=== PATIENT | female | born 1960 | race Caucasian/White ===

== ENCOUNTER 2017-06-15 12:13 | Emergency (ER) | payer MEDICAID ==
[~2017-06-15] VITALS: Ht 152.4 cm; Wt 93.0 kg
[~2017-06-15 12:13] MED LIST: ACET650S PO; ACID1TAB5 PO; ADVAIR; ALBU2.5V4 NEB; ALPR0.25 PO; ALPR0.5T PO; ALPR0.5T7 PO; ALPR1TAB7 PO; AZIT500T PO; BENZ100C18 PO; BUDE0.5A2 IH; BUDE10.2 INH; BUDE6HFA INH; CEFE1VIA10 IV; CEFU500T5 PO; CETI10TA17 PO; CLOT10TR PO; CYCL10TA9 PO; DNPZ10T PO; DXCC100C PO; ENXP40I.4 SC; FAMO20TA5; FISH OIL PO; FLUT16SP22 NS; FRSM40T PO; FURO20TA4 PO; FURO40TA4 PO; GFN600TCR PO; GUAI5LIQ PO; HYDR-3816 PO; HYDR118S10 PO; IBUP-1773 PO; IPRA0.2S18 IH; K-ROCEP1PB IV; LEVA1.256 IH; LEVO750T39 PO; LORA10TA7 PO; LRT10T PO; METH125V2 IJ; METO-272 PO; MNTL10T PO; MONT10TA24 PO; MTP50T PO; Metoprolol Succinate PO; PNT40TEC PO; PRD10T PO; PRD20T PO; PRED10TA PO; Prednisone PO; ROFL500T PO; RT-ALBUINH IH; RT-ALBUINH INH; SERT50TA PO; SERT50TA9 PO; SODI88SP5 NS; TIOT18CA IH; TIOT18CA2 INH
[2017-06-15] MEDS ORDERED: morphine INJ 10 MG/ML 1ML (SYR OR VIAL) IM STA (15:14)
--- NOTE | 2017-06-15 15:20 | ED Lower Extremity ---
General Chief Complaint: Lower Extremity Stated Complaint: LEFT KNEE PAIN Nursing Triage Note: pt c/o left knee pain starting yesterday. no known injury. Nursing Sepsis Screen: No Definite Risk Source: patient Exam Limitations: no limitations History of Present Illness Time seen by provider: 15:05 Initial Comments 56-year-old female patient presents to the emergency department complains of left knee pain beginning yesterday. Initially denied injury to nursing staff. Patient now states she fell 2-3 days ago onto the left knee. Denies hitting her head or loss of consciousness. Onset: yesterday Pain/Injury Location: left knee Method of Injury: fell Modifying Factors: Improves With Immobilization, Worse With Movement Allergies and Home Medications Allergies Coded Allergies: naproxen (Verified Allergy, Unknown, 01/22/16) levofloxacin (Unverified Adverse Reaction, Unknown, 06/15/17) MUSCLE PAIN Home Medications Albuterol Sulfate 18 Gm Hfa.aer.ad, 2 PUFF INH Q4H PRN for SHORTNESS OF BREATH, (Reported) Albuterol Sulfate 2.5 Mg/3 Ml Vial.neb, 2.5 MG NEB Q6H PRN for SHORTNESS OF BREATH, (Reported) Alprazolam 0.5 Mg Tablet, 0.5 MG PO BID PRN for ANXIETY, #30 Prescribed by: CHRISTOPHE BROWER on 01/26/16 1034 Budesonide/Formoterol Fumarate 10.2 Gm Hfa.aer.ad, 2 PUFF INH BID, (Reported) Cetirizine HCl 10 Mg Tablet, 10 MG PO HS, (Reported) Famotidine 20 Mg Tablet, #60 (Reported) Fluticasone Propionate 16 Gm [place].susp, 2 SPRAYS NS HS, (Reported) Furosemide 40 Mg Tablet, 40 MG PO DAILY, (Reported) Hydrocodone/Acetaminophen 1 Each Tablet, 0.5-1 TAB PO Q6H PRN for PAIN, #30 Prescribed by: CHRISTOPHE BROWER on 01/26/16 1034 Metoprolol Succinate 50 Mg Tab.er.24h, 50 MG PO DAILY, (Reported) Montelukast Sodium 10 Mg Tablet, 10 MG PO DAILY, (Reported) Oxycodone HCl/Acetaminophen 1 Each Tablet, 1 EACH PO Q6H PRN for pain, #10 Ref 0 Prescribed by: RAHEEM MALONE on 06/15/17 1555 Prednisone 10 Mg Tab, 10 MG PO DAILY for 12 Days 60mg daily-2 days 50mg daily-2 d 40mg daily-2 d 30mg daily-2 d 20mg daily-2 d 10mg daily-2 d then stop Prescribed by: CHRISTOPHE BROWER on 01/26/16 1034 Sertraline HCl 50 Mg Tablet, 50 MG PO DAILY, (Reported) Tiotropium [place] 1 Inh Aerp, 1 INH INH DAILY, (Reported) Constitutional: no symptoms reported Respiratory: no symptoms reported Cardiovascular: no symptoms reported Musculoskeletal: see HPI, joint pain, No joint swelling Skin: No change in color Psychiatric/Neurological: Denies Headache, Denies Numbness, Denies Paresthesia , Denies Tingling, Denies Weakness All Other Systems Reviewed Negative Unless Noted: Yes (Negative excepted noted.) Past Yyuupey-Igefkz-Seiddb Hx Patient Social History Alcohol Use: Denies Use Recreational Drug Use: No Smoking Status: Former Smoker Recent Foreign Travel: No Contact w/Someone Who Travel: No Recent Infectious Disease Expo: No Recent Hopitalizations: No Immunizations Up To Date Tetanus Booster (TDap): More than 5yrs PED Vaccines UTD: No Date of Pneumonia Vaccine: Sep 14, 2014 Date of Influenza Vaccine: Sep 14, 2014 Seasonal Allergies Seasonal Allergies: No Surgeries HX Surgeries: Yes Surgeries: Gallbladder, Hysterectomy, Tubal Ligation Respiratory Hx Respiratory Disorders: Yes Respiratory Disorders: Pneumonia, Chronic Bronchitis, COPD, Emphysema Cardiovascular Hx Cardiac Disorders: Yes Cardiac Disorders: High Cholesterol, Hypertension Neurological Hx Neurological Disorders: No Reproductive System Hx Reproductive Disorders: No Sexually Transmitted Disease: No HIV/AIDS: No 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 Genitourinary Hx Genitourinary Disorders: Yes Genitourinary Disorders: Neurogenic Bladder Gastrointestinal Hx Gastrointestinal Disorders: Yes Gastrointestinal Disorders: Chronic Constipation Musculoskeletal Hx Musculoskeletal Disorders: Yes Musculoskeletal Disorders: Degenerate Disk Disease, Arthritis, Chronic Back Pain, Spasms Endocrine Hx Endocrine Disorders: Yes (last labs done shown border line diabetes patient states ) HEENT HX ENT Disorders: Yes (wears reading glasses states old age) Loss of Vision: Denies Hearing Impairment: Denies Cancer Hx Cancer: No Psychosocial Hx Psychiatric Problems: Yes (mood swings on zoloft) Behavioral Health Disorders: Anxiety Integumentary HX Skin/Integumentary Disorder: No Blood Transfusions Hx Blood Disorders: No Reviewed Nursing Assessment Reviewed/Agree w Nursing PMH: Yes Family Medical History Significant Family History: No Pertinent Family Hx Family Medial History: Cancer Cancer of colon Chest pain Congestive heart failure Family history: Alzheimer's disease Family history: Arthritis Family history: Asthma Family history: Breast disease Family history: Cardiovascular disease Family history: Diabetes mellitus Family history: Hypertension Family history: Osteoporosis Family history: Thyroid disorder Headache Heart disease History of - respiratory disease Kidney disease Myocardial infarction Stroke Visual impairment No Family History of: Abdominal aortic aneurysm [place]'s disease Alcoholism Aphasia Cataract Congenital heart disease Cystic fibrosis Dementia Dysphagia Family history: Allergy Family history: Coronary thrombosis Family history: Gastrointestinal disease Family history: Glaucoma Hearing loss Hereditary disease History of - anemia History of - disorder History of drug abuse Human immunodeficiency virus (HIV) seropositivity Hypercholesterolemia Infertile Malignant neoplasm of lung Parkinson's disease Prostate cancer Psychotic disorder Seizure disorder Tuberculosis Physical Exam Vital Signs Vital Sign - Last 12Hours 06/15/17 12:54 Temp 97.0 Pulse 101 Resp 20 B/P (MAP) 129/82 Pulse Ox 99 O2 Delivery Nasal Cannula O2 Flow Rate 3.00 Capillary Refill : Less Than 3 Seconds General Appearance: WD/WN, no apparent distress Cardiovascular: normal peripheral pulses, regular rate, rhythm, no edema, no murmur Respiratory: lungs clear, normal breath sounds, no respiratory distress Gastrointestinal: non tender, soft Hips: right hip non-tender, bilateral hip normal inspection, bilateral hip normal range of motion, bilateral hip no evidence of injury, left hip bone tenderness, left hip soft tissue tenderness Legs: bilateral leg non-tender, bilateral leg normal inspection, bilateral leg normal range of motion, bilateral leg no evidence of injury Knees: right knee non-tender, bilateral knee normal inspection, right knee normal range of motion, bilateral knee no evidence of injury, left knee bone tenderness, left knee pain, left knee soft tissue tenderness, left knee other ( decreased ROM from 0-90 degrees flexion.) Ankles: bilateral ankle non-tender, bilateral ankle normal inspection, bilateral ankle normal range of motion, bilateral ankle no evidence of injury Feet: bilateral foot non-tender, bilateral foot normal inspection, bilateral foot normal range of motion, bilateral foot no evidence of injury Neurologic/Tendon: normal sensation, normal motor functions, normal tendon functions, responds to pain, no evidence tendon injury Neurologic/Psychiatric: no motor/sensory deficits, alert, normal mood/affect, oriented x 3 Skin: normal color, warm/dry, No ecchymosis (no evidence of trauma) Progress/Results/Core Measures Results/Orders My Orders Orders - RAHEEM MALONE Knee, Left, 3 Views (06/15/17 15:04) Hip, Left, 2 Views (06/15/17 15:14) Morphine Injection (Morphine Injection (06/15/17 15:14) Vital Signs/I&O Vital Sign - Last 12Hours 06/15/17 06/15/17 12:54 16:10 Temp 97.0 98.7 Pulse 101 89 Resp 20 24 B/P (MAP) 129/82 Pulse Ox 99 98 O2 Delivery Nasal Cannula Room Air O2 Flow Rate 3.00 Blood Pressure Mean: 98 Diagnostic Imaging Diagonstic Imaging: Xray Plain Films/CT/US/NM/MRI: knee Comments FINDINGS: There is no left knee joint effusion. There is moderate to severe patellofemoral compartment joint space loss. There is chondrocalcinosis. There is moderate narrowing of the medial compartment of the left knee. There is no prominent osteophyte formation. There is no identified acute fracture. IMPRESSION: 1. Moderate to severe patellofemoral and moderate medial compartment arthritis. 2. No knee joint effusion. 3. Chondrocalcinosis which has multiple associations including calcium pyrophosphate dihydrate deposition disease. Dictated by: Dictated on workstation # [id number] Reviewed: Reviewed by Me (radiology report reviewed by me) Diagonstic Imaging: Xray Plain Films/CT/US/NM/MRI: hip Comments FINDINGS: No fracture, dislocation or other acute abnormalities. IMPRESSION: Negative left hip. Dictated by: Dictated on workstation # [id number] Reviewed: Reviewed by Me (radiology report reviewed by me) Departure Communication Progress Notes Diagnostic findings discussed with the patient. Plan for discharge to home. Impression Impression: Primary Impression: Left knee pain Qualified Codes: M25.562 - Pain in left knee Additional Impression: Osteoarthritis of left knee Qualified Codes: M17.12 - Unilateral primary osteoarthritis, left knee Disposition: 01 HOME, SELF-CARE Condition: Improved Departure-Patient Inst. Decision time for Depature: 15:52 Referrals: ANGELITA GARCIA MD (PCP) Primary Care Physician Patient Instructions: Osteoarthritis (DC) Add. Discharge Instructions: All discharge instructions reviewed with patient and/or family. Voiced understanding. Continue usual home medications. Elevate the left knee on pillows. Ice pack for 20 minute intervals as needed for pain. Activity as tolerated. Follow-up with Dr. Garcia as an outpatient for recheck. Return to the emergency department for worsened symptoms or any other concerns. Scripts Oxycodone HCl/Acetaminophen (Oxycodone-Acetaminophen 5-325) 1 Each Tablet 1 EACH PO Q6H Y for pain, #10 TAB 0 Refills Prov: RAHEEM MALONE 06/15/17 RAHEEM MALONE Jun 15, 2017 15:20
--- NOTE | 2017-06-15 15:34 | Diagnostic Imaging Report ---
EXAMINATION: Left knee, 3 views. COMPARISON: None. INDICATION: 56-year-old female, left knee pain. FINDINGS: There is no left knee joint effusion. There is moderate to severe patellofemoral compartment joint space loss. There is chondrocalcinosis. There is moderate narrowing of the medial compartment of the left knee. There is no prominent osteophyte formation. There is no identified acute fracture. IMPRESSION: 1. Moderate to severe patellofemoral and moderate medial compartment arthritis. 2. No knee joint effusion. 3. Chondrocalcinosis which has multiple associations including calcium pyrophosphate dihydrate deposition disease. Dictated by: Dictated on workstation # [id number]
--- NOTE | 2017-06-15 15:35 | Diagnostic Imaging Report ---
INDICATION: Left hip pain. EXAMINATION: Two views of the left hip were obtained. FINDINGS: No fracture, dislocation or other acute abnormalities. IMPRESSION: Negative left hip. Dictated by: Dictated on workstation # [id number]
[2017-06-15] MEDS ORDERED: OXYC-471 PO (15:55)
[2017-06-15 16:10] VITALS: BP 100/66
== END 2017-06-15 16:10 | disposition home or self-care (01) ==
LOC: EDUNIT# 12:13 → ER 12:15
DX: M17.12 Unilateral primary osteoarthritis, left knee (principal); M47.9 Spondylosis, unspecified; F41.9 Anxiety disorder, unspecified; K59.09 Other constipation; E78.00 Pure hypercholesterolemia, unspecified; I10 Essential (primary) hypertension; J43.9 Emphysema, unspecified; Z90.710 Acquired absence of both cervix and uterus; Z98.51 Tubal ligation status; Z87.891 Personal history of nicotine dependence
CPT/HCPCS: 73502; 73562; 96372; 99284

== ENCOUNTER 2017-08-07 11:05 | Inpatient (IN) | payer MEDICAID ==
[~2017-08-07] VITALS: Ht 152.4 cm; Wt 95.3 kg
[2017-08-07] VITALS (10 sets, daily range): BP systolic 107–130; BP diastolic 71–89
[~2017-08-07 11:05] MED LIST changes: -FAMO20TA5; +FAMO20TA5 PO; +OXYC-471 PO
[2017-08-07] MEDS ORDERED: RT-ALBUTEROL/IPRATROPIUM 3 ML (DUONEB) VIAL ONE (11:07)
[2017-08-07] MEDS ORDERED: RT-ALBUTEROL SULF 2.5 MG/3 ML PRE-MIX VIAL ONE ×2 (11:17)
--- NOTE | 2017-08-07 11:19 | ED Respiratory ---
General Chief Complaint: Respiratory Problems Stated Complaint: SOA Source: patient Exam Limitations: no limitations History of Present Illness Time seen by provider: 11:16 Initial Comments The patient is a 57-year-old white female who presents to the emergency room with complaints of shortness of breath. She reports this has been increasing over the past 2-3 days. She has not taken one but believes she may have a fever. She describes increase in sputum with yellow-green production. She is chronically on home oxygen. She also has albuterol which she uses at home. She stopped smoking about 2 years ago. She had an 06-50-hhca-year smoking history at that time. There is no previous history of heart disease. She is hypertensive. Timing/Duration: week, getting worse Prior Episodes/Possible Cause: occasional episodes Modifying Factors: Improves With Albuterol Inhaler, Improves With Albuterol Nebulizer, Improves With Oxygen Associated Symptoms: cough, shortness of breath, wheezing Allergies and Home Medications Allergies Coded Allergies: naproxen (Verified Allergy, Unknown, 01/22/16) levofloxacin (Unverified Adverse Reaction, Unknown, 06/15/17) MUSCLE PAIN Home Medications Albuterol Sulfate 18 Gm Hfa.aer.ad, 2 PUFF INH Q4H PRN for SHORTNESS OF BREATH, (Reported) Albuterol Sulfate 2.5 Mg/3 Ml Vial.neb, 2.5 MG NEB Q6H PRN for SHORTNESS OF BREATH, (Reported) Alprazolam 0.5 Mg Tablet, 0.5 MG PO BID PRN for ANXIETY, #30 Prescribed by: CHRISTOPHE BROWER on 01/26/16 1034 Budesonide/Formoterol Fumarate 10.2 Gm Hfa.aer.ad, 2 PUFF INH BID, (Reported) Cetirizine HCl 10 Mg Tablet, 10 MG PO HS, (Reported) Famotidine 20 Mg Tablet, #60 (Reported) Fluticasone Propionate 16 Gm [place].susp, 2 SPRAYS NS HS, (Reported) Furosemide 40 Mg Tablet, 40 MG PO DAILY, (Reported) Hydrocodone/Acetaminophen 1 Each Tablet, 0.5-1 TAB PO Q6H PRN for PAIN, #30 Prescribed by: CHRISTOPHE BROWER on 01/26/16 1034 Metoprolol Succinate 50 Mg Tab.er.24h, 50 MG PO DAILY, (Reported) Montelukast Sodium 10 Mg Tablet, 10 MG PO DAILY, (Reported) Oxycodone HCl/Acetaminophen 1 Each Tablet, 1 EACH PO Q6H PRN for pain, #10 Ref 0 Prescribed by: RAHEEM MALONE on 06/15/17 1555 Prednisone 10 Mg Tab, 10 MG PO DAILY for 12 Days 60mg daily-2 days 50mg daily-2 d 40mg daily-2 d 30mg daily-2 d 20mg daily-2 d 10mg daily-2 d then stop Prescribed by: CHRISTOPHE BROWER on 01/26/16 1034 Sertraline HCl 50 Mg Tablet, 50 MG PO DAILY, (Reported) Tiotropium [place] 1 Inh Aerp, 1 INH INH DAILY, (Reported) Constitutional: see HPI EENTM: no symptoms reported Respiratory: see HPI Cardiovascular: no symptoms reported Gastrointestinal: no symptoms reported Genitourinary: no symptoms reported Musculoskeletal: no symptoms reported Skin: no symptoms reported Psychiatric/Neurological: No Symptoms Reported Past Xqzcnis-Dfixbe-Dvmcwm Hx Patient Social History Former Smoker, Quit: Nov 24, 2012 Recent Foreign Travel: No Contact w/Someone Who Travel: No Recent Hopitalizations: No Immunizations Up To Date Tetanus Booster (TDap): More than 5yrs PED Vaccines UTD: No Date of Pneumonia Vaccine: Sep 14, 2014 Date of Influenza Vaccine: Sep 14, 2014 Seasonal Allergies Seasonal Allergies: No Surgeries History of Surgeries: Yes Surgeries: Gallbladder, Hysterectomy, Tubal Ligation Respiratory History of Respiratory Disorde: Yes Respiratory Disorders: Pneumonia, Chronic Bronchitis, COPD, Emphysema Currently Using CPAP: No Currently Using BIPAP: No Cardiovascular History of Cardiac Disorders: Yes Cardiac Disorders: High Cholesterol, Hypertension Neurological History of Neurological Disord: No Reproductive System Hx Reproductive Disorders: No Sexually Transmitted Disease: No HIV/AIDS: No 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 Genitourinary Genitourinary Disorders: Neurogenic Bladder Gastrointestinal History of Gastrointestinal Di: Yes Gastrointestinal Disorders: Chronic Constipation Musculoskeletal History of Musculoskeletal Dis: Yes Musculoskeletal Disorders: Degenerate Disk Disease, Arthritis, Chronic Back Pain, Spasms Endocrine History of Endocrine Disorders: Yes (last labs done shown border line diabetes patient states ) HEENT Loss of Vision: Denies Hearing Impairment: Denies Cancer History of Cancer: No Psychosocial History of Psychiatric Problem: Yes (mood swings on zoloft) Behavioral Health Disorders: Anxiety Integumentary History of Skin or Integumenta: No Blood Transfusions History of Blood Disorders: No Family Medical History Significant Family History: No Pertinent Family Hx Family Medial History: Cancer Cancer of colon Chest pain Congestive heart failure Family history: Alzheimer's disease Family history: Arthritis Family history: Asthma Family history: Breast disease Family history: Cardiovascular disease Family history: Diabetes mellitus Family history: Hypertension Family history: Osteoporosis Family history: Thyroid disorder Headache Heart disease History of - respiratory disease Kidney disease Myocardial infarction Stroke Visual impairment No Family History of: Abdominal aortic aneurysm Brown's disease Alcoholism Aphasia Cataract Congenital heart disease Cystic fibrosis Dementia Dysphagia Family history: Allergy Family history: Coronary thrombosis Family history: Gastrointestinal disease Family history: Glaucoma Hearing loss Hereditary disease History of - anemia History of - disorder History of drug abuse Human immunodeficiency virus (HIV) seropositivity Hypercholesterolemia Infertile Malignant neoplasm of lung Parkinson's disease Prostate cancer Psychotic disorder Seizure disorder Tuberculosis Physical Exam Vital Signs Vital Sign - Last 12Hours 08/07/17 08/07/17 11:05 11:17 Temp 97.5 Pulse 120 Resp 24 B/P (MAP) 112/79 Pulse Ox 98 O2 Delivery Nasal Cannula O2 Flow Rate 5.00 Capillary Refill : General Appearance: moderate distress Eyes: Bilateral Eye Normal Inspection HEENT: normal ENT inspection Neck: non-tender Respiratory: respiratory distress, decreased breath sounds Cardiovascular: normal peripheral pulses, regular rate, rhythm, no edema, no gallop, no JVD, no murmur Gastrointestinal: normal bowel sounds, non tender, soft, no organomegaly, no pulsatile mass Extremities: normal range of motion 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, no motor/sensory deficits, alert, normal mood/affect, oriented x 3 Skin: normal color, warm/dry, cyanosis, cool, diaphoresis, damp Lymphatic: no adenopathy Progress/Results/Core Measures Results/Orders Lab Results Laboratory Tests Test 08/07/17 11:25 08/07/17 12:25 Range/Units White Blood Count 11.9 H 4.3-11.0 10^3/uL Red Blood Count 3.57 L 4.35-5.85 10^6/uL Hemoglobin 11.1 L 11.5-16.0 G/DL Hematocrit 36 35-52 % Mean Corpuscular Volume 102 H 80-99 FL Mean Corpuscular Hemoglobin 31 25-34 PG Mean Corpuscular Hemoglobin Concent 31 L 32-36 G/DL Red Cell Distribution Width 13.3 10.0-14.5 % Platelet Count 307 130-400 10^3/uL Mean Platelet Volume 10.4 7.4-10.4 FL Neutrophils (%) (Auto) 82 H 42-75 % Lymphocytes (%) (Auto) 13 12-44 % Monocytes (%) (Auto) 4 0-12 % Eosinophils (%) (Auto) 1 0-10 % Basophils (%) (Auto) 0 0-10 % Neutrophils # (Auto) 9.8 H 1.8-7.8 X 10^3 Lymphocytes # (Auto) 1.5 1.0-4.0 X 10^3 Monocytes # (Auto) 0.5 0.0-1.0 X 10^3 Eosinophils # (Auto) 0.1 0.0-0.3 10^3/uL Basophils # (Auto) 0.0 0.0-0.1 10^3/uL Sodium Level 140 135-145 MMOL/L Potassium Level 3.6 3.6-5.0 MMOL/L Chloride Level 92 L 98-107 MMOL/L Carbon Dioxide Level 38 H 21-32 MMOL/L Anion Gap 10 5-14 MMOL/L Blood Urea Nitrogen 9 7-18 MG/DL Creatinine 0.97 0.60-1.30 MG/DL Estimat Glomerular Filtration Rate 59 BUN/Creatinine Ratio 9 Glucose Level 128 H 70-105 MG/DL Calcium Level 9.4 8.5-10.1 MG/DL Total Bilirubin 0.5 0.1-1.0 MG/DL Aspartate Amino Transf (AST/SGOT) 18 5-34 U/L Alanine Aminotransferase (ALT/SGPT) 20 0-55 U/L Alkaline Phosphatase 125 40-136 U/L Troponin I < 0.30 <0.30 NG/ML Total Protein 7.5 6.4-8.2 GM/DL Albumin 4.1 3.2-4.5 GM/DL My Orders Orders - ESPERANZA DE ASNTIAGO MD Albuterol/Ipra Inhalation Soln (Duoneb I (08/07/17 11:07) Cbc With Automated Diff (08/07/17 11:19) Comprehensive Metabolic Panel (08/07/17 11:19) Troponin I (08/07/17 11:19) Ua Culture If Indicated (08/07/17 11:19) Chest 1 View, Ap/Pa Only (08/07/17 11:19) Albuterol/Ipra Inhalation Soln (Duoneb I (08/07/17 11:30) Ekg Tracing (08/07/17 11:19) Svn Sm Volume Nebulizer Rt-Rfs (08/07/17 11:19) Albuterol Pre-Mix Nebs (Rt) (Proventil P (08/07/17 11:17) Albuterol Pre-Mix Nebs (Rt) (Proventil P (08/07/17 11:17) Medications Given in ED Current Medications Medications Dose Ordered Sig/Sharmin Route Start Time Stop Time Status Last Admin Dose Admin Albuterol Sulfate 2.5 mg STK-MED ONCE .ROUTE 08/07/17 11:17 08/07/17 11:24 DC 08/07/17 11:25 12.5 MG Albuterol/ Ipratropium 3 ml STK-MED ONCE .ROUTE 08/07/17 11:07 08/07/17 11:14 DC 08/07/17 11:17 3 ML Vital Signs/I&O Vital Sign - Last 12Hours 08/07/17 08/07/17 11:05 11:17 Temp 97.5 Pulse 120 Resp 24 B/P (MAP) 112/79 Pulse Ox 98 97 O2 Delivery Nasal Cannula Nasal Cannula O2 Flow Rate 5.00 Departure Communication (Admissions) Progress Notes [address] Brower [facility] today. The patient will be admitted for more intensive treatment. Impression Impression: Primary Impression: COPD and exacerbation Disposition: ADMITTED INPATIENT Condition: Stable/Unchanged Admissions Decision to Admit Reason: Admit from ER (General) Decision to Admit/Date: Aug 07, 2017 Time/Decision to Admit Time: 13:12 Transfer Time Spoke to Accepting Phy: 12:40 Departure-Patient Inst. Referrals: ANGELITA AVILEZ MD (PCP/Family) Primary Care Physician ESPERANZA DE SANTIAGO MD Aug 07, 2017 11:19
[2017-08-07] MEDS ORDERED: RT-ALBUTEROL/IPRATROPIUM 3 ML (DUONEB) VIAL INH ONE (11:30)
[2017-08-07 11:39] LABS: BASOPHILS % (AUTO) 0 % (0-10); EOSINOPHILS # (AUTO) 0.1 10^3/uL (0.0-0.3); EOSINOPHILS % (AUTO) 1 % (0-10); LYMPHOCYTES # (AUTO) 1.5 X 10^3 (1.0-4.0); LYMPHOCYTES % (AUTO) 13 % (12-44); MEAN CORPUSCULAR HEMOGLOBIN 31 PG (25-34); MEAN CORPUSCULAR HGB CONC 31 G/DL (32-36); MEAN CORPUSCULAR VOLUME 102 FL (80-99); MEAN PLATELET VOLUME 10.4 FL (7.4-10.4); MONOCYTES # (AUTO) 0.5 X 10^3 (0.0-1.0); MONOCYTES % (AUTO) 4 % (0-12); NEUTROPHILS # (AUTO) 9.8 X 10^3 (1.8-7.8); NEUTROPHILS % (AUTO) 82 % (42-75); PLATELET COUNT 307 10^3/uL (130-400); RED BLOOD COUNT 3.57 10^6/uL (4.35-5.85); RED CELL DISTRIBUTION WIDTH 13.3 % (10.0-14.5); WHITE BLOOD COUNT 11.9 10^3/uL (4.3-11.0)
--- NOTE | 2017-08-07 11:59 | Diagnostic Imaging Report ---
EXAM: Portable upright radiograph of the chest. INDICATION: Shortness of breath. FINDINGS: The lungs are clear of focal infiltrates. Slightly prominent interstitial markings are similar to 01/23/2016. The heart size is at the upper limits of normal. No effusion or pneumothorax. The mediastinum and matthew appear unremarkable. IMPRESSION: No acute process. Dictated by: Dictated on workstation # [id number]
[2017-08-07 12:49] LABS: ALANINE AMINOTRANSFERASE 20 U/L (0-55); ALBUMIN 4.1 GM/DL (3.2-4.5); ANION GAP 10 MMOL/L (5-14); ASPARTATE AMINO TRANSFERASE 18 U/L (5-34); BILIRUBIN,TOTAL 0.5 MG/DL (0.1-1.0); BLOOD UREA NITROGEN 9 MG/DL (7-18); BUN/CREATININE RATIO 9; CALCIUM 9.4 MG/DL (8.5-10.1); CARBON DIOXIDE 38 MMOL/L (21-32); CHLORIDE 92 MMOL/L (98-107); CREATININE SERUM 0.97 MG/DL (0.60-1.30); GFR ESTIMATED 59; GLUCOSE 128 MG/DL (70-105); POTASSIUM 3.6 MMOL/L (3.6-5.0); SODIUM 140 MMOL/L (135-145); TOTAL PROTEIN 7.5 GM/DL (6.4-8.2)
[2017-08-07 12:55] LABS: TROPONIN I < 0.30 NG/ML (<0.30)
[2017-08-07] MEDS ORDERED: methylPREDNISolone 125 MG (Solu-MEDROL) VIAL IVP ONE (13:30)
[2017-08-07] MEDS ORDERED: CATHETER FLUSH 10 ML SYR IV PRN (14:30)
[2017-08-07] MEDS ORDERED: CYCL10TA9 PO (15:09)
[2017-08-07] MEDS ORDERED: HYDR-3816 PO (15:09)
[2017-08-07] MEDS ORDERED: ALPR0.5T7 PO (15:09)
[2017-08-07] MEDS ORDERED: CYAN10006 PO (15:15)
[2017-08-07] MEDS ORDERED: RT-ALBUTEROL HFA (VENTOLIN) PER PUFF IH PRN (17:15)
[2017-08-07] MEDS ORDERED: RT-ALBUTEROL SULF 2.5 MG/3 ML PRE-MIX VIAL IH PRN (17:15)
[2017-08-07] MEDS ORDERED: RT-ALBUTEROL/IPRATROPIUM 3 ML (DUONEB) VIAL INH SCH (18:00)
[2017-08-07] MEDS ORDERED: FUROSEMIDE 40 MG/4 ML INJ (LASIX) ONE ×2 (18:33→23:49)
[2017-08-07] MEDS: cefTRIAXone 2 GM/NS 50 ML IVPB IV SCH ×2 (18:45)
[2017-08-07] MEDS: methylPREDNISolone 125 MG (Solu-MEDROL) VIAL IV SCH ×2 (18:45→23:58)
[2017-08-07] MEDS: RT-ALBUTEROL/IPRATROPIUM 3 ML (DUONEB) VIAL IH SCH ×2 (19:43→22:51)
[2017-08-07] MEDS: MONTELUKAST 10 MG (SINGULAIR) TAB PO SCH (20:25)
[2017-08-07] MEDS: FAMOTIDINE 20 MG (PEPCID) TABLET PO SCH (20:25)
[2017-08-07] MEDS: ALPRAZolam 0.5 MG (XANAX) TAB PO SCH (20:26)
[2017-08-07] MEDS: SERTRALINE 50 MG (ZOLOFT) TABLET PO SCH (20:26)
[2017-08-07] MEDS: HYDROcodone/APAP 7.5 MG/325 MG (LORTAB, LORCET PLUS) TABLET PO PRN (20:26)
[2017-08-07] MEDS ORDERED: inSUlin (REGULAR) HUMAN 1 UNIT/0.01 ML (CHARGE PER UNIT) SC SCH (21:00)
[2017-08-07] MEDS ORDERED: RT-SYMBICORT 160/4.5 MCG INHALER PER PUFF IH SCH (21:00)
[2017-08-07 21:35] LABS: BILIRUBIN,URINE NEGATIVE (NEGATIVE); KETONES,URINE NEGATIVE (NEGATIVE); LEUKOCYTE ESTERASE ,URINE NEGATIVE (NEGATIVE); NITRITE,URINE NEGATIVE (NEGATIVE); PH,URINE 7 (5-9); PROTEIN,URINE NEGATIVE (NEGATIVE); UROBILINOGEN,URINE NORMAL (NORMAL)
[2017-08-07 21:56] LABS: SQUAMOUS EPITHELIAL CELL,UR RARE /HPF; WBC,URINE RARE /HPF
[2017-08-07] MEDS: RT-ADVAIR HFA 115/21 MCG PER PUFF IH SCH (22:51)
[2017-08-07] MEDS: CATHETER FLUSH 10 ML SYR IV SCH (23:04)
[2017-08-07] MEDS: guaiFENesin/DM (ROBITUSSIN DM) 10 ML UDC PO PRN (23:58)
[2017-08-08] VITALS (24 sets, daily range): BP systolic 92–144; BP diastolic 54–88
[2017-08-08] MEDS: inSUlin ASPART (NovoLOG) 1 UNIT/0.01 ML (CHARGE PER UNIT) SC SCH ×6 (00:09→22:05)
[2017-08-08] MEDS ORDERED: FUROSEMIDE 40 MG/4 ML INJ (LASIX) IV ONE (00:45)
[2017-08-08] MEDS: RT-ALBUTEROL/IPRATROPIUM 3 ML (DUONEB) VIAL IH SCH ×6 (01:44→22:25)
[2017-08-08 04:06] LABS: BASOPHILS % (AUTO) 0 % (0-10); EOSINOPHILS % (AUTO) 0 % (0-10); LYMPHOCYTES # (AUTO) 0.8 X 10^3 (1.0-4.0); LYMPHOCYTES % (AUTO) 9 % (12-44); MEAN CORPUSCULAR HEMOGLOBIN 31 PG (25-34); MEAN CORPUSCULAR HGB CONC 31 G/DL (32-36); MEAN CORPUSCULAR VOLUME 101 FL (80-99); MONOCYTES # (AUTO) 0.1 X 10^3 (0.0-1.0); MONOCYTES % (AUTO) 1 % (0-12); NEUTROPHILS # (AUTO) 7.6 X 10^3 (1.8-7.8); NEUTROPHILS % (AUTO) 90 % (42-75); PLATELET COUNT 303 10^3/uL (130-400); RED BLOOD COUNT 3.48 10^6/uL (4.35-5.85); RED CELL DISTRIBUTION WIDTH 13.1 % (10.0-14.5); WHITE BLOOD COUNT 8.5 10^3/uL (4.3-11.0)
[2017-08-08 04:23] LABS: CALCIUM 9.2 MG/DL (8.5-10.1); CREATININE SERUM 1.11 MG/DL (0.60-1.30); PHOSPHORUS 2.6 MG/DL (2.3-4.7); POTASSIUM 3.1 MMOL/L (3.6-5.0)
[2017-08-08] MEDS: MAGNESIUM 1 GM/100 ML IVPB 100 ML IV SCH (04:28)
[2017-08-08] MEDS ORDERED: KCL 20 MEQ TAB (K-DUR) PO ONE ×2 (04:30→07:30)
[2017-08-08] MEDS: KCL 20 MEQ TAB (K-DUR) PO SCH (04:31)
[2017-08-08] MEDS: POTASSIUM CL 10MEQ/50ML IVPB 50 ML IV SCH (04:31)
[2017-08-08] MEDS: HYDROcodone/APAP 7.5 MG/325 MG (LORTAB, LORCET PLUS) TABLET PO PRN ×3 (04:41→22:05)
[2017-08-08] MEDS: guaiFENesin/DM (ROBITUSSIN DM) 10 ML UDC PO PRN ×4 (04:41→22:06)
[2017-08-08 04:52] LABS: LYMPHOCYTES % (MANUAL) 11 %; NEUTROPHILS % (MANUAL) 84 %
[2017-08-08] MEDS: RT-ADVAIR HFA 115/21 MCG PER PUFF IH SCH ×2 (06:20→20:04)
[2017-08-08] MEDS: CATHETER FLUSH 10 ML SYR IV SCH ×3 (06:41→22:07)
[2017-08-08] MEDS: methylPREDNISolone 125 MG (Solu-MEDROL) VIAL IV SCH ×3 (06:41→18:08)
--- NOTE | 2017-08-08 07:35 | Diagnostic Imaging Report ---
Portable upright radiograph of the chest. INDICATION: Shortness of breath. COMPARISON: 08/07/17. FINDINGS: The lungs demonstrate no focal consolidation. The heart size is normal. No effusion or pneumothorax. The mediastinum and matthew appear unremarkable. IMPRESSION: Unremarkable exam. Dictated by: Dictated on workstation # [id number]
--- NOTE | 2017-08-08 07:36 | Diagnostic Imaging Report ---
Portable upright radiograph of the chest. INDICATION: Dyspnea. COPD. COMPARISON: 08/07/17. FINDINGS: The lungs are clear. The heart size is at the upper limits of normal. No effusion or pneumothorax. The mediastinum and matthew appear unremarkable. IMPRESSION: Unremarkable exam. Dictated by: Dictated on workstation # [id number]
[2017-08-08] MEDS ORDERED: NON-FORMULARY MEDICATION 1 EA EA (Cyanocobalamin (Vitamin B-12) (Vitamin B-12) 1,000 MCG) PO SCH (09:00)
[2017-08-08] MEDS ORDERED: NON-FORMULARY MEDICATION 1 EA EA (Cetirizine HCl 10 MG) PO SCH (09:00)
--- NOTE | 2017-08-08 09:14 | Pulmonary Consultation ---
History of Present Illness History of Present Illness Date of Consultation 08/08/17 09:06 Time Seen by Provider: 09:06 Date of Admission History of Present Illness 57yo with hx of severe COPD oxygen dependent presented secondary to worsening SOB. Productive cough with yellow - green sputum. Her SOB has improved with lasix and oxygen high flow. She quit smoking 2 yrs ago. She also has had wheezing. I am consulted for ICU management. Allergies and Home Medications Allergies Coded Allergies: naproxen (Verified Allergy, Unknown, 01/22/16) levofloxacin (Unverified Adverse Reaction, Unknown, 06/15/17) MUSCLE PAIN Home Medications Albuterol Sulfate 18 Gm Hfa.aer.ad, 2 PUFF INH Q4H PRN for SHORTNESS OF BREATH, (Reported) Albuterol Sulfate 2.5 Mg/3 Ml Vial.neb, 2.5 MG NEB Q4H PRN for SHORTNESS OF BREATH, (Reported) LAST FILLED 11-07-16 Alprazolam 0.5 Mg Tablet, 0.5 MG PO BID, (Reported) Budesonide/Formoterol Fumarate 10.2 Gm Hfa.aer.ad, 2 PUFF INH BID, (Reported) LAST FILLED 05-11-17 BUT GETS SAMPLES Cetirizine HCl 10 Mg Tablet, 10 MG PO DAILY, (Reported) Cyanocobalamin (Vitamin B-12) 1,000 Mcg Tablet, 1,000 MCG PO DAILY, (Reported) Cyclobenzaprine HCl 10 Mg Tablet, 10 MG PO TID PRN for MUSCLE SPASMS, (Reported) Famotidine 20 Mg Tablet, 20 MG PO BID, (Reported) Furosemide 40 Mg Tablet, 40 MG PO DAILY, (Reported) Hydrocodone/Acetaminophen 1 Each Tablet, 1 TAB PO TID PRN for PAIN-MODERATE, ( Reported) Metoprolol Succinate 50 Mg Tab.er.24h, 50 MG PO DAILY, (Reported) Montelukast Sodium 10 Mg Tablet, 10 MG PO HS, (Reported) Sertraline HCl 50 Mg Tablet, 50 MG PO HS, (Reported) Past Nyrqcvv-Nccoij-Vswcfv Hx Patient Social History Alcohol Use: Denies Use Recreational Drug Use: No Former Smoker, Quit: Nov 24, 2012 Recent Foreign Travel: No Contact w/Someone Who Travel: No Recent Infectious Disease Expo: No Recent Hopitalizations: No Immunizations Up To Date Tetanus Booster (TDap): More than 5yrs PED Vaccines UTD: No Date of Pneumonia Vaccine: Sep 14, 2014 Date of Influenza Vaccine: Sep 14, 2014 Seasonal Allergies Seasonal Allergies: No Surgeries History of Surgeries: Yes Surgeries: Gallbladder, Hysterectomy, Tubal Ligation Respiratory History of Respiratory Disorde: Yes Respiratory Disorders: Pneumonia, Chronic Bronchitis, COPD, Emphysema Currently Using CPAP: No Currently Using BIPAP: No Cardiovascular History of Cardiac Disorders: Yes Cardiac Disorders: High Cholesterol, Hypertension Neurological History of Neurological Disord: No Reproductive System Hx Reproductive Disorders: No Sexually Transmitted Disease: No HIV/AIDS: No 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 Genitourinary History of Genitourinary Disor: No Genitourinary Disorders: Neurogenic Bladder Gastrointestinal History of Gastrointestinal Di: Yes Gastrointestinal Disorders: Chronic Constipation Musculoskeletal History of Musculoskeletal Dis: Yes Musculoskeletal Disorders: Degenerate Disk Disease, Arthritis, Chronic Back Pain, Spasms Endocrine History of Endocrine Disorders: Yes (last labs done shown border line diabetes patient states ) HEENT History of HEENT Disorders: No Loss of Vision: Denies Hearing Impairment: Denies Cancer History of Cancer: No Psychosocial History of Psychiatric Problem: Yes (mood swings on zoloft) Behavioral Health Disorders: Anxiety Integumentary History of Skin or Integumenta: No Blood Transfusions History of Blood Disorders: No Adverse Reaction to a Blood Tr: No Family Medical History Significant Family History: No Pertinent Family Hx Family Medial History: Cancer Cancer of colon Chest pain Congestive heart failure Family history: Alzheimer's disease Family history: Arthritis Family history: Asthma Family history: Breast disease Family history: Cardiovascular disease Family history: Diabetes mellitus Family history: Hypertension Family history: Osteoporosis Family history: Thyroid disorder Headache Heart disease History of - respiratory disease Kidney disease Myocardial infarction Stroke Visual impairment No Family History of: Abdominal aortic aneurysm Cross's disease Alcoholism Aphasia Cataract Congenital heart disease Cystic fibrosis Dementia Dysphagia Family history: Allergy Family history: Coronary thrombosis Family history: Gastrointestinal disease Family history: Glaucoma Hearing loss Hereditary disease History of - anemia History of - disorder History of drug abuse Human immunodeficiency virus (HIV) seropositivity Hypercholesterolemia Infertile Malignant neoplasm of lung Parkinson's disease Prostate cancer Psychotic disorder Seizure disorder Tuberculosis Review of Systems Time Seen by Provider: 09:35 Constitutional: Sweats, Weakness, Malaise, No: Fever, Chills, Other Eyes: No: Pain, Vision change, Conjunctivae inflammation, Eyelid inflammation, Other, Redness ENT: No: Ear pain, Ear discharge, Nose pain, Nose discharge, Nose congestion, Mouth pain, Mouth swelling, Throat pain, Throat swelling, Other Respiratory: Shortness of breath, SOB with excertion, Wheezing, Sputum, No: Hemoptysis Cardiovascular: Paroxysmal Noc. Dyspnea, Edema, No: Chest Pain, Palpitations, Orthopnea, Lt Headedness, Other Gastrointestinal: No: Nausea, Vomiting, Abdominal Pain, Diarrhea, Constipation , Melena, Hematochezia, Other Neurological: Weakness, Incoordination, Confusion Exam Exam Vital Signs Date Time Temp Pulse Resp B/P (MAP) Pulse Ox O2 Delivery O2 Flow Rate FiO2 08/08/17 06:27 94 Vapotherm 22.00 40 08/08/17 06:21 92 Vapotherm 22.00 45 08/08/17 06:00 96 18 117/69 91 Vapotherm 45.00 22.00 08/08/17 05:00 96 26 108/79 95 Vapotherm 45.00 22.00 08/08/17 04:00 96.6 08/08/17 04:00 93 15 121/72 94 Vapotherm 45.00 22.00 08/08/17 04:00 Vapotherm 22.00 60 08/08/17 03:00 105 23 111/65 98 Vapotherm 45.00 22.00 08/08/17 02:00 110 20 121/72 96 Vapotherm 45.00 22.00 08/08/17 01:50 115 19 97 Vapotherm 45.00 22.00 08/08/17 01:44 96 Vapotherm 22.00 50 08/08/17 01:30 105 22 95 Vapotherm 50.00 22.00 08/08/17 01:00 106 20 121/79 99 Vapotherm 60.00 22.00 08/08/17 01:00 106 08/08/17 00:06 96.9 Vapotherm 60.00 22.00 08/08/17 00:00 93 Vapotherm 22.00 60 08/08/17 00:00 Vapotherm 22.00 60 08/08/17 00:00 121 30 129/70 92 Vapotherm 60.00 22.00 08/07/17 23:00 112 22 117/85 96 Vapotherm 60.00 22.00 08/07/17 22:55 96 Vapotherm 22.00 60 08/07/17 22:51 96 Vapotherm 22.00 60 08/07/17 22:00 112 19 115/81 93 Vapotherm 60.00 22.00 08/07/17 21:00 115 20 130/89 92 Vapotherm 60.00 22.00 08/07/17 21:00 94 Vapotherm 22.00 60 08/07/17 20:53 93 Vapotherm 22.00 60 08/07/17 20:52 Vapotherm 60.00 22.00 08/07/17 20:00 Nasal Cannula 5.00 08/07/17 20:00 126 21 127/87 89 Nasal Cannula 5.00 08/07/17 19:45 97.5 109 22 112/71 93 Nasal Cannula 5.00 08/07/17 19:43 90 Nasal Cannula 5.00 08/07/17 19:00 109 14 112/71 91 Nasal Cannula 5.00 08/07/17 19:00 109 08/07/17 18:00 124 20 107/71 94 Nasal Cannula 5.00 08/07/17 17:00 106 21 119/81 94 Nasal Cannula 5.00 08/07/17 16:00 98.3 108 22 117/84 92 Nasal Cannula 5.00 08/07/17 16:00 Nasal Cannula 5.00 08/07/17 14:56 92 Nasal Cannula 5.00 08/07/17 14:44 109 92 08/07/17 14:24 91 Nasal Cannula 5.00 08/07/17 14:00 99.6 108 26 128/87 90 Nasal Cannula 5.00 08/07/17 13:55 90 26 93 High Flow N/C 4.00 08/07/17 11:17 97 Nasal Cannula 5.00 08/07/17 11:05 97.5 120 24 112/79 98 Nasal Cannula General Appearance: Anxious, Moderate Distress Respiratory: Accessory Muscle Use, Decreased Breath Sounds, Wheezing Cardiovascular: Regular Rate, Rhythm Capillary Refill: Less Than 3 Seconds Gastrointestinal: normal bowel sounds, non tender, soft, no organomegaly, no pulsatile mass Neurologic/Psychiatric: Alert, Oriented x3 Skin: Normal Color, Warm/Dry Lymphatic: No Adenopathy Results Lab Laboratory Tests 08/07/17 11:25 08/07/17 12:25 08/08/17 03:38 Assessment/Plan Assessment/Plan COPDAE chronic respiratory failure on acute -Solumedrol 40 IV Q 6 -SVNs Q 4 -BiPAP PRN Allergic rhinitis -Claritin, Singulair morbid obesity 255 Clinical Quality Measures DVT/VTE Risk/Contraindication: Risk Factor Score Per Nursin RFS Level Per Nursing on Admit: 4+=Very High MALATHI SOSA DO Aug 08, 2017 09:14
[2017-08-08] MEDS: CYANOCOBALAMIN 500 MCG TAB (VITAMIN B-12) PO SCH (09:32)
[2017-08-08] MEDS: LORATADINE (CLARITIN) 10 MG TAB PO SCH (09:32)
[2017-08-08] MEDS: FAMOTIDINE 20 MG (PEPCID) TABLET PO SCH ×2 (09:32→22:06)
[2017-08-08] MEDS: FUROSEMIDE 40 MG (LASIX) TAB PO SCH (09:33)
[2017-08-08] MEDS: meTOproloL SUCCINATE 50 MG (TOPROL XL) TAB PO SCH (09:33)
[2017-08-08] MEDS: cefTRIAXone 2 GM/NS 50 ML IVPB IV SCH ×2 (09:39)
[2017-08-08] MEDS: ALPRAZolam 0.5 MG (XANAX) TAB PO SCH ×2 (09:39→22:06)
[2017-08-08] MEDS: DOCUSATE SODIUM 100 MG (COLACE) CAP PO SCH ×2 (09:40→22:06)
[2017-08-08] MEDS ORDERED: methylPREDNISolone 125 MG (Solu-MEDROL) VIAL IV SCH (12:00)
--- NOTE | 2017-08-08 12:09 | History & Physical-Hospitalist ---
HPI History of Present Illness: HPI/Chief Complaint CC: SOB HPI: This is a 57 [address] pt of [address] Garcia who presented with SOB found to have AECOPD. She was placed on IV Solumedrol and Rocephin along with inhaler and breathing treatments. WBC 8.5, Hgb 10.9, K+ 3.1, sugars elevated due to steroids. Dr. Gtz Review: Pt feels very tight in her chest. Pt confirms vxvbjqzt-wa-kog smoking around her. Pt was advised to have her smoke outside. Pt confirms O2 at home O2 was turned down slightly Can DC Vapotherm Patient Interview: Pt confirms PCP as Dr. Garcia Pt confirms experiencing back pain and tightness in her chest I informed the pt that our hope is to turn her O2 down more, then move her to 4th floor Pt confirms wearing O2 at home 3-4 L continuous Physical exam stable. Pt coughed with deep breathing Abx for bronchitis was discussed. Pt does not seems to have pneumonia. Steroids discussed Pt denies having BMs and we will start her on meds for this Scribed by Andie Subramanian under the direct supervision of Dr. Brower. Source: patient Exam Limitations: no limitations Date Seen 08/08/17 Time Seen by Provider: 10:30 Attending Physician Latonya Brower Lisa A MD Referring Physician Date of Admission Aug 07, 2017 at 13:17 Home Medications & Allergies Home Medications Reviewed patient Home Medication Reconciliation Form Allergies Allergies Coded Allergies naproxen (Verified Allergy, Unknown, 01/22/16) levofloxacin (Unverified Adverse Reaction, Unknown, 06/15/17) MUSCLE PAIN Past Pfgknjb-Ubupnt-Seafsb Hx Patient Social History Marrital Status: single Employed/Student: unemployed Alcohol Use: Denies Use Recreational Drug Use: No Smoking Status: Former Smoker Former Smoker, Quit: Nov 24, 2012 Physical Abuse Screen: No Sexual Abuse: No Recent Foreign Travel: No Contact w/other who traveled: No Recent Hopitalizations: No Recent Infectious Disease Expo: No Immunizations Up To Date Tetanus Booster (TDap): More than 5yrs Pediatric: No Date of Pneumonia Vaccine: Sep 14, 2014 Date of Influenza Vaccine: Sep 14, 2014 Seasonal Allergies Seasonal Allergies: No Surgeries Yes Gallbladder, Hysterectomy, Tubal Ligation Respiratory Yes Chronic Bronchitis, COPD, Emphysema, Pneumonia Currently Using CPAP: No Currently Using BIPAP: No Cardiovascular Yes High Cholesterol, Hypertension Neurological No Reproductive System Hx Reproductive Disorders: No Sexually Transmitted Disease: No HIV/AIDS: No 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 Genitourinary No Neurogenic Bladder Gastrointestinal Yes Chronic Constipation Musculoskeletal Yes Degenerate Disk Disease, Arthritis, Chronic Back Pain, Spasms Endocrine History of Endocrine Disorders: Yes (last labs done shown border line diabetes patient states ) HEENT History of HEENT Disorders: No Loss of Vision: Denies Hearing Impairment: Denies Cancer No Psychosocial History of Psychiatric Problem: Yes (mood swings on zoloft) Behavioral Health Disorders: Anxiety Integumentary History of Skin or Integumenta: No Blood Transfusions History of Blood Disorders: No Adverse Reaction to a Blood Tr: No Family Medical History Significant Family History: No Pertinent Family Hx Family Hx: Cancer Cancer of colon Chest pain Congestive heart failure Family history: Alzheimer's disease Family history: Arthritis Family history: Asthma Family history: Breast disease Family history: Cardiovascular disease Family history: Diabetes mellitus Family history: Hypertension Family history: Osteoporosis Family history: Thyroid disorder Headache Heart disease History of - respiratory disease Kidney disease Myocardial infarction Stroke Visual impairment No Family History of: Abdominal aortic aneurysm Cleveland's disease Alcoholism Aphasia Cataract Congenital heart disease Cystic fibrosis Dementia Dysphagia Family history: Allergy Family history: Coronary thrombosis Family history: Gastrointestinal disease Family history: Glaucoma Hearing loss Hereditary disease History of - anemia History of - disorder History of drug abuse Human immunodeficiency virus (HIV) seropositivity Hypercholesterolemia Infertile Malignant neoplasm of lung Parkinson's disease Prostate cancer Psychotic disorder Seizure disorder Tuberculosis Review of Systems Constitutional: see HPI, weakness EENTM: no symptoms reported Respiratory: dyspnea on exertion, orthopnea, short of breath, wheezing Gastrointestinal: no symptoms reported Genitourinary: no symptoms reported Musculoskeletal: no symptoms reported Skin: no symptoms reported Psychiatric/Neurological: No Symptoms Reported All Other Systems Reviewed Negative Unless Noted: Yes Physical Exam Physical Exam Vital Signs Vital Sign - Last 12Hours 08/07/17 08/07/17 08/07/17 11:05 11:17 20:53 Temp 97.5 Pulse 120 Resp 24 B/P (MAP) 112/79 Pulse Ox 98 O2 Delivery Nasal Cannula O2 Flow Rate 5.00 FiO2 60 Capillary Refill : Less Than 3 Seconds General Appearance: No Apparent Distress, WD/WN, Chronically ill, Obese Eyes: Bilateral Eye Normal Inspection, Bilateral Eye PERRL HEENT: PERRL/EOMI, Normal ENT Inspection, Pharynx Normal Neck: Full Range of Motion, Normal Inspection, Non Tender, Supple, Carotid Bruit Respiratory: Chest Non Tender, No Accessory Muscle Use, No Respiratory Distress , Crackles, Decreased Breath Sounds Cardiovascular: Regular Rate, Rhythm, No Edema, No Gallop, No JVD, No Murmur, Normal Peripheral Pulses Gastrointestinal: Normal Bowel Sounds, No Organomegaly, No Pulsatile Mass, Non Tender, Soft Back: Normal Inspection, No CVA Tenderness, No Vertebral Tenderness Extremity: Normal Capillary Refill, Normal Inspection, Normal Range of Motion, Non Tender, No Calf Tenderness, No Pedal Edema Neurologic/Psychiatric: Alert, Oriented x3, No Motor/Sensory Deficits, Normal Mood/Affect Skin: Normal Color, Warm/Dry Lymphatic: No Adenopathy Results Results/Procedures Lab Laboratory Tests 08/07/17 11:25 08/07/17 12:25 08/08/17 03:38 Assessment/Plan Admission Diagnosis Assessment: Acute exacerbation of COPD Former smoker Hypertension Hyperlipidemia Morbid obesity Depression History of pneumonias Assessment and Plan Plan: DC Friday or Friday 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
[2017-08-08] MEDS: CYCLOBENZAPRINE 10 MG (FLEXERIL) TAB PO PRN (16:07)
[2017-08-08] MEDS ORDERED: MONTELUKAST 10 MG (SINGULAIR) TAB PO SCH (21:00)
[2017-08-08] MEDS: SERTRALINE 50 MG (ZOLOFT) TABLET PO SCH (22:06)
[2017-08-08] MEDS: MONTELUKAST 10 MG (SINGULAIR) TAB PO SCH (22:06)
[2017-08-09] VITALS (13 sets, daily range): BP systolic 94–132; BP diastolic 64–95
[2017-08-09] MEDS: inSUlin ASPART (NovoLOG) 1 UNIT/0.01 ML (CHARGE PER UNIT) SC SCH ×4 (01:14→12:47)
[2017-08-09] MEDS: methylPREDNISolone 125 MG (Solu-MEDROL) VIAL IV SCH ×3 (01:16→12:50)
[2017-08-09] MEDS: RT-ALBUTEROL/IPRATROPIUM 3 ML (DUONEB) VIAL IH SCH ×6 (02:17→22:11)
[2017-08-09] MEDS: HYDROcodone/APAP 7.5 MG/325 MG (LORTAB, LORCET PLUS) TABLET PO PRN ×3 (04:41→20:34)
[2017-08-09] MEDS: guaiFENesin/DM (ROBITUSSIN DM) 10 ML UDC PO PRN ×3 (04:42→17:21)
[2017-08-09 05:04] LABS: BASOPHILS % (AUTO) 0 % (0-10); EOSINOPHILS % (AUTO) 0 % (0-10); LYMPHOCYTES # (AUTO) 0.9 X 10^3 (1.0-4.0); LYMPHOCYTES % (AUTO) 5 % (12-44); MEAN CORPUSCULAR HEMOGLOBIN 31 PG (25-34); MEAN CORPUSCULAR HGB CONC 30 G/DL (32-36); MEAN CORPUSCULAR VOLUME 103 FL (80-99); MEAN PLATELET VOLUME 10.1 FL (7.4-10.4); MONOCYTES # (AUTO) 0.5 X 10^3 (0.0-1.0); MONOCYTES % (AUTO) 3 % (0-12); NEUTROPHILS # (AUTO) 14.7 X 10^3 (1.8-7.8); NEUTROPHILS % (AUTO) 91 % (42-75); PLATELET COUNT 363 10^3/uL (130-400); RED BLOOD COUNT 3.58 10^6/uL (4.35-5.85); RED CELL DISTRIBUTION WIDTH 13.6 % (10.0-14.5); WHITE BLOOD COUNT 16.1 10^3/uL (4.3-11.0)
[2017-08-09 05:25] LABS: CALCIUM 9.8 MG/DL (8.5-10.1); CREATININE SERUM 0.99 MG/DL (0.60-1.30); MAGNESIUM 2.2 MG/DL (1.8-2.4); PHOSPHORUS 3.8 MG/DL (2.3-4.7); POTASSIUM 4.3 MMOL/L (3.6-5.0)
[2017-08-09] MEDS: MAGNESIUM 1 GM/100 ML IVPB 100 ML IV SCH (05:38)
[2017-08-09] MEDS: POTASSIUM CL 10MEQ/50ML IVPB 50 ML IV SCH (05:38)
[2017-08-09] MEDS: KCL 20 MEQ TAB (K-DUR) PO SCH (05:39)
[2017-08-09] MEDS: CATHETER FLUSH 10 ML SYR IV SCH ×3 (06:09→21:04)
[2017-08-09 06:17] LABS: NEUTROPHILS % (MANUAL) 94 %
[2017-08-09 06:18] LABS: LYMPHOCYTES % (MANUAL) 3 %
[2017-08-09] MEDS: RT-ADVAIR HFA 115/21 MCG PER PUFF IH SCH ×2 (07:01→19:30)
[2017-08-09] MEDS: LORATADINE (CLARITIN) 10 MG TAB PO SCH (08:35)
[2017-08-09] MEDS: cefTRIAXone 2 GM/NS 50 ML IVPB IV SCH ×2 (08:35)
[2017-08-09] MEDS: DOCUSATE SODIUM 100 MG (COLACE) CAP PO SCH ×2 (08:35→20:34)
[2017-08-09] MEDS: FUROSEMIDE 40 MG (LASIX) TAB PO SCH (08:35)
[2017-08-09] MEDS: FAMOTIDINE 20 MG (PEPCID) TABLET PO SCH ×2 (08:35→20:34)
[2017-08-09] MEDS: CYANOCOBALAMIN 500 MCG TAB (VITAMIN B-12) PO SCH (08:35)
[2017-08-09] MEDS: meTOproloL SUCCINATE 50 MG (TOPROL XL) TAB PO SCH (08:35)
[2017-08-09] MEDS: ALPRAZolam 0.5 MG (XANAX) TAB PO SCH ×2 (08:35→20:34)
[2017-08-09] MEDS ORDERED: LORATADINE (CLARITIN) 10 MG TAB PO SCH (09:00)
--- NOTE | 2017-08-09 09:23 | Diagnostic Imaging Report ---
Portable chest compared to prior study from the previous day. INDICATION: Shortness of breath. COPD exacerbation. FINDINGS: Chronic interstitial change within the lungs are noted. Compared to prior examination, there is no new infiltrate. There is no evidence of effusion. Heart size and mediastinal contours appear appropriate. Pulmonary vascularity is within normal limits. IMPRESSION: 1. Background features of COPD without radiographic evidence of an acute superimposed cardiopulmonary process. Dictated by: Dictated on workstation # [id number]
[2017-08-09] MEDS: methylPREDNISolone 40 MG/ML (Solu-MEDROL) VIAL IV SCH ×2 (12:48→21:04)
--- NOTE | 2017-08-09 13:55 | Progress Note-Hospitalist ---
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 Garcia who presented with SOB found to have AECOPD. She was placed on IV Solumedrol and Rocephin along with inhaler and breathing treatments. WBC 8.5, Hgb 10.9, K+ 3.1, sugars elevated due to steroids. Dr. Gtz Review: Pt feels very tight in her chest. Pt confirms yfqzotly-hd-krh smoking around her. Pt was advised to have her smoke outside. Pt confirms O2 at home O2 was turned down slightly Can DC Vapotherm Patient Interview: Pt confirms PCP as Dr. Garcia Pt confirms experiencing back pain and tightness in her chest I informed the pt that our hope is to turn her O2 down more, then move her to 4th floor Pt confirms wearing O2 at home 3-4 L continuous Physical exam stable. Pt coughed with deep breathing Abx for bronchitis was discussed. Pt does not seems to have pneumonia. Steroids discussed Pt denies having BMs and we will start her on meds for this Scribed by Andie Subramanian under the direct supervision of Dr. Scott. Subjective/Events-last exam She reports she's feeling better with less wheezing. She still has significant shortness of breath when getting up to the bathroom and back. She notes wheezing with exertion but not at rest. She denies chest pain reporting nonproductive mild cough. She denies chills or fever. Objective Exam Vital Signs Vital Sign - Last 12Hours 08/07/17 08/07/17 08/07/17 11:05 11:17 20:53 Temp 97.5 Pulse 120 Resp 24 B/P (MAP) 112/79 Pulse Ox 98 O2 Delivery Nasal Cannula O2 Flow Rate 5.00 FiO2 60 Capillary Refill : Less Than 3 Seconds General Appearance: No Apparent Distress, Chronically ill Respiratory: Chest Non Tender, No Accessory Muscle Use, No Respiratory Distress , Other (Specimens posteriorly. No wheezing noted with regular respiration. A few fine rales are noted in the bases anteriorly chest is clear.) Cardiovascular: Regular Rate, Rhythm, No Edema, No Gallop, No JVD, No Murmur, Normal Peripheral Pulses Gastrointestinal: Normal Bowel Sounds, No Organomegaly, No Pulsatile Mass, Non Tender, Soft Extremity: Other (Plus edema bilaterally if anything improved per patient. Lower extremities to the mid tibia only) Results/Procedures Lab Laboratory Tests 08/09/17 04:32 Assessment/Plan Assessment and Plan Assess & Plan/Chief Complaint 1. Acute COPD exacerbation bacterial bronchitis less likely continue current anti-inflammatory therapy and bronchodilator therapy. 2. Leukocytosis most likely steroid induced continue to monitor. Patient has no evidence to suggest sepsis at this time. 3. Hyperglycemia aggravated by steroids. NETTA BEDOYA MD Aug 09, 2017 13:55
[2017-08-09] MEDS: SERTRALINE 50 MG (ZOLOFT) TABLET PO SCH (20:34)
[2017-08-09] MEDS: MONTELUKAST 10 MG (SINGULAIR) TAB PO SCH (20:34)
[2017-08-10] VITALS (7 sets, daily range): BP systolic 104–135; BP diastolic 58–80
[2017-08-10] MEDS: guaiFENesin/DM (ROBITUSSIN DM) 10 ML UDC PO PRN ×3 (00:30→11:14)
[2017-08-10] MEDS: RT-ALBUTEROL/IPRATROPIUM 3 ML (DUONEB) VIAL IH SCH ×6 (02:29→22:35)
[2017-08-10] MEDS: CATHETER FLUSH 10 ML SYR IV SCH ×3 (05:31→21:16)
[2017-08-10] MEDS: methylPREDNISolone 40 MG/ML (Solu-MEDROL) VIAL IV SCH ×3 (05:31→21:15)
[2017-08-10 06:02] LABS: BASOPHILS % (AUTO) 0 % (0-10); EOSINOPHILS % (AUTO) 0 % (0-10); LYMPHOCYTES # (AUTO) 1.4 X 10^3 (1.0-4.0); LYMPHOCYTES % (AUTO) 10 % (12-44); MEAN CORPUSCULAR HEMOGLOBIN 31 PG (25-34); MEAN CORPUSCULAR HGB CONC 31 G/DL (32-36); MEAN CORPUSCULAR VOLUME 102 FL (80-99); MEAN PLATELET VOLUME 9.8 FL (7.4-10.4); MONOCYTES # (AUTO) 0.6 X 10^3 (0.0-1.0); MONOCYTES % (AUTO) 4 % (0-12); NEUTROPHILS # (AUTO) 12.4 X 10^3 (1.8-7.8); NEUTROPHILS % (AUTO) 86 % (42-75); PLATELET COUNT 390 10^3/uL (130-400); RED BLOOD COUNT 3.55 10^6/uL (4.35-5.85); RED CELL DISTRIBUTION WIDTH 13.8 % (10.0-14.5); WHITE BLOOD COUNT 14.5 10^3/uL (4.3-11.0)
[2017-08-10 06:24] LABS: ANION GAP 12 MMOL/L (5-14); BLOOD UREA NITROGEN 19 MG/DL (7-18); BUN/CREATININE RATIO 22; CALCIUM 9.5 MG/DL (8.5-10.1); CARBON DIOXIDE 36 MMOL/L (21-32); CHLORIDE 93 MMOL/L (98-107); CREATININE SERUM 0.87 MG/DL (0.60-1.30); GFR ESTIMATED > 60; GLUCOSE 138 MG/DL (70-105); POTASSIUM 4.1 MMOL/L (3.6-5.0); SODIUM 141 MMOL/L (135-145)
[2017-08-10] MEDS: RT-ADVAIR HFA 115/21 MCG PER PUFF IH SCH ×2 (06:52→19:16)
[2017-08-10] MEDS: FAMOTIDINE 20 MG (PEPCID) TABLET PO SCH ×2 (09:03→21:15)
[2017-08-10] MEDS: FUROSEMIDE 40 MG (LASIX) TAB PO SCH (09:03)
[2017-08-10] MEDS: DOCUSATE SODIUM 100 MG (COLACE) CAP PO SCH ×2 (09:03→21:15)
[2017-08-10] MEDS: ALPRAZolam 0.5 MG (XANAX) TAB PO SCH ×2 (09:04→21:15)
[2017-08-10] MEDS: CYANOCOBALAMIN 500 MCG TAB (VITAMIN B-12) PO SCH (09:04)
[2017-08-10] MEDS: HYDROcodone/APAP 7.5 MG/325 MG (LORTAB, LORCET PLUS) TABLET PO PRN ×3 (09:04→23:31)
[2017-08-10] MEDS: LORATADINE (CLARITIN) 10 MG TAB PO SCH (09:04)
[2017-08-10] MEDS: cefTRIAXone 2 GM/NS 50 ML IVPB IV SCH ×2 (09:05)
[2017-08-10] MEDS: meTOproloL SUCCINATE 50 MG (TOPROL XL) TAB PO SCH (09:40)
[2017-08-10] MEDS ORDERED: BENZONATATE 100 MG (TESSALON) CAPSULE PO PRN (11:45)
[2017-08-10] MEDS: BENZONATATE 100 MG (TESSALON) CAPSULE PO SCH ×2 (12:22→21:15)
--- NOTE | 2017-08-10 14:03 | Progress Note-Hospitalist ---
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 Garcia who presented with SOB found to have AECOPD. She was placed on IV Solumedrol and Rocephin along with inhaler and breathing treatments. WBC 8.5, Hgb 10.9, K+ 3.1, sugars elevated due to steroids. Dr. Gtz Review: Pt feels very tight in her chest. Pt confirms hpztatck-fg-[id number] smoking around her. Pt was advised to have her smoke outside. Pt confirms O2 at home O2 was turned down slightly Can DC Vapotherm Patient Interview: Pt confirms PCP as Dr. Garcia Pt confirms experiencing back pain and tightness in her chest I informed the pt that our hope is to turn her O2 down more, then move her to 4th floor Pt confirms wearing O2 at home 3-4 L continuous Physical exam stable. Pt coughed with deep breathing Abx for bronchitis was discussed. Pt does not seems to have pneumonia. Steroids discussed Pt denies having BMs and we will start her on meds for this Scribed by Andie Subramanian under the direct supervision of Dr. Scott. Subjective/Events-last exam patient reports still having coughing spasms with presyncope and is very anxious about this. Cough is nonproductive. She denies shortness of breath at rest except if she's coughing. She still has dyspnea with minimal exertion. Nursing staff reports that she has not had any witnessed hypoxia when oxygen saturations have been checked. Objective Exam Vital Signs Vital Sign - Last 12Hours 08/07/17 08/07/17 08/07/17 11:05 11:17 20:53 Temp 97.5 Pulse 120 Resp 24 B/P (MAP) 112/79 Pulse Ox 98 O2 Delivery Nasal Cannula O2 Flow Rate 5.00 FiO2 60 Capillary Refill : Less Than 3 Seconds General Appearance: No Apparent Distress, Anxious Respiratory: No Accessory Muscle Use, No Respiratory Distress, Other (initial breast sounds throughout with mild faint expiratory wheezing bilaterally. No rales or rhonchi are appreciated.) Cardiovascular: Regular Rate, Rhythm, No Edema, No Gallop, No JVD, No Murmur, Normal Peripheral Pulses Results/Procedures Lab Laboratory Tests 08/10/17 05:55 Assessment/Plan Assessment and Plan Assess & Plan/Chief Complaint 1. Acute COPD exacerbation bacterial bronchitis less likely continue current anti-inflammatory therapy and bronchodilator therapy probable slow steroid responder.. 2. Leukocytosis most likely steroid induced continue to monitor and lower today.. Patient has no evidence to suggest sepsis at this time. 3. Hyperglycemia aggravated by steroids mild. 4. Paroxysmal coughing due to number 1. Patient is getting Robitussin 10 mL every 4 with dextromethorphan. She has responded well per her report to [facility] in the past so we will add this 200 mg every 8 hours. NETTA BEDOYA MD Aug 10, 2017 14:03
[2017-08-10] MEDS: MONTELUKAST 10 MG (SINGULAIR) TAB PO SCH (21:15)
[2017-08-10] MEDS: SERTRALINE 50 MG (ZOLOFT) TABLET PO SCH (21:15)
[2017-08-10] MEDS: CYCLOBENZAPRINE 10 MG (FLEXERIL) TAB PO PRN (21:15)
[2017-08-11 00:46] VITALS: BP 142/90
[2017-08-11] MEDS: RT-ALBUTEROL/IPRATROPIUM 3 ML (DUONEB) VIAL IH SCH ×6 (02:45→21:55)
[2017-08-11 04:00] VITALS: BP 132/77
[2017-08-11] MEDS: methylPREDNISolone 40 MG/ML (Solu-MEDROL) VIAL IV SCH (05:04)
[2017-08-11] MEDS: CATHETER FLUSH 10 ML SYR IV SCH ×3 (05:04→21:36)
[2017-08-11] MEDS: guaiFENesin/DM (ROBITUSSIN DM) 10 ML UDC PO PRN ×2 (05:36→13:48)
[2017-08-11 06:09] LABS: BASOPHILS % (AUTO) 0 % (0-10); EOSINOPHILS % (AUTO) 0 % (0-10); LYMPHOCYTES # (AUTO) 1.2 X 10^3 (1.0-4.0); LYMPHOCYTES % (AUTO) 9 % (12-44); MEAN CORPUSCULAR HEMOGLOBIN 31 PG (25-34); MEAN CORPUSCULAR HGB CONC 30 G/DL (32-36); MEAN CORPUSCULAR VOLUME 102 FL (80-99); MEAN PLATELET VOLUME 10.3 FL (7.4-10.4); MONOCYTES # (AUTO) 0.6 X 10^3 (0.0-1.0); MONOCYTES % (AUTO) 5 % (0-12); NEUTROPHILS # (AUTO) 12.1 X 10^3 (1.8-7.8); NEUTROPHILS % (AUTO) 87 % (42-75); PLATELET COUNT 392 10^3/uL (130-400); RED BLOOD COUNT 3.58 10^6/uL (4.35-5.85)
[2017-08-11 06:23] LABS: ANION GAP 10 MMOL/L (5-14); BLOOD UREA NITROGEN 21 MG/DL (7-18); BUN/CREATININE RATIO 23; CARBON DIOXIDE 37 MMOL/L (21-32); CHLORIDE 93 MMOL/L (98-107); CREATININE SERUM 0.93 MG/DL (0.60-1.30); GFR ESTIMATED > 60; GLUCOSE 144 MG/DL (70-105); POTASSIUM 4.2 MMOL/L (3.6-5.0); SODIUM 140 MMOL/L (135-145)
--- NOTE | 2017-08-11 06:42 | Pulmonary Progress Note ---
Subjective Time Seen by Provider: 07:24 Subjective/Events-last exam PT feels much improved. No complications noted. Exam Exam Vital Signs Date Time Temp Pulse Resp B/P (MAP) Pulse Ox O2 Delivery O2 Flow Rate FiO2 08/11/17 02:45 93 Nasal Cannula 4.00 08/11/17 00:46 97.6 103 20 142/90 91 Nasal Cannula 3.00 08/10/17 22:35 90 Nasal Cannula 4.00 08/10/17 20:15 Nasal Cannula 3.00 08/10/17 20:00 98.6 102 18 128/77 93 Nasal Cannula 3.00 08/10/17 19:16 89 Nasal Cannula 3.00 08/10/17 16:00 99.3 104 20 135/80 91 Nasal Cannula 3.00 08/10/17 14:41 92 Nasal Cannula 3.00 08/10/17 12:00 98.9 130 20 130/80 90 Nasal Cannula 3.00 08/10/17 10:28 106 90 08/10/17 10:24 90 Nasal Cannula 3.00 08/10/17 09:00 Nasal Cannula 2.00 08/10/17 08:00 98.7 102 20 119/73 90 Nasal Cannula 3.00 08/10/17 06:53 90 Nasal Cannula 3.00 General Appearance: No Apparent Distress, Anxious HEENT: PERRL/EOMI, Normal ENT Inspection, Pharynx Normal Neck: Full Range of Motion, Normal Inspection, Non Tender, Supple, Carotid Bruit Respiratory: No Accessory Muscle Use, No Respiratory Distress, Other (initial breast sounds throughout with mild faint expiratory wheezing bilaterally. No rales or rhonchi are appreciated.) Cardiovascular: Regular Rate, Rhythm, No Edema, No Gallop, No JVD, No Murmur, Normal Peripheral Pulses Capillary Refill: Less Than 3 Seconds Gastrointestinal: normal bowel sounds, non tender, soft, no organomegaly, no pulsatile mass Extremity: Other (Plus edema bilaterally if anything improved per patient. Lower extremities to the mid tibia only) Neurologic/Psychiatric: Alert, Oriented x3, No Motor/Sensory Deficits, Normal Mood/Affect Skin: Normal Color, Warm/Dry Lymphatic: No Adenopathy Results Lab Laboratory Tests 08/10/17 05:55 08/11/17 05:15 Assessment/Plan Assessment/Plan COPDAE chronic respiratory failure on acute -Solumedrol 40 IV Q 6 -- change to prednisone taper -SVNs Q 4 -BiPAP PRN Allergic rhinitis -Claritin, Singulair morbid obesity 232 Clinical Quality Measures DVT/VTE Risk/Contraindication: Risk Factor Score Per Nursin RFS Level Per Nursing on Admit: 4+=Very High MALATHI SOSA DO Aug 11, 2017 06:42
[2017-08-11] MEDS: RT-ADVAIR HFA 115/21 MCG PER PUFF IH SCH ×2 (07:19→18:51)
[2017-08-11] MEDS: BENZONATATE 100 MG (TESSALON) CAPSULE PO SCH ×3 (07:43→21:35)
[2017-08-11] MEDS: predniSONE 10 MG TAB PO SCH (08:33)
[2017-08-11] MEDS: FAMOTIDINE 20 MG (PEPCID) TABLET PO SCH ×2 (08:34→21:36)
[2017-08-11] MEDS: DOCUSATE SODIUM 100 MG (COLACE) CAP PO SCH ×2 (08:34→21:36)
[2017-08-11] MEDS: CYANOCOBALAMIN 500 MCG TAB (VITAMIN B-12) PO SCH (08:34)
[2017-08-11] MEDS: LORATADINE (CLARITIN) 10 MG TAB PO SCH (08:34)
[2017-08-11] MEDS: FUROSEMIDE 40 MG (LASIX) TAB PO SCH (08:34)
[2017-08-11] MEDS: meTOproloL SUCCINATE 50 MG (TOPROL XL) TAB PO SCH (08:34)
[2017-08-11] MEDS: ALPRAZolam 0.5 MG (XANAX) TAB PO SCH ×2 (08:34→21:35)
[2017-08-11] MEDS: HYDROcodone/APAP 7.5 MG/325 MG (LORTAB, LORCET PLUS) TABLET PO PRN ×2 (08:35→21:44)
[2017-08-11] MEDS: cefTRIAXone 2 GM/NS 50 ML IVPB IV SCH ×2 (08:35)
[2017-08-11 08:39] VITALS: BP 131/83
[2017-08-11 12:00] VITALS: BP 135/85
--- NOTE | 2017-08-11 12:46 | Progress Note-Hospitalist ---
Subjective HPI/CC On Admission Date Seen by Provider: Aug 11, 2017 Time Seen by Provider: 12:30 CC: SOB HPI: This is a 57 [address]WF pt of Dr[address] Garcia who presented with SOB found to have AECOPD. She was placed on IV Solumedrol and Rocephin along with inhaler and breathing treatments. WBC 8.5, Hgb 10.9, K+ 3.1, sugars elevated due to steroids. Dr. Gtz Review: Pt feels very tight in her chest. Pt confirms [id number] smoking around her. Pt was advised to have her smoke outside. Pt confirms O2 at home O2 was turned down slightly Can DC Vapotherm Patient Interview: Pt confirms PCP as Dr. Garcia Pt confirms experiencing back pain and tightness in her chest I informed the pt that our hope is to turn her O2 down more, then move her to 4th floor Pt confirms wearing O2 at home 3-4 L continuous Physical exam stable. Pt coughed with deep breathing Abx for bronchitis was discussed. Pt does not seems to have pneumonia. Steroids discussed Pt denies having BMs and we will start her on meds for this Scribed by Andie Subramanian under the direct supervision of Dr. Scott. Subjective/Events-last exam reports feeling better and breathing better. Is worried still about lightheadedness/presyncope with coughing but feels the tessalon perles have helped a lot. Is requesting catheter to be removed. Objective Exam Vital Signs Vital Sign - Last 12Hours 08/07/17 08/07/17 08/07/17 11:05 11:17 20:53 Temp 97.5 Pulse 120 Resp 24 B/P (MAP) 112/79 Pulse Ox 98 O2 Delivery Nasal Cannula O2 Flow Rate 5.00 FiO2 60 Capillary Refill : Less Than 3 Seconds General Appearance: No Apparent Distress, WD/WN Respiratory: Normal Breath Sounds, No Accessory Muscle Use, No Respiratory Distress Cardiovascular: Regular Rate, Rhythm, No Edema Gastrointestinal: Non Tender, Soft Neurologic/Psychiatric: Alert, Oriented x3 Results/Procedures Lab Laboratory Tests 08/11/17 05:15 Assessment/Plan Assessment and Plan Assess & Plan/Chief Complaint Per Problems Diagnosis/Problems Diagnosis/Problems (1) COPD exacerbation Status: Acute Assessment & Plan: transitioned to oral steroids today Not yet back to home o2 requirement but nearing it Continue DuoNebs MAT protocol Prednisone (2) Pre-syncope Status: Acute Assessment & Plan: Improved with Tessalon Likely due to paroxysms of coughing (3) Leukocytosis Status: Acute Assessment & Plan: Likely due to steroids, trend (4) Macrocytic anemia Status: Chronic Assessment & Plan: Chronic, at baseline (5) Prophylactic measure Assessment & Plan: SCDs URIEL ortiz, ambulate Saline Lock BRAN VIEIRA MD Aug 11, 2017 12:46
[2017-08-11] MEDS: CYCLOBENZAPRINE 10 MG (FLEXERIL) TAB PO PRN (13:24)
--- NOTE | 2017-08-11 14:47 | Physical Therapy Evaluation ---
PT Evaluation-General Medical Diagnosis Admission Date Aug 07, 2017 at 13:17 Medical Diagnosis: COPD exacerbation Onset Date: Aug 07, 2017 Therapy Diagnosis Therapy Diagnosis: debility/decreased pulmonary function Height/Weight Height (Feet): 5 Height (Inches): 0.00 Weight (Pounds): 207 Weight (Ounces): 6.0 Precautions Precautions/Isolations: Fall Prevention, Standard Precautions Referral Physician: Dima Reason for Referral: Evaluation/Treatment Medical History Pertinent Medical History: Arthritis, COPD, HTN Additional Medical History Home O2 Current History to ED secondary to SOA Reviewed History: Yes Social History Home: Single Level Current Living Status: Spouse Entry Into Home: Stairs With Railing (2) Prior/Core FIM Prior Level of Function Functional Barnes Measure 0=Not Assessed/NA 4=Minimal Assistance 1=Total Assistance 5=Supervision or Setup 2=Maximal Assistance 6=Modified Barnes 3=Moderate Assistance 7=Complete Barnes Bed Mobility: 7 Transfers (B,C,W/C) (FIM): 6 Gait: 6 PT Evaluation-Current Subjective Patient agrees to PT. Patient states she is up ad sammy in room. Pain Numeric Pain Scale: 0-No Pain Location: No Pain Reported Objective Patient Orientation: Normal For Age Problem Solving: Good Attachments: Oxygen (4L) ROM/Strength ROM Lower Extremities bilateral LE WNL Strenght Lower Extremities bilateral LE WNL Integumentary/Posture Integumentary refer to nursing notes Bowel Incontinence: No Bladder Incontinence: No Posture WFL Neuromuscular (Tone, Coordination, Reflexes) grossly intact Sensory Vision: Functional Hearing: Functional Sensation Right Lower Extremit: Intact Sensation Left Lower Extremity: Intact Transfers Functional Barnes Measure 0=Not Assessed/NA 4=Minimal Assistance 1=Total Assistance 5=Supervision or Setup 2=Maximal Assistance 6=Modified Barnes 3=Moderate Assistance 7=Complete Barnes Transfers (B, C, W/C) (FIM): 7 Scootin Rollin Supine to/from Sit: 7 Sit to/from Stand: 7 Gait Mode of Locomotion: Walk Anticipated Mode of Locomotion: Walk Gait (FIM): 6 Distance (FIM): 3=150 ft Distance: 200' Gait Level of Assist: 6 Gait Assistive Device: FWW Comments/Gait Description slow, steady, functional with FWW Balance Sitting Static: Normal Sitting Dynamic: Normal Standing Static: Normal Standing Dynamic: Normal Assessment/Needs 57 y.o. female, will be seen x 2 sessions to ensure safe return to home with family at maximum LOF. Rehab Potential: Good PT Short Term Goals Short Term Goals Time Frame: Aug 12, 2017 Transfers (B,C,W/C) (FIM): 7 Gait (FIM): 6 Distance (FIM): 3=150 ft Gait Level of Assist: 6 Gait Assistive Device: FWW PT Plan Treatment/Plan Treatment Plan: Continue Plan of Care Treatment Plan: Education, Functional Activity [place], Functional Strength, Gait , Safety, Therapeutic Exercise Treatment Duration: Aug 12, 2017 Frequency: 2 times per week Estimated Hrs Per Day: .25 hour per day Patient and/or Family Agrees t: Yes Discharge Recommendations Therapy D/C Recommendations: Home w/ Family Support Time/GCodes Time In: 1411 Time Out: 1421 Total Billed Treatment Time: 10 Total Billed Treatment 1 visit EVLowC 10 min G Codes Necessary: No MIGNON NEVES PT Aug 11, 2017 14:47
[2017-08-11 15:40] VITALS: BP 111/74
[2017-08-11 19:15] VITALS: BP 124/78
[2017-08-11] MEDS: MONTELUKAST 10 MG (SINGULAIR) TAB PO SCH (21:35)
[2017-08-11] MEDS: SERTRALINE 50 MG (ZOLOFT) TABLET PO SCH (21:36)
[2017-08-12 00:26] VITALS: BP 135/78
[2017-08-12] MEDS: RT-ALBUTEROL/IPRATROPIUM 3 ML (DUONEB) VIAL IH SCH ×2 (01:34→06:53)
[2017-08-12 04:32] VITALS: BP 127/68
[2017-08-12] MEDS: CATHETER FLUSH 10 ML SYR IV SCH (05:08)
[2017-08-12 06:04] LABS: BASOPHILS # (AUTO) 0.1 10^3/uL (0.0-0.1); BASOPHILS % (AUTO) 0 % (0-10); EOSINOPHILS # (AUTO) 0.2 10^3/uL (0.0-0.3); EOSINOPHILS % (AUTO) 2 % (0-10); LYMPHOCYTES # (AUTO) 2.3 X 10^3 (1.0-4.0); LYMPHOCYTES % (AUTO) 16 % (12-44); MEAN CORPUSCULAR HEMOGLOBIN 32 PG (25-34); MEAN CORPUSCULAR HGB CONC 31 G/DL (32-36); MEAN CORPUSCULAR VOLUME 102 FL (80-99); MONOCYTES # (AUTO) 0.8 X 10^3 (0.0-1.0); MONOCYTES % (AUTO) 6 % (0-12); NEUTROPHILS % (AUTO) 76 % (42-75); PLATELET COUNT 367 10^3/uL (130-400); RED BLOOD COUNT 3.49 10^6/uL (4.35-5.85); RED CELL DISTRIBUTION WIDTH 14.1 % (10.0-14.5); WHITE BLOOD COUNT 14.4 10^3/uL (4.3-11.0)
[2017-08-12 06:26] LABS: ANION GAP 11 MMOL/L (5-14); BLOOD UREA NITROGEN 18 MG/DL (7-18); BUN/CREATININE RATIO 21; CALCIUM 8.5 MG/DL (8.5-10.1); CARBON DIOXIDE 37 MMOL/L (21-32); CHLORIDE 93 MMOL/L (98-107); CREATININE SERUM 0.86 MG/DL (0.60-1.30); GFR ESTIMATED > 60; GLUCOSE 90 MG/DL (70-105); POTASSIUM 3.5 MMOL/L (3.6-5.0); SODIUM 141 MMOL/L (135-145)
[2017-08-12] MEDS: RT-ADVAIR HFA 115/21 MCG PER PUFF IH SCH (06:53)
--- NOTE | 2017-08-12 06:55 | Pulmonary Progress Note ---
Subjective Time Seen by Provider: 07:21 Subjective/Events-last exam PT is feeling better. No complications noted. Exam Exam Vital Signs Date Time Temp Pulse Resp B/P (MAP) Pulse Ox O2 Delivery O2 Flow Rate FiO2 08/12/17 04:32 97.9 86 18 127/68 94 Nasal Cannula 4.00 08/12/17 01:34 95 Nasal Cannula 4.00 08/12/17 00:26 98.0 90 18 135/78 95 Nasal Cannula 4.00 08/11/17 21:55 93 Nasal Cannula 4.00 08/11/17 21:00 Nasal Cannula 4.00 08/11/17 19:15 98.7 105 22 124/78 92 Nasal Cannula 4.50 08/11/17 18:56 Nasal Cannula 4.00 08/11/17 18:52 93 Nasal Cannula 4.00 08/11/17 15:40 98.0 105 22 111/74 90 Nasal Cannula 4.00 08/11/17 14:35 95 Nasal Cannula 4.00 08/11/17 12:00 96.1 102 28 135/85 92 Nasal Cannula 3.00 08/11/17 10:54 93 Nasal Cannula 4.00 08/11/17 09:00 Nasal Cannula 3.00 08/11/17 08:39 99.3 103 36 131/83 92 Nasal Cannula 3.00 08/11/17 07:18 93 Nasal Cannula 4.00 General Appearance: No Apparent Distress, WD/WN HEENT: PERRL/EOMI, Normal ENT Inspection, Pharynx Normal Neck: Full Range of Motion, Normal Inspection, Non Tender, Supple, Carotid Bruit Respiratory: Normal Breath Sounds, No Accessory Muscle Use, No Respiratory Distress Cardiovascular: Regular Rate, Rhythm, No Edema Capillary Refill: Less Than 3 Seconds Gastrointestinal: normal bowel sounds, non tender, soft, no organomegaly, no pulsatile mass Extremity: Other (Plus edema bilaterally if anything improved per patient. Lower extremities to the mid tibia only) Neurologic/Psychiatric: Alert, Oriented x3 Skin: Normal Color, Warm/Dry Lymphatic: No Adenopathy Results Lab Laboratory Tests 08/11/17 05:15 08/12/17 05:20 Assessment/Plan Assessment/Plan COPDAE chronic respiratory failure on acute - prednisone taper -SVNs Q 4 -BiPAP PRN Allergic rhinitis -Claritin, Singulair morbid obesity 232 Pt is ok for discharge from pulmonary standpoint will have her f/u with me in 2- 3 wks. Clinical Quality Measures DVT/VTE Risk/Contraindication: Risk Factor Score Per Nursin RFS Level Per Nursing on Admit: 4+=Very High MALATHI SOSA DO Aug 12, 2017 06:55
[2017-08-12] MEDS ORDERED: PRED10TA22 PO (07:09)
[2017-08-12 07:29] VITALS: BP 128/69
[2017-08-12] MEDS: predniSONE 10 MG TAB PO SCH (07:50)
[2017-08-12] MEDS: HYDROcodone/APAP 7.5 MG/325 MG (LORTAB, LORCET PLUS) TABLET PO PRN (07:52)
[2017-08-12] MEDS: FAMOTIDINE 20 MG (PEPCID) TABLET PO SCH (07:53)
[2017-08-12] MEDS: DOCUSATE SODIUM 100 MG (COLACE) CAP PO SCH (07:53)
[2017-08-12] MEDS: meTOproloL SUCCINATE 50 MG (TOPROL XL) TAB PO SCH (07:53)
[2017-08-12] MEDS: CYANOCOBALAMIN 500 MCG TAB (VITAMIN B-12) PO SCH (07:53)
[2017-08-12] MEDS: FUROSEMIDE 40 MG (LASIX) TAB PO SCH (07:53)
[2017-08-12] MEDS: BENZONATATE 100 MG (TESSALON) CAPSULE PO SCH (07:54)
[2017-08-12] MEDS: LORATADINE (CLARITIN) 10 MG TAB PO SCH (07:55)
[2017-08-12] MEDS: ALPRAZolam 0.5 MG (XANAX) TAB PO SCH (07:59)
[2017-08-12] MEDS ORDERED: GUAI5SYR PO (08:14)
[2017-08-12] MEDS ORDERED: BENZ100C23 PO (08:14)
[2017-08-12] MEDS ORDERED: RT-ALBUINH INH (08:15)
[2017-08-12] MEDS ORDERED: BUDE10.2 INH (08:15)
--- NOTE | 2017-08-12 09:42 | Physical Therapy Progress Note ---
Therapy Progress Note Patient reports she will dismiss to home on this date per Dr. Ch. Patient voices no c/o or concerns upon returning to home. Per Dr. Ch, patient will receive home health PT. Patient is currently up ad sammy in room without difficulty and has all medical equipment established prior. PT to dismiss from services. 1 visit MIGNON NEVES PT Aug 12, 2017 09:41
--- NOTE | 2017-08-12 10:07 | D/C HH Face to Face Order ---
D/C Face to Face Orders Instructions for Patient Patient Instructions/FollowUp: Please continue to take your medications as written and follow up with PCP and Dr Gtz in 1-2 weeks. Physician to follow Patient: Dr. Garcia Discharge Diet for Home: Cardiac Diet Patient Data-Allergies,Ht & Wt Patient Allergies: Coded Allergies: naproxen (Verified Allergy, Unknown, 01/22/16) levofloxacin (Unverified Adverse Reaction, Unknown, 06/15/17) MUSCLE PAIN Height (Feet): 5 Height (Inches): 0.00 Weight (Pounds): 210 Weight (Ounces): 3.0 Home Health Need/Face to Face Date of Face to Face: Aug 12, 2017 Clinical Findings: Generalized weakness and fatigue, Shortness of breath I have seen Pt [id number]: Yes Discharged To: Home Diagnosis/Conditions: Debility, COPD Problems/Diagnosis/Condition: Patient is Homebound due to: Shortness of breath/distress Homebound Status Due to the above stated illness, injury or surgical procedure (medical condition or diagnosis) and associated clinical findings, the patient is homebound because of his/her inability to leave home except with aid of a supportive device and/or person AND leaving the home requires a considerable and taxing effort or is medically contraindicated. Pt req the following assistanc: [facility] Therapy Line Type: Saline Lock Site Location: Antecubital Therapy Orders Therapy Orders: Physical Therapy, PT to assess for OT Certify Stmt I certify that this patient is under my care and that I, a nurse practitioner or a physician; a assistant site manager working with me, had a face to face encounter that - meets the physician face to face encounter requirements with this patient as dated. BRAN VIEIRA MD Aug 12, 2017 10:07
[2017-08-12 11:00] VITALS: BP 128/68
== END 2017-08-12 11:00 | disposition home or self-care (01) | DRG 189 ==
LOC: EDUNIT# 11:05 → ER 11:07 → ICU 13:17 → 4TH 08-09 10:50
PROVIDERS: ADMIT Internal Medicine; ATTEND Internal Medicine
DX: J96.20 Acute and chronic respiratory failure, unspecified whether with hypoxia or hypercapnia (principal); J44.1 Chronic obstructive pulmonary disease with (acute) exacerbation; Z68.41 Body mass index [BMI] 40.0-44.9, adult; J30.2 Other seasonal allergic rhinitis; E66.01 Morbid (severe) obesity due to excess calories; Z87.891 Personal history of nicotine dependence; E78.5 Hyperlipidemia, unspecified; I10 Essential (primary) hypertension; K59.09 Other constipation; F32.9 Major depressive disorder, single episode, unspecified; R73.9 Hyperglycemia, unspecified; D72.829 Elevated white blood cell count, unspecified; T38.0X5A Adverse effect of glucocorticoids and synthetic analogues, initial encounter; D64.9 Anemia, unspecified
CPT/HCPCS: 36415; 71010; 80048; 80053; 81000; 82962; 83735; 84100; 84484; 85007; 85025; 85027; 93005; 94640; 94664; 94760; 96374

== ENCOUNTER 2019-05-12 16:34 | Inpatient (IN) | payer MEDICAID ==
[~2019-05-12] VITALS: Ht 152.4 cm; Wt 100.4 kg
[~2019-05-12 16:34] MED LIST changes: +BENZ-36 PO; +CYAN10006 PO; +GUAI5SYR PO; +HYDR-34 PO; +METO-370 PO; +PRED10TA22 PO
[2019-05-12] MEDS ORDERED: RT-ALBUTEROL SULF 2.5 MG/3 ML PRE-MIX VIAL INH STA ×2 (17:10→18:35)
[2019-05-12] MEDS ORDERED: RT-ALBUTEROL/IPRATROPIUM 3 ML (DUONEB) VIAL INH ONE (17:15)
--- NOTE | 2019-05-12 17:27 | Diagnostic Imaging Report ---
INDICATION: Shortness of breath. EXAMINATION: Portable chest at 5:20 p.m. FINDINGS: Heart size and pulmonary vascularity are normal. Lungs are clear. There are no effusions or pneumothoraces. IMPRESSION: No acute abnormality in the chest. Dictated by: Dictated on workstation # [id number]
--- NOTE | 2019-05-12 17:35 | NUR ---
Blood gas drawn by RT. Nilesh
--- NOTE | 2019-05-12 17:50 | ED Respiratory ---
General Chief Complaint: Respiratory Problems Stated Complaint: BLOOD GASES HIGH Source: patient Exam Limitations: no limitations (JESE FONTANEZ MEDICAL STUDENT) History of Present Illness Date Seen by Provider: May 12, 2019 Initial Comments Patient presented to ED today with SOB and high bicarb=[address] Ashley Garcia recommended she come to the ED today in order to receive CPAP treatment. Yesterday, Dr. Garcia started her on tessalon perles tid and prednisone qd. At home breathing treatments and oxygen at 3L have not helped her SOB. Patient states the humid weather this week has made her breathing significantly worse. Timing/Duration: yesterday Severity: moderate Prior Episodes/Possible Cause: occasional episodes, other (humidity) Modifying Factors: Improves With Albuterol Nebulizer, Improves With Oxygen Associated Symptoms: cough, shortness of breath, wheezing (JESE FONTANEZ MEDICAL STUDENT) Time Seen by Provider: 17:01 Modifying Factors: Worse With Activity (GEOVANNA HERNANDEZ MD) Allergies and Home Medications Allergies Coded Allergies: naproxen (Verified Allergy, Unknown, 01/22/16) levofloxacin (Unverified Adverse Reaction, Unknown, 06/15/17) MUSCLE PAIN Home Medications Albuterol Sulfate 2.5 Mg/3 Ml Vial.neb, 2.5 MG NEB Q4H PRN for SHORTNESS OF BREATH, (Reported) LAST FILLED 11-07-16 Albuterol Sulfate 18 Gm Hfa.aer.ad, 2 PUFF INH Q4H PRN for SHORTNESS OF BREATH Prescribed by: BRAN CH on 08/12/17 08 Alprazolam 0.5 Mg Tablet, 0.5 MG PO BID, (Reported) Benzonatate 100 Mg Capsule, 200 MG PO TID Prescribed by: BRAN CH on 08/12/17 0814 Budesonide/Formoterol Fumarate 10.2 Gm Hfa.aer.ad, 2 PUFF INH BID LAST FILLED 05-11-17 BUT GETS SAMPLES Prescribed by: BRAN CH on 08/12/17 08 Cetirizine HCl 10 Mg Tablet, 10 MG PO DAILY, (Reported) Cyanocobalamin (Vitamin B-12) 1,000 Mcg Tablet, 1,000 MCG PO DAILY, (Reported) Cyclobenzaprine HCl 10 Mg Tablet, 10 MG PO TID PRN for MUSCLE SPASMS, (Reported) Famotidine 20 Mg Tablet, 20 MG PO BID, (Reported) Furosemide 40 Mg Tablet, 40 MG PO DAILY, (Reported) Guaifenesin/Dextromethorphan 5 Ml Syrup, 30 ML PO Q4H PRN for COUGH Prescribed by: BRAN CH on 08/12/17 0814 Hydrocodone Bit/Acetaminophen 1 Each Tablet, 1 TAB PO TID PRN for PAIN-MODERATE, (Reported) Metoprolol Succinate 50 Mg Tab.er.24h, 50 MG PO DAILY, (Reported) Montelukast Sodium 10 Mg Tablet, 10 MG PO HS, (Reported) Prednisone 10 Mg Tab.ds.pk, 10 MG PO DAILY Take 6 tabs(60mg)daily, decrease by 1 tab(10mg) every other day. Prescribed by: BRAN CH on 08/12/17 0709 Sertraline HCl 50 Mg Tablet, 50 MG PO HS, (Reported) Patient Home Medication List Home Medication List Reviewed: Yes (JESE FONTANEZ STUDENT) Home Medication List Reviewed: Yes (GEOVANNA HERNANDEZ MD) Review of Systems Review of Systems Constitutional: no symptoms reported EENTM: no symptoms reported Respiratory: cough, phlegm, short of breath, wheezing Cardiovascular: no symptoms reported Gastrointestinal: no symptoms reported Genitourinary: no symptoms reported Musculoskeletal: no symptoms reported Skin: no symptoms reported Psychiatric/Neurological: No Symptoms Reported Hematologic/Lymphatic: No Symptoms Reported Immunological/Allergic: no symptoms reported (JESE FONTANEZ STUDENT) All Other Systems Reviewed Negative Unless Noted: Yes (GEOVANNA HERNANDEZ MD) Past Yjucgxb-Dwjrjm-Vbxxyb Hx Past Med/Social Hx: Reviewed Nursing Past Med/Soc Hx (GEOVANNA HERNANDEZ MD) Patient Social History Alcohol Use: Denies Use Recreational Drug Use: No Smoking Status: Former Smoker (quit in 2012. used to smoke 2ppd.) Former Smoker, Quit: Nov 24, 2012 Recent Foreign Travel: No Contact w/Someone Who Travel: No Recent Hopitalizations: No (JESE FONTANEZ MEDICAL STUDENT) Immunizations Up To Date Tetanus Booster (TDap): More than 5yrs PED Vaccines UTD: No Date of Pneumonia Vaccine: Sep 14, 2014 Date of Influenza Vaccine: Sep 14, 2014 (JESE FONTANEZ MEDICAL STUDENT) Seasonal Allergies Seasonal Allergies: No (COURLAS,JESE MEDICAL STUDENT) Past Medical History Surgeries: Yes Gallbladder, Hysterectomy, Tubal Ligation Respiratory: Yes Pneumonia, Chronic Bronchitis, COPD, Emphysema Currently Using CPAP: No Currently Using BIPAP: No Cardiac: Yes High Cholesterol, Hypertension Neurological: No Reproductive Disorders: No 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 Disorders: Denies 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: Hysterectomy Sexually Transmitted Disease: No HIV/AIDS: No Genitourinary: No Neurogenic Bladder Gastrointestinal: Yes Chronic Constipation Musculoskeletal: Yes Degenerate Disk Disease, Arthritis, Chronic Back Pain, Spasms Endocrine: Yes (last labs done shown border line diabetes patient states ) HEENT: No Loss of Vision: Denies Hearing Impairment: Denies Cancer: No Psychosocial: Yes (mood swings on zoloft) Anxiety Integumentary: No Blood Disorders: No Adverse Reaction/Blood Tranf: No (JESE FONTANEZ MEDICAL STUDENT) Family Medical History Reviewed Nursing Family Hx (GEOVANNA HERNANDEZ MD) Cancer Cancer of colon Chest pain Congestive heart failure Family history: Alzheimer's disease Family history: Arthritis Family history: Asthma Family history: Breast disease Family history: Cardiovascular disease Family history: Diabetes mellitus Family history: Hypertension Family history: Osteoporosis Family history: Thyroid disorder Headache Heart disease History of - respiratory disease Kidney disease Myocardial infarction Stroke Visual impairment No Family History of: Abdominal aortic aneurysm Sammy's disease Alcoholism Aphasia Cataract Congenital heart disease Cystic fibrosis Dementia Dysphagia Family history: Allergy Family history: Coronary thrombosis Family history: Gastrointestinal disease Family history: Glaucoma Hearing loss Hereditary disease History of - anemia History of - disorder History of drug abuse Human immunodeficiency virus (HIV) seropositivity Hypercholesterolemia Infertile Malignant neoplasm of lung Parkinson's disease Prostate cancer Psychotic disorder Seizure disorder Tuberculosis No Pertinent Family Hx (JESE FONTANEZ MEDICAL STUDENT) Physical Exam Vital Signs - First Documented 05/12/19 16:55 Temp 98.4 Pulse 90 Resp 22 B/P (MAP) 125/78 (94) Pulse Ox 93 O2 Delivery Nasal Cannula O2 Flow Rate 5.00 (GEOVANNA HERNANDEZ MD) Capillary Refill : (JESE FONTANEZ MEDICAL STUDENT) Height: 5'0.00" Weight: 210lbs. 3.0oz. [id number]; 40.2 BMI Method:Estimated General Appearance: moderate distress, obese Eyes: Bilateral Eye PERRL, Bilateral Eye EOMI HEENT: PERRL/EOMI, normal ENT inspection Respiratory: accessory muscle use, wheezing Cardiovascular: regular rate, rhythm, no murmur Extremities: no pedal edema, normal capillary refill Neurologic/Psychiatric: alert, oriented x 3 Skin: normal color, warm/dry (JESE FONTANEZ MEDICAL STUDENT) General Appearance: WD/WN HEENT: PERRL/EOMI, normal ENT inspection Respiratory: respiratory distress (mild), accessory muscle use, wheezing Cardiovascular: regular rate, rhythm, no murmur Gastrointestinal: non tender, soft Extremities: normal range of motion, non-tender, normal inspection Neurologic/Psychiatric: alert, oriented x 3 Skin: normal color, warm/dry (GEOVANNA HERNANDEZ MD) Progress/Results/Core Measures Suspected Sepsis SIRS Temperature: Pulse: Respiratory Rate: Laboratory Tests 05/12/19 17:05: White Blood Count 9.8 Blood Pressure / Mean: Laboratory Tests 05/12/19 17:05: Creatinine 0.88, Platelet Count 273, Total Bilirubin 0.4 (JESE FONTANEZ MEDICAL STUDENT) Results/Orders Lab Results Laboratory Tests Test 05/12/19 17:05 05/12/19 17:35 Range/Units White Blood Count 9.8 4.3-11.0 10^3/uL Red Blood Count 3.46 L 4.35-5.85 10^6/uL Hemoglobin 10.5 L 11.5-16.0 G/DL Hematocrit 37 35-52 % Mean Corpuscular Volume 107 H 80-99 FL Mean Corpuscular Hemoglobin 30 25-34 PG Mean Corpuscular Hemoglobin Concent 28 L 32-36 G/DL Red Cell Distribution Width 13.6 10.0-14.5 % Platelet Count 273 130-400 10^3/uL Mean Platelet Volume 10.4 7.4-10.4 FL Neutrophils (%) (Auto) 93 H 42-75 % Lymphocytes (%) (Auto) 6 L 12-44 % Monocytes (%) (Auto) 1 0-12 % Eosinophils (%) (Auto) 0 0-10 % Basophils (%) (Auto) 0 0-10 % Neutrophils # (Auto) 9.1 H 1.8-7.8 X 10^3 Lymphocytes # (Auto) 0.6 L 1.0-4.0 X 10^3 Monocytes # (Auto) 0.1 0.0-1.0 X 10^3 Eosinophils # (Auto) 0.0 0.0-0.3 10^3/uL Basophils # (Auto) 0.0 0.0-0.1 10^3/uL Sodium Level 137 135-145 MMOL/L Potassium Level 3.8 3.6-5.0 MMOL/L Chloride Level 87 L 98-107 MMOL/L Carbon Dioxide Level 42 H 21-32 MMOL/L Anion Gap 8 5-14 MMOL/L Blood Urea Nitrogen 12 7-18 MG/DL Creatinine 0.88 0.60-1.30 MG/DL Estimat Glomerular Filtration Rate > 60 BUN/Creatinine Ratio 14 Glucose Level 182 H 70-105 MG/DL Calcium Level 9.5 8.5-10.1 MG/DL Corrected Calcium 9.4 8.5-10.1 MG/DL Total Bilirubin 0.4 0.1-1.0 MG/DL Aspartate Amino Transf (AST/SGOT) 14 5-34 U/L Alanine Aminotransferase (ALT/SGPT) 16 0-55 U/L Alkaline Phosphatase 108 40-136 U/L C-Reactive Protein High Sensitivity 22.11 H 0.00-0.50 MG/DL Total Protein 7.4 6.4-8.2 GM/DL Albumin 4.1 3.2-4.5 GM/DL Blood Gas Puncture Site L RAD Blood Gas Patient Temperature 98.4 Arterial Blood pH 7.39 7.37-7.43 Arterial Blood Partial Pressure CO2 76 *H 35-45 MMHG Arterial Blood Partial Pressure O2 53 L 79-93 MMHG Arterial Blood HCO3 45 *H 23-27 MMOL/L Arterial Blood Total CO2 47.6 H 21.0-31.0 MMOL/L Arterial Blood Oxygen Saturation 90 L 94-100 % Arterial Blood Base Excess 19.1 H -2.5-2.5 MMOL/L Alejandro Test YES-POS Blood Gas Ventilator Setting NO Blood Gas Inspired Oxygen 5L (GEOVANNA HERNANDEZ MD) My Orders Orders - GEOVANNA HERNANDEZ MD Arterial Blood Gas (05/12/19 17:10) Cbc With Automated Diff (05/12/19 17:10) Comprehensive Metabolic Panel (05/12/19 17:10) Hs C Reactive Protein (05/12/19 17:10) Albuterol Pre-Mix Nebs (Rt) (Proventil (05/12/19 17:10) Albuterol/Ipra Inhalation Soln (Duoneb I (05/12/19 17:15) Chest 1 View, Ap/Pa Only (05/12/19 17:10) Svn Small Volume Nebulizer (05/12/19 17:10) Svn Small Volume Nebulizer (05/12/19 17:10) Manual Differential (05/12/19 17:05) Albuterol Pre-Mix Nebs (Rt) (Proventil (05/12/19 18:35) Ipratropium 0.02% Neb Solution (Atrovent (05/12/19 18:45) Svn Small Volume Nebulizer (05/12/19 18:35) Svn Small Volume Nebulizer (05/12/19 18:35) Methylprednisolone Sod Succ (Solu-Medrol (05/12/19 18:45) (GEOVANNA HERNANDEZ MD) Medications Given in ED Current Medications Medications Dose Ordered Sig/Sharmin Route Start Time Stop Time Status Last Admin Dose Admin Albuterol/ Ipratropium 3 ml ONCE ONCE INH 05/12/19 17:15 05/12/19 17:16 DC 05/12/19 17:59 3 ML (GEOVANNA HERNANDEZ MD) Vital Signs/I&O 05/12/19 05/12/19 05/12/19 05/12/19 16:55 18:00 18:02 18:02 Temp 98.4 Pulse 90 Resp 22 B/P (MAP) 125/78 (94) Pulse Ox 93 95 O2 Delivery Nasal Cannula Nasal Cannula Nasal Cannula Nasal Cannula O2 Flow Rate 5.00 5.00 5.00 5.00 05/12/19 18:04 O2 Delivery Nasal Cannula O2 Flow Rate 5.00 (GEOVANNA HERNANDEZ MD) Vital Signs/I&O Capillary Refill : (JESE FONTANEZ MEDICAL STUDENT) Progress Note : Progress Note Has seen and evaluated the patient and agree with above except as indicated. I have directed the plan of care. Patient is here with worsening of her COPD and breathing problems. She has had blood gas yesterday and today which did show elevated bicarbonate. She was sent here for further evaluation. IV, labs, chest x-ray, do not have an albuterol treatment times for ordered. ABG does show elevated bicarbonate at 45 with CO2 elevated as well. She appears to be compensated given the fact that her pH is normal. I did discuss the case with Dr. Gtz at 1806. We did review the lab findings including ABG. Patient has compensated respiratory failure currently with hypercarbia. She is in acute COPD exacerbation and is not at baseline despite for breathing treatments. We will initiate hour-long treatment. She has initiated prednisone as outpatient and we will continue this in patient with Solu-Medrol IV. We do not need to do BiPAP currently as patient is compensated. I did discuss the case with Dr. Ch at 1835 and she accepts patient for admission, inpatient status. No indication for antibiotics currently as chest x-ray does not show pneumonia and white count is not elevated. We will continue breathing treatments inpatient as well as Solu- Medrol. ABG in the morning per request from Dr. Gtz. All of the findings concerns were discussed with patient and family who agree with plan. (GEOVANNA HERNANDEZ MD) Diagnostic Imaging Diagonstic Imaging: Xray Comments NAME: HOLLIEHENRRY [facility] REC#: [id number] PHYSICIAN: GEOVANNA HERNANDEZ MD CC: GEOVANNA BARKER MD; GEOVANNA HERNANDEZ MD Page 1 of 1 RADIOLOGY REPORT [facility]. [place], [place] CC: GEOVANNA BARKER MD; GEOVANNA HERNANDEZ MD Page 1 of 1 RADIOLOGY REPORT NAME: BROWNEHENRRY [facility] REC#: [id number] PT STATUS: REG ER : 1960 PHYSICIAN: GEOVANNA HERNANDEZ MD ADMIT DATE: 05/12/19/ER Signed Date of Exam: 05/12/19 CHEST 1 VIEW, AP/PA ONLY INDICATION: Shortness of breath. EXAMINATION: Portable chest at 5:20 p.m. FINDINGS: Heart size and pulmonary vascularity are normal. Lungs are clear. There are no effusions or pneumothoraces. IMPRESSION: No acute abnormality in the chest. Dictated by: Dictated on workstation # [id number] Dict: 05/12/191724 Trans: 05/12/191729 Interpreted by: GEOVANNA BARKER MD Electronically signed by: GEOVANNA BARKER MD 05/12/191729 (JESE FONTANEZ MEDICAL STUDENT) Departure Communication (Admissions) Time/Spoke to Admitting Phy: 18:35 Time/Spoke to Consulting Phy: 18:06 (GEOVANNA HERNANDEZ MD) Impression Primary Impression: COPD exacerbation Disposition: ADMITTED INPATIENT Condition: Stable Admissions Decision to Admit Reason: Admit from ER (General) Decision to Admit/Date: May 12, 2019 Time/Decision to Admit Time: 18:06 (GEOVANNA HERNANDEZ MD) Departure-Patient Inst. Referrals: ASHLEY GARCIA MD (PCP/Family) Primary Care Physician JESE FONTANEZ MEDICAL STUDENT May 12, 2019 17:50 GEOVANNA HERNANDEZ MD May 12, 2019 18:45
[2019-05-12 18:03] LABS: ABG BASE EXCESS 19.1 MMOL/L (-2.5-2.5); ABG OXYGEN SATURATION 90 % (94-100); ABG PH 7.39 (7.37-7.43); ABG PO2 53 MMHG (79-93); ABG TCO2 47.6 MMOL/L (21.0-31.0)
[2019-05-12 18:04] LABS: ALLENS TEST YES-POS; INSPIRED O2 5L; PATIENT TEMP 98.4; VENTILATOR NO
[2019-05-12 18:05] LABS: ABG PCO2 76 MMHG (35-45)
[2019-05-12 18:08] LABS: BASOPHILS % (AUTO) 0 % (0-10); EOSINOPHILS % (AUTO) 0 % (0-10); HEMATOCRIT 37 % (35-52); HEMOGLOBIN 10.5 G/DL (11.5-16.0); LYMPHOCYTES # (AUTO) 0.6 X 10^3 (1.0-4.0); LYMPHOCYTES % (AUTO) 6 % (12-44); MEAN CORPUSCULAR HEMOGLOBIN 30 PG (25-34); MEAN CORPUSCULAR HGB CONC 28 G/DL (32-36); MEAN CORPUSCULAR VOLUME 107 FL (80-99); MEAN PLATELET VOLUME 10.4 FL (7.4-10.4); MONOCYTES # (AUTO) 0.1 X 10^3 (0.0-1.0); MONOCYTES % (AUTO) 1 % (0-12); NEUTROPHILS # (AUTO) 9.1 X 10^3 (1.8-7.8); NEUTROPHILS % (AUTO) 93 % (42-75); PLATELET COUNT 273 10^3/uL (130-400); RED CELL DISTRIBUTION WIDTH 13.6 % (10.0-14.5); WHITE BLOOD COUNT 9.8 10^3/uL (4.3-11.0)
[2019-05-12 18:22] LABS: ALANINE AMINOTRANSFERASE 16 U/L (0-55); ALBUMIN 4.1 GM/DL (3.2-4.5); ALKALINE PHOSPHATASE 108 U/L (40-136); BILIRUBIN,TOTAL 0.4 MG/DL (0.1-1.0); BUN/CREATININE RATIO 14; CALCIUM 9.5 MG/DL (8.5-10.1); CARBON DIOXIDE 42 MMOL/L (21-32); CHLORIDE 87 MMOL/L (98-107); CREATININE SERUM 0.88 MG/DL (0.60-1.30); GFR ESTIMATED > 60; GLUCOSE 182 MG/DL (70-105); POTASSIUM 3.8 MMOL/L (3.6-5.0); SODIUM 137 MMOL/L (135-145); TOTAL PROTEIN 7.4 GM/DL (6.4-8.2)
[2019-05-12 18:42] LABS: BAND NEUTROPHILS 1 %; EOSINOPHILS % (MANUAL) 0 %; LYMPHOCYTES % (MANUAL) 8 %; MONOCYTES % (MANUAL) 0 %; NEUTROPHILS % (MANUAL) 91 %
[2019-05-12 18:43] LABS: ANISOCYTOSIS SLIGHT; HYPOCHROMASIA SLIGHT
[2019-05-12] MEDS ORDERED: methylPREDNISolone 125 MG (Solu-MEDROL) VIAL IVP ONE (18:45)
[2019-05-12] MEDS ORDERED: RT-IPRATROPIUM (ATROVENT) 0.5MG/2.5ML AMP IH ONE (18:45)
--- NOTE | 2019-05-12 20:12 | NUR ---
HENRRY BROWNE admitted to room 413-1, with an admitting diagnosis of COPD EXACERBATION, on 05/12/19 from ED via , accompanied by STAFF AND FAMILY.HENRRY BROWNE introduced to surroundings, call light, bed controls, phone, TV, temperature control, lights, meal times, smoking policy, visitor policy, side rail policy, bathrooms and showers. Patient Rights given to patient in the handbook.HENRRY BROWNE verbalizes understanding that [facility] is not responsible for the loss or damage to any personal effects or valuables that are kept in the patients posession during their hospitalization.
[2019-05-12 20:14] VITALS: BP 118/58
[2019-05-12] MEDS ORDERED: CATHETER FLUSH 10 ML SYR IV PRN (20:15)
[2019-05-12] MEDS: HYDROcodone/APAP 7.5 MG/325 MG (LORTAB, LORCET PLUS) TABLET PO PRN (21:07)
--- OUTSIDE RECORDS SUMMARY | 2019-05-12 22:55 | XMS REPORT ---
Author Author Migration, Doctor Organization [facility] Address Unknown Phone Unavailable Care Team Providers Care Building Principal Name Role Phone Migration, Doctor Unavailable Unavailable PROBLEMS Type Condition ICD9-CM Code NNJ95-CD Code Onset Dates Condition Status SNOMED Code Problem Cough 786.2 Active 53280574 Problem Generalized hyperhidrosis 780.8 Active 727683410 Problem Cervicalgia 723.1 Active 55877732 Problem Family history of diabetes mellitus V18.0 Active 569606285 Problem Other and unspecified hyperlipidemia 272.4 Active 48111414 Problem Chest pain, unspecified 786.50 Active 54944054 Problem Unspecified hypothyroidism 244.9 Active 28970958 Problem Other abnormal glucose 790.29 Active 594013018 Problem Pain in joint, hand 719.44 Active 477851821 Problem Lumbago 724.2 Active 732545411 Problem Anxiety state, unspecified 300.00 Active 855671136 Problem Hypocalcemia 275.41 Active [id number] ALLERGIES No Information ENCOUNTERS Encounter Location Date Diagnosis [facility] [id number] [place] [address] Oct, [facility] [id number] [place] [address] [id number] May, Dental examination Z01.20 and Dental caries K02.9 [facility] [id number] [place] [address] [id number] Apr, Dental caries K02.9 [facility] [id number] [place] [address] [id number] Apr, Dental examination Z01.20 [facility] [id number] [place] [address] [id number] Sep, Dental examination Z01.20 and Dental caries K02.9 [facility] [id number] [place] [address] [id number] Jul, Dental examination V72.2 [facility] [address] [id number] [id number] March, Dental examination V72.2 [facility] [address] [id number] [place] [address] 14 Feb, 2015 [facility] [address] [id number] [place] [address] Feb, [facility] [address] [id number], [place] [address] Jan, [facility] [address] [id number] [place] [address] Jan, [facility] [place] [facility] [address] [id number] [place] [address] Jan, [facility] [address] [id number] [place] [address] Jan, [facility] [address] [id number], [place] [address] Dec, [facility] [place] [facility] [address] [id number] [place] [address] Dec, [facility] [place] [facility] [address] [id number] [address] Dec, [facility] [place] [facility] [id number] [address] Dec, 2014 [facility] [place] [facility] [address] [id number], [place] [address] Dec, 2014 [facility] [place] [facility] [address] [id number], [place] [address] Dec, 2014 [facility] [place] [facility] [address] [facility] [id number], [place] [address] Dec, 2014 [facility] [place] [facility] [address] [facility] [id number], [place] [address] Dec, 2014 [facility] [place] [facility] [address] [id number] [place] [address] 02 Dec, 2014 [facility] [place] [facility] [address] [id number] [place] [address] 02 Dec, 2014 [facility] [place] [facility] [address] [id number] [place] [address] 15 Nov, 2014 [facility] [place] [facility] [address] [id number] [place] [address] Nov, [facility] [place] [facility] [address] [id number] [place] [address] Nov, [facility] [place] [facility] [address] [id number] [place] [address] Nov, [facility] [place] [facility] [address] [id number] [place] [address] Nov, [facility] [place] [facility] [address] [id number] [place] [address] Nov, [facility] [place] [facility] [address] [id number] [place] [address] Nov, [facility] [place] [facility] [address] [id number] [place] [address] Nov, [facility] [place] [facility] [address] [id number] [place] [address] Nov, [facility] [place] [facility] [address] [id number] [place] [address] Nov, [facility] [place] [facility] [address] [id number] [place] [address] Nov, [facility] [place] [facility] [address] [id number] [place] [address] Nov, [facility] [place] [facility] [address] [id number] [place] [address] Nov, [facility] [place] [facility] [address] [id number] [place] [address] Nov, [facility] [place] [facility] [address] [id number] [place] [address] Nov, [facility] [place] [facility] [address] [id number] [place] [address] Oct, [facility] [place] [facility] [address] [id number] [place] [address] Oct, [facility] [place] [facility] [address] [id number] [place] [address] Oct, [facility] [place] [facility] [address] [id number] [place] [address] Oct, [facility] [place] [facility] [address] [id number] [place] [address] Oct, [facility] [place] [facility] [address] [id number] [place] [address] Oct, [facility] [place] [facility] [address] [id number] [place] [address] Oct, [facility] [place] [facility] [address] [id number] [place] [address] Oct, [facility] [place] [facility] [address] [id number] [place] [address] Oct, [facility] [place] [facility] [address] [id number] [place] [address] Oct, [facility] [place] [facility] [address] [id number] [place] [address] Oct, [facility] [place] [facility] [address] [id number] [place] [address] Oct, [facility] [place] [facility] [address] [id number] [place] [address] Sep, [facility] [place] [facility] [address] [id number] [place] [address] Sep, [facility] [place] [facility] [address] [id number] [place] [address] 13 Sep, 2014 [facility] [place] [facility] [address] [id number] [place] [address] Sep, [facility] [place] [facility] [address] [id number] [place] [address] Sep, [facility] [place] [facility] [address] [id number] [place] [address] Sep, [facility] [place] [facility] [address] [id number] [place] [address] Sep, [facility] [place] [facility] [address] [id number] [place] [address] Sep, [facility] [place] [facility] [address] [id number] [place] [address] Sep, [facility] [place] [facility] [address] [id number] [place] [address] Sep, [facility] [place] [facility] [address] [id number] [place] [address] Sep, [facility] [place] [facility] [address] [id number] [place] [address] Sep, [facility] [place] [facility] [address] [facility] [id number] [place] [address] Sep, [facility] [place] [facility] [address] [id number] [place] [address] Sep, [facility] [place] [facility] [address] [id number], [place] [address] Sep, [facility] [place] [facility] [address] [id number] [place] [address] Sep, [facility] [place] [facility] [address] [id number] [place] [address] Aug, [facility] [place] [facility] [address] [id number], [place] [address] Aug, [facility] [place] [facility] [address] [id number] [place] [address] Aug, [facility] [place] [facility] [address] [id number] [place] [address] Aug, [facility] [place] [facility] [address] [id number] [place] [address] 29 Jul, 2014 [facility] [place] [facility] [address] [id number] [place] [address] 29 Jul, 2014 [facility] [place] [facility] [address] [id number] [place] [address] Jul, [facility] [place] [facility] [address] [id number] [place] [address] Jul, [facility] [place] [facility] [address] [id number] [place] [address] 17 Jul, 2014 [facility] [place] [facility] [address] [id number] [place] [address] Jul, [facility] [place] [facility] [address] [id number] [place] [address] Jul, [facility] [place] [facility] [address] [id number] [place] [address] Jul, [facility] [place] [facility] [address] [id number] [place] [address] Jun, [facility] [place] [facility] [address] [id number] [place] [address] Jun, [facility] [place] [facility] [address] [id number] [place] [address] Jun, [facility] [place] [facility] [address] [id number] [place] [address] Jun, [facility] [place] [facility] [address] [id number] [place] [address] Jun, [facility] [place] [facility] [address] [id number] [place] [address] Jun, [facility] [place] [facility] [address] [id number] [place] [address] Jun, [facility] [place] [facility] [address] [id number] [place] [address] Jun, [facility] [place] [facility] [address] [id number] [place] [address] Jun, [facility] [place] [facility] [address] [id number] [place] [address] Jun, [facility] [place] [facility] [address] [id number] [place] [address] Jun, [facility] [place] [facility] [address] [id number] [place] [address] May, [facility] [place] [facility] [address] [id number] [place] [address] May, [facility] [place] [facility] [address] [id number] [place] [address] May, [facility] [place] [facility] [address] [id number] [place] [address] May, [facility] [place] [facility] [address] [id number] [place] [address] May, [facility] [place] [facility] [address] [id number] [place] [address] May, [facility] [place] [facility] [address] [id number] [place] [address] May, [facility] [place] [facility] [address] [id number] [place] [address] May, [facility] [place] [facility] [address] [id number] [place] [address] May, [facility] [place] [facility] [address] [id number] [place] [address] May, [facility] [place] [facility] [address] [id number] [place] [address] 14 May, 2013 [facility] [place] [facility] [address] [id number] [place] [address] May, 2013 [facility] [place] [facility] [address] [id number] [place] [address] May, 2013 [facility] [place] [facility] [address] [id number] [place] [address] May, 2013 [facility] [place] [facility] [address] [id number] [place] [address] May, 2013 [facility] [place] [facility] [address] [id number] [place] [address] May, 2013 [facility] [place] [facility] [address] [id number] [place] [address] May, 2013 [facility] [place] [facility] [address] [id number] [place] [address] May, 2013 [facility] [place] [facility] [address] [id number] [place] [address] Apr, [facility] [place] [facility] [address] [id number] [place] [address] Apr, [facility] [place] [facility] [address] [id number] [place] [address] Apr, [facility] [place] [facility] [address] [id number] [place] [address] Apr, [facility] [place] [facility] [address] [id number] [place] [address] 18 Apr, 2014 [facility] [place] [facility] [address] [id number] [place] [address] 17 Apr, 2014 [facility] [place] [facility] [address] [id number] [place] [address] 17 Apr, 2014 [facility] [place] [facility] [address] [id number] [place] [address] Apr, [facility] [place] [facility] [address] [id number] [place] [address] Apr, [facility] [place] [facility] [address] [id number] [place] [address] Apr, [facility] [place] [facility] [address] [id number] [place] [address] Apr, [facility] [place] [facility] [address] [id number] [place] [address] Apr, [facility] [place] [facility] [address] [id number] [place] [address] Apr, [facility] [place] [facility] [address] [id number] [place] [address] March, [facility] [place] [facility] [address] [id number] [place] [address] March, [facility] [place] [facility] [address] [id number] [place] [address] March, [facility] [place] [facility] [address] [id number] [place] [address] March, [facility] [place] [facility] [address] [id number] [place] [address] March, [facility] [place] [facility] [address] [id number] [place] [address] March, [facility] [place] [facility] [address] [id number] [place] [address] Feb, [facility] [place] [facility] [address] [id number] [place] [address] Feb, [facility] [place] [facility] [address] [id number] [place] [address] Feb, [facility] [place] [facility] [address] [id number] [place] [address] Feb, [facility] [place] [facility] [address] [id number], [place] [address] Feb, [facility] [place] [facility] [address] [id number] [place] [address] Feb, [facility] [place] [facility] [address] [id number] [place] [address] Feb, [facility] [place] [facility] [address] [id number] [place] [address] Feb, [facility] [place] [facility] [address] [id number] [place] [address] Feb, [facility] [place] [facility] [address] [id number] [place] [address] Feb, [facility] [place] [facility] [address] [id number] [place] [address] Jan, [facility] [place] [facility] [address] [facility] [id number] [place] [address] Jan, [facility] [place] [facility] [address] [id number] [place] [address] Jan, [facility] [place] [facility] [address] [id number] [place] [address] Jan, [facility] [place] [facility] [address] [facility] [id number] [place] [address] Jan, [facility] [place] [facility] [address] [id number] [place] [address] Jan, [facility] [place] [facility] [address] [facility] [id number] [place] [address] Dec, [facility] [place] [facility] [address] [id number] [place] [address] Dec, [facility] [place] [facility] [address] [id number] [place] [address] Dec, [facility] [place] [facility] [address] [facility] [id number] [place] [address] Dec, [facility] [place] [facility] [address] [id number] [place] [address] Dec, [facility] [address] [id number] [place] [address] Dec, [facility] [address] [id number] [place] [address] Dec, [address] [id number] Dec, [facility] [address] [id number] [place] [address] Dec, [facility] [address] [id number] [place] [address] Nov, [facility] [address] [id number] [place] [address] Nov, [facility] [address] [id number] [place] [address] Nov, [facility] [address] [id number] [place] [address] Nov, [facility] [address] [id number] [place] [address] Nov, [facility] [address] [id number] [place] [address] Nov, [facility] [address] [id number] [place] [address] Oct, [facility] [address] [id number] [place] [address] Oct, [facility] [address] [id number] [place] [address] Oct, [facility] [address] [id number] [place] [address] Oct, [facility] [address] [id number] [place] [address] Sep, [facility] [place] [facility] [address] [id number] [place] [address] Sep, [facility] [place] [facility] [address] [id number] [place] [address] Sep, [facility] [place] [facility] [address] [id number] [place] [address] Sep, [facility] [place] [facility] [address] [id number] [place] [address] Aug, [facility] [place] [facility] [address] [id number] [place] [address] Aug, [facility] [place] [facility] [address] [id number] [place] [address] Aug, [facility] [place] [facility] [address] [id number] [place] [address] Aug, [facility] [place] [facility] [address] [id number], [place] [address] Jul, [facility] [place] [facility] [address] [id number] [place] [address] Jul, [facility] [place] [facility] [address] [id number] [place] [address] Jul, [facility] [place] [facility] [address] [id number], [place] [address] Jun, [facility] [place] [facility] [address] [id number], [place] [address] Jun, [facility] [place] [facility] [address] [id number] [place] [address] May, [facility] [place] [facility] [address] [id number], [place] [address] May, [facility] [place] [facility] [address] [id number] [place] [address] Apr, [facility] [place] [facility] [address] [id number] [place] [address] 04 Apr, 2013 [facility] [address] [id number] [place] [address] March, [facility] [address] [id number] [place] [address] March, [facility] [address] [id number] [place] [address] March, [facility] [address] [id number] [place] [address] March, [facility] [address] [id number] [place] [address] March, [facility] [address] [id number] [place] [address] March, [facility] [address] [id number] [place] [address] March, [facility] [address] [id number] [place] [address] Feb, [facility] [address] [id number] [place] [address] Feb, [facility] [address] [id number] [place] [address] Jan, [facility] [address] [id number] [place] [address] Dec, [facility] [address] [id number] [place] [address] Nov, [facility] [address] [id number] [place] [address] Oct, [facility] [address] [id number] [place] [address] Oct, [facility] [address] [id number] [place] [address] Oct, [facility] [place] [facility] [address] [id number] [place] [address] Oct, [facility] [place] [facility] [address] [id number] [place] [address] Sep, [facility] [place] [facility] [address] [id number] [place] [address] Sep, [facility] [place] [facility] [address] [id number] [place] [address] Sep, [facility] [place] [facility] [address] [id number] [place] [address] Sep, [facility] [place] [facility] [address] [id number] [place] [address] Aug, [facility] [place] [facility] [address] [id number] [place] [address] Aug, [facility] [place] [facility] [address] [id number] [place] [address] Aug, [facility] [place] [facility] [address] [id number] [place] [address] Aug, [facility] [place] [facility] [address] [id number], [place] [address] Aug, [facility] [place] [facility] [address] [id number] [place] [address] 15 Aug, 2012 [facility] [place] [facility] [address] [id number], [place] [address] 07 Jul, 2012 [facility] [place] [facility] [address] [id number], [place] [address] 08 Jun, 2012 [facility] [place] [facility] [address] [id number], [place] [address] May, [facility] [place] [facility] [address] [id number], [place] [address] Apr, [facility] [place] [facility] [address] [id number], [place] [address] Apr, [facility] [address] [id number] [place] [address] March, [facility] [place] [facility] [address] [id number] [place] [address] March, [facility] [place] [facility] [address] [facility] [id number] [place] [address] March, [facility] [place] [facility] [address] [id number] [place] [address] March, [facility] [place] [facility] [address] [id number] [place] [address] Feb, [facility] [place] [facility] [address] [id number] [place] [address] Jan, [facility] [address] [facility] [id number] [place] [address] Dec, [facility] [place] [facility] [address] [facility] [id number] [place] [address] Nov, [facility] [address] [facility] [id number] [place] [address] Nov, [facility] [place] [facility] [address] [facility] [id number] [place] [address] Oct, [facility] [place] [facility] [address] [facility] [id number] [place] [address] Oct, [facility] [place] [facility] [address] [id number] [place] [address] Oct, [facility] [place] [facility] [address] [id number] [place] [address] Sep, [facility] [place] [facility] [address] [facility] [id number] [place] [address] Aug, [facility] [place] [facility] [address] [facility] [id number] [place] [address] March, [facility] [place] [facility] [address] [facility] [id number], [place] [address] Oct, [facility] [address] [facility] [id number], [place] [address] Oct, [facility] [address] [facility] [id number], [place] [address] Oct, [facility] [id number], [place] [address] Oct, [facility] [address] [facility] [id number], [place] [address] Sep, [facility] [id number], [place] [address] Aug, [facility] [id number], [place] [address] Oct, [facility] [id number], [place] [address] Oct, [facility] [address] [id number], [place] [address] Aug, [facility] [address] [id number], [place] [address] March, IMMUNIZATIONS No Known Immunizations SOCIAL HISTORY Never Assessed [place] [place] VITAL SIGNS MEDICATIONS Unknown Medications RESULTS No Results PROCEDURES No Known procedures INSTRUCTIONS MEDICATIONS ADMINISTERED No Known Medications MEDICAL (GENERAL) HISTORY Type Description Date Medical History High Blood Pressure Medical History COPD Medical History Arthirtis Medical History Back Trouble Surgical History Sita 1981 Surgical History Hysterectomy 1987 Hospitalization History COPD/Back 2004
--- OUTSIDE RECORDS SUMMARY | 2019-05-12 22:55 | XMS REPORT ---
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 Name Role Phone Migration, Doctor Unavailable Unavailable PROBLEMS Type Condition ICD9-CM Code UBU55-AH Code Onset Dates Condition Status SNOMED Code Problem Cough 786.2 Active 72009567 Problem Generalized hyperhidrosis 780.8 Active 634468812 Problem Cervicalgia 723.1 Active 61130116 Problem Family history of diabetes mellitus V18.0 Active 979815139 Problem Other and unspecified hyperlipidemia 272.4 Active 10198540 Problem Chest pain, unspecified 786.50 Active 28103556 Problem Unspecified hypothyroidism 244.9 Active 91233974 Problem Other abnormal glucose 790.29 Active 645975117 Problem Pain in joint, hand 719.44 Active 052391196 Problem Lumbago 724.2 Active 159403758 Problem Anxiety state, unspecified 300.00 Active 167855520 Problem Hypocalcemia 275.41 Active [id number] ALLERGIES No Information ENCOUNTERS Encounter Location Date Diagnosis [facility] [id number] [place] [address] Oct, [facility] [id number] [place] [id number] May, Dental examination Z01.20 and Dental caries K02.9 [facility] [id number] [place] [address] [id number] Apr, Dental caries K02.9 [facility] [id number] [place] [address] [id number] Apr, Dental examination Z01.20 [facility] [id number] [place] [address] [id number] Sep, Dental examination Z01.20 and Dental caries K02.9 [facility] [id number] [place] [address] [id number] Jul, Dental examination V72.2 [facility] [address] [id number] [id number] March, Dental examination V72.2 [facility] [address] [id number] [place] [address] 14 Feb, 2015 [facility] [address] [id number] [place] [address] Feb, [facility] [address] [id number], [place] [address] Jan, [facility] [address] [id number] [place] [address] Jan, [facility] [place] [facility] [address] [id number] [place] [address] Jan, [facility] [address] [id number] [place] [address] Jan, [facility] [address] [id number], [place] [address] Dec, [facility] [place] [facility] [address] [id number] [place] [address] Dec, [facility] [place] [facility] [address] [id number], [place] [address] Dec, [facility] [place] [facility] [id number] [address] Dec, 2014 [facility] [place] [facility] [address] [id number], [place] [address] Dec, 2014 [facility] [place] [facility] [address] [id number], [place] [address] Dec, 2014 [facility] [place] [facility] [address] [facility] [id number], [place] [address] Dec, 2014 [facility] [place] [facility] [address] [facility] [id number], [place] [address] Dec, 2014 [facility] [place] [facility] [address] [id number] [place] [address] 02 Dec, 2014 [facility] [place] [facility] [address] [id number] [place] [address] 02 Dec, 2014 [facility] [place] [facility] [address] [id number] [place] [address] 15 Nov, 2014 [facility] [place] [facility] [address] [id number] [place] [address] Nov, [facility] [place] [facility] [address] [id number] [place] [address] Nov, [facility] [place] [facility] [address] [id number] [place] [address] Nov, [facility] [place] [facility] [address] [id number] [place] [address] Nov, [facility] [place] [facility] [address] [id number] [place] [address] Nov, [facility] [place] [facility] [address] [id number] [place] [address] Nov, [facility] [place] [facility] [address] [id number] [place] [address] Nov, [facility] [place] [facility] [address] [id number] [place] [address] Nov, [facility] [place] [facility] [address] [id number] [place] [address] Nov, [facility] [place] [facility] [address] [id number] [place] [address] Nov, [facility] [place] [facility] [address] [id number] [place] [address] Nov, [facility] [place] [facility] [address] [id number] [place] [address] Nov, [facility] [place] [facility] [address] [id number] [place] [address] Nov, [facility] [place] [facility] [address] [id number] [place] [address] Nov, [facility] [place] [facility] [address] [id number] [place] [address] Oct, [facility] [place] [facility] [address] [id number] [place] [address] Oct, [facility] [place] [facility] [address] [id number] [place] [address] Oct, [facility] [place] [facility] [address] [id number] [place] [address] Oct, [facility] [place] [facility] [address] [id number] [place] [address] Oct, [facility] [place] [facility] [address] [id number] [place] [address] Oct, [facility] [place] [facility] [address] [id number] [place] [address] Oct, [facility] [place] [facility] [address] [id number] [place] [address] Oct, [facility] [place] [facility] [address] [id number] [place] [address] Oct, [facility] [place] [facility] [address] [id number] [place] [address] Oct, [facility] [place] [facility] [address] [id number] [place] [address] Oct, [facility] [place] [facility] [address] [id number] [place] [address] Oct, [facility] [place] [facility] [address] [id number] [place] [address] Sep, [facility] [place] [facility] [address] [id number] [place] [address] Sep, [facility] [place] [facility] [address] [id number] [place] [address] 13 Sep, 2014 [facility] [place] [facility] [address] [id number] [place] [address] Sep, [facility] [place] [facility] [address] [id number] [place] [address] Sep, [facility] [place] [facility] [address] [id number] [place] [address] Sep, [facility] [place] [facility] [address] [id number] [place] [address] Sep, [facility] [place] [facility] [address] [id number] [place] [address] Sep, [facility] [place] [facility] [address] [id number] [place] [address] Sep, [facility] [place] [facility] [address] [id number] [place] [address] Sep, [facility] [place] [facility] [address] [id number] [place] [address] Sep, [facility] [place] [facility] [address] [id number] [place] [address] Sep, [facility] [place] [facility] [address] [facility] [id number] [place] [address] Sep, [facility] [place] [facility] [address] [id number] [place] [address] Sep, [facility] [place] [facility] [address] [id number], [place] [address] Sep, [facility] [place] [facility] [address] [id number] [place] [address] Sep, [facility] [place] [facility] [address] [id number] [place] [address] Aug, [facility] [place] [facility] [address] [id number], [place] [address] Aug, [facility] [place] [facility] [address] [id number] [place] [address] Aug, [facility] [place] [facility] [address] [id number] [place] [address] Aug, [facility] [place] [facility] [address] [id number] [place] [address] 29 Jul, 2014 [facility] [place] [facility] [address] [id number] [place] [address] 29 Jul, 2014 [facility] [place] [facility] [address] [id number] [place] [address] Jul, [facility] [place] [facility] [address] [id number] [place] [address] Jul, [facility] [place] [facility] [address] [id number] [place] [address] 17 Jul, 2014 [facility] [place] [facility] [address] [id number] [place] [address] Jul, [facility] [place] [facility] [address] [id number] [place] [address] Jul, [facility] [place] [facility] [address] [id number] [place] [address] Jul, [facility] [place] [facility] [address] [id number] [place] [address] Jun, [facility] [place] [facility] [address] [id number] [place] [address] Jun, [facility] [place] [facility] [address] [id number] [place] [address] Jun, [facility] [place] [facility] [address] [id number] [place] [address] Jun, [facility] [place] [facility] [address] [id number] [place] [address] Jun, [facility] [place] [facility] [address] [id number] [place] [address] Jun, [facility] [place] [facility] [address] [id number] [place] [address] Jun, [facility] [place] [facility] [address] [id number] [place] [address] Jun, [facility] [place] [facility] [address] [id number] [place] [address] Jun, [facility] [place] [facility] [address] [id number] [place] [address] Jun, [facility] [place] [facility] [address] [id number] [place] [address] Jun, [facility] [place] [facility] [address] [id number] [place] [address] May, [facility] [place] [facility] [address] [id number] [place] [address] May, [facility] [place] [facility] [address] [id number] [place] [address] May, [facility] [place] [facility] [address] [id number] [place] [address] May, [facility] [place] [facility] [address] [id number] [place] [address] May, [facility] [place] [facility] [address] [id number] [place] [address] May, [facility] [place] [facility] [address] [id number] [place] [address] May, [facility] [place] [facility] [address] [id number] [place] [address] May, [facility] [place] [facility] [address] [id number] [place] [address] May, [facility] [place] [facility] [address] [id number] [place] [address] May, [facility] [place] [facility] [address] [id number] [place] [address] 14 May, 2013 [facility] [place] [facility] [address] [id number] [place] [address] May, 2013 [facility] [place] [facility] [address] [id number] [place] [address] May, 2013 [facility] [place] [facility] [address] [id number] [place] [address] May, 2013 [facility] [place] [facility] [address] [id number] [place] [address] May, 2013 [facility] [place] [facility] [address] [id number] [place] [address] May, 2013 [facility] [place] [facility] [address] [id number] [place] [address] May, 2013 [facility] [place] [facility] [address] [id number] [place] [address] May, 2013 [facility] [place] [facility] [address] [id number] [place] [address] Apr, [facility] [place] [facility] [address] [id number] [place] [address] Apr, [facility] [place] [facility] [address] [id number] [place] [address] Apr, [facility] [place] [facility] [address] [id number] [place] [address] Apr, [facility] [place] [facility] [address] [id number] [place] [address] 18 Apr, 2014 [facility] [place] [facility] [address] [id number] [place] [address] 17 Apr, 2014 [facility] [place] [facility] [address] [id number] [place] [address] 17 Apr, 2014 [facility] [place] [facility] [address] [id number] [place] [address] Apr, [facility] [place] [facility] [address] [id number] [place] [address] Apr, [facility] [place] [facility] [address] [id number] [place] [address] Apr, [facility] [place] [facility] [address] [id number] [place] [address] Apr, [facility] [place] [facility] [address] [id number] [place] [address] Apr, [facility] [place] [facility] [address] [id number] [place] [address] Apr, [facility] [place] [facility] [address] [id number] [place] [address] March, [facility] [place] [facility] [address] [id number] [place] [address] March, [facility] [place] [facility] [address] [id number] [place] [address] March, [facility] [place] [facility] [address] [id number] [place] [address] March, [facility] [place] [facility] [address] [id number] [place] [address] March, [facility] [place] [facility] [address] [id number] [place] [address] March, [facility] [place] [facility] [address] [id number] [place] [address] Feb, [facility] [place] [facility] [address] [id number] [place] [address] Feb, [facility] [place] [facility] [address] [id number] [place] [address] Feb, [facility] [place] [facility] [address] [id number] [place] [address] Feb, [facility] [place] [facility] [address] [id number], [place] [address] Feb, [facility] [place] [facility] [address] [id number] [place] [address] Feb, [facility] [place] [facility] [address] [id number] [place] [address] Feb, [facility] [place] [facility] [address] [id number] [place] [address] Feb, [facility] [place] [facility] [address] [id number] [place] [address] Feb, [facility] [place] [facility] [address] [id number] [place] [address] Feb, [facility] [place] [facility] [address] [id number] [place] [address] Jan, [facility] [place] [facility] [address] [facility] [id number] [place] [address] Jan, [facility] [place] [facility] [address] [id number] [place] [address] Jan, [facility] [place] [facility] [address] [id number] [place] [address] Jan, [facility] [place] [facility] [address] [facility] [id number] [place] [address] Jan, [facility] [place] [facility] [address] [id number] [place] [address] Jan, [facility] [place] [facility] [address] [facility] [id number] [place] [address] Dec, [facility] [place] [facility] [address] [id number] [place] [address] Dec, [facility] [place] [facility] [address] [id number] [place] [address] Dec, [facility] [place] [facility] [address] [facility] [id number] [place] [address] Dec, [facility] [place] [facility] [address] [id number] [place] [address] Dec, [facility] [address] [id number] [place] [address] Dec, [facility] [address] [id number] [place] [address] Dec, [address] [id number] Dec, [facility] [address] [id number] [place] [address] Dec, [facility] [address] [id number] [place] [address] Nov, [facility] [address] [id number] [place] [address] Nov, [facility] [address] [id number] [place] [address] Nov, [facility] [address] [id number] [place] [address] Nov, [facility] [address] [id number] [place] [address] Nov, [facility] [address] [id number] [place] [address] Nov, [facility] [address] [id number] [place] [address] Oct, [facility] [address] [id number] [place] [address] Oct, [facility] [address] [id number] [place] [address] Oct, [facility] [address] [id number] [place] [address] Oct, [facility] [address] [id number] [place] [address] Sep, [facility] [place] [facility] [address] [id number] [place] [address] Sep, [facility] [place] [facility] [address] [id number] [place] [address] Sep, [facility] [place] [facility] [address] [id number] [place] [address] Sep, [facility] [place] [facility] [address] [id number] [place] [address] Aug, [facility] [place] [facility] [address] [id number] [place] [address] Aug, [facility] [place] [facility] [address] [id number] [place] [address] Aug, [facility] [place] [facility] [address] [id number] [place] [address] Aug, [facility] [place] [facility] [address] [id number], [place] [address] Jul, [facility] [place] [facility] [address] [id number] [place] [address] Jul, [facility] [place] [facility] [address] [id number] [place] [address] Jul, [facility] [place] [facility] [address] [id number], [place] [address] Jun, [facility] [place] [facility] [address] [id number], [place] [address] Jun, [facility] [place] [facility] [address] [id number] [place] [address] May, [facility] [place] [facility] [address] [id number], [place] [address] May, [facility] [place] [facility] [address] [id number] [place] [address] Apr, [facility] [place] [facility] [address] [id number] [place] [address] 04 Apr, 2013 [facility] [address] [id number] [place] [address] March, [facility] [address] [id number] [place] [address] March, [facility] [address] [id number] [place] [address] March, [facility] [address] [id number] [place] [address] March, [facility] [address] [id number] [place] [address] March, [facility] [address] [id number] [place] [address] March, [facility] [address] [id number] [place] [address] March, [facility] [address] [id number] [place] [address] Feb, [facility] [address] [id number] [place] [address] Feb, [facility] [address] [id number] [place] [address] Jan, [facility] [address] [id number] [place] [address] Dec, [facility] [address] [id number] [place] [address] Nov, [facility] [address] [id number] [place] [address] Oct, [facility] [address] [id number] [place] [address] Oct, [facility] [address] [id number] [place] [address] Oct, [facility] [place] [facility] [address] [id number] [place] [address] Oct, [facility] [place] [facility] [address] [id number] [place] [address] Sep, [facility] [place] [facility] [address] [id number] [place] [address] Sep, [facility] [place] [facility] [address] [id number] [place] [address] Sep, [facility] [place] [facility] [address] [id number] [place] [address] Sep, [facility] [place] [facility] [address] [id number] [place] [address] Aug, [facility] [place] [facility] [address] [id number] [place] [address] Aug, [facility] [place] [facility] [address] [id number] [place] [address] Aug, [facility] [place] [facility] [address] [id number] [place] [address] Aug, [facility] [place] [facility] [address] [id number], [place] [address] Aug, [facility] [place] [facility] [address] [id number] [place] [address] 15 Aug, 2012 [facility] [place] [facility] [address] [id number], [place] [address] 07 Jul, 2012 [facility] [place] [facility] [address] [id number], [place] [address] 08 Jun, 2012 [facility] [place] [facility] [address] [id number], [place] [address] May, [facility] [place] [facility] [address] [id number], [place] [address] Apr, [facility] [place] [facility] [address] [id number], [place] [address] Apr, [facility] [address] [id number] [place] [address] March, [facility] [place] [facility] [address] [id number] [place] [address] March, [facility] [place] [facility] [address] [facility] [id number] [place] [address] March, [facility] [place] [facility] [address] [id number] [place] [address] March, [facility] [place] [facility] [address] [id number] [place] [address] Feb, [facility] [place] [facility] [address] [id number] [place] [address] Jan, [facility] [address] [facility] [id number] [place] [address] Dec, [facility] [place] [facility] [address] [facility] [id number] [place] [address] Nov, [facility] [address] [facility] [id number] [place] [address] Nov, [facility] [place] [facility] [address] [facility] [id number] [place] [address] Oct, [facility] [place] [facility] [address] [facility] [id number] [place] [address] Oct, [facility] [place] [facility] [address] [id number] [place] [address] Oct, [facility] [place] [facility] [address] [id number] [place] [address] Sep, [facility] [place] [facility] [address] [facility] [id number] [place] [address] Aug, [facility] [place] [facility] [address] [facility] [id number] [place] [address] March, [facility] [place] [facility] [address] [facility] [id number], [place] [address] Oct, [facility] [address] [facility] [id number], [place] [address] Oct, [facility] [address] [facility] [id number], [place] [address] Oct, [facility] [id number], [place] [address] Oct, [facility] [address] [facility] [id number], [place] [address] Sep, [facility] [id number], [place] [address] Aug, [facility] [id number], [place] [address] Oct, [facility] [id number], [place] [address] Oct, [facility] [address] [id number], [place] [address] Aug, [facility] [address] [id number], [place] [address] March, IMMUNIZATIONS No Known Immunizations SOCIAL HISTORY Never Assessed REASON FOR VISIT EMR-[facility] PLAN OF CARE VITAL [...]
--- OUTSIDE RECORDS SUMMARY | 2019-05-12 22:56 | XMS REPORT ---
Author Author Migration, Doctor Organization [facility] Address Unknown Phone Unavailable Care Team Providers Care Lever Operator Name Role Phone Migration, Doctor Unavailable Unavailable PROBLEMS Type Condition ICD9-CM Code [id number] Code Onset Dates Condition Status SNOMED Code Problem Cough 786.2 Active 78306475 Problem Generalized hyperhidrosis 780.8 Active 095614831 Problem Cervicalgia 723.1 Active 14099222 Problem Family history of diabetes mellitus V18.0 Active 152980420 Problem Other and unspecified hyperlipidemia 272.4 Active 69888900 Problem Chest pain, unspecified 786.50 Active 17693967 Problem Unspecified hypothyroidism 244.9 Active 56806599 Problem Other abnormal glucose 790.29 Active 707822541 Problem Pain in joint, hand 719.44 Active 612479799 Problem Lumbago 724.2 Active 661426372 Problem Anxiety state, unspecified 300.00 Active 078477244 Problem Hypocalcemia 275.41 Active 8925818 ALLERGIES No Information ENCOUNTERS Encounter Location Date Diagnosis [facility] [id number] [place] [address] Oct, [facility] [id number] [place] [id number] May, Dental examination Z01.20 and Dental caries K02.9 [facility] [id number] [place] [id number] Apr, Dental caries K02.9 [facility] [id number] [place] [id number] Apr, Dental examination Z01.20 [facility] [id number] [place] [id number] Sep, Dental examination Z01.20 and Dental caries K02.9 [facility] [id number] [place] [id number] Jul, Dental examination V72.2 [facility] [address] [id number] [id number] March, Dental examination V72.2 [facility] [address] [id number] [place] [address] 14 Feb, 2015 [facility] [address] [id number] [place] [address] Feb, [facility] [address] [id number], [place] [address] Jan, [facility] [address] [id number] [place] [address] Jan, [facility] [place] [facility] [address] [id number] [place] [address] Jan, [facility] [address] [id number] [place] [address] Jan, [facility] [address] [id number], [place] [address] Dec, [facility] [place] [facility] [address] [id number] [place] [address] Dec, [facility] [place] [facility] [address] [id number], [place] [address] Dec, [facility] [place] [facility] [id number] [address] Dec, 2014 [facility] [place] [facility] [address] [id number], [place] [address] Dec, 2014 [facility] [place] [facility] [address] [id number], [place] [address] Dec, 2014 [facility] [place] [facility] [address] [facility] [id number], [place] [address] Dec, 2014 [facility] [place] [facility] [address] [facility] [id number], [place] [address] Dec, 2014 [facility] [place] [facility] [address] [id number] [place] [address] 02 Dec, 2014 [facility] [place] [facility] [address] [id number] [place] [address] 02 Dec, 2014 [facility] [place] [facility] [address] [id number] [place] [address] 15 Nov, 2014 [facility] [place] [facility] [address] [id number] [place] [address] Nov, [facility] [place] [facility] [address] [id number] [place] [address] Nov, [facility] [place] [facility] [address] [id number] [place] [address] Nov, [facility] [place] [facility] [address] [id number] [place] [address] Nov, [facility] [place] [facility] [address] [id number] [place] [address] Nov, [facility] [place] [facility] [address] [id number] [place] [address] Nov, [facility] [place] [facility] [address] [id number] [place] [address] Nov, [facility] [place] [facility] [address] [id number] [place] [address] Nov, [facility] [place] [facility] [address] [id number] [place] [address] Nov, [facility] [place] [facility] [address] [id number] [place] [address] Nov, [facility] [place] [facility] [address] [id number] [place] [address] Nov, [facility] [place] [facility] [address] [id number] [place] [address] Nov, [facility] [place] [facility] [address] [id number] [place] [address] Nov, [facility] [place] [facility] [address] [id number] [place] [address] Nov, [facility] [place] [facility] [address] [id number] [place] [address] Oct, [facility] [place] [facility] [address] [id number] [place] [address] Oct, [facility] [place] [facility] [address] [id number] [place] [address] Oct, [facility] [place] [facility] [address] [id number] [place] [address] Oct, [facility] [place] [facility] [address] [id number] [place] [address] Oct, [facility] [place] [facility] [address] [id number] [place] [address] Oct, [facility] [place] [facility] [address] [id number] [place] [address] Oct, [facility] [place] [facility] [address] [id number] [place] [address] Oct, [facility] [place] [facility] [address] [id number] [place] [address] Oct, [facility] [place] [facility] [address] [id number] [place] [address] Oct, [facility] [place] [facility] [address] [id number] [place] [address] Oct, [facility] [place] [facility] [address] [id number] [place] [address] Oct, [facility] [place] [facility] [address] [id number] [place] [address] Sep, [facility] [place] [facility] [address] [id number] [place] [address] Sep, [facility] [place] [facility] [address] [id number] [place] [address] 13 Sep, 2014 [facility] [place] [facility] [address] [id number] [place] [address] Sep, [facility] [place] [facility] [address] [id number] [place] [address] Sep, [facility] [place] [facility] [address] [id number] [place] [address] Sep, [facility] [place] [facility] [address] [id number] [place] [address] Sep, [facility] [place] [facility] [address] [id number] [place] [address] Sep, [facility] [place] [facility] [address] [id number] [place] [address] Sep, [facility] [place] [facility] [address] [id number] [place] [address] Sep, [facility] [place] [facility] [address] [id number] [place] [address] Sep, [facility] [place] [facility] [address] [id number] [place] [address] Sep, [facility] [place] [facility] [address] [facility] [id number] [place] [address] Sep, [facility] [place] [facility] [address] [id number] [place] [address] Sep, [facility] [place] [facility] [address] [id number], [place] [address] Sep, [facility] [place] [facility] [address] [id number] [place] [address] Sep, [facility] [place] [facility] [address] [id number] [place] [address] Aug, [facility] [place] [facility] [address] [id number], [place] [address] Aug, [facility] [place] [facility] [address] [id number] [place] [address] Aug, [facility] [place] [facility] [address] [id number] [place] [address] Aug, [facility] [place] [facility] [address] [id number] [place] [address] 29 Jul, 2014 [facility] [place] [facility] [address] [id number] [place] [address] 29 Jul, 2014 [facility] [place] [facility] [address] [id number] [place] [address] Jul, [facility] [place] [facility] [address] [id number] [place] [address] Jul, [facility] [place] [facility] [address] [id number] [place] [address] 17 Jul, 2014 [facility] [place] [facility] [address] [id number] [place] [address] Jul, [facility] [place] [facility] [address] [id number] [place] [address] Jul, [facility] [place] [facility] [address] [id number] [place] [address] Jul, [facility] [place] [facility] [address] [id number] [place] [address] Jun, [facility] [place] [facility] [address] [id number] [place] [address] Jun, [facility] [place] [facility] [address] [id number] [place] [address] Jun, [facility] [place] [facility] [address] [id number] [place] [address] Jun, [facility] [place] [facility] [address] [id number] [place] [address] Jun, [facility] [place] [facility] [address] [id number] [place] [address] Jun, [facility] [place] [facility] [address] [id number] [address] Jun, [facility] [place] [facility] [address] [id number] [place] [address] Jun, [facility] [place] [facility] [address] [id number] [place] [address] Jun, [facility] [place] [facility] [address] [id number] [place] [address] Jun, [facility] [place] [facility] [address] [id number] [place] [address] Jun, [facility] [place] [facility] [address] [id number] [place] [address] May, [facility] [place] [facility] [address] [id number] [place] [address] May, [facility] [place] [facility] [address] [id number] [place] [address] May, [facility] [place] [facility] [address] [id number] [place] [address] May, [facility] [place] [facility] [address] [id number] [place] [address] May, [facility] [place] [facility] [address] [id number] [place] [address] May, [facility] [place] [facility] [address] [id number] [place] [address] May, [facility] [place] [facility] [address] [id number] [place] [address] May, [facility] [place] [facility] [address] [id number] [place] [address] May, [facility] [place] [facility] [address] [id number] [place] [address] May, [facility] [place] [facility] [address] [id number] [place] [address] 14 May, 2013 [facility] [place] [facility] [address] [id number] [place] [address] May, 2013 [facility] [place] [facility] [address] [id number] [place] [address] May, 2013 [facility] [place] [facility] [address] [id number] [place] [address] May, 2013 [facility] [place] [facility] [address] [id number] [place] [address] May, 2013 [facility] [place] [facility] [address] [id number] [place] [address] May, 2013 [facility] [place] [facility] [address] [id number] [place] [address] May, 2013 [facility] [place] [facility] [address] [id number] [place] [address] May, 2013 [facility] [place] [facility] [address] [id number] [place] [address] Apr, [facility] [place] [facility] [address] [id number] [place] [address] Apr, [facility] [place] [facility] [address] [id number] [place] [address] Apr, [facility] [place] [facility] [address] [id number] [place] [address] Apr, [facility] [place] [facility] [address] [id number] [place] [address] 18 Apr, 2014 [facility] [place] [facility] [address] [id number] [place] [address] 17 Apr, 2014 [facility] [place] [facility] [address] [id number] [place] [address] 17 Apr, 2014 [facility] [place] [facility] [address] [id number] [place] [address] Apr, [facility] [place] [facility] [address] [id number] [place] [address] Apr, [facility] [place] [facility] [address] [id number] [place] [address] Apr, [facility] [place] [facility] [address] [id number] [place] [address] Apr, [facility] [place] [facility] [address] [id number] [place] [address] Apr, [facility] [place] [facility] [address] [id number] [place] [address] Apr, [facility] [place] [facility] [address] [id number] [place] [address] March, [facility] [place] [facility] [address] [id number] [place] [address] March, [facility] [place] [facility] [address] [id number] [place] [address] March, [facility] [place] [facility] [address] [id number] [place] [address] March, [facility] [place] [facility] [address] [id number] [place] [address] March, [facility] [place] [facility] [address] [id number] [place] [address] March, [facility] [place] [facility] [address] [id number] [place] [address] Feb, [facility] [place] [facility] [address] [id number] [place] [address] Feb, [facility] [place] [facility] [address] [id number] [place] [address] Feb, [facility] [place] [facility] [address] [id number] [place] [address] Feb, [facility] [place] [facility] [address] [id number], [place] [address] Feb, [facility] [place] [facility] [address] [id number] [place] [address] Feb, [facility] [place] [facility] [address] [id number] [place] [address] Feb, [facility] [place] [facility] [address] [id number] [place] [address] Feb, [facility] [place] [facility] [address] [id number] [place] [address] Feb, [facility] [place] [facility] [address] [id number] [place] [address] Feb, [facility] [place] [facility] [address] [id number] [place] [address] Jan, [facility] [place] [facility] [address] [facility] [id number] [place] [address] Jan, [facility] [place] [facility] [address] [id number] [place] [address] Jan, [facility] [place] [facility] [address] [id number] [place] [address] Jan, [facility] [place] [facility] [address] [facility] [id number] [place] [address] Jan, [facility] [place] [facility] [address] [id number] [place] [address] Jan, [facility] [place] [facility] [address] [facility] [id number] [place] [address] Dec, [facility] [place] [facility] [address] [id number] [place] [address] Dec, [facility] [place] [facility] [address] [id number] [place] [address] Dec, [facility] [place] [facility] [address] [facility] [id number] [place] [address] Dec, [facility] [place] [facility] [address] [id number] [place] [address] Dec, [facility] [address] [id number] [place] [address] Dec, [facility] [address] [id number] [place] [address] Dec, [address] [id number] Dec, [facility] [address] [id number] [place] [address] Dec, [facility] [address] [id number] [place] [address] Nov, [facility] [address] [id number] [place] [address] Nov, [facility] [address] [id number] [place] [address] Nov, [facility] [address] [id number] [place] [address] Nov, [facility] [address] [id number] [place] [address] Nov, [facility] [address] [id number] [place] [address] Nov, [facility] [address] [id number] [place] [address] Oct, [facility] [address] [id number] [place] [address] Oct, [facility] [address] [id number] [place] [address] Oct, [facility] [address] [id number] [place] [address] Oct, [facility] [address] [id number] [place] [address] Sep, [facility] [place] [facility] [address] [id number] [place] [address] Sep, [facility] [place] [facility] [address] [id number] [place] [address] Sep, [facility] [place] [facility] [address] [id number] [place] [address] Sep, [facility] [place] [facility] [address] [id number] [place] [address] Aug, [facility] [place] [facility] [address] [id number] [place] [address] Aug, [facility] [place] [facility] [address] [id number] [place] [address] Aug, [facility] [place] [facility] [address] [id number] [place] [address] Aug, [facility] [place] [facility] [address] [id number], [place] [address] Jul, [facility] [place] [facility] [address] [id number] [place] [address] Jul, [facility] [place] [facility] [address] [id number] [place] [address] Jul, [facility] [place] [facility] [address] [id number], [place] [address] Jun, [facility] [place] [facility] [address] [id number], [place] [address] Jun, [facility] [place] [facility] [address] [id number] [place] [address] May, [facility] [place] [facility] [address] [id number], [place] [address] May, [facility] [place] [facility] [address] [id number] [place] [address] Apr, [facility] [place] [facility] [address] [id number] [place] [address] 04 Apr, 2013 [facility] [address] [id number] [place] [address] March, [facility] [address] [id number] [place] [address] March, [facility] [address] [id number] [place] [address] March, [facility] [address] [id number] [place] [address] March, [facility] [address] [id number] [place] [address] March, [facility] [address] [id number] [place] [address] March, [facility] [address] [id number] [place] [address] March, [facility] [address] [id number] [place] [address] Feb, [facility] [address] [id number] [place] [address] Feb, [facility] [address] [id number] [place] [address] Jan, [facility] [address] [id number] [place] [address] Dec, [facility] [address] [id number] [place] [address] Nov, [facility] [address] [id number] [place] [address] Oct, [facility] [address] [id number] [place] [address] Oct, [facility] [address] [id number] [place] [address] Oct, [facility] [place] [facility] [address] [id number] [place] [address] Oct, [facility] [place] [facility] [address] [id number] [place] [address] Sep, [facility] [place] [facility] [address] [id number] [place] [address] Sep, [facility] [place] [facility] [address] [id number] [place] [address] Sep, [facility] [place] [facility] [address] [id number] [place] [address] Sep, [facility] [place] [facility] [address] [id number] [place] [address] Aug, [facility] [place] [facility] [address] [id number] [place] [address] Aug, [facility] [place] [facility] [address] [id number] [place] [address] Aug, [facility] [place] [facility] [address] [id number] [place] [address] Aug, [facility] [place] [facility] [address] [id number], [place] [address] Aug, [facility] [place] [facility] [address] [id number] [place] [address] 15 Aug, 2012 [facility] [place] [facility] [address] [id number], [place] [address] 07 Jul, 2012 [facility] [place] [facility] [address] [id number], [place] [address] 08 Jun, 2012 [facility] [place] [facility] [address] [id number], [place] [address] May, [facility] [place] [facility] [address] [id number], [place] [address] Apr, [facility] [place] [facility] [address] [id number], [place] [address] Apr, [facility] [address] [id number] [place] [address] March, [facility] [place] [facility] [address] [id number] [place] [address] March, [facility] [place] [facility] [address] [facility] [id number] [place] [address] March, [facility] [place] [facility] [address] [id number] [place] [address] March, [facility] [place] [facility] [address] [id number] [place] [address] Feb, [facility] [place] [facility] [address] [id number] [place] [address] Jan, [facility] [address] [facility] [id number] [place] [address] Dec, [facility] [place] [facility] [address] [facility] [id number] [place] [address] Nov, [facility] [address] [facility] [id number] [place] [address] Nov, [facility] [place] [facility] [address] [facility] [id number] [place] [address] Oct, [facility] [place] [facility] [address] [facility] [id number] [place] [address] Oct, [facility] [place] [facility] [address] [id number] [place] [address] Oct, [facility] [place] [facility] [address] [id number] [place] [address] Sep, [facility] [place] [facility] [address] [facility] [id number] [place] [address] Aug, [facility] [place] [facility] [address] [facility] [id number] [place] [address] March, [facility] [place] [facility] [address] [facility] [id number], [place] [address] Oct, [facility] [address] [facility] [id number], [place] [address] Oct, [facility] [address] [facility] [id number], [place] [address] Oct, [facility] [id number], [place] [address] Oct, [facility] [address] [facility] [id number], [place] [address] Sep, [facility] [id number], [place] [address] Aug, [facility] [id number], [place] [address] Oct, [facility] [id number], [place] [address] Oct, [facility] [address] [id number], [place] [address] Aug, [facility] [address] [id number], [place] [address] March, IMMUNIZATIONS No Known Immunizations SOCIAL HISTORY Never Assessed REASON FOR VISIT [facility] [place] VITAL SIGNS MEDICATIONS Unknown Medications RESULTS No Results PROCEDURES No Known procedures INSTRUCTIONS MEDICATIONS ADMINISTERED No Known Medications MEDICAL (GENERAL) HISTORY Type Description Date Medical History High Blood Pressure Medical History COPD Medical History Arthirtis Medical History Back Trouble Surgical History Sita 1981 Surgical History Hysterectomy 1987 Hospitalization History COPD/Back 2004
--- OUTSIDE RECORDS SUMMARY | 2019-05-12 22:56 | XMS REPORT ---
Author Author Migration, Doctor Organization [facility] Address Unknown Phone Unavailable Care Team Providers Care Medical Case Manager Name Role Phone Migration, Doctor Unavailable Unavailable PROBLEMS Type Condition ICD9-CM Code GQR82-SI Code Onset Dates Condition Status SNOMED Code Problem Cough 786.2 Active 71481940 Problem Generalized hyperhidrosis 780.8 Active 839801427 Problem Cervicalgia 723.1 Active 76952614 Problem Family history of diabetes mellitus V18.0 Active 815768416 Problem Other and unspecified hyperlipidemia 272.4 Active 05495934 Problem Chest pain, unspecified 786.50 Active 21267981 Problem Unspecified hypothyroidism 244.9 Active 94604000 Problem Other abnormal glucose 790.29 Active 556027052 Problem Pain in joint, hand 719.44 Active 251454027 Problem Lumbago 724.2 Active 016142509 Problem Anxiety state, unspecified 300.00 Active 804904033 Problem Hypocalcemia 275.41 Active [id number] ALLERGIES No Information ENCOUNTERS Encounter Location Date Diagnosis [facility] [id number] [place] [id number] Oct, [facility] [id number] [place] [address] [id number] May, Dental examination Z01.20 and Dental caries K02.9 [facility] [id number] [place] [address] [id number] Apr, Dental caries K02.9 [facility] [id number] [place] [address] [id number] Apr, Dental examination Z01.20 [facility] [id number] [place] [address] [id number] Sep, Dental examination Z01.20 and Dental caries K02.9 [facility] [id number] [place] [address] [id number] Jul, Dental examination V72.2 [facility] [address] [id number] [place] [id number] March, Dental examination V72.2 [facility] [address] [id number] [place] [address] 14 Feb, 2015 [facility] [address] [id number] [place] [address] Feb, [facility] [address] [id number] [place] [address] Jan, [facility] [address] [id number] [place] [address] Jan, [facility] [place] [facility] [address] [id number] [place] [address] Jan, [facility] [address] [id number] [place] [address] Jan, [facility] [address] [id number] [place] [address] Dec, [facility] [place] [facility] [address] [id number] [place] [address] Dec, [facility] [place] [facility] [address] [id number] [place] [address] Dec, [facility] [place] [facility] [id number] [place] [address] Dec, 2014 [facility] [place] [facility] [address] [id number] [place] [address] Dec, 2014 [facility] [place] [facility] [address] [id number] [place] [address] Dec, 2014 [facility] [place] [facility] [address] [facility] [id number] [place] [address] Dec, 2014 [facility] [place] [facility] [address] [facility] [id number] [place] [address] Dec, 2014 [facility] [place] [facility] [address] [id number] [place] [address] 02 Dec, 2014 [facility] [place] [facility] [address] [id number] [place] [address] 02 Dec, 2014 [facility] [place] [facility] [address] [id number] [place] [address] 15 Nov, 2014 [facility] [place] [facility] [address] [id number] [place] [address] Nov, [facility] [place] [facility] [address] [id number] [place] [address] Nov, [facility] [place] [facility] [address] [id number] [place] [address] Nov, [facility] [place] [facility] [address] [id number] [place] [address] Nov, [facility] [place] [facility] [address] [id number] [place] [address] Nov, [facility] [place] [facility] [address] [id number] [place] [address] Nov, [facility] [place] [facility] [address] [id number] [place] [address] Nov, [facility] [place] [facility] [address] [id number] [place] [address] Nov, [facility] [place] [facility] [address] [id number] [place] [address] Nov, [facility] [place] [facility] [address] [id number] [place] [address] Nov, [facility] [place] [facility] [address] [id number] [place] [address] Nov, [facility] [place] [facility] [address] [id number] [place] [address] Nov, [facility] [place] [facility] [address] [id number] [place] [address] Nov, [facility] [place] [facility] [address] [id number] [place] [address] Nov, [facility] [place] [facility] [address] [id number] [place] [address] Oct, [facility] [place] [facility] [address] [id number] [place] [address] Oct, [facility] [place] [facility] [address] [id number] [place] [address] Oct, [facility] [place] [facility] [address] [id number] [place] [address] Oct, [facility] [place] [facility] [address] [id number] [place] [address] Oct, [facility] [place] [facility] [address] [id number] [place] [address] Oct, [facility] [place] [facility] [address] [id number] [place] [address] Oct, [facility] [place] [facility] [address] [id number] [place] [address] Oct, [facility] [place] [facility] [address] [id number] [place] [address] Oct, [facility] [place] [facility] [address] [id number] [place] [address] Oct, [facility] [place] [facility] [address] [id number] [place] [address] Oct, [facility] [place] [facility] [address] [id number] [place] [address] Oct, [facility] [place] [facility] [address] [id number] [place] [address] Sep, [facility] [place] [facility] [address] [id number] [place] [address] Sep, [facility] [place] [facility] [address] [id number] [place] [address] 13 Sep, 2014 [facility] [place] [facility] [address] [id number] [place] [address] Sep, [facility] [place] [facility] [address] [id number] [place] [address] Sep, [facility] [place] [facility] [address] [id number] [place] [address] Sep, [facility] [place] [facility] [address] [id number] [place] [address] Sep, [facility] [place] [facility] [address] [id number] [place] [address] Sep, [facility] [place] [facility] [address] [id number] [place] [address] Sep, [facility] [place] [facility] [address] [id number] [place] [address] Sep, [facility] [place] [facility] [address] [id number] [place] [address] Sep, [facility] [place] [facility] [address] [id number] [place] [address] Sep, [facility] [place] [facility] [address] [facility] [id number] [place] [address] Sep, [facility] [place] [facility] [address] [id number] [place] [address] Sep, [facility] [place] [facility] [address] [id number] [place] [address] Sep, [facility] [place] [facility] [address] [id number] [place] [address] Sep, [facility] [place] [facility] [address] [id number] [place] [address] Aug, [facility] [place] [facility] [address] [id number] [place] [address] Aug, [facility] [place] [facility] [address] [id number] [place] [address] Aug, [facility] [place] [facility] [address] [id number] [place] [address] Aug, [facility] [place] [facility] [address] [id number] [place] [address] 29 Jul, 2014 [facility] [place] [facility] [address] [id number] [place] [address] 29 Jul, 2014 [facility] [place] [facility] [address] [id number] [place] [address] Jul, [facility] [place] [facility] [address] [id number] [place] [address] Jul, [facility] [place] [facility] [address] [id number] [place] [address] 17 Jul, 2014 [facility] [place] [facility] [address] [id number] [place] [address] Jul, [facility] [place] [facility] [address] [id number] [place] [address] Jul, [facility] [place] [facility] [address] [id number] [place] [address] Jul, [facility] [place] [facility] [address] [id number] [place] [address] Jun, [facility] [place] [facility] [address] [id number] [place] [address] Jun, [facility] [place] [facility] [address] [id number] [place] [address] Jun, [facility] [place] [facility] [address] [id number] [place] [address] Jun, [facility] [place] [facility] [address] [id number] [place] [address] Jun, [facility] [place] [facility] [address] [id number] [place] [address] Jun, [facility] [place] [facility] [address] [id number] [place] [address] Jun, [facility] [place] [facility] [address] [id number] [place] [address] Jun, [facility] [place] [facility] [address] [id number] [place] [address] Jun, [facility] [place] [facility] [address] [id number] [place] [address] Jun, [facility] [place] [facility] [address] [id number] [place] [address] Jun, [facility] [place] [facility] [address] [id number] [place] [address] May, [facility] [place] [facility] [address] [id number] [place] [address] May, [facility] [place] [facility] [address] [id number] [place] [address] May, [facility] [place] [facility] [address] [id number] [place] [address] May, [facility] [place] [facility] [address] [id number] [place] [address] May, [facility] [place] [facility] [address] [id number] [place] [address] May, [facility] [place] [facility] [address] [id number] [place] [address] May, [facility] [place] [facility] [address] [id number] [place] [address] May, [facility] [place] [facility] [address] [id number] [place] [address] May, [facility] [place] [facility] [address] [id number] [place] [address] May, [facility] [place] [facility] [address] [id number] [place] [address] 14 May, 2013 [facility] [place] [facility] [address] [id number] [place] [address] May, 2013 [facility] [place] [facility] [address] [id number] [place] [address] May, 2013 [facility] [place] [facility] [address] [id number] [place] [address] May, 2013 [facility] [place] [facility] [address] [id number] [place] [address] May, 2013 [facility] [place] [facility] [address] [id number] [place] [address] May, 2013 [facility] [place] [facility] [address] [id number] [place] [address] May, 2013 [facility] [place] [facility] [address] [id number] [place] [address] May, 2013 [facility] [place] [facility] [address] [id number] [place] [address] Apr, [facility] [place] [facility] [address] [id number] [place] [address] Apr, [facility] [place] [facility] [address] [id number] [place] [address] Apr, [facility] [place] [facility] [address] [id number] [place] [address] Apr, [facility] [place] [facility] [address] [id number] [place] [address] 18 Apr, 2014 [facility] [place] [facility] [address] [id number] [place] [address] 17 Apr, 2014 [facility] [place] [facility] [address] [id number] [place] [address] 17 Apr, 2014 [facility] [place] [facility] [address] [id number] [place] [address] Apr, [facility] [place] [facility] [address] [id number] [place] [address] Apr, [facility] [place] [facility] [address] [id number] [place] [address] Apr, [facility] [place] [facility] [address] [id number] [place] [address] Apr, [facility] [place] [facility] [address] [id number] [place] [address] Apr, [facility] [place] [facility] [address] [id number] [place] [address] Apr, [facility] [place] [facility] [address] [id number] [place] [address] March, [facility] [place] [facility] [address] [id number] [place] [address] March, [facility] [place] [facility] [address] [id number] [place] [address] March, [facility] [place] [facility] [address] [id number] [place] [address] March, [facility] [place] [facility] [address] [id number] [place] [address] March, [facility] [place] [facility] [address] [id number] [place] [address] March, [facility] [place] [facility] [address] [id number] [place] [address] Feb, [facility] [place] [facility] [address] [id number] [place] [address] Feb, [facility] [place] [facility] [address] [id number] [place] [address] Feb, [facility] [place] [facility] [address] [id number] [place] [address] Feb, [facility] [place] [facility] [address] [id number] [place] [address] Feb, [facility] [place] [facility] [address] [id number] [place] [address] Feb, [facility] [place] [facility] [address] [id number] [place] [address] Feb, [facility] [place] [facility] [address] [id number] [place] [address] Feb, [facility] [place] [facility] [address] [id number] [place] [address] Feb, [facility] [place] [facility] [address] [id number] [place] [address] Feb, [facility] [place] [facility] [address] [id number] [place] [address] Jan, [facility] [place] [facility] [address] [facility] [id number] [place] [address] Jan, [facility] [place] [facility] [address] [id number] [place] [address] Jan, [facility] [place] [facility] [address] [id number] [place] [address] Jan, [facility] [place] [facility] [address] [facility] [id number] [place] [address] Jan, [facility] [place] [facility] [address] [id number] [place] [address] Jan, [facility] [place] [facility] [address] [facility] [id number] [place] [address] Dec, [facility] [place] [facility] [address] [id number] [place] [address] Dec, [facility] [place] [facility] [address] [id number] [place] [address] Dec, [facility] [place] [facility] [address] [facility] [id number] [place] [address] Dec, [facility] [place] [facility] [address] [id number] [place] [address] Dec, [facility] [address] [id number] [place] [address] Dec, [facility] [address] [id number] [place] [address] Dec, [address] [id number] Dec, [facility] [address] [id number] [place] [address] Dec, [facility] [address] [id number] [place] [address] Nov, [facility] [address] [id number] [place] [address] Nov, [facility] [address] [id number] [place] [address] Nov, [facility] [address] [id number] [place] [address] Nov, [facility] [address] [id number] [place] [address] Nov, [facility] [address] [id number] [place] [address] Nov, [facility] [address] [id number] [place] [address] Oct, [facility] [address] [id number] [place] [address] Oct, [facility] [address] [id number] [place] [address] Oct, [facility] [address] [id number] [place] [address] Oct, [facility] [address] [id number] [place] [address] Sep, [facility] [place] [facility] [address] [id number] [place] [address] Sep, [facility] [place] [facility] [address] [id number] [place] [address] Sep, [facility] [place] [facility] [address] [id number] [place] [address] Sep, [facility] [place] [facility] [address] [id number] [place] [address] Aug, [facility] [place] [facility] [address] [id number] [place] [address] Aug, [facility] [place] [facility] [address] [id number] [place] [address] Aug, [facility] [place] [facility] [address] [id number] [place] [address] Aug, [facility] [place] [facility] [address] [id number] [place] [address] Jul, [facility] [place] [facility] [address] [id number] [place] [address] Jul, [facility] [place] [facility] [address] [id number] [place] [address] Jul, [facility] [place] [facility] [address] [id number] [place] [address] Jun, [facility] [place] [facility] [address] [id number] [place] [address] Jun, [facility] [place] [facility] [address] [id number] [place] [address] May, [facility] [place] [facility] [address] [id number] [place] [address] May, [facility] [place] [facility] [address] [id number] [place] [address] Apr, [facility] [place] [facility] [address] [id number] [place] [address] 04 Apr, 2013 [facility] [address] [id number] [place] [address] March, [facility] [address] [id number] [place] [address] March, [facility] [address] [id number] [place] [address] March, [facility] [address] [id number] [place] [address] March, [facility] [address] [id number] [place] [address] March, [facility] [address] [id number] [place] [address] March, [facility] [address] [id number] [place] [address] March, [facility] [address] [id number] [place] [address] Feb, [facility] [address] [id number] [place] [address] Feb, [facility] [address] [id number] [place] [address] Jan, [facility] [address] [id number] [place] [address] Dec, [facility] [address] [id number] [place] [address] Nov, [facility] [address] [id number] [place] [address] Oct, [facility] [address] [id number] [place] [address] Oct, [facility] [address] [id number] [place] [address] Oct, [facility] [place] [facility] [address] [id number] [place] [address] Oct, [facility] [place] [facility] [address] [id number] [place] [address] Sep, [facility] [place] [facility] [address] [id number] [place] [address] Sep, [facility] [place] [facility] [address] [id number] [place] [address] Sep, [facility] [place] [facility] [address] [id number] [place] [address] Sep, [facility] [place] [facility] [address] [id number] [place] [address] Aug, [facility] [place] [facility] [address] [id number] [place] [address] Aug, [facility] [place] [facility] [address] [id number] [place] [address] Aug, [facility] [place] [facility] [address] [id number] [place] [address] Aug, [facility] [place] [facility] [address] [id number] [place] [address] Aug, [facility] [place] [facility] [address] [id number] [place] [address] 15 Aug, 2012 [facility] [place] [facility] [address] [id number] [place] [address] 07 Jul, 2012 [facility] [place] [facility] [address] [id number] [place] [address] 08 Jun, 2012 [facility] [place] [facility] [address] [id number] [place] [address] May, [facility] [place] [facility] [address] [id number] [place] [address] Apr, [facility] [place] [facility] [address] [id number] [place] [address] Apr, [facility] [address] [id number] [place] [address] March, [facility] [place] [facility] [address] [id number] [place] [address] March, [facility] [place] [facility] [address] [facility] [id number] [place] [address] March, [facility] [place] [facility] [address] [id number] [place] [address] March, [facility] [place] [facility] [address] [id number] [place] [address] Feb, [facility] [place] [facility] [address] [id number] [place] [address] Jan, [facility] [address] [facility] [id number] [place] [address] Dec, [facility] [place] [facility] [address] [facility] [id number] [place] [address] Nov, [facility] [address] [facility] [id number] [place] [address] Nov, [facility] [place] [facility] [address] [facility] [id number] [place] [address] Oct, [facility] [place] [facility] [address] [facility] [id number] [place] [address] Oct, [facility] [place] [facility] [address] [id number] [place] [address] Oct, [facility] [place] [facility] [address] [id number] [place] [address] Sep, [facility] [place] [facility] [address] [facility] [id number] [place] [address] Aug, [facility] [place] [facility] [address] [facility] [id number] [place] [address] March, [facility] [place] [facility] [address] [facility] [id number] [place] [address] Oct, [facility] [address] [facility] [id number] [place] [address] Oct, [facility] [address] [facility] [id number] [place] [address] Oct, [facility] [id number] [place] [address] Oct, [facility] [address] [facility] [id number] [place] [address] Sep, [facility] [id number] [place] [address] Aug, [facility] [id number] [place] [address] Oct, [facility] [id number] [place] [address] Oct, [facility] [address] [id number] [place] [address] Aug, [facility] [address] [id number] [place] [address] March, IMMUNIZATIONS No Known Immunizations SOCIAL HISTORY Never Assessed REASON FOR VISIT EMR-[facility] PLAN OF CARE VITAL SIGNS MEDICATIONS Unknown Medications RESULTS No Results PROCEDURES No Known procedures INSTRUCTIONS MEDICATIONS ADMINISTERED No Known Medications MEDICAL (GENERAL) HISTORY Type Description Date Medical History High Blood Pressure Medical History COPD Medical History Arthirtis Medical History Back Trouble Surgical History Sita 1981 Surgical History Hysterectomy 1987 Hospitalization History COPD/Back 2004
--- OUTSIDE RECORDS SUMMARY | 2019-05-12 22:57 | XMS REPORT ---
Author Author Migration, Doctor Organization [facility] Address Unknown Phone Unavailable Care Team Providers Care Head Of Marketing Analytics Name Role Phone Migration, Doctor Unavailable Unavailable PROBLEMS Type Condition ICD9-CM Code EUG75-UA Code Onset Dates Condition Status SNOMED Code Problem Cough 786.2 Active 79958035 Problem Generalized hyperhidrosis 780.8 Active 453442252 Problem Cervicalgia 723.1 Active 62564431 Problem Family history of diabetes mellitus V18.0 Active 254172275 Problem Other and unspecified hyperlipidemia 272.4 Active 43359318 Problem Chest pain, unspecified 786.50 Active 29253340 Problem Unspecified hypothyroidism 244.9 Active 34571292 Problem Other abnormal glucose 790.29 Active 869489328 Problem Pain in joint, hand 719.44 Active 212887099 Problem Lumbago 724.2 Active 362403132 Problem Anxiety state, unspecified 300.00 Active 094263955 Problem Hypocalcemia 275.41 Active [id number] ALLERGIES No Information ENCOUNTERS Encounter Location Date Diagnosis [facility] [id number] [place] [address] Oct, [facility] [id number] [place] [address] [id number] May, Dental examination Z01.20 and Dental caries K02.9 [facility] [id number] [place] [id number] Apr, Dental caries K02.9 [facility] [id number] [place] [address] [id number] Apr, Dental examination Z01.20 [facility] [id number] [place] [address] [id number] Sep, Dental examination Z01.20 and Dental caries K02.9 [facility] [id number] [place] [address] [id number] Jul, Dental examination V72.2 [facility] [address] [id number] [id number] March, Dental examination V72.2 [facility] [address] [id number] [place] [address] 14 Feb, 2015 [facility] [address] [id number] [place] [address] Feb, [facility] [address] [id number], [place] [address] Jan, [facility] [address] [id number] [place] [address] Jan, [facility] [place] [facility] [address] [id number] [place] [address] Jan, [facility] [address] [id number] [place] [address] Jan, [facility] [address] [id number], [place] [address] Dec, [facility] [place] [facility] [address] [id number] [place] [address] Dec, [facility] [place] [facility] [address] [id number] [address] Dec, [facility] [place] [facility] [id number] [address] Dec, 2014 [facility] [place] [facility] [address] [id number], [place] [address] Dec, 2014 [facility] [place] [facility] [address] [id number], [place] [address] Dec, 2014 [facility] [place] [facility] [address] [facility] [id number], [place] [address] Dec, 2014 [facility] [place] [facility] [address] [facility] [id number], [place] [address] Dec, 2014 [facility] [place] [facility] [address] [id number] [place] [address] 02 Dec, 2014 [facility] [place] [facility] [address] [id number] [place] [address] 02 Dec, 2014 [facility] [place] [facility] [address] [id number] [place] [address] 15 Nov, 2014 [facility] [place] [facility] [address] [id number] [place] [address] Nov, [facility] [place] [facility] [address] [id number] [place] [address] Nov, [facility] [place] [facility] [address] [id number] [place] [address] Nov, [facility] [place] [facility] [address] [id number] [place] [address] Nov, [facility] [place] [facility] [address] [id number] [place] [address] Nov, [facility] [place] [facility] [address] [id number] [place] [address] Nov, [facility] [place] [facility] [address] [id number] [place] [address] Nov, [facility] [place] [facility] [address] [id number] [place] [address] Nov, [facility] [place] [facility] [address] [id number] [place] [address] Nov, [facility] [place] [facility] [address] [id number] [place] [address] Nov, [facility] [place] [facility] [address] [id number] [place] [address] Nov, [facility] [place] [facility] [address] [id number] [place] [address] Nov, [facility] [place] [facility] [address] [id number] [place] [address] Nov, [facility] [place] [facility] [address] [id number] [place] [address] Nov, [facility] [place] [facility] [address] [id number] [place] [address] Oct, [facility] [place] [facility] [address] [id number] [place] [address] Oct, [facility] [place] [facility] [address] [id number] [place] [address] Oct, [facility] [place] [facility] [address] [id number] [place] [address] Oct, [facility] [place] [facility] [address] [id number] [place] [address] Oct, [facility] [place] [facility] [address] [id number] [place] [address] Oct, [facility] [place] [facility] [address] [id number] [place] [address] Oct, [facility] [place] [facility] [address] [id number] [place] [address] Oct, [facility] [place] [facility] [address] [id number] [place] [address] Oct, [facility] [place] [facility] [address] [id number] [place] [address] Oct, [facility] [place] [facility] [address] [id number] [place] [address] Oct, [facility] [place] [facility] [address] [id number] [place] [address] Oct, [facility] [place] [facility] [address] [id number] [place] [address] Sep, [facility] [place] [facility] [address] [id number] [place] [address] Sep, [facility] [place] [facility] [address] [id number] [place] [address] 13 Sep, 2014 [facility] [place] [facility] [address] [id number] [place] [address] Sep, [facility] [place] [facility] [address] [id number] [place] [address] Sep, [facility] [place] [facility] [address] [id number] [place] [address] Sep, [facility] [place] [facility] [address] [id number] [place] [address] Sep, [facility] [place] [facility] [address] [id number] [place] [address] Sep, [facility] [place] [facility] [address] [id number] [place] [address] Sep, [facility] [place] [facility] [address] [id number] [place] [address] Sep, [facility] [place] [facility] [address] [id number] [place] [address] Sep, [facility] [place] [facility] [address] [id number] [place] [address] Sep, [facility] [place] [facility] [address] [facility] [id number] [place] [address] Sep, [facility] [place] [facility] [address] [id number] [place] [address] Sep, [facility] [place] [facility] [address] [id number], [place] [address] Sep, [facility] [place] [facility] [address] [id number] [place] [address] Sep, [facility] [place] [facility] [address] [id number] [place] [address] Aug, [facility] [place] [facility] [address] [id number], [place] [address] Aug, [facility] [place] [facility] [address] [id number] [place] [address] Aug, [facility] [place] [facility] [address] [id number] [place] [address] Aug, [facility] [place] [facility] [address] [id number] [place] [address] 29 Jul, 2014 [facility] [place] [facility] [address] [id number] [place] [address] 29 Jul, 2014 [facility] [place] [facility] [address] [id number] [place] [address] Jul, [facility] [place] [facility] [address] [id number] [place] [address] Jul, [facility] [place] [facility] [address] [id number] [place] [address] 17 Jul, 2014 [facility] [place] [facility] [address] [id number] [place] [address] Jul, [facility] [place] [facility] [address] [id number] [place] [address] Jul, [facility] [place] [facility] [address] [id number] [place] [address] Jul, [facility] [place] [facility] [address] [id number] [place] [address] Jun, [facility] [place] [facility] [address] [id number] [place] [address] Jun, [facility] [place] [facility] [address] [id number] [place] [address] Jun, [facility] [place] [facility] [address] [id number] [place] [address] Jun, [facility] [place] [facility] [address] [id number] [place] [address] Jun, [facility] [place] [facility] [address] [id number] [place] [address] Jun, [facility] [place] [facility] [address] [id number] [place] [address] Jun, [facility] [place] [facility] [address] [id number] [place] [address] Jun, [facility] [place] [facility] [address] [id number] [place] [address] Jun, [facility] [place] [facility] [address] [id number] [place] [address] Jun, [facility] [place] [facility] [address] [id number] [place] [address] Jun, [facility] [place] [facility] [address] [id number] [place] [address] May, [facility] [place] [facility] [address] [id number] [place] [address] May, [facility] [place] [facility] [address] [id number] [place] [address] May, [facility] [place] [facility] [address] [id number] [place] [address] May, [facility] [place] [facility] [address] [id number] [place] [address] May, [facility] [place] [facility] [address] [id number] [place] [address] May, [facility] [place] [facility] [address] [id number] [place] [address] May, [facility] [place] [facility] [address] [id number] [place] [address] May, [facility] [place] [facility] [address] [id number] [place] [address] May, [facility] [place] [facility] [address] [id number] [place] [address] May, [facility] [place] [facility] [address] [id number] [place] [address] 14 May, 2013 [facility] [place] [facility] [address] [id number] [place] [address] May, 2013 [facility] [place] [facility] [address] [id number] [place] [address] May, 2013 [facility] [place] [facility] [address] [id number] [place] [address] May, 2013 [facility] [place] [facility] [address] [id number] [place] [address] May, 2013 [facility] [place] [facility] [address] [id number] [place] [address] May, 2013 [facility] [place] [facility] [address] [id number] [place] [address] May, 2013 [facility] [place] [facility] [address] [id number] [place] [address] May, 2013 [facility] [place] [facility] [address] [id number] [place] [address] Apr, [facility] [place] [facility] [address] [id number] [place] [address] Apr, [facility] [place] [facility] [address] [id number] [place] [address] Apr, [facility] [place] [facility] [address] [id number] [place] [address] Apr, [facility] [place] [facility] [address] [id number] [place] [address] 18 Apr, 2014 [facility] [place] [facility] [address] [id number] [place] [address] 17 Apr, 2014 [facility] [place] [facility] [address] [id number] [place] [address] 17 Apr, 2014 [facility] [place] [facility] [address] [id number] [place] [address] Apr, [facility] [place] [facility] [address] [id number] [place] [address] Apr, [facility] [place] [facility] [address] [id number] [place] [address] Apr, [facility] [place] [facility] [address] [id number] [place] [address] Apr, [facility] [place] [facility] [address] [id number] [place] [address] Apr, [facility] [place] [facility] [address] [id number] [place] [address] Apr, [facility] [place] [facility] [address] [id number] [place] [address] March, [facility] [place] [facility] [address] [id number] [place] [address] March, [facility] [place] [facility] [address] [id number] [place] [address] March, [facility] [place] [facility] [address] [id number] [place] [address] March, [facility] [place] [facility] [address] [id number] [place] [address] March, [facility] [place] [facility] [address] [id number] [place] [address] March, [facility] [place] [facility] [address] [id number] [place] [address] Feb, [facility] [place] [facility] [address] [id number] [place] [address] Feb, [facility] [place] [facility] [address] [id number] [place] [address] Feb, [facility] [place] [facility] [address] [id number] [place] [address] Feb, [facility] [place] [facility] [address] [id number], [place] [address] Feb, [facility] [place] [facility] [address] [id number] [place] [address] Feb, [facility] [place] [facility] [address] [id number] [place] [address] Feb, [facility] [place] [facility] [address] [id number] [place] [address] Feb, [facility] [place] [facility] [address] [id number] [place] [address] Feb, [facility] [place] [facility] [address] [id number] [place] [address] Feb, [facility] [place] [facility] [address] [id number] [place] [address] Jan, [facility] [place] [facility] [address] [facility] [id number] [place] [address] Jan, [facility] [place] [facility] [address] [id number] [place] [address] Jan, [facility] [place] [facility] [address] [id number] [place] [address] Jan, [facility] [place] [facility] [address] [facility] [id number] [place] [address] Jan, [facility] [place] [facility] [address] [id number] [place] [address] Jan, [facility] [place] [facility] [address] [facility] [id number] [place] [address] Dec, [facility] [place] [facility] [address] [id number] [place] [address] Dec, [facility] [place] [facility] [address] [id number] [place] [address] Dec, [facility] [place] [facility] [address] [facility] [id number] [place] [address] Dec, [facility] [place] [facility] [address] [id number] [place] [address] Dec, [facility] [address] [id number] [place] [address] Dec, [facility] [address] [id number] [place] [address] Dec, [address] [id number] Dec, [facility] [address] [id number] [place] [address] Dec, [facility] [address] [id number] [place] [address] Nov, [facility] [address] [id number] [place] [address] Nov, [facility] [address] [id number] [place] [address] Nov, [facility] [address] [id number] [place] [address] Nov, [facility] [address] [id number] [place] [address] Nov, [facility] [address] [id number] [place] [address] Nov, [facility] [address] [id number] [place] [address] Oct, [facility] [address] [id number] [place] [address] Oct, [facility] [address] [id number] [place] [address] Oct, [facility] [address] [id number] [place] [address] Oct, [facility] [address] [id number] [place] [address] Sep, [facility] [place] [facility] [address] [id number] [place] [address] Sep, [facility] [place] [facility] [address] [id number] [place] [address] Sep, [facility] [place] [facility] [address] [id number] [place] [address] Sep, [facility] [place] [facility] [address] [id number] [place] [address] Aug, [facility] [place] [facility] [address] [id number] [place] [address] Aug, [facility] [place] [facility] [address] [id number] [place] [address] Aug, [facility] [place] [facility] [address] [id number] [place] [address] Aug, [facility] [place] [facility] [address] [id number], [place] [address] Jul, [facility] [place] [facility] [address] [id number] [place] [address] Jul, [facility] [place] [facility] [address] [id number] [place] [address] Jul, [facility] [place] [facility] [address] [id number], [place] [address] Jun, [facility] [place] [facility] [address] [id number], [place] [address] Jun, [facility] [place] [facility] [address] [id number] [place] [address] May, [facility] [place] [facility] [address] [id number], [place] [address] May, [facility] [place] [facility] [address] [id number] [place] [address] Apr, [facility] [place] [facility] [address] [id number] [place] [address] 04 Apr, 2013 [facility] [address] [id number] [place] [address] March, [facility] [address] [id number] [place] [address] March, [facility] [address] [id number] [place] [address] March, [facility] [address] [id number] [place] [address] March, [facility] [address] [id number] [place] [address] March, [facility] [address] [id number] [place] [address] March, [facility] [address] [id number] [place] [address] March, [facility] [address] [id number] [place] [address] Feb, [facility] [address] [id number] [place] [address] Feb, [facility] [address] [id number] [place] [address] Jan, [facility] [address] [id number] [place] [address] Dec, [facility] [address] [id number] [place] [address] Nov, [facility] [address] [id number] [place] [address] Oct, [facility] [address] [id number] [place] [address] Oct, [facility] [address] [id number] [place] [address] Oct, [facility] [place] [facility] [address] [id number] [place] [address] Oct, [facility] [place] [facility] [address] [id number] [place] [address] Sep, [facility] [place] [facility] [address] [id number] [place] [address] Sep, [facility] [place] [facility] [address] [id number] [place] [address] Sep, [facility] [place] [facility] [address] [id number] [place] [address] Sep, [facility] [place] [facility] [address] [id number] [place] [address] Aug, [facility] [place] [facility] [address] [id number] [place] [address] Aug, [facility] [place] [facility] [address] [id number] [place] [address] Aug, [facility] [place] [facility] [address] [id number] [place] [address] Aug, [facility] [place] [facility] [address] [id number], [place] [address] Aug, [facility] [place] [facility] [address] [id number] [place] [address] 15 Aug, 2012 [facility] [place] [facility] [address] [id number], [place] [address] 07 Jul, 2012 [facility] [place] [facility] [address] [id number], [place] [address] 08 Jun, 2012 [facility] [place] [facility] [address] [id number], [place] [address] May, [facility] [place] [facility] [address] [id number], [place] [address] Apr, [facility] [place] [facility] [address] [id number], [place] [address] Apr, [facility] [address] [id number] [place] [address] March, [facility] [place] [facility] [address] [id number] [place] [address] March, [facility] [place] [facility] [address] [facility] [id number] [place] [address] March, [facility] [place] [facility] [address] [id number] [place] [address] March, [facility] [place] [facility] [address] [id number] [place] [address] Feb, [facility] [place] [facility] [address] [id number] [place] [address] Jan, [facility] [address] [facility] [id number] [place] [address] Dec, [facility] [place] [facility] [address] [facility] [id number] [place] [address] Nov, [facility] [address] [facility] [id number] [place] [address] Nov, [facility] [place] [facility] [address] [facility] [id number] [place] [address] Oct, [facility] [place] [facility] [address] [facility] [id number] [place] [address] Oct, [facility] [place] [facility] [address] [id number] [place] [address] Oct, [facility] [place] [facility] [address] [id number] [place] [address] Sep, [facility] [place] [facility] [address] [facility] [id number] [place] [address] Aug, [facility] [place] [facility] [address] [facility] [id number] [place] [address] March, [facility] [place] [facility] [address] [facility] [id number], [place] [address] Oct, [facility] [address] [facility] [id number], [place] [address] Oct, [facility] [address] [facility] [id number], [place] [address] Oct, [facility] [id number], [place] [address] Oct, [facility] [address] [facility] [id number], [place] [address] Sep, [facility] [id number], [place] [address] Aug, [facility] [id number], [place] [address] Oct, [facility] [id number], [place] [address] Oct, [facility] [address] [id number], [place] [address] Aug, [facility] [address] [id number], [place] [address] March, IMMUNIZATIONS No Known Immunizations SOCIAL HISTORY Never Assessed REASON FOR VISIT EMR-[facility] PLAN OF CARE VITAL SIGNS MEDICATIONS Unknown Medications RESULTS No Results PROCEDURES No Known procedures INSTRUCTIONS MEDICATIONS ADMINISTERED No Known Medications MEDICAL (GENERAL) HISTORY Type Description Date Medical History High Blood Pressure Medical History COPD Medical History Arthirtis Medical History Back Trouble Surgical History Sita 1981 Surgical History Hysterectomy 1987 Hospitalization History COPD/Back 2004
--- OUTSIDE RECORDS SUMMARY | 2019-05-12 22:57 | XMS REPORT ---
Author Author Migration, Doctor Organization [facility] Address Unknown Phone Unavailable Care Team Providers Care Fitter Armament Name Role Phone Migration, Doctor Unavailable Unavailable PROBLEMS Type Condition ICD9-CM Code WPN25-YN Code Onset Dates Condition Status SNOMED Code Problem Cough 786.2 Active 00483043 Problem Generalized hyperhidrosis 780.8 Active 713468743 Problem Cervicalgia 723.1 Active 84430429 Problem Family history of diabetes mellitus V18.0 Active 705699734 Problem Other and unspecified hyperlipidemia 272.4 Active 95549968 Problem Chest pain, unspecified 786.50 Active 87221044 Problem Unspecified hypothyroidism 244.9 Active 59033595 Problem Other abnormal glucose 790.29 Active 718771567 Problem Pain in joint, hand 719.44 Active 091289657 Problem Lumbago 724.2 Active 471717329 Problem Anxiety state, unspecified 300.00 Active 832595527 Problem Hypocalcemia 275.41 Active 9451218 ALLERGIES No Information ENCOUNTERS Encounter Location Date Diagnosis [facility] [id number] [place] [id number] Oct, [facility] [id number] [place] [address] [id number] May, Dental examination Z01.20 and Dental caries K02.9 [facility] [id number] [place] [address] [id number] Apr, Dental caries K02.9 [facility] [id number] [place] [address] [id number] Apr, Dental examination Z01.20 [facility] [id number] [place] [address] [id number] Sep, Dental examination Z01.20 and Dental caries K02.9 [facility] [id number] [place] [address] [id number] Jul, Dental examination V72.2 [facility] [address] [id number] [id number] March, Dental examination V72.2 [facility] [address] [id number] [place] [address] 14 Feb, 2015 [facility] [address] [id number] [place] [address] Feb, [facility] [address] [id number], [place] [address] Jan, [facility] [address] [id number] [place] [address] Jan, [facility] [place] [facility] [address] [id number] [place] [address] Jan, [facility] [address] [id number] [place] [address] Jan, [facility] [address] [id number], [place] [address] Dec, [facility] [place] [facility] [address] [id number] [place] [address] Dec, [facility] [place] [facility] [address] [id number] [address] Dec, [facility] [place] [facility] [id number] [address] Dec, 2014 [facility] [place] [facility] [address] [id number], [place] [address] Dec, 2014 [facility] [place] [facility] [address] [id number], [place] [address] Dec, 2014 [facility] [place] [facility] [address] [facility] [id number], [place] [address] Dec, 2014 [facility] [place] [facility] [address] [facility] [id number], [place] [address] Dec, 2014 [facility] [place] [facility] [address] [id number] [place] [address] 02 Dec, 2014 [facility] [place] [facility] [address] [id number] [place] [address] 02 Dec, 2014 [facility] [place] [facility] [address] [id number] [place] [address] 15 Nov, 2014 [facility] [place] [facility] [address] [id number] [place] [address] Nov, [facility] [place] [facility] [address] [id number] [place] [address] Nov, [facility] [place] [facility] [address] [id number] [place] [address] Nov, [facility] [place] [facility] [address] [id number] [place] [address] Nov, [facility] [place] [facility] [address] [id number] [place] [address] Nov, [facility] [place] [facility] [address] [id number] [place] [address] Nov, [facility] [place] [facility] [address] [id number] [place] [address] Nov, [facility] [place] [facility] [address] [id number] [place] [address] Nov, [facility] [place] [facility] [address] [id number] [place] [address] Nov, [facility] [place] [facility] [address] [id number] [place] [address] Nov, [facility] [place] [facility] [address] [id number] [place] [address] Nov, [facility] [place] [facility] [address] [id number] [place] [address] Nov, [facility] [place] [facility] [address] [id number] [place] [address] Nov, [facility] [place] [facility] [address] [id number] [place] [address] Nov, [facility] [place] [facility] [address] [id number] [place] [address] Oct, [facility] [place] [facility] [address] [id number] [place] [address] Oct, [facility] [place] [facility] [address] [id number] [place] [address] Oct, [facility] [place] [facility] [address] [id number] [place] [address] Oct, [facility] [place] [facility] [address] [id number] [place] [address] Oct, [facility] [place] [facility] [address] [id number] [place] [address] Oct, [facility] [place] [facility] [address] [id number] [place] [address] Oct, [facility] [place] [facility] [address] [id number] [place] [address] Oct, [facility] [place] [facility] [address] [id number] [place] [address] Oct, [facility] [place] [facility] [address] [id number] [place] [address] Oct, [facility] [place] [facility] [address] [id number] [place] [address] Oct, [facility] [place] [facility] [address] [id number] [place] [address] Oct, [facility] [place] [facility] [address] [id number] [place] [address] Sep, [facility] [place] [facility] [address] [id number] [place] [address] Sep, [facility] [place] [facility] [address] [id number] [place] [address] 13 Sep, 2014 [facility] [place] [facility] [address] [id number] [place] [address] Sep, [facility] [place] [facility] [address] [id number] [place] [address] Sep, [facility] [place] [facility] [address] [id number] [place] [address] Sep, [facility] [place] [facility] [address] [id number] [place] [address] Sep, [facility] [place] [facility] [address] [id number] [place] [address] Sep, [facility] [place] [facility] [address] [id number] [place] [address] Sep, [facility] [place] [facility] [address] [id number] [place] [address] Sep, [facility] [place] [facility] [address] [id number] [place] [address] Sep, [facility] [place] [facility] [address] [id number] [place] [address] Sep, [facility] [place] [facility] [address] [facility] [id number] [place] [address] Sep, [facility] [place] [facility] [address] [id number] [place] [address] Sep, [facility] [place] [facility] [address] [id number], [place] [address] Sep, [facility] [place] [facility] [address] [id number] [place] [address] Sep, [facility] [place] [facility] [address] [id number] [place] [address] Aug, [facility] [place] [facility] [address] [id number], [place] [address] Aug, [facility] [place] [facility] [address] [id number] [place] [address] Aug, [facility] [place] [facility] [address] [id number] [place] [address] Aug, [facility] [place] [facility] [address] [id number] [place] [address] 29 Jul, 2014 [facility] [place] [facility] [address] [id number] [place] [address] 29 Jul, 2014 [facility] [place] [facility] [address] [id number] [place] [address] Jul, [facility] [place] [facility] [address] [id number] [place] [address] Jul, [facility] [place] [facility] [address] [id number] [place] [address] 17 Jul, 2014 [facility] [place] [facility] [address] [id number] [place] [address] Jul, [facility] [place] [facility] [address] [id number] [place] [address] Jul, [facility] [place] [facility] [address] [id number] [place] [address] Jul, [facility] [place] [facility] [address] [id number] [place] [address] Jun, [facility] [place] [facility] [address] [id number] [place] [address] Jun, [facility] [place] [facility] [address] [id number] [place] [address] Jun, [facility] [place] [facility] [address] [id number] [place] [address] Jun, [facility] [place] [facility] [address] [id number] [place] [address] Jun, [facility] [place] [facility] [address] [id number] [place] [address] Jun, [facility] [place] [facility] [address] [id number] [address] Jun, [facility] [place] [facility] [address] [id number] [place] [address] Jun, [facility] [place] [facility] [address] [id number] [place] [address] Jun, [facility] [place] [facility] [address] [id number] [place] [address] Jun, [facility] [place] [facility] [address] [id number] [place] [address] Jun, [facility] [place] [facility] [address] [id number] [place] [address] May, [facility] [place] [facility] [address] [id number] [place] [address] May, [facility] [place] [facility] [address] [id number] [place] [address] May, [facility] [place] [facility] [address] [id number] [place] [address] May, [facility] [place] [facility] [address] [id number] [place] [address] May, [facility] [place] [facility] [address] [id number] [place] [address] May, [facility] [place] [facility] [address] [id number] [place] [address] May, [facility] [place] [facility] [address] [id number] [place] [address] May, [facility] [place] [facility] [address] [id number] [place] [address] May, [facility] [place] [facility] [address] [id number] [place] [address] May, [facility] [place] [facility] [address] [id number] [place] [address] 14 May, 2013 [facility] [place] [facility] [address] [id number] [place] [address] May, 2013 [facility] [place] [facility] [address] [id number] [place] [address] May, 2013 [facility] [place] [facility] [address] [id number] [place] [address] May, 2013 [facility] [place] [facility] [address] [id number] [place] [address] May, 2013 [facility] [place] [facility] [address] [id number] [place] [address] May, 2013 [facility] [place] [facility] [address] [id number] [place] [address] May, 2013 [facility] [place] [facility] [address] [id number] [place] [address] May, 2013 [facility] [place] [facility] [address] [id number] [place] [address] Apr, [facility] [place] [facility] [address] [id number] [place] [address] Apr, [facility] [place] [facility] [address] [id number] [place] [address] Apr, [facility] [place] [facility] [address] [id number] [place] [address] Apr, [facility] [place] [facility] [address] [id number] [place] [address] 18 Apr, 2014 [facility] [place] [facility] [address] [id number] [place] [address] 17 Apr, 2014 [facility] [place] [facility] [address] [id number] [place] [address] 17 Apr, 2014 [facility] [place] [facility] [address] [id number] [place] [address] Apr, [facility] [place] [facility] [address] [id number] [place] [address] Apr, [facility] [place] [facility] [address] [id number] [place] [address] Apr, [facility] [place] [facility] [address] [id number] [place] [address] Apr, [facility] [place] [facility] [address] [id number] [place] [address] Apr, [facility] [place] [facility] [address] [id number] [place] [address] Apr, [facility] [place] [facility] [address] [id number] [place] [address] March, [facility] [place] [facility] [address] [id number] [place] [address] March, [facility] [place] [facility] [address] [id number] [place] [address] March, [facility] [place] [facility] [address] [id number] [place] [address] March, [facility] [place] [facility] [address] [id number] [place] [address] March, [facility] [place] [facility] [address] [id number] [place] [address] March, [facility] [place] [facility] [address] [id number] [place] [address] Feb, [facility] [place] [facility] [address] [id number] [place] [address] Feb, [facility] [place] [facility] [address] [id number] [place] [address] Feb, [facility] [place] [facility] [address] [id number] [place] [address] Feb, [facility] [place] [facility] [address] [id number], [place] [address] Feb, [facility] [place] [facility] [address] [id number] [place] [address] Feb, [facility] [place] [facility] [address] [id number] [place] [address] Feb, [facility] [place] [facility] [address] [id number] [place] [address] Feb, [facility] [place] [facility] [address] [id number] [place] [address] Feb, [facility] [place] [facility] [address] [id number] [place] [address] Feb, [facility] [place] [facility] [address] [id number] [place] [address] Jan, [facility] [place] [facility] [address] [facility] [id number] [place] [address] Jan, [facility] [place] [facility] [address] [id number] [place] [address] Jan, [facility] [place] [facility] [address] [id number] [place] [address] Jan, [facility] [place] [facility] [address] [facility] [id number] [place] [address] Jan, [facility] [place] [facility] [address] [id number] [place] [address] Jan, [facility] [place] [facility] [address] [facility] [id number] [place] [address] Dec, [facility] [place] [facility] [address] [id number] [place] [address] Dec, [facility] [place] [facility] [address] [id number] [place] [address] Dec, [facility] [place] [facility] [address] [facility] [id number] [place] [address] Dec, [facility] [place] [facility] [address] [id number] [place] [address] Dec, [facility] [address] [id number] [place] [address] Dec, [facility] [address] [id number] [place] [address] Dec, [address] [id number] Dec, [facility] [address] [id number] [place] [address] Dec, [facility] [address] [id number] [place] [address] Nov, [facility] [address] [id number] [place] [address] Nov, [facility] [address] [id number] [place] [address] Nov, [facility] [address] [id number] [place] [address] Nov, [facility] [address] [id number] [place] [address] Nov, [facility] [address] [id number] [place] [address] Nov, [facility] [address] [id number] [place] [address] Oct, [facility] [address] [id number] [place] [address] Oct, [facility] [address] [id number] [place] [address] Oct, [facility] [address] [id number] [place] [address] Oct, [facility] [address] [id number] [place] [address] Sep, [facility] [place] [facility] [address] [id number] [place] [address] Sep, [facility] [place] [facility] [address] [id number] [place] [address] Sep, [facility] [place] [facility] [address] [id number] [place] [address] Sep, [facility] [place] [facility] [address] [id number] [place] [address] Aug, [facility] [place] [facility] [address] [id number] [place] [address] Aug, [facility] [place] [facility] [address] [id number] [place] [address] Aug, [facility] [place] [facility] [address] [id number] [place] [address] Aug, [facility] [place] [facility] [address] [id number], [place] [address] Jul, [facility] [place] [facility] [address] [id number] [place] [address] Jul, [facility] [place] [facility] [address] [id number] [place] [address] Jul, [facility] [place] [facility] [address] [id number], [place] [address] Jun, [facility] [place] [facility] [address] [id number], [place] [address] Jun, [facility] [place] [facility] [address] [id number] [place] [address] May, [facility] [place] [facility] [address] [id number], [place] [address] May, [facility] [place] [facility] [address] [id number] [place] [address] Apr, [facility] [place] [facility] [address] [id number] [place] [address] 04 Apr, 2013 [facility] [address] [id number] [place] [address] March, [facility] [address] [id number] [place] [address] March, [facility] [address] [id number] [place] [address] March, [facility] [address] [id number] [place] [address] March, [facility] [address] [id number] [place] [address] March, [facility] [address] [id number] [place] [address] March, [facility] [address] [id number] [place] [address] March, [facility] [address] [id number] [place] [address] Feb, [facility] [address] [id number] [place] [address] Feb, [facility] [address] [id number] [place] [address] Jan, [facility] [address] [id number] [place] [address] Dec, [facility] [address] [id number] [place] [address] Nov, [facility] [address] [id number] [place] [address] Oct, [facility] [address] [id number] [place] [address] Oct, [facility] [address] [id number] [place] [address] Oct, [facility] [place] [facility] [address] [id number] [place] [address] Oct, [facility] [place] [facility] [address] [id number] [place] [address] Sep, [facility] [place] [facility] [address] [id number] [place] [address] Sep, [facility] [place] [facility] [address] [id number] [place] [address] Sep, [facility] [place] [facility] [address] [id number] [place] [address] Sep, [facility] [place] [facility] [address] [id number] [place] [address] Aug, [facility] [place] [facility] [address] [id number] [place] [address] Aug, [facility] [place] [facility] [address] [id number] [place] [address] Aug, [facility] [place] [facility] [address] [id number] [place] [address] Aug, [facility] [place] [facility] [address] [id number], [place] [address] Aug, [facility] [place] [facility] [address] [id number] [place] [address] 15 Aug, 2012 [facility] [place] [facility] [address] [id number], [place] [address] 07 Jul, 2012 [facility] [place] [facility] [address] [id number], [place] [address] 08 Jun, 2012 [facility] [place] [facility] [address] [id number], [place] [address] May, [facility] [place] [facility] [address] [id number], [place] [address] Apr, [facility] [place] [facility] [address] [id number], [place] [address] Apr, [facility] [address] [id number] [place] [address] March, [facility] [place] [facility] [address] [id number] [place] [address] March, [facility] [place] [facility] [address] [facility] [id number] [place] [address] March, [facility] [place] [facility] [address] [id number] [place] [address] March, [facility] [place] [facility] [address] [id number] [place] [address] Feb, [facility] [place] [facility] [address] [id number] [place] [address] Jan, [facility] [address] [facility] [id number] [place] [address] Dec, [facility] [place] [facility] [address] [facility] [id number] [place] [address] Nov, [facility] [address] [facility] [id number] [place] [address] Nov, [facility] [place] [facility] [address] [facility] [id number] [place] [address] Oct, [facility] [place] [facility] [address] [facility] [id number] [place] [address] Oct, [facility] [place] [facility] [address] [id number] [place] [address] Oct, [facility] [place] [facility] [address] [id number] [place] [address] Sep, [facility] [place] [facility] [address] [facility] [id number] [place] [address] Aug, [facility] [place] [facility] [address] [facility] [id number] [place] [address] March, [facility] [place] [facility] [address] [id number] [address] Oct, [facility] [id number] [address] 24 Oct, 2010 [facility] [id number], [place] [address] Oct, [facility] [id number], [place] [address] Oct, [facility] [id number], [place] [address] Sep, [facility] [id number], [place] [address] Aug, [facility] [id number], [place] [address] Oct, [facility] [id number], [place] [address] Oct, [facility] [id number], [place] [address] Aug, [facility] [id number], [place] [address] March, IMMUNIZATIONS No Known Immunizations SOCIAL HISTORY Never Assessed REASON FOR VISIT EMR-[facility] PLAN OF CARE VITAL SIGNS MEDICATIONS Medication Instructions Dosage Frequency Start Date End Date Duration Status PredniSONE 10 mg 1 Tablet 2 times per day for 5 days Take at 8 am and noon. March, Active Azithromycin 250 mg 2 Tablet by Oral route on day 1 then take 1 daily for 4 days March, Active Ventolin HFA 90 mcg/actuation inhale 2 puff by Inhalation route as needed every 6 hours PRN Jan, Active Xanax 1 mg take 1 tablet by Oral route 2 times per day PRN disregard order for 0.5 previously Dec, Active Spiriva 18 mcg 1 ea by Inhalation route 1 time per day March, Active Albuterol Sulfate 2.5 mg /3 mL (0.083 %) inhale 3 milliliters (2.5 mg) by nebulization route every 6 hours PRN for wheezing or cough Apr, Active PredniSONE 20 mg 2 tablet by Oral route 1 time per day for 5 day(s) May, Active Symbicort 160-4.5 mcg/actuation inhale 2 puffs by inhalation route 2 times per day in the morning and evening Apr, Active RESULTS No Results PROCEDURES No Known procedures INSTRUCTIONS MEDICATIONS ADMINISTERED No Known Medications MEDICAL (GENERAL) HISTORY Type Description Date Medical History High Blood Pressure Medical History COPD Medical History Arthirtis Medical History Back Trouble Surgical History Stia 1981 Surgical History Hysterectomy 1986 Hospitalization History COPD/Back 2004
--- OUTSIDE RECORDS SUMMARY | 2019-05-12 22:58 | XMS REPORT ---
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 Name Role Phone NICOLAS PENA Unavailable PROBLEMS Type Condition ICD9-CM Code HZF45-EW Code Onset Dates Condition Status SNOMED Code Problem Cough 786.2 Active 12774562 Problem Cervicalgia 723.1 Active 35793881 Problem Generalized hyperhidrosis 780.8 Active 757167289 Problem Family history of diabetes mellitus V18.0 Active 780946185 Problem Other abnormal glucose 790.29 Active 368793255 Problem Chest pain, unspecified 786.50 Active 35606238 Problem Unspecified hypothyroidism 244.9 Active 54386306 Problem Other and unspecified hyperlipidemia 272.4 Active 85551608 Problem Lumbago 724.2 Active 102247004 Problem Pain in joint, hand 719.44 Active 610518632 Problem Hypocalcemia 275.41 Active 3826393 Problem Anxiety state, unspecified 300.00 Active [id number] ALLERGIES No Information ENCOUNTERS Encounter Location Date Diagnosis [facility] [id number] [place] [id number] Oct, [facility] [id number] [place] [id number] May, Dental examination Z01.20 and Dental caries K02.9 [facility] [id number] [place] [address] [id number] Apr, Dental caries K02.9 [facility] [id number] [place] [address] [id number] Apr, Dental examination Z01.20 [facility] [id number] [place] [address] [id number] Sep, Dental examination Z01.20 and Dental caries K02.9 [facility] [id number] [place] [id number] Jul, Dental examination V72.2 [facility] [id number] [place] [id number] March, Dental examination V72.2 [facility] [address] [id number] [place] [address] 14 Feb, 2015 [facility] [place] [facility] [address] [id number] [place] [address] Feb, [facility] [place] [facility] [address] [id number] [place] [address] Jan, [facility] [place] [facility] [address] [id number] [place] [address] Jan, [facility] [address] [id number] [place] [address] Jan, [facility] [address] [facility] [id number] [place] [address] Jan, [facility] [address] [id number] [place] [address] Dec, [facility] [id number] [place] [address] Dec, [facility] [place] [facility] [id number] [place] [address] Dec, [facility] [place] [facility] [address] [facility] [id number] [place] [address] Dec, 2014 [facility] [place] [facility] [address] [facility] [id number] [place] [address] Dec, [facility] [place] [facility] [address] [id number] [place] [address] Dec, [facility] [place] [facility] [address] [facility] [id number] [place] [address] Dec, [facility] [place] [facility] [address] [id number] [place] [address] 03 Dec, 2014 [facility] [place] [facility] [address] [id number] [place] [address] Dec, [facility] [place] [facility] [address] [id number] [place] [address] 02 Dec, 2014 [facility] [place] [facility] [address] [id number] [place] [address] 15 Nov, 2014 [facility] [place] [facility] [address] [id number] [place] [address] Nov, [facility] [place] [facility] [address] [id number] [place] [address] Nov, [facility] [place] [facility] [address] [id number] [place] [address] Nov, [facility] [place] [facility] [address] [id number] [place] [address] Nov, [facility] [place] [facility] [address] [id number] [place] [address] Nov, [facility] [place] [facility] [address] [id number] [place] [address] Nov, [facility] [place] [facility] [address] [id number] [place] [address] Nov, [facility] [place] [facility] [address] [id number] [place] [address] Nov, [facility] [place] [facility] [address] [id number] [place] [address] Nov, [facility] [place] [facility] [address] [id number] [place] [address] Nov, [facility] [place] [facility] [address] [id number] [place] [address] Nov, [facility] [place] [facility] [address] [id number] [place] [address] Nov, [facility] [place] [facility] [address] [id number] [place] [address] Nov, [facility] [place] [facility] [address] [id number] [place] [address] Nov, [facility] [place] [facility] [address] [id number] [place] [address] Oct, [facility] [place] [facility] [address] [id number] [place] [address] Oct, [facility] [place] [facility] [address] [id number] [place] [address] Oct, [facility] [place] [facility] [address] [id number] [place] [address] Oct, [facility] [place] [facility] [address] [id number] [place] [address] Oct, [facility] [place] [facility] [address] [id number] [place] [address] Oct, [facility] [place] [facility] [address] [id number] [place] [address] Oct, [facility] [place] [facility] [address] [id number] [place] [address] Oct, [facility] [place] [facility] [address] [id number] [place] [address] Oct, [facility] [place] [facility] [address] [id number] [place] [address] Oct, [facility] [place] [facility] [address] [id number] [place] [address] Oct, [facility] [place] [facility] [address] [id number] [place] [address] Oct, [facility] [place] [facility] [address] [id number] [place] [address] Sep, [facility] [place] [facility] [address] [id number] [place] [address] 14 Sep, 2014 [facility] [place] [facility] [address] [id number] [place] [address] Sep, [facility] [place] [facility] [address] [id number] [place] [address] Sep, [facility] [place] [facility] [address] [id number] [place] [address] Sep, [facility] [place] [facility] [address] [id number] [place] [address] Sep, [facility] [place] [facility] [address] [id number] [place] [address] Sep, [facility] [place] [facility] [address] [id number] [place] [address] Sep, [facility] [place] [facility] [address] [id number] [place] [address] Sep, [facility] [place] [facility] [address] [id number] [place] [address] Sep, [facility] [place] [facility] [address] [id number] [place] [address] Sep, [facility] [place] [facility] [address] [id number] [place] [address] Sep, [facility] [place] [facility] [address] [id number] [address] Sep, [facility] [place] [facility] [address] [id number] [place] [address] Sep, [facility] [place] [facility] [address] [id number] [place] [address] Sep, [facility] [place] [facility] [address] [id number] [place] [address] Sep, [facility] [place] [facility] [address] [id number] [place] [address] Aug, [facility] [place] [facility] [address] [id number] [place] [address] 13 Aug, 2014 [facility] [place] [facility] [address] [id number] [place] [address] Aug, [facility] [place] [facility] [address] [id number] [place] [address] Aug, [facility] [place] [facility] [address] [id number] [place] [address] 29 Jul, 2014 [facility] [place] [facility] [address] [id number] [place] [address] 29 Jul, 2014 [facility] [place] [facility] [address] [id number] [place] [address] Jul, [facility] [place] [facility] [address] [id number] [place] [address] Jul, [facility] [place] [facility] [address] [id number] [place] [address] 17 Jul, 2014 [facility] [place] [facility] [address] [id number] [place] [address] 17 Jul, 2014 [facility] [place] [facility] [address] [id number] [place] [address] Jul, [facility] [place] [facility] [address] [id number] [place] [address] Jul, [facility] [place] [facility] [address] [id number] [place] [address] Jun, [facility] [place] [facility] [address] [id number] [place] [address] Jun, [facility] [place] [facility] [address] [id number] [place] [address] Jun, [facility] [place] [facility] [address] [id number] [place] [address] Jun, [facility] [place] [facility] [address] [id number] [place] [address] Jun, [facility] [place] [facility] [address] [id number] [place] [address] Jun, [facility] [place] [facility] [address] [id number] [place] [address] Jun, [facility] [place] [facility] [address] [id number] [place] [address] Jun, [facility] [place] [facility] [address] [id number] [place] [address] Jun, [facility] [place] [facility] [address] [id number] [place] [address] Jun, [facility] [place] [facility] [address] [id number] [place] [address] Jun, [facility] [place] [facility] [address] [id number] [place] [address] May, [facility] [place] [facility] [address] [id number] [place] [address] May, [facility] [place] [facility] [address] [id number] [place] [address] May, [facility] [place] [facility] [address] [id number] [place] [address] May, [facility] [place] [facility] [address] [id number] [place] [address] May, [facility] [place] [facility] [address] [id number] [place] [address] May, [facility] [place] [facility] [address] [id number] [place] [address] May, [facility] [place] [facility] [address] [id number] [place] [address] May, [facility] [place] [facility] [address] [id number] [place] [address] May, [facility] [place] [facility] [address] [id number] [place] [address] May, 2013 [facility] [place] [facility] [address] [id number] [place] [address] May, 2013 [facility] [place] [facility] [address] [id number] [place] [address] May, 2013 [facility] [place] [facility] [address] [id number] [place] [address] May, 2013 [facility] [place] [facility] [address] [id number] [place] [address] May, 2013 [facility] [place] [facility] [address] [id number] [place] [address] May, 2013 [facility] [place] [facility] [address] [id number] [place] [address] May, 2013 [facility] [place] [facility] [address] [id number] [place] [address] May, [facility] [place] [facility] [address] [id number] [place] [address] May, [facility] [place] [facility] [address] [id number] [place] [address] Apr, [facility] [place] [facility] [address] [id number] [place] [address] Apr, [facility] [place] [facility] [address] [id number] [place] [address] Apr, [facility] [place] [facility] [address] [id number] [place] [address] Apr, [facility] [place] [facility] [address] [id number] [place] [address] 18 Apr, 2014 [facility] [place] [facility] [address] [id number] [place] [address] Apr, [facility] [place] [facility] [address] [id number] [place] [address] Apr, [facility] [place] [facility] [address] [id number] [place] [address] Apr, [facility] [place] [facility] [address] [id number] [place] [address] Apr, [facility] [place] [facility] [address] [id number] [place] [address] Apr, [facility] [place] [facility] [address] [id number] [place] [address] Apr, [facility] [place] [facility] [address] [id number] [place] [address] Apr, [facility] [place] [facility] [address] [id number] [place] [address] Apr, [facility] [place] [facility] [address] [id number] [place] [address] March, [facility] [place] [facility] [address] [id number] [place] [address] March, [facility] [place] [facility] [address] [id number] [place] [address] March, [facility] [place] [facility] [address] [id number] [place] [address] March, [facility] [place] [facility] [address] [id number] [place] [address] March, [facility] [place] [facility] [address] [id number] [place] [address] March, [facility] [place] [facility] [address] [id number] [place] [address] Feb, [facility] [place] [facility] [address] [id number] [place] [address] Feb, [facility] [place] [facility] [address] [id number] [place] [address] Feb, [facility] [place] [facility] [address] [id number] [place] [address] Feb, [facility] [place] [facility] [address] [id number] [place] [address] Feb, [facility] [place] [facility] [address] [id number] [place] [address] Feb, [facility] [place] [facility] [address] [id number] [place] [address] Feb, [facility] [place] [facility] [address] [id number] [place] [address] Feb, [facility] [place] [facility] [address] [id number] [place] [address] Feb, [facility] [place] [facility] [address] [id number] [place] [address] Feb, [facility] [place] [facility] [address] [id number] [place] [address] Jan, [facility] [place] [facility] [address] [id number] [place] [address] Jan, [facility] [place] [facility] [address] [id number] [place] [address] Jan, [facility] [place] [facility] [address] [id number] [place] [address] Jan, [facility] [place] [facility] [address] [id number] [place] [address] Jan, [facility] [place] [facility] [address] [id number] [place] [address] Jan, [facility] [place] [facility] [address] [id number] [place] [address] Dec, [facility] [place] [facility] [address] [id number] [place] [address] Dec, [facility] [place] [facility] [address] [id number] [place] [address] Dec, [facility] [place] [facility] [address] [id number] [place] [address] Dec, [facility] [address] [id number] [place] [address] Dec, [facility] [address] [id number] [place] [address] Dec, [facility] [address] [id number] [place] [address] Dec, [address] [id number] Dec, [facility] [address] [id number] [place] [address] Dec, [facility] [address] [id number] [place] [address] Nov, [facility] [address] [id number] [place] [address] Nov, [facility] [address] [id number] [place] [address] Nov, [facility] [address] [id number] [place] [address] Nov, [facility] [address] [id number] [place] [address] Nov, [facility] [address] [id number] [place] [address] Nov, [facility] [address] [id number] [place] [address] Oct, [facility] [address] [id number] [place] [address] Oct, [facility] [address] [id number] [place] [address] Oct, [facility] [address] [id number] [place] [address] Oct, [facility] [place] [facility] [address] [id number] [place] [address] Sep, [facility] [place] [facility] [address] [id number] [place] [address] Sep, [facility] [place] [facility] [address] [id number] [place] [address] Sep, [facility] [place] [facility] [address] [id number] [place] [address] Sep, [facility] [place] [facility] [address] [id number] [place] [address] Aug, [facility] [place] [facility] [address] [id number] [place] [address] Aug, [facility] [place] [facility] [address] [id number] [place] [address] Aug, [facility] [place] [facility] [address] [id number] [place] [address] Aug, [facility] [place] [facility] [address] [id number] [place] [address] Jul, [facility] [place] [facility] [address] [id number] [place] [address] Jul, [facility] [place] [facility] [address] [id number] [place] [address] Jul, [facility] [place] [facility] [address] [id number] [place] [address] Jun, [facility] [place] [facility] [address] [id number] [place] [address] Jun, [facility] [place] [facility] [address] [id number] [place] [address] May, [facility] [place] [facility] [address] [id number] [place] [address] May, [facility] [place] [facility] [address] [id number] [place] [address] Apr, [facility] [address] [id number] [place] [address] Apr, [facility] [address] [id number] [place] [address] March, [facility] [address] [id number] [place] [address] March, [facility] [address] [id number] [place] [address] March, [facility] [address] [id number] [place] [address] March, [facility] [address] [id number] [place] [address] March, [facility] [address] [id number] [place] [address] March, [facility] [address] [id number] [place] [address] March, [facility] [address] [id number] [place] [address] Feb, [facility] [address] [id number] [place] [address] Feb, [facility] [address] [id number] [place] [address] Jan, [facility] [place] [facility] [address] [id number] [place] [address] Dec, [facility] [place] [facility] [address] [id number] [place] [address] Nov, [facility] [place] [facility] [address] [id number] [place] [address] Oct, [facility] [place] [facility] [address] [id number] [place] [address] Oct, [facility] [place] [facility] [address] [id number] [place] [address] 11 Oct, 2012 [facility] [place] [facility] [address] [id number] [place] [address] Oct, [facility] [place] [facility] [address] [id number] [place] [address] Sep, [facility] [place] [facility] [address] [id number] [place] [address] Sep, [facility] [place] [facility] [address] [id number] [place] [address] Sep, [facility] [place] [facility] [address] [id number] [place] [address] Sep, [facility] [place] [facility] [address] [id number] [place] [address] Aug, [facility] [place] [facility] [address] [id number] [place] [address] Aug, [facility] [place] [facility] [address] [id number] [place] [address] Aug, [facility] [place] [facility] [address] [id number] [place] [address] Aug, [facility] [place] [facility] [address] [facility] [id number] [place] [address] 15 Aug, 2012 [facility] [place] [facility] [address] [id number] [place] [address] 15 Aug, 2012 [facility] [place] [facility] [address] [id number] [place] [address] 07 Jul, 2012 [facility] [place] [facility] [address] [id number] [place] [address] 08 Jun, 2012 [facility] [place] [facility] [address] [id number] [place] [address] May, [facility] [place] [facility] [address] [id number] [place] [address] Apr, [facility] [address] [id number] [place] [address] 11 Apr, 2012 [facility] [place] [facility] [address] [id number] [place] [address] March, [facility] [place] [facility] [address] [id number] [place] [address] March, [facility] [place] [facility] [address] [id number] [place] [address] March, [facility] [place] [facility] [address] [id number] [place] [address] March, [facility] [place] [facility] [address] [id number] [place] [address] Feb, [facility] [place] [facility] [address] [id number] [place] [address] Jan, [facility] [place] [facility] [address] [id number] [place] [address] 15 Dec, 2011 [facility] [place] [facility] [address] [id number] [place] [address] Nov, [facility] [place] [facility] [address] [id number] [place] [address] Nov, [facility] [place] [facility] [id number] [place] [address] 16 Oct, 2011 [facility] [place] [facility] [address] [id number] [place] [address] 16 Oct, 2011 [facility] [place] [facility] [address] [id number] [place] [address] 02 Oct, 2011 [facility] [place] [facility] [address] [id number] [place] [address] 16 Sep, 2011 [facility] [place] [facility] [address] [id number] [place] [address] 19 Aug, 2011 [facility] [place] [facility] [id number] [place] [address] 18 Mar, 2011 [facility] [address] [facility] [id number] [place] [address] 31 Oct, 2010 [facility] [address] [facility] [id number] [place] [address] 24 Oct, 2010 [facility] [address] [facility] [id number] [place] [address] 15 Oct, 2010 [facility] [address] [facility] [id number] [place] [address] 08 Oct, 2010 [facility] [id number] [place] [address] Sep, [facility] [id number] [place] [address] Aug, [facility] [id number] [place] [address] 14 Oct, 2009 [facility] [address] [id number] [place] [address] Oct, [facility] [address] [id number] [place] [address] 16 Aug, 2009 [facility] [id number] [place] [address] March, IMMUNIZATIONS No Known Immunizations SOCIAL HISTORY Never Assessed REASON FOR VISIT Dental Triage PLAN OF CARE VITAL SIGNS MEDICATIONS Unknown Medications RESULTS No Results PROCEDURES No Known procedures INSTRUCTIONS MEDICATIONS ADMINISTERED No Known Medications MEDICAL (GENERAL) HISTORY Type Description Date Medical History High Blood Pressure Medical History COPD Medical History Arthirtis Medical History Back Trouble Surgical History Sita 1982 Surgical History Hysterectomy 1987 Hospitalization History COPD/Back 2004
[2019-05-12 23:00] VITALS: BP 118/58
[2019-05-12] MEDS: RT-ALBUTEROL/IPRATROPIUM 3 ML (DUONEB) VIAL INH PRN (23:00)
--- OUTSIDE RECORDS SUMMARY | 2019-05-12 23:02 | XMS REPORT | Continuity of Care Document ---
Author Organization Unknown Address Unknown Allergies Active Description Code Type Severity Reaction Onset Reported/Identified Relationship to Patient Clinical Status Yes NAPROXEN UNKNOWN UNKNOWN Yes Naprosyn Drug Allergy 11/29/2009 Yes Naprosyn Drug Allergy N/A N/A 11/29/2009 Yes naproxen [id number] Drug Allergy Unknown N/A 01/22/2016 Yes levofloxacin [id number] Drug Allergy Unknown N/A 06/15/2017 Medications There is no data. Problems Date Dx Coded Attending Type Code Diagnosis Diagnosed By 12/19/2008 SOPHIE FOSTER APRN 496 COPD 12/19/2008 SOPHIE FOSTER APRN 724.4 BACK PAIN WITH RADIATION 12/19/2008 496 COPD 12/19/2008 724.4 BACK PAIN WITH RADIATION 12/19/2008 496 COPD 12/19/2008 724.4 BACK PAIN WITH RADIATION 12/19/2008 496 COPD 12/19/2008 724.4 BACK PAIN WITH RADIATION 12/19/2008 SOPHIE FOSTER APRN 496 COPD 12/19/2008 SOPHIE FOSTER APRN 724.4 BACK PAIN WITH RADIATION 12/19/2008 BETSY BOLAÑOS DDS 496 COPD 12/19/2008 BETSY BOLAÑOS DDS 724.4 BACK PAIN WITH RADIATION 12/19/2008 BETSY BOLAÑOS DDS 496 COPD 12/19/2008 BETSY BOLAÑOS DDS 724.4 BACK PAIN WITH RADIATION 12/19/2008 SOPHIE FOSTER APRN 496 COPD 12/19/2008 SOPHIE FOSTER APRN 724.4 BACK PAIN WITH RADIATION 12/19/2008 NNEKA MENDEZ MD 496 COPD 12/19/2008 NNEKA MENDEZ MD 724.4 BACK PAIN WITH RADIATION 12/19/2008 JERILYN RODRIGUEZ APRN 496 COPD 12/19/2008 JERILYN RODRIGUEZ APRN 724.4 BACK PAIN WITH RADIATION 12/19/2008 SOPHIE FOSTER APRN 496 COPD 12/19/2008 SOPHIE FOSTER APRN 724.4 BACK PAIN WITH RADIATION 12/19/2008 SOPHIE FOSTER APRN 496 COPD 12/19/2008 SOPHIE FOSTER APRN 724.4 BACK PAIN WITH RADIATION 12/19/2008 PENA DO, NICOLAS K 496 COPD 12/19/2008 PENA DO, NICOLAS K 724.4 BACK PAIN WITH RADIATION 12/19/2008 SOPHIE FOSTER APRN 496 COPD 12/19/2008 SOPHIE FOSTER APRN 724.4 BACK PAIN WITH RADIATION 12/19/2008 NNEKA MENDEZ MD 496 COPD 12/19/2008 NNEKA MENDEZ MD 724.4 BACK PAIN WITH RADIATION 12/19/2008 NNEKA MENDEZ MD6 COPD 12/19/2008 NNEKA MENDEZ MD 724.4 BACK PAIN WITH RADIATION 12/19/2008 SOPHIE FOSTER APRN 496 COPD 12/19/2008 SOPHIE FOSTER APRN 724.4 BACK PAIN WITH RADIATION 12/19/2008 SOPHIE FOSTER APRN 496 COPD 12/19/2008 SOPHIE FOSTER APRN 724.4 BACK PAIN WITH RADIATION 12/19/2008 SOPHIE FOSTER APRN 496 COPD 12/19/2008 SOPHIE FOSTER APRN 724.4 BACK PAIN WITH RADIATION 12/19/2008 SOPHIE FOSTER APRN 496 COPD 12/19/2008 SOPHIE FOSTER APRN 724.4 BACK PAIN WITH RADIATION 12/19/2008 PENA DO, NICOLAS K 496 COPD 12/19/2008 PENA DO, NICOLAS K 724.4 BACK PAIN WITH RADIATION 12/19/2008 SOPHIE FOSTER APRN 496 COPD 12/19/2008 SOPHIE FOSTER APRN 724.4 BACK PAIN WITH RADIATION 12/19/2008 SOPHIE FOSTER APRN 496 COPD 12/19/2008 SOPHIE FOSTER APRN 724.4 BACK PAIN WITH RADIATION 04/04/2009 SOPHIE FOSTER APRN 782.3 EDEMA 04/04/2009 782.3 EDEMA 04/04/2009 782.3 EDEMA 04/04/2009 782.3 EDEMA 04/04/2009 SOPHIE FOSTER APRN 782.3 EDEMA 04/04/2009 MIKY POSADASBETSY 782.3 EDEMA 04/04/2009 BETSY BOLAÑOS DDS 782.3 EDEMA 04/04/2009 SOPHIE FOSTER APRN T 782.3 EDEMA 04/04/2009 NNEKA MENDEZ MD 782.3 EDEMA 04/04/2009 JERILYN RODRIGUEZ APRN R 782.3 EDEMA 04/04/2009 SOPHIE FOSTER APRN T 782.3 EDEMA 04/04/2009 SOPHIE FOSTER APRN T 782.3 EDEMA 04/04/2009 PENA DO, NICOLAS K 782.3 EDEMA 04/04/2009 SOPHIE FOSTER APRN T 782.3 EDEMA 04/04/2009 NNEKA MENDEZ MD 782.3 EDEMA 04/04/2009 NNEKA MENDEZ MD 782.3 EDEMA 04/04/2009 SOPHIE FOSTER APRN 782.3 EDEMA 04/04/2009 SOPHIE FOSTER APRN T 782.3 EDEMA 04/04/2009 SOPHIE FOSTER APRN 782.3 EDEMA 04/04/2009 SOPHIE FOSTER APRN 782.3 EDEMA 04/04/2009 PENA DO, NICOLAS K 782.3 EDEMA 04/04/2009 SOPHIE FOSTER APRN T 782.3 EDEMA 04/04/2009 SOPHIE FOSTER APRN T 782.3 EDEMA 08/28/2009 SOPHIE FOSTER APRN 848.9 SPRAIN/STRAIN OTHER UNSPEC SITE 08/28/2009 848.9 SPRAIN/STRAIN OTHER UNSPEC SITE 08/28/2009 848.9 SPRAIN/STRAIN OTHER UNSPEC SITE 08/28/2009 848.9 SPRAIN/STRAIN OTHER UNSPEC SITE 08/28/2009 SOPHIE FOSTER APRN 848.9 SPRAIN/STRAIN OTHER UNSPEC SITE 08/28/2009 BETSY BOLAÑOS DDS 848.9 SPRAIN/STRAIN OTHER UNSPEC SITE 08/28/2009 BETSY BOLAÑOS DDS 848.9 SPRAIN/STRAIN OTHER UNSPEC SITE 08/28/2009 SOPHIE FOSTER APRN 848.9 SPRAIN/STRAIN OTHER UNSPEC SITE 08/28/2009 NNEKA MENDEZ MD 848.9 SPRAIN/STRAIN OTHER UNSPEC SITE 08/28/2009 EJRILYN RODRIGUEZ APRN R 848.9 SPRAIN/STRAIN OTHER UNSPEC SITE 08/28/2009 SOPHIE FOSTER APRN 848.9 SPRAIN/STRAIN OTHER UNSPEC SITE 08/28/2009 SOPHEI FOSTER APRN 848.9 SPRAIN/STRAIN OTHER UNSPEC SITE 08/28/2009 PENA DO, NICOLAS K 848.9 SPRAIN/STRAIN OTHER UNSPEC SITE 08/28/2009 SOPHIE FOSTER APRN 848.9 SPRAIN/STRAIN OTHER UNSPEC SITE 08/28/2009 NNEKA MENDEZ MD 848.9 SPRAIN/STRAIN OTHER UNSPEC SITE 08/28/2009 NNEKA MENDEZ MD 848.9 SPRAIN/STRAIN OTHER UNSPEC SITE 08/28/2009 SOPHIE FOSTER APRN 848.9 SPRAIN/STRAIN OTHER UNSPEC SITE 08/28/2009 SOPHIE FOSTER APRN 848.9 SPRAIN/STRAIN OTHER UNSPEC SITE 08/28/2009 SOPHIE FOSTER APRN 848.9 SPRAIN/STRAIN OTHER UNSPEC SITE 08/28/2009 SOPHIE FOSTER APRN 848.9 SPRAIN/STRAIN OTHER UNSPEC SITE 08/28/2009 PENA DO, NICOLAS K 848.9 SPRAIN/STRAIN OTHER UNSPEC SITE 08/28/2009 SOPHIE FOSTER APRN 848.9 SPRAIN/STRAIN OTHER UNSPEC SITE 08/28/2009 SOPHIE FOSTER APRN 848.9 SPRAIN/STRAIN OTHER UNSPEC SITE 11/01/2009 SOPHIE FOSTER APRN 840.9 SPRAIN/STRAIN SHOULDER/ARM 11/01/2009 SOPHIE FOSTER APRN 847.0 SPRAIN/STRAIN NECK 11/01/2009 840.9 SPRAIN/STRAIN SHOULDER/ARM 11/01/2009 847.0 SPRAIN/STRAIN NECK 11/01/2009 840.9 SPRAIN/STRAIN SHOULDER/ARM 11/01/2009 847.0 SPRAIN/STRAIN NECK 11/01/2009 840.9 SPRAIN/STRAIN SHOULDER/ARM 11/01/2009 847.0 SPRAIN/STRAIN NECK 11/01/2009 SOPHIE FOSTER APRN 840.9 SPRAIN/STRAIN SHOULDER/ARM 11/01/2009 SOPHEI FOSTER APRN 847.0 SPRAIN/STRAIN NECK 11/01/2009 BETSY BOLAÑOS DDS 840.9 SPRAIN/STRAIN SHOULDER/ARM 11/01/2009 BETSY BOLAÑOS DDS 847.0 SPRAIN/STRAIN NECK 11/01/2009 BETSY BOLAÑOS DDS 840.9 SPRAIN/STRAIN SHOULDER/ARM 11/01/2009 MIKY DDS, BETSY Saavedra 847.0 SPRAIN/STRAIN NECK 11/01/2009 SOPHIE FOSTER APRN T 840.9 SPRAIN/STRAIN SHOULDER/ARM 11/01/2009 SOPHIE FOSTER APRN T 847.0 SPRAIN/STRAIN NECK 11/01/2009 NNEKA MENDEZ MD 840.9 SPRAIN/STRAIN SHOULDER/ARM 11/01/2009 NNEKA MENDEZ MD 847.0 SPRAIN/STRAIN NECK 11/01/2009 MICHAEL BOLAND, JERILYN R 840.9 SPRAIN/STRAIN SHOULDER/ARM 11/01/2009 MICHAEL BOLAND, JERILYN R 847.0 SPRAIN/STRAIN NECK 11/01/2009 SOPHIE FOSTER APRN 840.9 SPRAIN/STRAIN SHOULDER/ARM 11/01/2009 SOPHIE FOSTER APRN T 847.0 SPRAIN/STRAIN NECK 11/01/2009 SOPHIE FOSTER APRN T 840.9 SPRAIN/STRAIN SHOULDER/ARM 11/01/2009 SOPHIE FOSTER APRN T 847.0 SPRAIN/STRAIN NECK 11/01/2009 PENA DO, NICOLAS K 840.9 SPRAIN/STRAIN SHOULDER/ARM 11/01/2009 PENA DO, NICOLAS K 847.0 SPRAIN/STRAIN NECK 11/01/2009 SOPHIE FOSTER APRN T 840.9 SPRAIN/STRAIN SHOULDER/ARM 11/01/2009 SOPHIE FOSTER APRN T 847.0 SPRAIN/STRAIN NECK 11/01/2009 NNEKA MENDEZ MD 840.9 SPRAIN/STRAIN SHOULDER/ARM 11/01/2009 NNEKA MENDEZ MD 847.0 SPRAIN/STRAIN NECK 11/01/2009 NNEKA MENDEZ MD 840.9 SPRAIN/STRAIN SHOULDER/ARM 11/01/2009 NNEKA MENDEZ MD 847.0 SPRAIN/STRAIN NECK 11/01/2009 SOPHIE FOSTER APRN T 840.9 SPRAIN/STRAIN SHOULDER/ARM 11/01/2009 SOPHIE FOSTER APRN T 847.0 SPRAIN/STRAIN NECK 11/01/2009 SOPHIE FOSTER APRN T 840.9 SPRAIN/STRAIN SHOULDER/ARM 11/01/2009 SOPHIE FOSTER APRN T 847.0 SPRAIN/STRAIN NECK 11/01/2009 KRISTIN CLINICAL DIETICIAN, SOPHIE T 840.9 SPRAIN/STRAIN SHOULDER/ARM 11/01/2009 SOPHIE FOSTER APRN T 847.0 SPRAIN/STRAIN NECK 11/01/2009 SOPHIE FOSTER APRN T 840.9 SPRAIN/STRAIN SHOULDER/ARM 11/01/2009 SOPHIE FOSTER APRN T 847.0 SPRAIN/STRAIN NECK 11/01/2009 PENA DO, NICOLAS K 840.9 SPRAIN/STRAIN SHOULDER/ARM 11/01/2009 PENA DO, NICOLAS K 847.0 SPRAIN/STRAIN NECK 11/01/2009 SOPHIE FOSTER APRN T 840.9 SPRAIN/STRAIN SHOULDER/ARM 11/01/2009 SOPHIE FOSTER APRN T 847.0 SPRAIN/STRAIN NECK 11/01/2009 SOPHIE FOSTER APRN T 840.9 SPRAIN/STRAIN SHOULDER/ARM 11/01/2009 SOPHIE FOSTER APRN T 847.0 SPRAIN/STRAIN NECK 11/29/2009 SOPHIE FOSTER APRN 627.2 MENOPAUSE SYMPTOMATIC 11/29/2009 627.2 MENOPAUSE SYMPTOMATIC 11/29/2009 627.2 MENOPAUSE SYMPTOMATIC 11/29/2009 627.2 MENOPAUSE SYMPTOMATIC 11/29/2009 SOPHIE FOSTER APRN 627.2 MENOPAUSE SYMPTOMATIC 11/29/2009 BETSY BOLAÑOS DDS 627.2 MENOPAUSE SYMPTOMATIC 11/29/2009 BETSY BOLAÑOS DDS 627.2 MENOPAUSE SYMPTOMATIC 11/29/2009 SOPHIE FOSTER APRN 627.2 MENOPAUSE SYMPTOMATIC 11/29/2009 NNEKA MENDEZ MD 627.2 MENOPAUSE SYMPTOMATIC 11/29/2009 JERILYN RODRIGUEZ APRN 627.2 MENOPAUSE SYMPTOMATIC 11/29/2009 SOPHIE FOSTER APRN 627.2 MENOPAUSE SYMPTOMATIC 11/29/2009 SOPHIE FOSTER APRN 627.2 MENOPAUSE SYMPTOMATIC 11/29/2009 PENA DO, NCIOLAS K 627.2 MENOPAUSE SYMPTOMATIC 11/29/2009 SOPHIE FOSTER APRN 627.2 MENOPAUSE SYMPTOMATIC 11/29/2009 NNEKA MENDEZ MD 627.2 MENOPAUSE SYMPTOMATIC 11/29/2009 NNEKA MENDEZ MD 627.2 MENOPAUSE SYMPTOMATIC 11/29/2009 SOPHIE FOSTER APRN 627.2 MENOPAUSE SYMPTOMATIC 11/29/2009 SOPHIE FOSTER APRN 627.2 MENOPAUSE SYMPTOMATIC 11/29/2009 SOPHIE FOSTER APRN 627.2 MENOPAUSE SYMPTOMATIC 11/29/2009 SOPHIE FOSTER APRN T 627.2 MENOPAUSE SYMPTOMATIC 11/29/2009 PENA DO, NICOLAS K 627.2 MENOPAUSE SYMPTOMATIC 11/29/2009 SOPHIE FOSTER APRN 627.2 MENOPAUSE SYMPTOMATIC 11/29/2009 SOPHIE FOSTER APRN 627.2 MENOPAUSE SYMPTOMATIC 02/05/2010 SOPHIE FOSTER APRN V49.81 menopause 02/05/2010 V49.81 MENOPAUSE 02/05/2010 V49.81 MENOPAUSE 02/05/2010 V49.81 MENOPAUSE 02/05/2010 SOPHIE FOSTER APRN V49.81 MENOPAUSE 02/05/2010 MIKY DDS, BETSY M V49.81 MENOPAUSE 02/05/2010 MIKY DDS, BETSY M V49.81 MENOPAUSE 02/05/2010 SOPHIE FOSTER APRN V49.81 MENOPAUSE 02/05/2010 NNEKA MENDEZ MD V49.81 MENOPAUSE 02/05/2010 JERILYN RODRIGUEZ APRN V49.81 MENOPAUSE 02/05/2010 SOPHIE FOSTER APRN V49.81 MENOPAUSE 02/05/2010 SOPHIE FOSTER APRN V49.81 MENOPAUSE 02/05/2010 PENA DO, NICOLAS K V49.81 MENOPAUSE 02/05/2010 SOPHIE FOSTER APRN V49.81 MENOPAUSE 02/05/2010 NNEKA MENDEZ MD V49.81 MENOPAUSE 02/05/2010 NNEKA MENDEZ MD V49.81 MENOPAUSE 02/05/2010 SOPHIE FOSTER APRN V49.81 MENOPAUSE 02/05/2010 SOPHIE FOSTER APRN V49.81 MENOPAUSE 02/05/2010 SOPHIE FOSTER APRN V49.81 MENOPAUSE 02/05/2010 SOPHIE FOSTER APRN V49.81 MENOPAUSE 02/05/2010 PENA DO, NICOLAS K V49.81 MENOPAUSE 02/05/2010 SOPHIE FOSTER APRN V49.81 MENOPAUSE 02/05/2010 SOPHIE FOSTER APRN V49.81 menopause 02/16/2010 SOPHIE FOSTER APRN 305.1 TOBACCO ABUSE 02/16/2010 SOPHIE FOSTER APRN 338.4 PAIN CHRONIC SYNDROME 02/16/2010 SOPHIE FOSTER APRN 724.2 PAIN LOW BACK 02/16/2010 305.1 TOBACCO ABUSE 02/16/2010 338.4 PAIN CHRONIC SYNDROME 02/16/2010 724.2 PAIN LOW BACK 02/16/2010 305.1 TOBACCO ABUSE 02/16/2010 338.4 PAIN CHRONIC SYNDROME 02/16/2010 724.2 PAIN LOW BACK 02/16/2010 305.1 TOBACCO ABUSE 02/16/2010 338.4 PAIN CHRONIC SYNDROME 02/16/2010 724.2 PAIN LOW BACK 02/16/2010 SOPHIE FOSTER APRN T 305.1 TOBACCO ABUSE 02/16/2010 SOPHIE FOSTER APRN T 338.4 PAIN CHRONIC SYNDROME 02/16/2010 SOPHIE FOSTER APRN T 724.2 PAIN LOW BACK 02/16/2010 MIKY DDS, BETSY M 305.1 TOBACCO ABUSE 02/16/2010 MIKY DDS, BETSY M 338.4 PAIN CHRONIC SYNDROME 02/16/2010 MIKY DDS, BETSY M 724.2 PAIN LOW BACK 02/16/2010 MIKY DDS, BETSY M 305.1 TOBACCO ABUSE 02/16/2010 MIKY DDS, BETSY M 338.4 PAIN CHRONIC SYNDROME 02/16/2010 MIKY DDS, BETSY M 724.2 PAIN LOW BACK 02/16/2010 SOPHIE FOSTER APRN T 305.1 TOBACCO ABUSE 02/16/2010 SOPHIE FOSTER APRN T 338.4 PAIN CHRONIC SYNDROME 02/16/2010 SOPHIE FOSTER APRN T 724.2 PAIN LOW BACK 02/16/2010 NNEKA MENDEZ MD 305.1 TOBACCO ABUSE 02/16/2010 NNEKA MENDEZ MD 338.4 PAIN CHRONIC SYNDROME 02/16/2010 NNEKA MENDEZ MD 724.2 PAIN LOW BACK 02/16/2010 MICHAEL BOLAND JERILYN R 305.1 TOBACCO ABUSE 02/16/2010 MICHAEL BOLAND, JERILYN R 338.4 PAIN CHRONIC SYNDROME 02/16/2010 MICHAEL BOLAND, JERILYN R 724.2 PAIN LOW BACK 02/16/2010 SOPHIE FOSTER APRN T 305.1 TOBACCO ABUSE 02/16/2010 SOPHIE FOSTER APRN T 338.4 PAIN CHRONIC SYNDROME 02/16/2010 SOPHIE FOSTER APRN T 724.2 PAIN LOW BACK 02/16/2010 SOPHIE FOSTER APRN T 305.1 TOBACCO ABUSE 02/16/2010 SOPHIE FOSTER APRN T 338.4 PAIN CHRONIC SYNDROME 02/16/2010 SOPHIE FOSTER APRN T 724.2 PAIN LOW BACK 02/16/2010 PENA DO, NICOLAS K 305.1 TOBACCO ABUSE 02/16/2010 PENA DO, NICOLAS K 338.4 PAIN CHRONIC SYNDROME 02/16/2010 PENA DO, NICOLAS K 724.2 PAIN LOW BACK 02/16/2010 SOPHIE FOSTER APRN T 305.1 TOBACCO ABUSE 02/16/2010 SOPHIE FOSTER APRN T 338.4 PAIN CHRONIC SYNDROME 02/16/2010 SOPHIE FOSTER APRN T 724.2 PAIN LOW BACK 02/16/2010 NNEKA MENDEZ MD 305.1 TOBACCO ABUSE 02/16/2010 NNEKA MENDEZ MD 338.4 PAIN CHRONIC SYNDROME 02/16/2010 NNEKA MENDEZ MD 724.2 PAIN LOW BACK 02/16/2010 NNEKA MENDEZ MD 305.1 TOBACCO ABUSE 02/16/2010 NNEKA MENDEZ MD 338.4 PAIN CHRONIC SYNDROME 02/16/2010 NNEKA MENDEZ MD 724.2 PAIN LOW BACK 02/16/2010 SOPHIE FOSTER APRN 305.1 TOBACCO ABUSE 02/16/2010 SOPHIE FOSTER APRN 338.4 PAIN CHRONIC SYNDROME 02/16/2010 SOPHIE FOSTER APRN 724.2 PAIN LOW BACK 02/16/2010 SOPHIE FOSTER APRN T 305.1 TOBACCO ABUSE 02/16/2010 SOPHIE FOSTER APRN 338.4 PAIN CHRONIC SYNDROME 02/16/2010 SOPHIE FOSTER APRN 724.2 PAIN LOW BACK 02/16/2010 SOPHIE FOSTER APRN T 305.1 TOBACCO ABUSE 02/16/2010 SOPHIE FOSTER APRN T 338.4 PAIN CHRONIC SYNDROME 02/16/2010 SOPHIE FOSTER APRN T 724.2 PAIN LOW BACK 02/16/2010 SOPHIE FOSTER APRN T 305.1 TOBACCO ABUSE 02/16/2010 SOPHIE FOSTER APRN T 338.4 PAIN CHRONIC SYNDROME 02/16/2010 SOPHIE FOSTER APRN T 724.2 PAIN LOW BACK 02/16/2010 PENA DO, NICOLAS K 305.1 TOBACCO ABUSE 02/16/2010 PENA DO, NICOLAS K 338.4 PAIN CHRONIC SYNDROME 02/16/2010 PENA DO, NICOLAS K 724.2 PAIN LOW BACK 02/16/2010 SOPHIE FOSTER APRN T 305.1 TOBACCO ABUSE 02/16/2010 SOPHIE FOSTER APRN T 338.4 PAIN CHRONIC SYNDROME 02/16/2010 SOPHIE FOSTER APRN T 724.2 PAIN LOW BACK 02/16/2010 SOPHIE FOSTER APRN 305.1 TOBACCO ABUSE 02/16/2010 SOPHIE FOSTER APRN 338.4 PAIN CHRONIC SYNDROME 02/16/2010 SOPHIE FOSTER APRN 724.2 PAIN LOW BACK 10/31/2010 SOPHIE FOSTER APRN 728.85 SPASM OF MUSCLE 10/31/2010 728.85 SPASM OF MUSCLE 10/31/2010 728.85 SPASM OF MUSCLE 10/31/2010 728.85 SPASM OF MUSCLE 10/31/2010 SOPHIE FOSTER APRN 728.85 SPASM OF MUSCLE 10/31/2010 BETSY BOLAÑOS DDS 728.85 SPASM OF MUSCLE 10/31/2010 MIKY POSADAS, BETSY Saavedra 728.85 SPASM OF MUSCLE 10/31/2010 SOPHIE FOSTER APRN 728.85 SPASM OF MUSCLE 10/31/2010 NNEKA MENDEZ MD 728.85 SPASM OF MUSCLE 10/31/2010 JERILYN RODRIGUEZ APRN 728.85 SPASM OF MUSCLE 10/31/2010 SOPHIE FOSTER APRN 728.85 SPASM OF MUSCLE 10/31/2010 SOPHIE FOSTER APRN 728.85 SPASM OF MUSCLE 10/31/2010 NICOLAS PENA DO 728.85 SPASM OF MUSCLE 10/31/2010 SOPHIE FOSTER APRN 728.85 SPASM OF MUSCLE 10/31/2010 NNEKA MENDEZ MD 728.85 SPASM OF MUSCLE 10/31/2010 NNEKA MENDEZ MD 728.85 SPASM OF MUSCLE 10/31/2010 SOPHIE FOSTER APRN 728.85 SPASM OF MUSCLE 10/31/2010 SOPHIE FOSTER APRN 728.85 SPASM OF MUSCLE 10/31/2010 SOPHIE FOSTER APRN 728.85 SPASM OF MUSCLE 10/31/2010 SOPHIE FOSTER APRN 728.85 SPASM OF MUSCLE 10/31/2010 NICOLAS PENA DO 728.85 SPASM OF MUSCLE 10/31/2010 SOPHIE FOSTER APRN 728.85 SPASM OF MUSCLE 10/31/2010 SOPHIE FOSTER APRN 728.85 SPASM OF MUSCLE 11/30/2010 SOPHIE FOSTER APRN 401.1 HYPERTENSION, BENIGN ESSENTIAL 11/30/2010 401.1 HYPERTENSION, BENIGN ESSENTIAL 11/30/2010 401.1 HYPERTENSION, BENIGN ESSENTIAL 11/30/2010 401.1 HYPERTENSION, BENIGN ESSENTIAL 11/30/2010 SOPHIE FOSTER APRN T 401.1 HYPERTENSION, BENIGN ESSENTIAL 11/30/2010 MIKY POSADAS, BETSY M 401.1 HYPERTENSION, BENIGN ESSENTIAL 11/30/2010 MIKY POSADAS, BETSY M 401.1 HYPERTENSION, BENIGN ESSENTIAL 11/30/2010 SOPHIE FOSTER APRN 401.1 HYPERTENSION, BENIGN ESSENTIAL 11/30/2010 NNEKA MENDEZ MD 401.1 HYPERTENSION, BENIGN ESSENTIAL 11/30/2010 JERILYN RODRIGUEZ APRN 401.1 HYPERTENSION, BENIGN ESSENTIAL 11/30/2010 SOPHIE FOSTER APRN T 401.1 HYPERTENSION, BENIGN ESSENTIAL 11/30/2010 SOPHIE FOSTER APRN T 401.1 HYPERTENSION, BENIGN ESSENTIAL 11/30/2010 PENA DO, NICOLAS K 401.1 HYPERTENSION, BENIGN ESSENTIAL 11/30/2010 SOPHIE FOSTER APRN T 401.1 HYPERTENSION, BENIGN ESSENTIAL 11/30/2010 NNEKA MENDEZ MD 401.1 HYPERTENSION, BENIGN ESSENTIAL 11/30/2010 NNEKA MENDEZ MD 401.1 HYPERTENSION, BENIGN ESSENTIAL 11/30/2010 SOPHIE FOSTER APRN 401.1 HYPERTENSION, BENIGN ESSENTIAL 11/30/2010 SOPHIE FSOTER APRN 401.1 HYPERTENSION, BENIGN ESSENTIAL 11/30/2010 SOPHIE FOSTER APRN T 401.1 HYPERTENSION, BENIGN ESSENTIAL 11/30/2010 SOPHIE FOSTER APRN T 401.1 HYPERTENSION, BENIGN ESSENTIAL 11/30/2010 PENA DO, NICOLAS K 401.1 HYPERTENSION, BENIGN ESSENTIAL 11/30/2010 SOPHIE FOSTER APRN T 401.1 HYPERTENSION, BENIGN ESSENTIAL 11/30/2010 SOPHIE FOSTER APRN 401.1 HYPERTENSION, BENIGN ESSENTIAL 04/10/2011 SOPHIE FOSTER APRN 461.9 SINUSITIS ACUTE 04/10/2011 461.9 SINUSITIS ACUTE 04/10/2011 461.9 SINUSITIS ACUTE 04/10/2011 461.9 SINUSITIS ACUTE 04/10/2011 SOPHIE FOSTER APRN 461.9 SINUSITIS ACUTE 04/10/2011 MIKY DDS, BETSY Saavedra 461.9 SINUSITIS ACUTE 04/10/2011 MIKY SMITH, BETSY Saavedra 461.9 SINUSITIS ACUTE 04/10/2011 SOPHIE FOSTER APRN 461.9 SINUSITIS ACUTE 04/10/2011 NNEKA MENDEZ MD 461.9 SINUSITIS ACUTE 04/10/2011 MICHAEL BOLAND, JERILYN R 461.9 SINUSITIS ACUTE 04/10/2011 KRISTIN BOLAND, SOPHIE T 461.9 SINUSITIS ACUTE 04/10/2011 KRISTIN BOLAND, SOPHIE T 461.9 SINUSITIS ACUTE 04/10/2011 NICOLAS PENA DO K 461.9 SINUSITIS ACUTE 04/10/2011 SOPHIE FOSTER APRN T 461.9 SINUSITIS ACUTE 04/10/2011 NNEKA MENDEZ MD 461.9 SINUSITIS ACUTE 04/10/2011 NNEKA MENDEZ MD 461.9 SINUSITIS ACUTE 04/10/2011 SOPHIE FOSTER APRN 461.9 SINUSITIS ACUTE 04/10/2011 SOPHIE FOSTER APRN T 461.9 SINUSITIS ACUTE 04/10/2011 SOPHIE FOSTER APRN T 461.9 SINUSITIS ACUTE 04/10/2011 KRISTIN BOLAND, SOPHIE T 461.9 SINUSITIS ACUTE 04/10/2011 NICOLAS PENA DO K 461.9 SINUSITIS ACUTE 04/10/2011 SOPHIE FOSTER APRN T 461.9 SINUSITIS ACUTE 04/10/2011 SOPHIE FOSTER APRN T 461.9 SINUSITIS ACUTE 05/29/2011 SOPHIE FOSTER APRN 726.90 TENDONITIS 05/29/2011 726.90 TENDONITIS 05/29/2011 726.90 TENDONITIS 05/29/2011 726.90 TENDONITIS 05/29/2011 SOPHIE FOSTER APRN T 726.90 TENDONITIS 05/29/2011 MIKY SMITH, BETSY Saavedra 726.90 TENDONITIS 05/29/2011 MIKY SMITH, BETSY Saavedra 726.90 TENDONITIS 05/29/2011 SOPHIE FOSTER APRN 726.90 TENDONITIS 05/29/2011 NNEKA MENDEZ MD 726.90 TENDONITIS 05/29/2011 MICHAEL BOLAND, JERILYN R 726.90 TENDONITIS 05/29/2011 SOPHIE FOSTER APRN T 726.90 TENDONITIS 05/29/2011 SOPHIE FOSTER APRN 726.90 TENDONITIS 05/29/2011 NICOLAS PENA DO K 726.90 TENDONITIS 05/29/2011 SPOHIE FOSTER APRN 726.90 TENDONITIS 05/29/2011 NNEKA MENDEZ MD 726.90 TENDONITIS 05/29/2011 NNEKA MENDEZ MD 726.90 TENDONITIS 05/29/2011 KRISTIN CLINICAL DIETICIAN, SOPHIE T 726.90 TENDONITIS 05/29/2011 KRISTIN CLINICAL DIETICIAN, SOPHIE T 726.90 TENDONITIS 05/29/2011 KRISTIN CLINICAL DIETICIAN, SOPHIE T 726.90 TENDONITIS 05/29/2011 KRISTIN CLINICAL DIETICIAN, SOPHIE T 726.90 TENDONITIS 05/29/2011 PENA DO, NICOLAS K 726.90 TENDONITIS 05/29/2011 KRISTIN CLINICAL DIETICIAN, SOPHIE T 726.90 TENDONITIS 05/29/2011 KRISTIN CLINICAL DIETICIAN, SOPHIE T 726.90 TENDONITIS 11/08/2011 KRISTIN HOWARDN, SOPHIE T 466.0 BRONCHITIS, ACUTE 11/08/2011 466.0 BRONCHITIS, ACUTE 11/08/2011 466.0 BRONCHITIS, ACUTE 11/08/2011 466.0 BRONCHITIS, ACUTE 11/08/2011 KRISTIN HOWARDN, SOPHIE T 466.0 BRONCHITIS, ACUTE 11/08/2011 MIKY DDS, BETSY M 466.0 BRONCHITIS, ACUTE 11/08/2011 MIKY DDS, BETSY M 466.0 BRONCHITIS, ACUTE 11/08/2011 KRISTIN BOLAND, SOPHIE T 466.0 BRONCHITIS, ACUTE 11/08/2011 NNEKA MENDEZ MD 466.0 BRONCHITIS, ACUTE 11/08/2011 MICHAEL BOLAND, JERILYN R 466.0 BRONCHITIS, ACUTE 11/08/2011 KRISTIN BOLAND, SOPHIE T 466.0 BRONCHITIS, ACUTE 11/08/2011 KRISTIN HOWARDN, SOPHIE T 466.0 BRONCHITIS, ACUTE 11/08/2011 PENA DO, NICOLAS K 466.0 BRONCHITIS, ACUTE 11/08/2011 KRISTIN BOLAND, SOPHIE T 466.0 BRONCHITIS, ACUTE 11/08/2011 NNEKA MENDEZ MD 466.0 BRONCHITIS, ACUTE 11/08/2011 NNEKA MENDEZ MD 466.0 BRONCHITIS, ACUTE 11/08/2011 KRISTIN BOLAND, SOPHIE T 466.0 BRONCHITIS, ACUTE 11/08/2011 KRISTIN BOLAND, SOPHIE T 466.0 BRONCHITIS, ACUTE 11/08/2011 KRISTIN BOLAND, SOPHIE T 466.0 BRONCHITIS, ACUTE 11/08/2011 KRISTIN BOLAND, SOPHIE T 466.0 BRONCHITIS, ACUTE 11/08/2011 PENA DO, NICOLAS K 466.0 BRONCHITIS, ACUTE 11/08/2011 KRISTIN HOWARDN, SOPHIE T 466.0 BRONCHITIS, ACUTE 11/08/2011 KRISTIN BOLAND, SOPHIE T 466.0 BRONCHITIS, ACUTE 09/07/2012 SOPHIE FOSTER APRN 719.44 PAIN IN JOINT INVOLVING HAND 09/07/2012 719.44 PAIN IN JOINT INVOLVING HAND 09/07/2012 719.44 PAIN IN JOINT INVOLVING HAND 09/07/2012 719.44 PAIN IN JOINT INVOLVING HAND 09/07/2012 SOPHIE FOSTER APRN 719.44 PAIN IN JOINT INVOLVING HAND 09/07/2012 BETSY BOLAÑOS DDS 719.44 PAIN IN JOINT INVOLVING HAND 09/07/2012 BETSY BOLAÑOS DDS 719.44 PAIN IN JOINT INVOLVING HAND 09/07/2012 SOPHIE FOSTER APRN 719.44 PAIN IN JOINT INVOLVING HAND 09/07/2012 NNEKA MENDEZ MD 719.44 PAIN IN JOINT INVOLVING HAND 09/07/2012 JERILYN RODRIGUEZ APRN 719.44 PAIN IN JOINT INVOLVING HAND 09/07/2012 SOPHIE FOSTER APRN 719.44 PAIN IN JOINT INVOLVING HAND 09/07/2012 SOPHIE FOSTER APRN 719.44 PAIN IN JOINT INVOLVING HAND 09/07/2012 NICOLAS PENA DO 719.44 PAIN IN JOINT INVOLVING HAND 09/07/2012 SOPHIE FOSTER APRN 719.44 PAIN IN JOINT INVOLVING HAND 09/07/2012 NNEKA MENDEZ MD 719.44 PAIN IN JOINT INVOLVING HAND 09/07/2012 NNEKA MENDEZ MD 719.44 PAIN IN JOINT INVOLVING HAND 09/07/2012 SOPHIE FOSTER APRN 719.44 PAIN IN JOINT INVOLVING HAND 09/07/2012 SOPHIE FOSTER APRN 719.44 PAIN IN JOINT INVOLVING HAND 09/07/2012 SOPHIE FOSTER APRN 719.44 PAIN IN JOINT INVOLVING HAND 09/07/2012 SOPHIE FOSTER APRN 719.44 PAIN IN JOINT INVOLVING HAND 09/07/2012 NICOLAS PENA DO K 719.44 PAIN IN JOINT INVOLVING HAND 09/07/2012 SOPHIE FOSTER APRN 719.44 PAIN IN JOINT INVOLVING HAND 09/07/2012 SOPHIE FOSTER APRN 719.44 PAIN IN JOINT INVOLVING HAND 09/11/2012 SOPHIE FOSTER APRN 272.4 HYPERLIPIDEMIA 09/11/2012 272.4 HYPERLIPIDEMIA 09/11/2012 272.4 HYPERLIPIDEMIA 09/11/2012 272.4 HYPERLIPIDEMIA 09/11/2012 KRISTIN CLINICAL DIETICIAN, SOPHIE T 272.4 HYPERLIPIDEMIA 09/11/2012 MIKY DDS, BETSY M 272.4 HYPERLIPIDEMIA 09/11/2012 MIKY DDS, BETSY M 272.4 HYPERLIPIDEMIA 09/11/2012 KRISTIN BOLAND SOPHIE T 272.4 HYPERLIPIDEMIA 09/11/2012 NNEKA MENDEZ MD 272.4 HYPERLIPIDEMIA 09/11/2012 MICHAEL BOLAND, JERILYN R 272.4 HYPERLIPIDEMIA 09/11/2012 KRISTIN BOLAND SOPHIE T 272.4 HYPERLIPIDEMIA 09/11/2012 KRISTIN BOLAND SOPHIE T 272.4 HYPERLIPIDEMIA 09/11/2012 PENA DO, NICOLAS K 272.4 HYPERLIPIDEMIA 09/11/2012 SOPHIE FOSTER APRN T 272.4 HYPERLIPIDEMIA 09/11/2012 NNEKA MENDEZ MD 272.4 HYPERLIPIDEMIA 09/11/2012 NNEKA MENDEZ MD 272.4 HYPERLIPIDEMIA 09/11/2012 SOPHIE FOSTER APRN T 272.4 HYPERLIPIDEMIA 09/11/2012 SOPHIE FOSTER APRN T 272.4 HYPERLIPIDEMIA 09/11/2012 SOPHEI FOSTER APRN T 272.4 HYPERLIPIDEMIA 09/11/2012 KRISTIN BOLAND SOPHIE T 272.4 HYPERLIPIDEMIA 09/11/2012 PENA DO, NICOLAS K 272.4 HYPERLIPIDEMIA 09/11/2012 KRISTIN BOLAND, SOPHIE T 272.4 HYPERLIPIDEMIA 09/11/2012 KRISTIN BOLAND SOPHIE T 272.4 HYPERLIPIDEMIA 07/30/2013 SOPHIE FOSTER APRN T 723.1 CERVICALGIA 07/30/2013 MIKY DDS, BETSY M 723.1 CERVICALGIA 07/30/2013 MIKY DDS, BETSY M 723.1 CERVICALGIA 07/30/2013 SOPHIE FOSTER APRN T 723.1 CERVICALGIA 07/30/2013 NNEKA MENDEZ MD 723.1 CERVICALGIA 07/30/2013 MICHAEL BOLAND, JERILYN R 723.1 CERVICALGIA 07/30/2013 SOPHIE FOSTER APRN T 723.1 CERVICALGIA 07/30/2013 SOPHIE FOSTER APRN T 723.1 CERVICALGIA 07/30/2013 PENA DO NICOLAS K 723.1 CERVICALGIA 07/30/2013 SOPHIE FOSTER APRN T 723.1 CERVICALGIA 07/30/2013 NNEKA MENDEZ MD 723.1 CERVICALGIA 07/30/2013 NNEKA MENDEZ MD 723.1 CERVICALGIA 07/30/2013 SOPHIE FOSTER APRN 723.1 CERVICALGIA 07/30/2013 SOPHIE FOSTER APRN 723.1 CERVICALGIA 07/30/2013 SOPHIE FOSTER APRN 723.1 CERVICALGIA 07/30/2013 SOPHIE FOSTER APRN 723.1 CERVICALGIA 07/30/2013 NICOLAS PENA DO 723.1 CERVICALGIA 07/30/2013 SOPHIE FOSTER APRN 723.1 CERVICALGIA 01/07/2014 KYRA FERRER MD Ot 038.9 SEPTICEMIA NOS 01/07/2014 KYRA FERRER MD Ot 272.1 PURE HYPERGLYCERIDEMIA 01/07/2014 KYRA FERRER MD Ot 272.4 HYPERLIPIDEMIA NEC/NOS 01/07/2014 KYRA FERRER MD Ot 278.00 OBESITY, NOS 01/07/2014 KYRA FERRER MD Ot 401.9 HYPERTENSION NOS 01/07/2014 KYRA FERRER MD Ot 486 PNEUMONIA, ORGANISM NOS 01/07/2014 KYRA FERRER MD Ot 491.21 OBSTR CHRONIC BRONCHITIS, W (ACUTE) EXAC 01/07/2014 KYRA FERRER MD Ot 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 01/07/2014 KYRA FERRER MD Ot 518.83 CHRONIC RESPIRATORY FAILURE 01/07/2014 KYRA FERRER MD Ot 528.9 ORAL SOFT TISSUE DIS NEC 01/07/2014 KYRA FERRER MD Ot 790.29 OTHER ABNORMAL GLUCOSE 01/07/2014 KYRA FERRER MD Ot 799.3 DEBILITY NOS 01/07/2014 KYRA FERRER MD Ot 995.91 SEPSIS 01/07/2014 KYRA FERRER MD Ot V15.82 HISTORY OF TOBACCO USE 01/07/2014 KYRA FERRER MD Ot V85.38 BODY MASS INDEX 38.0-38.9, ADULT 01/14/2014 SOPHIE FOSTER APRN 300.00 ANXIETY UNSPEC 01/14/2014 NNEKA MENDEZ MD 300.00 ANXIETY UNSPEC 01/14/2014 JERILYN RODRIGUEZ APRN 300.00 ANXIETY UNSPEC 01/14/2014 SOPHIE FOSTER APRN 300.00 ANXIETY UNSPEC 01/14/2014 SOPHIE FOSTER APRN 300.00 ANXIETY UNSPEC 01/14/2014 PENA DO, NICOLAS K 300.00 ANXIETY UNSPEC 01/14/2014 SOPHIE FOSTER APRN T 300.00 ANXIETY UNSPEC 01/14/2014 NNEKA MENDEZ MD 300.00 ANXIETY UNSPEC 01/14/2014 NNEKA MENDEZ MD 300.00 ANXIETY UNSPEC 01/14/2014 KRISTIN BOLAND, SOPHIE T 300.00 ANXIETY UNSPEC 01/14/2014 KRISTIN BOLAND, SOPHIE T 300.00 ANXIETY UNSPEC 01/14/2014 KRISTIN BOLAND, SOPHIE T 300.00 ANXIETY UNSPEC 01/14/2014 SOPHIE FOSTER APRN T 300.00 ANXIETY UNSPEC 01/14/2014 PENA DO, NICOLAS K 300.00 ANXIETY UNSPEC 01/14/2014 KRISTIN BOLAND, SOPHIE T 300.00 ANXIETY UNSPEC 03/31/2014 MICHAEL BOLAND JERILYN R 786.2 COUGH 03/31/2014 SOPHIE FOSTER APRN T 786.2 COUGH 03/31/2014 SOPHIE FOSTER APRN T 786.2 COUGH 03/31/2014 PENA DO, NICOLAS K 786.2 COUGH 03/31/2014 SOPHIE FOSTER APRN T 786.2 COUGH 03/31/2014 NNEKA MENDEZ MD 786.2 COUGH 03/31/2014 NNEKA MENDEZ MD 786.2 COUGH 03/31/2014 KRISTIN BOLAND, SOPHIE T 786.2 COUGH 03/31/2014 SOPHIE FOSTER APRN T 786.2 COUGH 03/31/2014 KRISTIN BOLAND, SOPHIE T 786.2 COUGH 03/31/2014 SOPHIE FOSTER APRN T 786.2 COUGH 03/31/2014 PENA DO, NICOLAS K 786.2 COUGH 03/31/2014 SOPHIE FOSTER APRN T 786.2 COUGH 05/09/2014 SOPHIE FOSTER APRN T 786.50 CHEST PAIN 05/09/2014 SOPHIE FOSTER APRN T 786.50 CHEST PAIN 05/09/2014 PENA DO, NICOLAS K 786.50 CHEST PAIN 05/09/2014 SOPHIE FOSTER APRN T 786.50 CHEST PAIN 05/09/2014 NNEKA MENDEZ MD 786.50 CHEST PAIN 05/09/2014 NNEKA MENDEZ MD 786.50 CHEST PAIN 05/09/2014 SOPHIE FOSTER APRN T 786.50 CHEST PAIN 05/09/2014 SOPHIE FOSTER APRN T 786.50 CHEST PAIN 05/09/2014 SOPHIE FOSTER APRN T 786.50 CHEST PAIN 05/09/2014 SOPHIE FOSTER APRN 786.50 CHEST PAIN 05/09/2014 PENA DO, NICOLAS K 786.50 CHEST PAIN 05/09/2014 SOPHIE FOSTER APRN T 786.50 CHEST PAIN 09/22/2014 PENA DO, NICOLAS K Ot 112.0 THRUSH 09/22/2014 PENA DO, NICOLAS K Ot 244.9 HYPOTHYROIDISM NOS 09/22/2014 PENA DO, NICOLAS K Ot 276.51 DEHYDRATION 09/22/2014 PENA DO, NICOLAS K Ot 276.8 HYPOPOTASSEMIA 09/22/2014 PENA DO, NICOLAS K Ot 288.60 LEUKOCYTOSIS, UNSPECIFIED 09/22/2014 PENA DO, NICOLAS K Ot 401.9 HYPERTENSION NOS 09/22/2014 PENA DO, NICOLAS K Ot 491.21 OBSTR CHRONIC BRONCHITIS, W (ACUTE) EXAC 09/22/2014 PENA DO, NICOLAS K Ot 518.84 ACUTE AND CHRONIC RESPIRATORY FAILURE 09/22/2014 PENA DO, NICOLAS K Ot 786.52 PAINFUL RESPIRATION 09/22/2014 PENA DO, NICOLAS K Ot E932.0 ADV EFF CORTICOSTEROIDS 10/07/2014 SOPHIE FOSTER APRN T 244.9 HYPOTHYROIDISM 10/07/2014 SOPHIE FOSTER APRN T 275.41 HYPOCALCEMIA 10/07/2014 SOPHIE FOSTER APRN T 790.29 HYPERGLYCEMIA 10/07/2014 SOPHIE FOSTER APRN T 244.9 HYPOTHYROIDISM 10/07/2014 SOPHIE FOSTER APRN T 275.41 HYPOCALCEMIA 10/07/2014 SOPHIE FOSTER APRN T 790.29 HYPERGLYCEMIA 10/07/2014 SOPHIE FOSTER APRN 244.9 HYPOTHYROIDISM 10/07/2014 SOPHIE FOSTER APRN T 275.41 HYPOCALCEMIA 10/07/2014 SOPHIE FOSTER APRN T 790.29 HYPERGLYCEMIA 10/07/2014 SOPHIE FOSTER APRN T 244.9 HYPOTHYROIDISM 10/07/2014 SOPHIE FOSTER APRN T 275.41 HYPOCALCEMIA 10/07/2014 SOPHIE FOSTER APRN T 790.29 HYPERGLYCEMIA 10/07/2014 PENA DO, NICOLAS K 244.9 HYPOTHYROIDISM 10/07/2014 PENA DO, NICOLAS K 275.41 HYPOCALCEMIA 10/07/2014 PENA DO, NICOLAS K 790.29 HYPERGLYCEMIA 10/07/2014 SOPHIE FOSTER APRN T 244.9 HYPOTHYROIDISM 10/07/2014 SOPHIE FOSTER APRN T 275.41 HYPOCALCEMIA 10/07/2014 SOPHIE FOSTER APRN 790.29 HYPERGLYCEMIA 11/14/2014 TRISTAN RUBY APRN Ot 491.21 OBSTR CHRONIC BRONCHITIS, W (ACUTE) EXAC 11/14/2014 TRISTAN RUBY APRN Ot 724.5 BACKACHE NOS 11/18/2014 PENA DO, NICOLAS K Ot 401.9 HYPERTENSION NOS 11/18/2014 PENA DO, NICOLAS K Ot 491.21 OBSTR CHRONIC BRONCHITIS, W (ACUTE) EXAC 11/18/2014 PENA DO, NICOLAS K Ot 518.84 ACUTE AND CHRONIC RESPIRATORY FAILURE 11/18/2014 PENA DO, NICOLAS K Ot 790.29 OTHER ABNORMAL GLUCOSE 11/18/2014 PENA DO, NICOLAS K Ot V15.82 HISTORY OF TOBACCO USE 11/18/2014 PENA DO, NICOLAS K Ot V46.2 SUPPLEMENTAL OXYGEN 11/18/2014 PENA DO, NICOLAS K Ot 401.9 11/18/2014 PENA DO, NICOLAS K Ot 491.21 11/18/2014 PENA DO, NICOLAS K Ot 518.84 11/18/2014 PENA DO, NICOLAS K Ot 790.29 11/18/2014 PENA DO, NICOLAS K Ot V15.82 11/18/2014 PENA DO, NICOLAS K Ot V46.2 12/02/2014 SOPHIE FOSTER APRN 724.2 BACK PAIN, LOWER 12/02/2014 SOPHIE FOSTER APRN 780.8 GENERALIZED HYPERHIDROSIS 12/02/2014 SOPHIE FOSTER APRN V18.0 FAMILY HISTORY OF DIABETES MELLITUS 12/02/2014 SOPHIE FOSTRE APRN 724.2 BACK PAIN, LOWER 12/02/2014 SOPHIE FOSTER APRN 780.8 GENERALIZED HYPERHIDROSIS 12/02/2014 SOPHIE FOSTER APRN V18.0 FAMILY HISTORY OF DIABETES MELLITUS 12/02/2014 SOPHIE FOSTER APRN 724.2 BACK PAIN, LOWER 12/02/2014 SOPHIE FOSTER APRN 780.8 GENERALIZED HYPERHIDROSIS 12/02/2014 SOPHIE FOSTER APRN V18.0 FAMILY HISTORY OF DIABETES MELLITUS 12/02/2014 JEAN DOYLE NICOLAS K 724.2 BACK PAIN, LOWER 12/02/2014 JEAN DOYLE NICOLAS K 780.8 GENERALIZED HYPERHIDROSIS 12/02/2014 NICOLAS PENA DO V18.0 FAMILY HISTORY OF DIABETES MELLITUS 12/02/2014 SOPHIE FOSTER APRN T 724.2 BACK PAIN, LOWER 12/02/2014 SOPHIE FOSTER APRN T 780.8 GENERALIZED HYPERHIDROSIS 12/02/2014 SOPHIE FOSTER APRN V18.0 FAMILY HISTORY OF DIABETES MELLITUS 02/16/2015 FATOU BARRERA MD Ot 724.2 02/16/2015 FATOU BARRERA MD Ot V57.1 02/22/2015 FATOU BARRERA MD Ot 724.2 02/22/2015 FATOU BARRERA MD Ot V57.1 02/22/2015 FATOU BARRERA MD Ot 724.2 02/22/2015 FATOU BARRERA MD Ot V57.1 02/22/2015 FATOU BARRERA MD Ot 724.2 02/22/2015 FATOU BARRERA MD Ot V57.1 02/24/2015 FATOU BARRERA MD Ot 724.2 02/24/2015 FATOU BARRERA MD Ot V57.1 02/24/2015 FATOU BARRERA MD Ot 724.2 02/24/2015 FATOU BARRERA MD Ot V57.1 03/07/2015 FATOU BARRERA MD Ot 724.2 03/07/2015 FATOU BARRERA MD Ot V57.1 03/15/2015 FATOU BARRERA MD Ot 724.2 03/15/2015 FATOU BARRERA MD Ot V57.1 03/24/2015 FATOU BARRERA MD Ot 724.2 03/24/2015 FATOU BARERRA MD Ot V57.1 03/24/2015 FATOU BARRERA MD Ot 724.2 03/24/2015 FATOU BARRERA MD Ot V57.1 03/24/2015 FATOU BARRERA MD Ot 724.2 03/24/2015 FATOU BARRERA MD Ot V57.1 04/21/2015 FATOU BARRERA MD Ot 724.2 LUMBAGO 04/21/2015 FATOU BARRERA MD Ot V57.1 PHYSICAL THERAPY NEC 01/22/2016 MALATHI SOSA DO Ot 112.0 01/22/2016 MALATHI SOSA DO Ot 278.00 01/22/2016 MALATHI SOSA DO Ot 492.8 01/22/2016 MALATHI SOSA DO Ot 571.8 01/22/2016 MALATHI SOSA DO Ot 716.90 01/22/2016 MALATHI SOSA DO Ot 722.6 01/22/2016 MALATHI SOSA DO Ot 786.2 01/22/2016 MALATHI SOSA DO Ot 793.19 01/25/2016 JONNATHAN SHELTON, ESPERANZA Soliman Ot E03.9 01/25/2016 JONNATHAN SHELTON, ESPERANZA Soliman Ot E66.01 01/25/2016 JONNATHAN SHELTON, ESPERANZA Soliman Ot E78.5 01/25/2016 JONNATHAN SHELTON, ESPERANZA Soliman Ot E87.4 01/25/2016 JONNATHAN SHELTON, ESPERANZA Soliman Ot F32.9 01/25/2016 JONNATHAN SHELTON, ESPERANZA Soliman Ot G47.33 01/25/2016 JONNATHNA SHELTON, ESPERANZA Soliman Ot I10 01/25/2016 JONNATHAN SHELTON, ESPERANZA Soliman Ot J18.9 01/25/2016 JONNATHAN SHELTON, ESPERANZA Soliman Ot J44.1 01/25/2016 JONNATHAN SHELTON, ESPERANZA Soliman Ot J96.21 01/25/2016 JONNATHAN SHELTON, ESPERANZA Soliman Ot R07.9 01/25/2016 JONNATHAN SHELTON, ESPERANZA Soliman Ot Z23 01/25/2016 JONNATHAN SHELTON, ESPERANZA Soliman Ot Z68.38 01/25/2016 JONNATHAN SHELTON, ESPERANZA Soliman Ot Z87.891 01/25/2016 JONNATHAN SHELTON, ESPERANZA Soliman Ot Z99.81 01/26/2016 JONNATHAN SHELTON, ESPERANZA Soliman Ot E03.9 01/26/2016 JONNATHAN SHELTON, ESPERANZA Soliman Ot E66.01 01/26/2016 JONNATHAN SHELTON, ESPERANZA Soliman Ot E78.5 01/26/2016 JONNATHAN SHELTON, ESPERANZA Soliman Ot E87.4 01/26/2016 JONNATHAN SHELTON, ESPERANZA Soliman Ot F32.9 01/26/2016 JONNATHAN SHELTON, ESPERANZA Soliman Ot G47.33 01/26/2016 JONNATHAN SHELTON, ESPERANZA Soliman Ot I10 01/26/2016 JONNATHAN SHELTON, ESPERANZA Soliman Ot J18.9 01/26/2016 JONNATHAN SHELTON, ESPERANZA Soliman Ot J44.1 01/26/2016 ESPERANZA DE SANTIAGO MD Ot J96.21 01/26/2016 ESPERANZA DE SANTIAGO MD Ot R07.9 01/26/2016 ESPERANZA DE SANTIAGO MD Ot Z23 01/26/2016 ESPERANZA DE SANTIAGO MD Ot Z68.38 01/26/2016 ESPERANZA DE SANTIAGO MD Ot Z87.891 01/26/2016 ESPERANZA DE SANTIAGO MD Ot Z99.81 01/26/2016 ESPERANZA DE SANTIAGO MD Ot E03.9 HYPOTHYROIDISM, UNSPECIFIED 01/26/2016 ESPERANZA DE SANTIAGO MD Ot E66.01 MORBID (SEVERE) OBESITY DUE TO EXCESS CA 01/26/2016 ESPERANZA DE SANTIAGO MD Ot E78.5 HYPERLIPIDEMIA, UNSPECIFIED 01/26/2016 ESPERANZA DE SANTIAGO MD Ot E87.4 MIXED DISORDER OF ACID-BASE BALANCE 01/26/2016 ESPERANZA DE SANTIAGO MD Ot F32.9 MAJOR DEPRESSIVE DISORDER, SINGLE EPISOD 01/26/2016 ESPERANZA DE SANTIAGO MD Ot G47.33 OBSTRUCTIVE SLEEP APNEA (ADULT) (PEDIATR 01/26/2016 ESPERANZA DE SANTIAGO MD Ot I10 ESSENTIAL (PRIMARY) HYPERTENSION 01/26/2016 ESPERANZA DE SANTIAGO MD Ot J18.9 PNEUMONIA, UNSPECIFIED ORGANISM 01/26/2016 ESPERANZA DE SANTIAGO MD Ot J44.1 CHRONIC OBSTRUCTIVE PULMONARY DISEASE W 01/26/2016 ESPERANZA DE SANTIAGO MD Ot J96.11 CHRONIC RESPIRATORY FAILURE WITH HYPOXIA 01/26/2016 ESPERANZA DE SANTIAGO MD Ot J96.21 ACUTE AND CHRONIC RESPIRATORY FAILURE WI 01/26/2016 ESPERANZA DE SANTIAGO MD Ot R07.9 CHEST PAIN, UNSPECIFIED 01/26/2016 ESPERANZA DE SANTIAGO MD Ot Z23 ENCOUNTER FOR IMMUNIZATION 01/26/2016 ESPERANZA DE SANTIAGO MD Ot Z68.38 BODY MASS INDEX (BMI) 38.0-38.9, ADULT 01/26/2016 ESPERANZA DE SANTIAGO MD Ot Z87.891 PERSONAL HISTORY OF NICOTINE DEPENDENCE 01/26/2016 ESPERANZA DE SANTIAGO MD Ot Z99.81 DEPENDENCE ON SUPPLEMENTAL OXYGEN 11/16/2016 DELVIS SHELTON, NETTA Rich Ot G89.29 OTHER CHRONIC PAIN 11/16/2016 NETTA EDMONDSON MD Ot I10 ESSENTIAL (PRIMARY) HYPERTENSION 11/16/2016 NETTA EDMONDSON MD Ot J44.9 CHRONIC OBSTRUCTIVE PULMONARY DISEASE, U 11/16/2016 NETTA EDMONDSON MD Ot M54.42 LUMBAGO WITH SCIATICA, LEFT SIDE 11/16/2016 NETTA EDMONDSON MD Ot M54.5 LOW BACK PAIN 11/16/2016 NETTA EDMONDSON MD Ot Z79.891 ASSISTED (CURRENT) USE OF OPIATE ANALGE 11/19/2016 NETTA EDMONDSON MD Ot G89.29 OTHER CHRONIC PAIN 11/19/2016 NETTA EDMONDSON MD Ot I10 ESSENTIAL (PRIMARY) HYPERTENSION 11/19/2016 NETTA EDMONDSON MD Ot J44.9 CHRONIC OBSTRUCTIVE PULMONARY DISEASE, U 11/19/2016 NETTA EDMONDSON MD Ot M54.42 LUMBAGO WITH SCIATICA, LEFT SIDE 11/19/2016 NETTA EDMONDSON MD Ot M54.5 LOW BACK PAIN 11/19/2016 NETTA EDMONDSON MD Ot Z79.891 ASSISTED (CURRENT) USE OF OPIATE ANALGE 11/19/2016 MALATHI SOSA DO Ot 112.0 THRUSH 11/19/2016 MALATHI SOSA DO Ot 278.00 OBESITY, NOS 11/19/2016 MALATHI SOSA DO Ot 492.8 EMPHYSEMA NEC 11/19/2016 MALATHI SOSA DO Ot 571.8 CHRONIC LIVER DIS NEC 11/19/2016 MALATHI SOSA DO Ot 716.90 ARTHROPATHY NOS-UNSPEC 11/19/2016 MALATHI SOSA DO Ot 722.6 DISC DEGENERATION NOS 11/19/2016 MALATHI SOSA DO Ot 786.2 COUGH 11/19/2016 MALATHI SOSA DO Ot 793.19 OTHER NONSPECIFIC ABNORMAL FINDING OF CARMELO 11/22/2016 NETTA EDMONDSON MD Ot G89.29 OTHER CHRONIC PAIN 11/22/2016 NETTA DEMONDSON MD Ot I10 ESSENTIAL (PRIMARY) HYPERTENSION 11/22/2016 NETTA EDMONDSON MD Ot J44.9 CHRONIC OBSTRUCTIVE PULMONARY DISEASE, U 11/22/2016 NETTA EDMONDSON MD Ot M54.42 LUMBAGO WITH SCIATICA, LEFT SIDE 11/22/2016 NETTA EDMONDSON MD Ot M54.5 LOW BACK PAIN 11/22/2016 DELVIS SHELTON, NETTA Rich Ot Z79.891 ASSISTED (CURRENT) USE OF OPIATE ANALGE 12/20/2016 Ashley Garcia 719.41 PAIN IN JOINT INVOLVING SHOULDER REGION 12/20/2016 Ashley Garcia M25.511 PAIN IN RIGHT SHOULDER 06/15/2017 RAHEEM MUÑOZ Ot E78.00 PURE HYPERCHOLESTEROLEMIA, UNSPECIFIED 06/15/2017 RAHEEM MUÑOZ Ot F41.9 ANXIETY DISORDER, UNSPECIFIED 06/15/2017 RAHEEM MUÑOZ Ot I10 ESSENTIAL (PRIMARY) HYPERTENSION 06/15/2017 RAHEEM MUÑOZ Ot J43.9 EMPHYSEMA, UNSPECIFIED 06/15/2017 RAHEEM MUÑOZ Ot K59.09 OTHER CONSTIPATION 06/15/2017 RAHEEM MUÑOZ Ot M17.12 UNILATERAL PRIMARY OSTEOARTHRITIS, LEFT 06/15/2017 RAHEEM MUÑOZ Ot M25.562 PAIN IN LEFT KNEE 06/15/2017 RAHEEM MUÑOZ Ot M47.9 SPONDYLOSIS, UNSPECIFIED 06/15/2017 RAHEEM MUÑOZ Ot Z87.891 PERSONAL HISTORY OF NICOTINE DEPENDENCE 06/15/2017 RAHEEM MUÑOZ Ot Z90.710 ACQUIRED ABSENCE OF BOTH CERVIX AND UTER 06/15/2017 RAHEEM MUÑOZ Ot Z98.51 TUBAL LIGATION STATUS 08/09/2017 CHRISTOPHE BROWER DO Ot E66.01 MORBID (SEVERE) OBESITY DUE TO EXCESS CA 08/09/2017 CHRISTOPHE BROWER DO Ot E78.00 PURE HYPERCHOLESTEROLEMIA, UNSPECIFIED 08/09/2017 CHRISTOPHE BROWER DO Ot F41.9 ANXIETY DISORDER, UNSPECIFIED 08/09/2017 CHRISTOPHE BROWER DO Ot I10 ESSENTIAL (PRIMARY) HYPERTENSION 08/09/2017 DEBORAH BROWER DOI Ot J30.2 OTHER SEASONAL ALLERGIC RHINITIS 08/09/2017 DEBORAH BROWER DOI Ot J44.1 CHRONIC OBSTRUCTIVE PULMONARY DISEASE W 08/09/2017 DEBORAH BROWER DOI Ot J96.20 ACUTE AND CHR RESP FAILURE, UNSP W HYPOX 08/09/2017 DEBORAH BROWER DOI Ot K59.09 OTHER CONSTIPATION 08/09/2017 DEBORAH BROWER DOI Ot Z87.891 PERSONAL HISTORY OF NICOTINE DEPENDENCE 08/09/2017 BROWER DO, CHRISTOPHE Ot E66.01 MORBID (SEVERE) OBESITY DUE TO EXCESS CA 08/09/2017 BROWER DO, CHRISTOPHE Ot E78.00 PURE HYPERCHOLESTEROLEMIA, UNSPECIFIED 08/09/2017 BROWER DO, CHRISTOPHE Ot F41.9 ANXIETY DISORDER, UNSPECIFIED 08/09/2017 BROWER DO, CHRISTOPHE Ot I10 ESSENTIAL (PRIMARY) HYPERTENSION 08/09/2017 BROWER DO CHRISTOPHE Ot J30.2 OTHER SEASONAL ALLERGIC RHINITIS 08/09/2017 BROWER DO CHRISTOPHE Ot J44.1 CHRONIC OBSTRUCTIVE PULMONARY DISEASE W 08/09/2017 BROWER DO, CHRISTOPHE Ot J96.20 ACUTE AND CHR RESP FAILURE, UNSP W HYPOX 08/09/2017 BROWER DO, CHRISTOPHE Ot K59.09 OTHER CONSTIPATION 08/09/2017 BROWER DO, CHRISTOPHE Ot Z87.891 PERSONAL HISTORY OF NICOTINE DEPENDENCE 08/10/2017 BROWER DO, CHRISTOPHE Ot E66.01 MORBID (SEVERE) OBESITY DUE TO EXCESS CA 08/10/2017 BROWER DO, CHRISTOPHE Ot E78.00 PURE HYPERCHOLESTEROLEMIA, UNSPECIFIED 08/10/2017 BROWER DO, CHRISTOPHE Ot F41.9 ANXIETY DISORDER, UNSPECIFIED 08/10/2017 BROWER DO, CHRISTOPHE Ot I10 ESSENTIAL (PRIMARY) HYPERTENSION 08/10/2017 BROWER DO, CHRISTOPHE Ot J30.2 OTHER SEASONAL ALLERGIC RHINITIS 08/10/2017 BROWER DO, CHRISTOPHE Ot J44.1 CHRONIC OBSTRUCTIVE PULMONARY DISEASE W 08/10/2017 BROWER DO, CHRISTOPHE Ot J96.20 ACUTE AND CHR RESP FAILURE, UNSP W HYPOX 08/10/2017 BROWER DO, CHRISTOPHE Ot K59.09 OTHER CONSTIPATION 08/10/2017 BROWER DO, CHRISTOPHE Ot Z87.891 PERSONAL HISTORY OF NICOTINE DEPENDENCE 08/11/2017 BROWER DO, CHRISTOPHE Ot E66.01 MORBID (SEVERE) OBESITY DUE TO EXCESS CA 08/11/2017 BROWER DO, CHRISTOPHE Ot E78.00 PURE HYPERCHOLESTEROLEMIA, UNSPECIFIED 08/11/2017 BROWER DO, CHRISTOPHE Ot F41.9 ANXIETY DISORDER, UNSPECIFIED 08/11/2017 BROWER DO, CHRISTOPHE Ot I10 ESSENTIAL (PRIMARY) HYPERTENSION 08/11/2017 BROWER DO, CHRISTOPHE Ot J30.2 OTHER SEASONAL ALLERGIC RHINITIS 08/11/2017 BROWER DO, CHRISTOPHE Ot J44.1 CHRONIC OBSTRUCTIVE PULMONARY DISEASE W 08/11/2017 BROWER DO, CHRISTOPHE Ot J96.20 ACUTE AND CHR RESP FAILURE, UNSP W HYPOX 08/11/2017 BROWER DO, CHRISTOPHE Ot K59.09 OTHER CONSTIPATION 08/11/2017 BROWER DO, CHRISTOPHE Ot Z87.891 PERSONAL HISTORY OF NICOTINE DEPENDENCE 08/12/2017 BROWER DO, CHRISTOPHE Ot E66.01 MORBID (SEVERE) OBESITY DUE TO EXCESS CA 08/12/2017 BROWER DO, CHRISTOPHE Ot E78.00 PURE HYPERCHOLESTEROLEMIA, UNSPECIFIED 08/12/2017 BROWER DO, CHRISTOPHE Ot F41.9 ANXIETY DISORDER, UNSPECIFIED 08/12/2017 BROWER DO, CHRISTOPHE Ot I10 ESSENTIAL (PRIMARY) HYPERTENSION 08/12/2017 BROWER DO, CHRISTOPHE Ot J30.2 OTHER SEASONAL ALLERGIC RHINITIS 08/12/2017 BROWER DO, CHRISTOPHE Ot J44.1 CHRONIC OBSTRUCTIVE PULMONARY DISEASE W 08/12/2017 BROWER DO, CHRISTOPHE Ot J96.20 ACUTE AND CHR RESP FAILURE, UNSP W HYPOX 08/12/2017 BROWER DO, CHRISTOPHE Ot K59.09 OTHER CONSTIPATION 08/12/2017 BROWER DO, CHRISTOPHE Ot Z87.891 PERSONAL HISTORY OF NICOTINE DEPENDENCE 08/12/2017 BROWER DO, CHRISTOPHE Ot D64.9 ANEMIA, UNSPECIFIED 08/12/2017 BROWER DO, CHRISTOPHE Ot D72.829 ELEVATED WHITE BLOOD CELL COUNT, UNSPECI 08/12/2017 BROWER DO, CHRISTOPHE Ot E66.01 MORBID (SEVERE) OBESITY DUE TO EXCESS CA 08/12/2017 BROWER DO, CHRISTOPHE Ot E78.00 PURE HYPERCHOLESTEROLEMIA, UNSPECIFIED 08/12/2017 BROWER DO, CHRISTOPHE Ot E78.5 HYPERLIPIDEMIA, UNSPECIFIED 08/12/2017 BROWER DO, CHRISTOPHE Ot F32.9 MAJOR DEPRESSIVE DISORDER, SINGLE EPISOD 08/12/2017 BROWER DO, CHRISTOPHE Ot F41.9 ANXIETY DISORDER, UNSPECIFIED 08/12/2017 BROWER DO, CHRISTOPHE Ot I10 ESSENTIAL (PRIMARY) HYPERTENSION 08/12/2017 BROWER DO, CHRISTOPHE Ot J30.2 OTHER SEASONAL ALLERGIC RHINITIS 08/12/2017 BROWER DO, CHRISTOPHE Ot J44.1 CHRONIC OBSTRUCTIVE PULMONARY DISEASE W 08/12/2017 BROWER DO, CHRISTOPHE Ot J96.20 ACUTE AND CHR RESP FAILURE, UNSP W HYPOX 08/12/2017 BROWER DO, CHRISTOPHE Ot K59.09 OTHER CONSTIPATION 08/12/2017 INOCENTE DOYLE, CHRISTOPHE Ot R73.9 HYPERGLYCEMIA, UNSPECIFIED 08/12/2017 INOCENTE DOYLE CHRISTOPHE Ot T38.0X5A ADVERSE EFFECT OF GLUCOCORT/SYNTH ANALOG 08/12/2017 BROWERLION DOYLE CHRISTOPHE Ot Z68.41 BODY MASS INDEX (BMI) 40.0-44.9, ADULT 08/12/2017 BROWERLION DOYLE CHRISTOPHE Ot Z87.891 PERSONAL HISTORY OF NICOTINE DEPENDENCE 08/12/2017 BROWERLION DOYLE CHRISTOPHE Ot E66.01 MORBID (SEVERE) OBESITY DUE TO EXCESS CA 08/12/2017 BROWER DO, CHRISTOPHE Ot E78.00 PURE HYPERCHOLESTEROLEMIA, UNSPECIFIED 08/12/2017 BROWER DO CHRISTOPHE Ot F41.9 ANXIETY DISORDER, UNSPECIFIED 08/12/2017 BROWERLION DOYLE CHRISTOPHE Ot I10 ESSENTIAL (PRIMARY) HYPERTENSION 08/12/2017 BROWERLION DOYLE CHRISTOPHE Ot J30.2 OTHER SEASONAL ALLERGIC RHINITIS 08/12/2017 BROWERLION DOYLE CHRISTOPHE Ot J44.1 CHRONIC OBSTRUCTIVE PULMONARY DISEASE W 08/12/2017 BROWER CHRISTOPHE Ot J96.20 ACUTE AND CHR RESP FAILURE, UNSP W HYPOX 08/12/2017 INOCENTE DOYLE, CHRISTOPHE Ot K59.09 OTHER CONSTIPATION 08/12/2017 INOCENTE DOYLE, CHRISTOPHE Ot Z87.891 PERSONAL HISTORY OF NICOTINE DEPENDENCE 08/22/2017 Ashley Garcia W 428.20 UNSPECIFIED SYSTOLIC HEART FAILURE 08/22/2017 Jody Garciaa W I50.20 UNSPECIFIED SYSTOLIC (CONGESTIVE) HEART FAILURE 08/22/2017 Jody Garciaa W 428.20 UNSPECIFIED SYSTOLIC HEART FAILURE 08/22/2017 Jody Garciaa W I50.20 UNSPECIFIED SYSTOLIC (CONGESTIVE) HEART FAILURE 05/06/2018 Ashley Garcia W 401.1 BENIGN ESSENTIAL HYPERTENSION 05/06/2018 Jody Garciaa W I10 ESSENTIAL (PRIMARY) HYPERTENSION 05/06/2018 Ashley Garcia W 401.1 BENIGN ESSENTIAL HYPERTENSION 05/06/2018 Ashley Garcia W 786.09 OTHER DYSPNEA AND RESPIRATORY ABNORMALITY 05/06/2018 Jody Garciaa W I10 ESSENTIAL (PRIMARY) HYPERTENSION 05/06/2018 Ashley Garcia R06.00 DYSPNEA, UNSPECIFIED 05/06/2018 Ashley Garcia 401.1 BENIGN ESSENTIAL HYPERTENSION 05/06/2018 Ashley Garcia 786.09 OTHER DYSPNEA AND RESPIRATORY ABNORMALITY 05/06/2018 Ashley Garcia I10 ESSENTIAL (PRIMARY) HYPERTENSION 05/06/2018 Ashley Garcia R06.00 DYSPNEA, UNSPECIFIED 05/11/2019 Ashley Garcia 466.0 ACUTE BRONCHITIS 05/11/2019 Ashley Garcia J20.9 ACUTE BRONCHITIS, UNSPECIFIED Procedures Code Description [place] [address] ROUTINE VENIPUNCTURE 04/05/2013 33707 EKG, TRACING (IN-HOUSE) 04/05/2013 62078 URINE DRUG SCREEN (IN-HOUSE) 04/05/2013 68290 CMP 04/05/2013 21258 LIPID PANEL 04/05/2013 6257670 GFR CALC (RESULT ONLY) 04/05/2013 91768 XRAY CHEST 2 VIEW 04/05/2013 74595 URINE OXYCODONE CON'F 04/05/2013 16843 BNP 04/05/2013 18894 TSH 04/05/2013 59024 CBC 04/05/2013 08317 CRP HS (CARDIO) 04/05/2013 J2930 SOLUMEDROL INJ 07/30/2013 97494 THERAPUTIC INJ SQ/IM 07/30/2013 J1885 TORADOL INJ 07/30/2013 90800 OXIMETRY 01/14/2014 69523 OXIMETRY 05/09/2014 12553 ROUTINE VENIPUNCTURE 05/10/2014 42345 EKG, TRACING (IN-HOUSE) 05/10/2014 94740 CBC 05/10/2014 [id number] GFR CALC (RESULT ONLY) 05/10/2014 86350 CMP 05/10/2014 32031 LIPID PANEL 05/10/2014 14937 MAGNESIUM 05/10/2014 13893 CRP HS (CARDIO) 05/10/2014 24910 TSH 05/10/2014 87714 BNP 05/11/2014 26375 THERAPUTIC INJ SQ/IM 06/21/2014 J1885 TORADOL INJ 06/21/2014 73137 ROUTINE VENIPUNCTURE 10/07/2014 63219 T4 FREE 10/07/2014 11049 TSH 10/07/2014 17668 T3 TOTAL 10/07/2014 35063 CBC 10/07/2014 84461 MAGNESIUM 10/07/2014 70611 CMP 10/07/2014 4101841 GFR CALC (RESULT ONLY) 10/07/2014 57058 GLUCOSE FINGER STICK 12/02/2014 40087 GLUCOSE FINGER STICK 12/02/2014 63132 THERAPUTIC INJ SQ/IM 12/02/2014 18600 THERAPUTIC INJ SQ/IM 12/02/2014 J1885 TORADOL INJ 12/02/2014 J1885 TORADOL INJ 12/02/2014 39151 THERAPUTIC INJ SQ/IM 12/03/2014 J1885 TORADOL INJ 12/03/2014 Results Test Result Range Complete blood count (CBC) with automated white blood cell (WBC) differential - 08/07/17 11:25 Blood leukocytes automated count (number/volume) 11.9 10*3/uL 4.3-11.0 Blood erythrocytes automated count (number/volume) 3.57 10*6/uL 4.35-5.85 Venous blood hemoglobin measurement (mass/volume) 11.1 g/dL 11.5-16.0 Blood hematocrit (volume fraction) 36 % 35-52 Automated erythrocyte mean corpuscular volume 102 [foz_us] 80-99 Automated erythrocyte mean corpuscular hemoglobin (mass per erythrocyte) 31 pg 25-34 Automated erythrocyte mean corpuscular hemoglobin concentration measurement (mass/volume) 31 g/dL 32-36 Automated erythrocyte distribution width ratio 13.3 % 10.0- 14.5 Automated blood platelet count (count/volume) 307 10*3/uL 130-400 Automated blood platelet mean volume measurement 10.4 [foz_us] 7.4-10.4 Automated blood neutrophils/100 leukocytes 82 % 42-75 Automated blood lymphocytes/100 leukocytes 13 % 12-44 Blood monocytes/100 leukocytes 4 % 0-12 Automated blood eosinophils/100 leukocytes 1 % 0-10 Automated blood basophils/100 leukocytes 0 % 0-10 Blood neutrophils automated count (number/volume) 9.8 10*3 1.8-7.8 Blood lymphocytes automated count (number/volume) 1.5 10*3 1.0-4.0 Blood monocytes automated count (number/volume) 0.5 10*3 0.0- 1.0 Automated eosinophil count 0.1 10*3/uL 0.0-0.3 Automated blood basophil count (count/volume) 0.0 10*3/uL 0.0-0.1 Comprehensive metabolic panel - 08/07/17 12:25 Serum or plasma sodium measurement (moles/volume) 140 mmol/L 135-145 Serum or plasma potassium measurement (moles/volume) 3.6 mmol/L 3.6-5.0 Serum or plasma chloride measurement (moles/volume) 92 mmol/L 98-107 Carbon dioxide 38 mmol/L 21-32 Serum or plasma anion gap determination (moles/volume) 10 mmol/L 5-14 Serum or plasma urea nitrogen measurement (mass/volume) 9 mg/dL 7-18 Serum or plasma creatinine measurement (mass/volume) 0.97 mg/dL 0.60-1.30 Serum or plasma urea nitrogen/creatinine mass ratio 9 NRG Serum or plasma creatinine measurement with calculation of estimated glomerular filtration rate 59 NRG Serum or plasma glucose measurement (mass/volume) 128 mg/dL 70-105 Serum or plasma calcium measurement (mass/volume) 9.4 mg/dL 8.5-10.1 Serum or plasma total bilirubin measurement (mass/volume) 0.5 mg/dL 0.1-1.0 Serum or plasma alkaline phosphatase measurement (enzymatic activity/volume) 125 U/L 40-136 Serum or plasma aspartate aminotransferase measurement (enzymatic activity/volume) 18 U/L 5-34 Serum or plasma alanine aminotransferase measurement (enzymatic activity/volume) 20 U/L 0-55 Serum or plasma protein measurement (mass/volume) 7.5 g/dL 6.4-8.2 Serum or plasma albumin measurement (mass/volume) 4.1 g/dL 3.2-4.5 Serum or plasma troponin i.cardiac measurement (mass/volume) - 08/07/17 12:25 Serum or plasma troponin i.cardiac measurement (mass/volume) < ng/mL <0.30 Capillary blood glucose measurement by glucometer (mass/volume) - 08/07/17 20:52 Capillary blood glucose measurement by glucometer (mass/volume) 225 mg/dL 70-110 Complete urinalysis with reflex to culture - 08/07/17 21:30 Urine color determination YELLOW NRG Urine clarity determination CLEAR NRG Urine pH measurement by test strip 7 5-9 Specific gravity of urine by test strip 1.005 1.016-1.022 Urine protein assay by test strip, semi-quantitative NEGATIVE NEGATIVE Urine glucose detection by automated test strip NEGATIVE NEGATIVE Erythrocytes detection in urine sediment by light microscopy NEGATIVE NEGATIVE Urine ketones detection by automated test strip NEGATIVE NEGATIVE Urine nitrite detection by test strip NEGATIVE NEGATIVE Urine total bilirubin detection by test strip NEGATIVE NEGATIVE Urine urobilinogen measurement by automated test strip (mass/volume) NORMAL NORMAL Urine leukocyte esterase detection by dipstick NEGATIVE NEGATIVE Automated urine sediment erythrocyte count by microscopy (number/high power field) NONE NRG Automated urine sediment leukocyte count by microscopy (number/high power field) RARE NRG Bacteria detection in urine sediment by light microscopy NEGATIVE NRG Squamous epithelial cells detection in urine sediment by light microscopy RARE NRG Crystals detection in urine sediment by light microscopy NONE NRG Casts detection in urine sediment by light microscopy NONE NRG Mucus detection in urine sediment by light microscopy NEGATIVE NRG Complete urinalysis with reflex to culture NO NRG Capillary blood glucose measurement by glucometer (mass/volume) - 08/08/17 00:05 Capillary blood glucose measurement by glucometer (mass/volume) 234 mg/dL 70-110 Complete blood count (CBC) with automated white blood cell (WBC) differential - 08/08/17 03:38 Blood leukocytes automated count (number/volume) 8.5 10*3/uL 4.3-11.0 Blood erythrocytes automated count (number/volume) 3.48 10*6/uL 4.35-5.85 Venous blood hemoglobin measurement (mass/volume) 10.9 g/dL 11.5-16.0 Blood hematocrit (volume fraction) 35 % 35-52 Automated erythrocyte mean corpuscular volume 101 [foz_us] 80-99 Automated erythrocyte mean corpuscular hemoglobin (mass per erythrocyte) 31 pg 25-34 Automated erythrocyte mean corpuscular hemoglobin concentration measurement (mass/volume) 31 g/dL 32-36 Automated erythrocyte distribution width ratio 13.1 % 10.0- 14.5 Automated blood platelet count (count/volume) 303 10*3/uL 130-400 Automated blood platelet mean volume measurement 10.0 [foz_us] 7.4-10.4 Automated blood neutrophils/100 leukocytes 90 % 42-75 Automated blood lymphocytes/100 leukocytes 9 % 12-44 Blood monocytes/100 leukocytes 1 % 0-12 Automated blood eosinophils/100 leukocytes 0 % 0-10 Automated blood basophils/100 leukocytes 0 % 0-10 Blood neutrophils automated count (number/volume) 7.6 10*3 1.8-7.8 Blood lymphocytes automated count (number/volume) 0.8 10*3 1.0-4.0 Blood monocytes automated count (number/volume) 0.1 10*3 0.0- 1.0 Automated eosinophil count 0.0 10*3/uL 0.0-0.3 Automated blood basophil count (count/volume) 0.0 10*3/uL 0.0-0.1 Whole blood basic metabolic panel - 08/08/17 03:38 Serum or plasma sodium measurement (moles/volume) 139 mmol/L 135-145 Serum or plasma potassium measurement (moles/volume) 3.1 mmol/L 3.6-5.0 Serum or plasma chloride measurement (moles/volume) 91 mmol/L 98-107 Carbon dioxide 33 mmol/L 21-32 Serum or plasma anion gap determination (moles/volume) 15 mmol/L 5-14 Serum or plasma urea nitrogen measurement (mass/volume) 11 mg/dL 7-18 Serum or plasma creatinine measurement (mass/volume) 1.11 mg/dL 0.60-1.30 Serum or plasma urea nitrogen/creatinine mass ratio 10 NRG Serum or plasma creatinine measurement with calculation of estimated glomerular filtration rate 50 NRG Serum or plasma glucose measurement (mass/volume) 193 mg/dL 70-105 Serum or plasma calcium measurement (mass/volume) 9.2 mg/dL 8.5-10.1 Serum or plasma phosphate measurement (mass/volume) - 08/08/17 03:38 Serum or plasma phosphate measurement (mass/volume) 2.6 mg/dL 2.3-4.7 Magnesium - 08/08/17 03:38 Magnesium 2.0 mg/dL 1.8-2.4 Blood manual differential performed detection - 08/08/17 03:38 Blood monocytes/100 leukocytes 5 % NRG Manual blood segmented neutrophils/100 leukocytes 84 % NRG Manual blood lymphocytes/100 leukocytes 11 % NRG Blood macrocytes detection by light microscopy SLIGHT NRG Capillary blood glucose measurement by glucometer (mass/volume) - 08/08/17 12:35 Capillary blood glucose measurement by glucometer (mass/volume) 254 mg/dL 70-110 Capillary blood glucose measurement by glucometer (mass/volume) - 08/08/17 15:51 Capillary blood glucose measurement by glucometer (mass/volume) 169 mg/dL 70-110 Capillary blood glucose measurement by glucometer (mass/volume) - 08/08/17 21:18 Capillary blood glucose measurement by glucometer (mass/volume) 234 mg/dL 70-110 Capillary blood glucose measurement by glucometer (mass/volume) - 08/09/17 01:09 Capillary blood glucose measurement by glucometer (mass/volume) 160 mg/dL 70-110 Complete blood count (CBC) with automated white blood cell (WBC) differential - 08/09/17 04:32 Blood leukocytes automated count (number/volume) 16.1 10*3/uL 4.3-11.0 Blood erythrocytes automated count (number/volume) 3.58 10*6/uL 4.35-5.85 Venous blood hemoglobin measurement (mass/volume) 11.1 g/dL 11.5-16.0 Blood hematocrit (volume fraction) 37 % 35-52 Automated erythrocyte mean corpuscular volume 103 [foz_us] 80-99 Automated erythrocyte mean corpuscular hemoglobin (mass per erythrocyte) 31 pg 25-34 Automated erythrocyte mean corpuscular hemoglobin concentration measurement (mass/volume) 30 g/dL 32-36 Automated erythrocyte distribution width ratio 13.6 % 10.0- 14.5 Automated blood platelet count (count/volume) 363 10*3/uL 130-400 Automated blood platelet mean volume measurement 10.1 [foz_us] 7.4-10.4 Automated blood neutrophils/100 leukocytes 91 % 42-75 Automated blood lymphocytes/100 leukocytes 5 % 12-44 Blood monocytes/100 leukocytes 3 % 0-12 Automated blood eosinophils/100 leukocytes 0 % 0-10 Automated blood basophils/100 leukocytes 0 % 0-10 Blood neutrophils automated count (number/volume) 14.7 10*3 1.8-7.8 Blood lymphocytes automated count (number/volume) 0.9 10*3 1.0-4.0 Blood monocytes automated count (number/volume) 0.5 10*3 0.0- 1.0 Automated eosinophil count 0.0 10*3/uL 0.0-0.3 Automated blood basophil count (count/volume) 0.0 10*3/uL 0.0-0.1 Whole blood basic metabolic panel - 08/09/17 04:32 Serum or plasma sodium measurement (moles/volume) 141 mmol/L 135-145 Serum or plasma potassium measurement (moles/volume) 4.3 mmol/L 3.6-5.0 Serum or plasma chloride measurement (moles/volume) 94 mmol/L 98-107 Carbon dioxide 35 mmol/L 21-32 Serum or plasma anion gap determination (moles/volume) 12 mmol/L 5-14 Serum or plasma urea nitrogen measurement (mass/volume) 15 mg/dL 7-18 Serum or plasma creatinine measurement (mass/volume) 0.99 mg/dL 0.60-1.30 Serum or plasma urea nitrogen/creatinine mass ratio 15 NRG Serum or plasma creatinine measurement with calculation of estimated glomerular filtration rate 58 NRG Serum or plasma glucose measurement (mass/volume) 118 mg/dL 70-105 Serum or plasma calcium measurement (mass/volume) 9.8 mg/dL 8.5-10.1 Serum or plasma phosphate measurement (mass/volume) - 08/09/17 04:32 Serum or plasma phosphate measurement (mass/volume) 3.8 mg/dL 2.3-4.7 Magnesium - 08/09/17 04:32 Magnesium 2.2 mg/dL 1.8-2.4 Blood manual differential performed detection - 08/09/17 04:32 Blood monocytes/100 leukocytes 3 % NRG Manual blood segmented neutrophils/100 leukocytes 94 % NRG Manual blood lymphocytes/100 leukocytes 3 % NRG Blood macrocytes detection by light microscopy SLIGHT NRG Capillary blood glucose measurement by glucometer (mass/volume) - 08/09/17 08:43 Capillary blood glucose measurement by glucometer (mass/volume) 191 mg/dL 70-110 Capillary blood glucose measurement by glucometer (mass/volume) - 08/09/17 12:02 Capillary blood glucose measurement by glucometer (mass/volume) 146 mg/dL 70-110 Capillary blood glucose measurement by glucometer (mass/volume) - 08/09/17 15:57 Capillary blood glucose measurement by glucometer (mass/volume) 172 mg/dL 70-110 Capillary blood glucose measurement by glucometer (mass/volume) - 08/09/17 20:58 Capillary blood glucose measurement by glucometer (mass/volume) 171 mg/dL 70-110 Complete blood count (CBC) with automated white blood cell (WBC) differential - 08/10/17 05:55 Blood leukocytes automated count (number/volume) 14.5 10*3/uL 4.3-11.0 Blood erythrocytes automated count (number/volume) 3.55 10*6/uL 4.35-5.85 Venous blood hemoglobin measurement (mass/volume) 11.1 g/dL 11.5-16.0 Blood hematocrit (volume fraction) 36 % 35-52 Automated erythrocyte mean corpuscular volume 102 [foz_us] 80-99 Automated erythrocyte mean corpuscular hemoglobin (mass per erythrocyte) 31 pg 25-34 Automated erythrocyte mean corpuscular hemoglobin concentration measurement (mass/volume) 31 g/dL 32-36 Automated erythrocyte distribution width ratio 13.8 % 10.0- 14.5 Automated blood platelet count (count/volume) 390 10*3/uL 130-400 Automated blood platelet mean volume measurement 9.8 [foz_us] 7.4-10.4 Automated blood neutrophils/100 leukocytes 86 % 42-75 Automated blood lymphocytes/100 leukocytes 10 % 12-44 Blood monocytes/100 leukocytes 4 % 0-12 Automated blood eosinophils/100 leukocytes 0 % 0-10 Automated blood basophils/100 leukocytes 0 % 0-10 Blood neutrophils automated count (number/volume) 12.4 10*3 1.8-7.8 Blood lymphocytes automated count (number/volume) 1.4 10*3 1.0-4.0 Blood monocytes automated count (number/volume) 0.6 10*3 0.0- 1.0 Automated eosinophil count 0.0 10*3/uL 0.0-0.3 Automated blood basophil count (count/volume) 0.0 10*3/uL 0.0-0.1 Whole blood basic metabolic panel - 08/10/17 05:55 Serum or plasma sodium measurement (moles/volume) 141 mmol/L 135-145 Serum or plasma potassium measurement (moles/volume) 4.1 mmol/L 3.6-5.0 Serum or plasma chloride measurement (moles/volume) 93 mmol/L 98-107 Carbon dioxide 36 mmol/L 21-32 Serum or plasma anion gap determination (moles/volume) 12 mmol/L 5-14 Serum or plasma urea nitrogen measurement (mass/volume) 19 mg/dL 7-18 Serum or plasma creatinine measurement (mass/volume) 0.87 mg/dL 0.60-1.30 Serum or plasma urea nitrogen/creatinine mass ratio 22 NRG Serum or plasma creatinine measurement with calculation of estimated glomerular filtration rate > NRG Serum or plasma glucose measurement (mass/volume) 138 mg/dL 70-105 Serum or plasma calcium measurement (mass/volume) 9.5 mg/dL 8.5-10.1 Complete blood count (CBC) with automated white blood cell (WBC) differential - 08/11/17 05:15 Blood leukocytes automated count (number/volume) 14.0 10*3/uL 4.3-11.0 Blood erythrocytes automated count (number/volume) 3.58 10*6/uL 4.35-5.85 Venous blood hemoglobin measurement (mass/volume) 11.0 g/dL 11.5-16.0 Blood hematocrit (volume fraction) 37 % 35-52 Automated erythrocyte mean corpuscular volume 102 [foz_us] 80-99 Automated erythrocyte mean corpuscular hemoglobin (mass per erythrocyte) 31 pg 25-34 Automated erythrocyte mean corpuscular hemoglobin concentration measurement (mass/volume) 30 g/dL 32-36 Automated erythrocyte distribution width ratio 14.0 % 10.0- 14.5 Automated blood platelet count (count/volume) 392 10*3/uL 130-400 Automated blood platelet mean volume measurement 10.3 [foz_us] 7.4-10.4 Automated blood neutrophils/100 leukocytes 87 % 42-75 Automated blood lymphocytes/100 leukocytes 9 % 12-44 Blood monocytes/100 leukocytes 5 % 0-12 Automated blood eosinophils/100 leukocytes 0 % 0-10 Automated blood basophils/100 leukocytes 0 % 0-10 Blood neutrophils automated count (number/volume) 12.1 10*3 1.8-7.8 Blood lymphocytes automated count (number/volume) 1.2 10*3 1.0-4.0 Blood monocytes automated count (number/volume) 0.6 10*3 0.0- 1.0 Automated eosinophil count 0.0 10*3/uL 0.0-0.3 Automated blood basophil count (count/volume) 0.0 10*3/uL 0.0-0.1 Whole blood basic metabolic panel - 08/11/17 05:15 Serum or plasma sodium measurement (moles/volume) 140 mmol/L 135-145 Serum or plasma potassium measurement (moles/volume) 4.2 mmol/L 3.6-5.0 Serum or plasma chloride measurement (moles/volume) 93 mmol/L 98-107 Carbon dioxide 37 mmol/L 21-32 Serum or plasma anion gap determination (moles/volume) 10 mmol/L 5-14 Serum or plasma urea nitrogen measurement (mass/volume) 21 mg/dL 7-18 Serum or plasma creatinine measurement (mass/volume) 0.93 mg/dL 0.60-1.30 Serum or plasma urea nitrogen/creatinine mass ratio 23 NRG Serum or plasma creatinine measurement with calculation of estimated glomerular filtration rate > NRG Serum or plasma glucose measurement (mass/volume) 144 mg/dL 70-105 Serum or plasma calcium measurement (mass/volume) 9.0 mg/dL 8.5-10.1 Complete blood count (CBC) with automated white blood cell (WBC) differential - 08/12/17 05:20 Blood leukocytes automated count (number/volume) 14.4 10*3/uL 4.3-11.0 Blood erythrocytes automated count (number/volume) 3.49 10*6/uL 4.35-5.85 Venous blood hemoglobin measurement (mass/volume) 11.0 g/dL 11.5-16.0 Blood hematocrit (volume fraction) 36 % 35-52 Automated erythrocyte mean corpuscular volume 102 [foz_us] 80-99 Automated erythrocyte mean corpuscular hemoglobin (mass per erythrocyte) 32 pg 25-34 Automated erythrocyte mean corpuscular hemoglobin concentration measurement (mass/volume) 31 g/dL 32-36 Automated erythrocyte distribution width ratio 14.1 % 10.0- 14.5 Automated blood platelet count (count/volume) 367 10*3/uL 130-400 Automated blood platelet mean volume measurement 10.0 [foz_us] 7.4-10.4 Automated blood neutrophils/100 leukocytes 76 % 42-75 Automated blood lymphocytes/100 leukocytes 16 % 12-44 Blood monocytes/100 leukocytes 6 % 0-12 Automated blood eosinophils/100 leukocytes 2 % 0-10 Automated blood basophils/100 leukocytes 0 % 0-10 Blood neutrophils automated count (number/volume) 11.0 10*3 1.8-7.8 Blood lymphocytes automated count (number/volume) 2.3 10*3 1.0-4.0 Blood monocytes automated count (number/volume) 0.8 10*3 0.0- 1.0 Automated eosinophil count 0.2 10*3/uL 0.0-0.3 Automated blood basophil count (count/volume) 0.1 10*3/uL 0.0-0.1 Whole blood basic metabolic panel - 08/12/17 05:20 Serum or plasma sodium measurement (moles/volume) 141 mmol/L 135-145 Serum or plasma potassium measurement (moles/volume) 3.5 mmol/L 3.6-5.0 Serum or plasma chloride measurement (moles/volume) 93 mmol/L 98-107 Carbon dioxide 37 mmol/L 21-32 Serum or plasma anion gap determination (moles/volume) 11 mmol/L 5-14 Serum or plasma urea nitrogen measurement (mass/volume) 18 mg/dL 7-18 Serum or plasma creatinine measurement (mass/volume) 0.86 mg/dL 0.60-1.30 Serum or plasma urea nitrogen/creatinine mass ratio 21 NRG Serum or plasma creatinine measurement with calculation of estimated glomerular filtration rate > NRG Serum or plasma glucose measurement (mass/volume) 90 mg/dL 70-105 Serum or plasma calcium measurement (mass/volume) 8.5 mg/dL 8.5-10.1 Hemoglobin - 08/22/17 15:57 Hgb 13.0 g/dL 13.0-15.0 Lipid Panel - 05/06/18 11:27 C/HDL 4.6 3.7-6.7 Cholesterol 187 mg/dL 100-240 HDL 41 mg/dL 30-85 LDL-Calculated 123 mg/dL 0-100 Trig 116 mg/dL 35-160 VLDL 23 mg/dL 0-42 Comprehensive Metabolic Panel - 05/11/19 15:20 Albumin 4.1 g/dL 3.6-5.1 ALP 119 U/L 35-130 ALT 14 U/L 6-45 Anion Gap 14 6-14 AST 14 U/L 2-40 BUN 11 mg/dL 5-25 Calcium 9.0 mg/dL 8.3-10.4 Chloride 88 mmol/L 95-114 CO2 43 mEq/L 22-33 Creat 0.74 mg/dL 0.50-1.50 eGFR 80 mL/min/1.73m2 >59 Globulin 2.6 g/dL 2.3-3.5 Glucose 138 mg/dL 70-110 Osmo 293 280-295 Potassium 3.9 mmol/L 3.5-5.3 Sodium 141 mmol/L 134-148 TBil 0.6 mg/dL 0.2-1.2 TP 6.7 g/dL 6.0-8.3 Complete blood count (CBC) with automated white blood cell (WBC) differential - 05/12/19 17:05 Blood leukocytes automated count (number/volume) 9.8 10*3/uL 4.3-11.0 Blood erythrocytes automated count (number/volume) 3.46 10*6/uL 4.35-5.85 Venous blood hemoglobin measurement (mass/volume) 10.5 g/dL 11.5-16.0 Blood hematocrit (volume fraction) 37 % 35-52 Automated erythrocyte mean corpuscular volume 107 [foz_us] 80-99 Automated erythrocyte mean corpuscular hemoglobin (mass per erythrocyte) 30 pg 25-34 Automated erythrocyte mean corpuscular hemoglobin concentration measurement (mass/volume) 28 g/dL 32-36 Automated erythrocyte distribution width ratio 13.6 % 10.0- 14.5 Automated blood platelet count (count/volume) 273 10*3/uL 130-400 Automated blood platelet mean volume measurement 10.4 [foz_us] 7.4-10.4 Automated blood neutrophils/100 leukocytes 93 % 42-75 Automated blood lymphocytes/100 leukocytes 6 % 12-44 Blood monocytes/100 leukocytes 1 % 0-12 Automated blood eosinophils/100 leukocytes 0 % 0-10 Automated blood basophils/100 leukocytes 0 % 0-10 Blood neutrophils automated count (number/volume) 9.1 10*3 1.8-7.8 Blood lymphocytes automated count (number/volume) 0.6 10*3 1.0-4.0 Blood monocytes automated count (number/volume) 0.1 10*3 0.0- 1.0 Automated eosinophil count 0.0 10*3/uL 0.0-0.3 Automated blood basophil count (count/volume) 0.0 10*3/uL 0.0-0.1 Comprehensive metabolic panel - 05/12/19 17:05 Serum or plasma sodium measurement (moles/volume) 137 mmol/L 135-145 Serum or plasma potassium measurement (moles/volume) 3.8 mmol/L 3.6-5.0 Serum or plasma chloride measurement (moles/volume) 87 mmol/L 98-107 Carbon dioxide 42 mmol/L 21-32 Serum or plasma anion gap determination (moles/volume) 8 mmol/L 5-14 Serum or plasma urea nitrogen measurement (mass/volume) 12 mg/dL 7-18 Serum or plasma creatinine measurement (mass/volume) 0.88 mg/dL 0.60-1.30 Serum or plasma urea nitrogen/creatinine mass ratio 14 NRG Serum or plasma creatinine measurement with calculation of estimated glomerular filtration rate > NRG Serum or plasma glucose measurement (mass/volume) 182 mg/dL 70-105 Serum or plasma calcium measurement (mass/volume) 9.5 mg/dL 8.5-10.1 Serum or plasma total bilirubin measurement (mass/volume) 0.4 mg/dL 0.1-1.0 Serum or plasma alkaline phosphatase measurement (enzymatic activity/volume) 108 U/L 40-136 Serum or plasma aspartate aminotransferase measurement (enzymatic activity/volume) 14 U/L 5-34 Serum or plasma alanine aminotransferase measurement (enzymatic activity/volume) 16 U/L 0-55 Serum or plasma protein measurement (mass/volume) 7.4 g/dL 6.4-8.2 Serum or plasma albumin measurement (mass/volume) 4.1 g/dL 3.2-4.5 CALCIUM CORRECTED 9.4 mg/dL 8.5-10.1 Serum or plasma C reactive protein measurement (mass/volume) - 05/12/19 17:05 Serum or plasma C reactive protein measurement (mass/volume) 22.11 mg/dL 0.00-0.50 Manual absolute plasma cell count - 05/12/19 17:05 Blood monocytes/100 leukocytes 0 % NRG Manual blood segmented neutrophils/100 leukocytes 91 % NRG Blood band neutrophils/100 leukocytes 1 % NRG Manual blood lymphocytes/100 leukocytes 8 % NRG Manual eosinophils/100 leukocytes in nose 0 % NRG Blood anisocytosis detection by light microscopy SLIGHT NRG Blood macrocytes detection by light microscopy SLIGHT NRG Blood hypochromia detection by light microscopy SLIGHT NRG Blood basophilic stippling detection by light microscopy SLIGHT NRG Arterial blood gas measurement - 05/12/19 17:35 Blood pCO2 76 mm[Hg] 35-45 Blood pO2 53 mm[Hg] 79-93 Arterial blood bicarbonate measurement (moles/volume) 45 mmol/L 23-27 Arterial blood base excess by calculation 19.1 mmol/L -2.5-2.5 Arterial blood oxygen saturation measurement 90 % 94-100 * Inhaled oxygen flow rate 5L NRG Arterial blood pH measurement with patient temperature correction 7.39 7.37-7.43 Arterial blood carbon dioxide, total measurement (moles/volume) 47.6 mmol/L 21.0-31.0 Body site L RAD NRG Assessment of wrist artery patency prior to arterial puncture YES-POS NRG Setting of ventilation mode NO NRG Measurement of body temperature 98.4 NRG Encounters ACCT No. Visit Date/Time Discharge Status Pt. Type Provider Facility Loc./Unit Complaint [id number] 05/11/2019 15:11:00 05/11/2019 23:59:00 DIS Outpatient Ashley Garcia [id number] 04/01/2019 14:08:00 04/01/2019 23:59:00 DIS Outpatient Ashley Garcia [id number] 05/06/2018 11:14:00 05/06/2018 23:59:00 DIS Outpatient Ashley Garcia [id number] 08/22/2017 15:54:00 08/22/2017 23:59:00 DIS Outpatient Ashley Garcia [id number] 12/20/2016 13:36:00 12/20/2016 23:59:00 DIS Outpatient Ashley Garcia [id number] 12/20/2016 13:37:00 12/20/2016 14:30:00 DIS Outpatient Ashley Garcia [id number] 05/15/2018 07:55:00 05/15/2018 23:59:59 CLS Preadmit ELENA GARCIA MD [facility] CARD HTN,SOB,ANXIETY [id number] 05/15/2018 07:53:00 05/15/2018 23:59:59 CLS Preadmit ELENA GARCIA MD [facility] CARD HTN,SOB,ANXIETY [id number] 2017 13:17:00 08/12/2017 11:00:00 DIS Inpatient CHRISTOPHE BROWER DO [facility] 4TH COPD IN EXACERBATION [id number] 06/15/2017 12:15:00 06/15/2017 16:10:00 DIS Emergency RAHEEM MUÑOZ [facility] ER LEFT KNEE PAIN [id number] 11/16/2016 10:39:00 11/16/2016 12:07:00 DIS Emergency DELVIS SHELTON, NETTA S [facility] ER BACK PAIN [id number] 01/22/2016 12:58:00 01/26/2016 12:15:00 DIS Outpatient ESPERANZA DE SANTIAGO MD [facility] 4TH COPD EXACERBATION [id number] 03/21/2015 12:57:00 04/21/2015 09:07:00 DIS Outpatient FATOU BARRERA MD [facility] REHAB LUMBAGO [id number] 11/16/2014 14:33:00 11/18/2014 15:10:00 DIS Inpatient NICOLAS PENA DO Via [address] COPD EXACERBATION [id number] 11/14/2014 17:39:00 11/14/2014 20:22:00 DIS Emergency TRISTAN RUBY APRN [facility] ER BACK PAIN;SOA [id number] 09/13/2014 14:30:00 09/22/2014 10:40:00 DIS Inpatient NICOLAS PENA DO Via [address] HYPOXIA, COPD EXACERBATION, HYPOKALEMIA [id number] 02/03/2014 13:53:00 02/03/2014 23:59:59 CLS Outpatient MALATHI SOSA DO [facility] RAD COPD [id number] 12/30/2013 19:22:00 01/07/2014 12:20:00 DIS Inpatient KYRA FERRER MD Via [address] COPD,PNEUMONIA [id number] 05/12/2019 18:36:00 ACT Inpatient BRAN VIEIRA MD Via [address] COPD ACUTE EXACERBATION [id number] 11/16/2014 16:34:00 Document Registration [id number] 11/16/2014 16:34:00 Document Registration [id number] 12/08/2014 13:41:00 12/08/2014 23:59:59 CLS Outpatient NICOLAS PENA DO [id number] 12/07/2014 09:22:00 12/07/2014 23:59:59 CLS Outpatient SOPHIE FOSTER APRN [id number] 12/03/2014 14:05:00 12/03/2014 23:59:59 CLS Outpatient SOPHIE FOSTER APRN [id number] 12/02/2014 14:43:00 12/02/2014 23:59:59 CLS Outpatient SOPHIE FOSTER APRN [id number] 12/02/2014 14:43:00 12/02/2014 23:59:59 CLS Outpatient SOPHIE FOSTER APRN [id number] 10/07/2014 09:46:00 10/07/2014 23:59:59 CLS Outpatient SOPHIE FOSTER APRN [id number] 10/06/2014 05:41:00 10/06/2014 23:59:59 CLS Outpatient NNEKA MENDEZ MD [id number] 09/29/2014 09:03:00 09/29/2014 23:59:59 CLS Outpatient NNEKA MENDEZ MD [id number] 09/05/2014 16:05:00 09/05/2014 23:59:59 CLS Outpatient SOPHIE FOSTER APRN Shahrzad [id number] 06/21/2014 14:42:00 06/21/2014 23:59:59 CLS Outpatient NICOLAS PENA DO Janny [id number] 05/10/2014 09:17:00 05/10/2014 23:59:59 CLS Outpatient SOPHIE FOSTER APRN [id number] 05/09/2014 10:33:00 05/09/2014 23:59:59 CLS Outpatient SOPHIE FOSTER APRN [id number] 03/31/2014 15:45:00 03/31/2014 23:59:59 CLS Outpatient JERILYN RODRIGUEZ APRN Tiarra [id number] 01/26/2014 15:27:00 01/26/2014 23:59:59 CLS Outpatient NNEKA MENDEZ MD [id number] 01/14/2014 09:36:00 01/14/2014 23:59:59 CLS Outpatient SOPHIE FOSTER APRN [id number] 12/02/2013 14:38:00 12/02/2013 23:59:59 CLS Outpatient MIKY DDBETSY Rich [id number] 09/29/2013 10:53:00 09/29/2013 23:59:59 CLS Outpatient BETSY BOLAÑOS DDS [id number] 07/30/2013 16:34:00 07/30/2013 23:59:59 CLS Outpatient SOPHIE FOSTER APRN Shahrzad [id number] 11/03/2012 15:43:00 11/03/2012 23:59:59 CLS Outpatient SOPHIE FOSTER APRN [id number] 09/11/2012 10:47:00 09/11/2012 23:59:59 CLS Outpatient SOPHIE FOSTER APRN [id number] 04/27/2013 14:07:00 Document Registration [id number] 04/05/2013 09:27:00 Document Registration [id number] 04/05/2013 09:27:00 Document Registration
--- OUTSIDE RECORDS SUMMARY | 2019-05-12 23:47 | XMS REPORT | Continuity of Care Document ---
Author Organization Unknown Address Unknown Allergies Active Description Code Type Severity Reaction Onset Reported/Identified Relationship to Patient Clinical Status Yes NAPROXEN UNKNOWN UNKNOWN Yes Naprosyn Drug Allergy 11/29/2009 Yes Naprosyn Drug Allergy N/A N/A 11/29/2009 Yes naproxen [id number] Drug Allergy Unknown N/A 01/22/2016 Yes levofloxacin [id number] Drug Allergy Unknown N/A 06/15/2017 Medications There [...] MD 848.9 SPRAIN/STRAIN OTHER UNSPEC SITE 08/28/2009 JERILYN RODRIGUEZ APRN R 848.9 SPRAIN/STRAIN OTHER UNSPEC [...] SOPHIE FOSTER APRN 847.0 SPRAIN/STRAIN NECK 11/01/2009 BETSY [...] APRN T 847.0 SPRAIN/STRAIN NECK 11/01/2009 KRISTIN SCREEN AND CYCLONE REPAIRER, SOPHIE T 840.9 SPRAIN/STRAIN SHOULDER/ARM 11/01/2009 SOPHIE [...] APRN 627.2 MENOPAUSE SYMPTOMATIC 11/29/2009 PENA DO, NICOLAS [...] FOSTER APRN T 461.9 SINUSITIS ACUTE 04/10/2011 OSPHIE FOSTER APRN T 461.9 SINUSITIS ACUTE 05/29/2011 [...] NICOLAS PENA DO K 726.90 TENDONITIS 05/29/2011 SOPHIE FOSTER APRN 726.90 TENDONITIS 05/29/2011 NNEKA MENDEZ MD 726.90 TENDONITIS 05/29/2011 NNEKA MENDEZ MD 726.90 TENDONITIS 05/29/2011 KRISTIN SCREEN AND CYCLONE REPAIRER, SOPHIE T 726.90 TENDONITIS 05/29/2011 KRISTIN SCREEN AND CYCLONE REPAIRER, SOPHIE T 726.90 TENDONITIS 05/29/2011 KRISTIN SCREEN AND CYCLONE REPAIRER, SOPHIE T 726.90 TENDONITIS 05/29/2011 KRISTIN SCREEN AND CYCLONE REPAIRER, SOPHIE T 726.90 TENDONITIS 05/29/2011 PENA DO, NICOLAS K 726.90 TENDONITIS 05/29/2011 KRISTIN SCREEN AND CYCLONE REPAIRER, SOPHIE T 726.90 TENDONITIS 05/29/2011 KRISTIN SCREEN AND CYCLONE REPAIRER, SOPHIE T 726.90 TENDONITIS 11/08/2011 KRISTIN HOWARDN, [...] 272.4 HYPERLIPIDEMIA 09/11/2012 272.4 HYPERLIPIDEMIA 09/11/2012 KRISTIN SCREEN AND CYCLONE REPAIRER, SOPHIE T 272.4 HYPERLIPIDEMIA 09/11/2012 MIKY DDS, [...] SOPHIE FOSTER APRN T 272.4 HYPERLIPIDEMIA 09/11/2012 RKISTIN BOLAND SOPHIE T 272.4 HYPERLIPIDEMIA 09/11/2012 PENA [...] DO, NICOLAS K Ot 276.8 HYPOPOTASSEMIA 09/22/2014 PEAN DO, NICOLAS K Ot 288.60 LEUKOCYTOSIS, UNSPECIFIED [...] JONNATHAN SHELTON, ESPERANZA Soliman Ot G47.33 01/25/2016 JONNATHAN SHELTON, ESPERANZA Soliman Ot I10 01/25/2016 JONNATHAN [...] PAIN 11/16/2016 NETTA EDMONDSON MD Ot Z79.891 LONG-TERM (CURRENT) USE OF OPIATE ANALGE 11/19/2016 NETTA EDMONDSON MD Ot G89.29 OTHER CHRONIC PAIN 11/19/2016 NETTA EDMONDSON MD Ot I10 ESSENTIAL (PRIMARY) HYPERTENSION 11/19/2016 NETTA EDMONDSON MD Ot J44.9 CHRONIC OBSTRUCTIVE PULMONARY DISEASE, U 11/19/2016 NETTA EDMONDSON MD Ot M54.42 LUMBAGO WITH SCIATICA, LEFT SIDE 11/19/2016 NETTA EDMONDSON MD Ot M54.5 LOW BACK PAIN 11/19/2016 NETTA EDMONDSON MD Ot Z79.891 LONG-TERM (CURRENT) USE OF OPIATE ANALGE 11/19/2016 MALATHI [...] OTHER NONSPECIFIC ABNORMAL FINDING OF CARMELO 11/22/2016 NTETA EDMONDSON MD Ot G89.29 OTHER CHRONIC PAIN 11/22/2016 NETTA EDMONDSON MD Ot I10 ESSENTIAL (PRIMARY) HYPERTENSION 11/22/2016 NETTA EDMONDSON MD Ot J44.9 CHRONIC OBSTRUCTIVE PULMONARY DISEASE, U 11/22/2016 NETTA EDMONDSON MD Ot M54.42 LUMBAGO WITH SCIATICA, LEFT SIDE 11/22/2016 NETTA EDMONDSON MD Ot M54.5 LOW BACK PAIN 11/22/2016 DELVIS SHELTON, NETTA Rich Ot Z79.891 LONG-TERM (CURRENT) USE OF OPIATE ANALGE 12/20/2016 Ashley [...] DO Ot E78.00 PURE HYPERCHOLESTEROLEMIA, UNSPECIFIED 08/09/2017 CHRISTOHPE BROWER DO Ot F41.9 ANXIETY DISORDER, UNSPECIFIED [...] J44.1 CHRONIC OBSTRUCTIVE PULMONARY DISEASE W 08/09/2017 BORWER DO, CHRISTOPHE Ot J96.20 ACUTE AND CHR [...] CHR RESP FAILURE, UNSP W HYPOX 08/10/2017 BROEWR DO, CHRISTOPHE Ot K59.09 OTHER CONSTIPATION 08/10/2017 [...] DO, CHRISTOPHE Ot K59.09 OTHER CONSTIPATION 08/12/2017 INCOENTE DOYLE, CHRISTOPHE Ot R73.9 HYPERGLYCEMIA, UNSPECIFIED 08/12/2017 [...] Procedures Code Description [place] [address] ROUTINE VENIPUNCTURE 04/05/2013 45308 EKG, TRACING (IN-HOUSE) 04/05/2013 43521 URINE DRUG SCREEN (IN-HOUSE) 04/05/2013 49380 CMP 04/05/2013 90550 LIPID PANEL 04/05/2013 2398286 GFR CALC (RESULT ONLY) 04/05/2013 23073 XRAY CHEST 2 VIEW 04/05/2013 32600 URINE OXYCODONE CON'F 04/05/2013 80595 BNP 04/05/2013 80921 TSH 04/05/2013 09089 CBC 04/05/2013 30461 CRP HS (CARDIO) 04/05/2013 J2930 SOLUMEDROL INJ 07/30/2013 59582 THERAPUTIC INJ SQ/IM 07/30/2013 J1885 TORADOL INJ 07/30/2013 30790 OXIMETRY 01/14/2014 38294 OXIMETRY 05/09/2014 69764 ROUTINE VENIPUNCTURE 05/10/2014 09177 EKG, TRACING (IN-HOUSE) 05/10/2014 18554 CBC 05/10/2014 6086219 GFR CALC (RESULT ONLY) 05/10/2014 91777 CMP 05/10/2014 45742 LIPID PANEL 05/10/2014 64771 MAGNESIUM 05/10/2014 89076 CRP HS (CARDIO) 05/10/2014 88443 TSH 05/10/2014 59510 BNP 05/11/2014 69352 THERAPUTIC INJ SQ/IM 06/21/2014 J1885 TORADOL INJ 06/21/2014 72668 ROUTINE VENIPUNCTURE 10/07/2014 57105 T4 FREE 10/07/2014 75558 TSH 10/07/2014 53108 T3 TOTAL 10/07/2014 27004 CBC 10/07/2014 17853 MAGNESIUM 10/07/2014 45847 CMP 10/07/2014 6033473 GFR CALC (RESULT ONLY) 10/07/2014 66198 GLUCOSE FINGER STICK 12/02/2014 36387 GLUCOSE FINGER STICK 12/02/2014 02270 THERAPUTIC INJ SQ/IM 12/02/2014 06948 THERAPUTIC INJ SQ/IM 12/02/2014 J1885 TORADOL INJ 12/02/2014 J1885 TORADOL INJ 12/02/2014 02209 THERAPUTIC INJ SQ/IM 12/03/2014 J1885 TORADOL INJ [...] Status Pt. Type Provider Facility Loc./Unit Complaint [id number] 05/11/2019 15:11:00 05/11/2019 23:59:00 DIS Outpatient Ashley Garcia [id number] 04/01/2019 14:08:00 04/01/2019 23:59:00 DIS Outpatient Ashley Garcia [id number] 05/06/2018 11:14:00 05/06/2018 23:59:00 DIS Outpatient Ashley Garcia [id number] 08/22/2017 15:54:00 08/22/2017 23:59:00 DIS Outpatient Ashley Garcia [id number] 12/20/2016 13:36:00 12/20/2016 23:59:00 DIS Outpatient Ashley Garcia [id number] 12/20/2016 13:37:00 12/20/2016 14:30:00 DIS Outpatient Ashley Garcia [id number] 05/15/2018 07:55:00 05/15/2018 23:59:59 CLS Preadmit ELENA GARCIA MD Via [facility] CARD HTN,SOB,ANXIETY [id number] 05/15/2018 07:53:00 05/15/2018 23:59:59 CLS Preadmit ELENA GARCIA MD Via [facility] CARD HTN,SOB,ANXIETY [id number] 2017 13:17:00 08/12/2017 11:00:00 DIS Inpatient CHRISTOPHE BROWER DO Via [facility] 4TH COPD IN EXACERBATION [id number] 06/15/2017 12:15:00 06/15/2017 16:10:00 DIS Emergency RAHEEM MUÑOZ Via [facility] ER LEFT KNEE PAIN [id number] 11/16/2016 10:39:00 11/16/2016 12:07:00 DIS Emergency DELVIS SHELTON, NETTA S Via [facility] ER BACK PAIN [id number] 01/22/2016 12:58:00 01/26/2016 12:15:00 DIS Outpatient ESPERANZA DE SANTIAGO MD Via [facility] 4TH COPD EXACERBATION [id number] 03/21/2015 12:57:00 04/21/2015 09:07:00 DIS Outpatient FATOU BARRERA MD Via [facility] REHAB LUMBAGO [id number] 11/16/2014 14:33:00 11/18/2014 15:10:00 DIS Inpatient NICOLAS PENA DO Via [address] COPD EXACERBATION [id number] 11/14/2014 17:39:00 11/14/2014 20:22:00 DIS Emergency TRISTAN RUBY APRN Via [facility] ER BACK PAIN;SOA [id number] 09/13/2014 14:30:00 09/22/2014 10:40:00 DIS Inpatient NICOLAS PENA DO Via [address] HYPOXIA, COPD EXACERBATION, HYPOKALEMIA [id number] 02/03/2014 13:53:00 02/03/2014 23:59:59 CLS Outpatient MALATHI SOSA DO Via [facility] RAD COPD [id number] 12/30/2013 19:22:00 01/07/2014 12:20:00 DIS Inpatient KYRA FERRER MD Via [address] COPD,PNEUMONIA [id number] 05/12/2019 18:36:00 ACT Inpatient BRAN VIEIRA MD Via [address] COPD ACUTE EXACERBATION [id number] 11/16/2014 16:34:00 Document Registration [id number] 11/16/2014 16:34:00 Document Registration [id number] 12/08/2014 13:41:00 12/08/2014 23:59:59 CLS Outpatient NICOLAS PENA DO [id number] 12/07/2014 09:22:00 12/07/2014 23:59:59 CLS Outpatient SOPHIE FOSTER APRN [id number] 12/03/2014 14:05:00 12/03/2014 23:59:59 CLS Outpatient SOPHIE FOSTER APRN [id number] 12/02/2014 14:43:00 12/02/2014 23:59:59 CLS Outpatient SOPHIE FOSTER APRN [id number] 12/02/2014 14:43:00 12/02/2014 23:59:59 CLS Outpatient SOPHIE FOSTER APRN [id number] 10/07/2014 09:46:00 10/07/2014 23:59:59 CLS Outpatient SOPHIE FOSTER APRN [id number] 10/06/2014 05:41:00 10/06/2014 23:59:59 CLS Outpatient NNEKA MENDEZ MD [id number] 09/29/2014 09:03:00 09/29/2014 23:59:59 CLS Outpatient NNEKA MENDEZ MD [id number] 09/05/2014 16:05:00 09/05/2014 23:59:59 CLS Outpatient SOPHIE FOSTER APRN Shahrzad [id number] 06/21/2014 14:42:00 06/21/2014 23:59:59 CLS Outpatient NICOLAS PENA DO Janny [id number] 05/10/2014 09:17:00 05/10/2014 23:59:59 CLS Outpatient SOPHIE FOSTER APRN [id number] 05/09/2014 10:33:00 05/09/2014 23:59:59 CLS Outpatient SOPHIE FOSTER APRN [id number] 03/31/2014 15:45:00 03/31/2014 23:59:59 CLS Outpatient JERILYN RODRIGUEZ APRN Tiarra [id number] 01/26/2014 15:27:00 01/26/2014 23:59:59 CLS Outpatient NNEKA MENDEZ MD [id number] 01/14/2014 09:36:00 01/14/2014 23:59:59 CLS Outpatient SOPHIE FOSTER APRN [id number] 12/02/2013 14:38:00 12/02/2013 23:59:59 CLS Outpatient MIKY DDBETSY Rich [id number] 09/29/2013 10:53:00 09/29/2013 23:59:59 CLS Outpatient BETSY BOLAÑOS DDS [id number] 07/30/2013 16:34:00 07/30/2013 23:59:59 CLS Outpatient SOPHIE FOSTER APRN Shahrzad [id number] 11/03/2012 15:43:00 11/03/2012 23:59:59 CLS Outpatient SOPHIE FOSTER APRN [id number] 09/11/2012 10:47:00 09/11/2012 23:59:59 CLS Outpatient SOPHIE FOSTER APRN [id number] 04/27/2013 14:07:00 Document Registration [id number] 04/05/2013 09:27:00 Document Registration [id number] 04/05/2013 09:27:00 Document Registration
[2019-05-13 00:30] VITALS: BP 100/52
[2019-05-13] MEDS: methylPREDNISolone 40 MG/ML (Solu-MEDROL) VIAL IV SCH ×4 (00:39→17:29)
[2019-05-13] MEDS: RT-ALBUTEROL/IPRATROPIUM 3 ML (DUONEB) VIAL INH PRN (02:42)
[2019-05-13 04:03] LABS: BASOPHILS % (AUTO) 0 % (0-10); EOSINOPHILS % (AUTO) 0 % (0-10); HEMATOCRIT 34 % (35-52); HEMOGLOBIN 9.5 G/DL (11.5-16.0); LYMPHOCYTES # (AUTO) 0.6 X 10^3 (1.0-4.0); LYMPHOCYTES % (AUTO) 7 % (12-44); MEAN CORPUSCULAR HEMOGLOBIN 30 PG (25-34); MEAN CORPUSCULAR HGB CONC 28 G/DL (32-36); MEAN CORPUSCULAR VOLUME 105 FL (80-99); MEAN PLATELET VOLUME 10.3 FL (7.4-10.4); MONOCYTES # (AUTO) 0.2 X 10^3 (0.0-1.0); MONOCYTES % (AUTO) 2 % (0-12); NEUTROPHILS # (AUTO) 8.9 X 10^3 (1.8-7.8); NEUTROPHILS % (AUTO) 91 % (42-75); PLATELET COUNT 287 10^3/uL (130-400); RED CELL DISTRIBUTION WIDTH 13.7 % (10.0-14.5); WHITE BLOOD COUNT 9.7 10^3/uL (4.3-11.0)
[2019-05-13 04:21] LABS: ALANINE AMINOTRANSFERASE 16 U/L (0-55); ALBUMIN 3.9 GM/DL (3.2-4.5); ALKALINE PHOSPHATASE 100 U/L (40-136); BILIRUBIN,TOTAL 0.3 MG/DL (0.1-1.0); BUN/CREATININE RATIO 16; CALCIUM 9.4 MG/DL (8.5-10.1); CARBON DIOXIDE 42 MMOL/L (21-32); CHLORIDE 86 MMOL/L (98-107); CREATININE SERUM 0.85 MG/DL (0.60-1.30); GFR ESTIMATED > 60; GLUCOSE 105 MG/DL (70-105); POTASSIUM 3.6 MMOL/L (3.6-5.0); SODIUM 137 MMOL/L (135-145)
[2019-05-13 04:50] VITALS: BP 131/73
[2019-05-13] MEDS: RT-ALBUTEROL/IPRATROPIUM 3 ML (DUONEB) VIAL INH SCH ×5 (06:29→22:30)
[2019-05-13 08:00] VITALS: BP 107/66
--- NOTE | 2019-05-13 08:26 | Pulmonary Consultation ---
History of Present Illness History of Present Illness Date of Consultation 05/13/19 08:25 Time Seen by Provider: 08:25 Date of Admission History of Present Illness 58yo with hx of severe oxygen dependent COPD presented to ED secondary to worsening SOB and cough. Pt was had ABG done as out pt and shows a compensated respiratory acidosis. Allergies and Home Medications Allergies Coded Allergies: naproxen (Verified Allergy, Unknown, 01/22/16) levofloxacin (Unverified Adverse Reaction, Unknown, 06/15/17) MUSCLE PAIN Home Medications Albuterol Sulfate 2.5 Mg/3 Ml Vial.neb, 2.5 MG NEB Q4H PRN for SHORTNESS OF BREATH, (Reported) Albuterol Sulfate 1 Puff Puff, 2 PUFF INH Q4H PRN for SHORTNESS OF BREATH, (Reported) Alprazolam 0.5 Mg Tablet, 0.5 MG PO BID PRN for ANXIETY, (Reported) Amoxicillin/Potassium Clav 1 Each Tablet, 1 TAB PO TID, (Reported) filled 10 day supply on 05-11-2019 Benzonatate 100 Mg Capsule, 100 MG PO TID PRN for COUGH, (Reported) Budesonide/Formoterol Fumarate 10.2 Gm Hfa.aer.ad, 2 PUFF IH BID, (Reported) Cetirizine HCl 10 Mg Tablet, 10 MG PO DAILY, (Reported) Cyanocobalamin (Vitamin B-12) 1,000 Mcg Tablet, 1,000 MCG PO DAILY, (Reported) Cyclobenzaprine HCl 10 Mg Tablet, 10 MG PO TID PRN for MUSCLE SPASMS, (Reported) Famotidine 20 Mg Tablet, 20 MG PO BID PRN for HEARTBURN, (Reported) Fluticasone Propionate 16 Gm [place].susp, 2 SPRAYS NS DAILY, (Reported) Furosemide 20 Mg Tablet, 20 TAB PO BID, (Reported) Hydrocodone/Acetaminophen 1 Each Tablet, 1 TAB PO TID PRN for PAIN-MODERATE, (Reported) Metoprolol Succinate 50 Mg Tab.er.24h, 50 MG PO DAILY, (Reported) Montelukast Sodium 10 Mg Tablet, 10 MG PO HS, (Reported) Prednisone 20 Mg Tab, 40 MG PO DAILY, (Reported) filled 5 day supply on 05-11-2019 takes 2 20mg tablets Sertraline HCl 50 Mg Tablet, 50 MG PO HS, (Reported) Past Gcvaiqq-Oluqmw-Jdihtv Hx Past Med/Social Hx: Reviewed Nursing Past Med/Soc Hx Patient Social History Alcohol Use: Denies Use Recreational Drug Use: No Smoking Status: Former Smoker (quit in 2012. used to smoke 2ppd.) Type Used: Cigarettes Former Smoker, Quit: Nov 24, 2012 2nd Hand Smoke Exposure: No Recent Foreign Travel: No Contact w/Someone Who Travel: No Recent Infectious Disease Expo: No Recent Hopitalizations: No Immunizations Up To Date Tetanus Booster (TDap): More than 5yrs PED Vaccines UTD: No Date of Pneumonia Vaccine: Sep 14, 2014 Date of Influenza Vaccine: Sep 14, 2014 Seasonal Allergies Seasonal Allergies: Yes Past Medical History Surgeries: Yes Gallbladder, Hysterectomy, Tubal Ligation Respiratory: Yes Pneumonia, Chronic Bronchitis, COPD, Emphysema Currently Using CPAP: No Currently Using BIPAP: No Cardiac: Yes High Cholesterol, Hypertension Neurological: No Reproductive Disorders: No 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 Disorders: 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 Sexually Transmitted Disease: No HIV/AIDS: No Genitourinary: No Neurogenic Bladder Gastrointestinal: Yes Chronic Constipation Musculoskeletal: Yes Degenerate Disk Disease, Arthritis, Chronic Back Pain, Spasms Endocrine: Yes (last labs done shown border line diabetes patient states ) HEENT: No Loss of Vision: Denies Hearing Impairment: Denies Cancer: No Psychosocial: Yes (mood swings on zoloft) Anxiety Integumentary: No Blood Disorders: No Adverse Reaction/Blood Tranf: No Family Medical History Reviewed Nursing Family Hx Cancer Cancer of colon Chest pain Congestive heart failure Family history: Alzheimer's disease Family history: Arthritis Family history: Asthma Family history: Breast disease Family history: Cardiovascular disease Family history: Diabetes mellitus Family history: Hypertension Family history: Osteoporosis Family history: Thyroid disorder Headache Heart disease History of - respiratory disease Kidney disease Myocardial infarction Stroke Visual impairment No Family History of: Abdominal aortic aneurysm Scarbro's disease Alcoholism Aphasia Cataract Congenital heart disease Cystic fibrosis Dementia Dysphagia Family history: Allergy Family history: Coronary thrombosis Family history: Gastrointestinal disease Family history: Glaucoma Hearing loss Hereditary disease History of - anemia History of - disorder History of drug abuse Human immunodeficiency virus (HIV) seropositivity Hypercholesterolemia Infertile Malignant neoplasm of lung Parkinson's disease Prostate cancer Psychotic disorder Seizure disorder Tuberculosis No Pertinent Family Hx Review of Systems Time Seen by Provider: 10:10 Constitutional: Sweats, Weakness, Malaise; No: Fever, Chills, Other Eyes: No: Pain, Vision change, Conjunctivae inflammation, Eyelid inflammation, Other, Redness ENT: Nose congestion; No: Ear pain, Ear discharge, Nose pain, Nose discharge, M outh pain, Mouth swelling, Throat pain, Throat swelling, Other Respiratory: Shortness of breath, SOB with excertion, Wheezing, Sputum; No: Hemoptysis Cardiovascular: Palpitations, Paroxysmal Noc. Dyspnea, Lt Headedness Gastrointestinal: Constipation; No: Nausea, Vomiting, Abdominal Pain, Diarrhea, Melena, Hematochezia, Other Genitourinary: No Dysuria, No Frequency, No Incontinence, No Hematuria, No Retention, No Other Sepsis Event Evaluation Height, Weight, BMI Height: 5'0.00" Weight: 203lbs. 3.0oz. 92.655652th; 39.1 BMI Method:Stated Exam Exam Vital Signs Date Time Temp Pulse Resp B/P (MAP) Pulse Ox O2 Delivery O2 Flow Rate FiO2 05/13/19 06:29 94 Nasal Cannula 4.00 05/13/19 04:50 97.1 108 22 131/73 (92) 94 Nasal Cannula 4.00 05/13/19 02:42 94 Nasal Cannula 4.00 05/13/19 00:30 96.8 108 21 100/52 (68) 94 Nasal Cannula 4.00 05/12/19 23:00 88 Nasal Cannula 4.00 05/12/19 23:00 110 94 05/12/19 21:07 99.2 05/12/19 20:39 Nasal Cannula 05/12/19 20:14 99.2 129 22 118/58 (78) 94 Nasal Cannula 4.00 05/12/19 20:14 99.2 129 22 118/58 94 Nasal Cannula 4.00 05/12/19 19:50 98.4 120 20 117/61 (79) 94 Nasal Cannula 5.00 05/12/19 18:48 90 Nasal Cannula 5.00 05/12/19 18:04 Nasal Cannula 5.00 05/12/19 18:02 Nasal Cannula 5.00 05/12/19 18:02 Nasal Cannula 5.00 05/12/19 18:00 95 Nasal Cannula 5.00 05/12/19 16:55 98.4 90 22 125/78 (94) 93 Nasal Cannula 5.00 I & O 05/13/19 07:00 Intake Total 1260 ml Balance 1260 ml Height & Weight Height: 5'0.00" Weight: 203lbs. 3.0oz. 92.507430ff; 39.1 BMI Method:Stated General Appearance: Anxious, Mild Distress HEENT: PERRL/EOMI, Normal ENT Inspection, Pharynx Normal Neck: Full Range of Motion, Non Tender, Supple Respiratory: No Accessory Muscle Use, No Respiratory Distress, Crackles, Decreased Breath Sounds, Wheezing Cardiovascular: Regular Rate, Rhythm, No Edema, No Gallop Capillary Refill: Less Than 3 Seconds Gastrointestinal: non tender, soft Extremity: Normal Capillary Refill, Normal Inspection, No Pedal Edema Neurologic/Psychiatric: Alert, Oriented x3 Skin: Normal Color, Warm/Dry Lymphatic: No Adenopathy Results Lab Laboratory Tests 05/12/19 17:05 05/13/19 03:25 Assessment/Plan Assessment/Plan Acute on chronic respiratory failure with worsening SOB -ABG shows compensated respiratory acidosis -C02 is 76 -Pt is high risk for multiple readmissions and worsening respiratory failure brody at night. She would benefit from home vent to mask Severe oxygen dependent COPD -CHange Solumedrol to 40 Q 6 -Oxygen -Duonebs -Add advair -Pulmonary rehab as out patient. Hx of tobacco use quit in 2012 Anemia MALATHI SOSA DO May 13, 2019 08:26
[2019-05-13] MEDS: HYDROcodone/APAP 7.5 MG/325 MG (LORTAB, LORCET PLUS) TABLET PO PRN ×2 (08:43→20:07)
--- NOTE | 2019-05-13 10:37 | History & Physical-Hospitalist ---
History of Present Illness HPI/Chief Complaint Pt is 58yoCF with a history of severe COPD who presented to the ER due to abnormal ABG and shortness of breath. She was seen by the [facility] for her PCP two days ago and was sent for CXR and ABG which revealed a compensated respiratory acidosis. She continued to worsen and was referred to the ER as she was needing her rescue inhaler multiple times per day and 5lpm up from her baseline of 3lpm. She was given multiple breathing treatments in the ER and necessitated and hour long as well and so decision was made to admit. She states she is feeling better today but still coughing and wheezing. She reports compliance with her Symbicort. Source: patient Date Seen 05/13/19 Time Seen by a Provider: 10:37 Attending Physician Bran Ch MD PCP Ashley Garcia MD Referring Physician Date of Admission May 12, 2019 at 18:36 Home Medications & Allergies Home Medications Reviewed patient Home Medication Reconciliation performed by pharmacy medication reconciliations explosive technician and/or nursing. Patients Allergies have been reviewed. Allergies Allergies Coded Allergies naproxen (Verified Allergy, Unknown, 01/22/16) levofloxacin (Unverified Adverse Reaction, Unknown, 06/15/17) MUSCLE PAIN Past Tfcaaub-Xtcejc-Legrvd Hx Past Med/Social Hx: Reviewed Nursing Past Med/Soc Hx Patient Social History Alcohol Use: Denies Use Recreational Drug Use: No Smoking Status: Former Smoker (quit in 2012. used to smoke 2ppd.) Former Smoker, Quit: Nov 24, 2012 Type Used: Cigarettes 2nd Hand Smoke Exposure: No Physical Abuse Screen: No Sexual Abuse: No Recent Foreign Travel: No Contact w/other who traveled: No Recent Hopitalizations: No Recent Infectious Disease Expo: No Immunizations Up To Date Tetanus Booster (TDap): More than 5yrs Pediatric: No Date of Pneumonia Vaccine: Sep 14, 2014 Date of Influenza Vaccine: Sep 14, 2014 Seasonal Allergies Seasonal Allergies: Yes Past Medical History Surgeries: Gallbladder, Hysterectomy, Tubal Ligation Respiratory: Chronic Bronchitis, COPD, Emphysema, Pneumonia Currently Using CPAP: No Currently Using BIPAP: No Cardiac: High Cholesterol, Hypertension Reproductive: No Sexually Transmitted Disease: No HIV/AIDS: No 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 Disorders: Denies Hysterectomy Genitourinary: Neurogenic Bladder Gastrointestinal: Chronic Constipation Musculoskeletal: Degenerate Disk Disease, Arthritis, Chronic Back Pain, Spasms Loss of Vision: Denies Hearing Impairment: Denies Psychosocial: Anxiety History of Blood Disorders: No Adverse Reaction to Blood Cross: No Family History Reviewed Nursing Family Hx Cancer Cancer of colon Chest pain Congestive heart failure Family history: Alzheimer's disease Family history: Arthritis Family history: Asthma Family history: Breast disease Family history: Cardiovascular disease Family history: Diabetes mellitus Family history: Hypertension Family history: Osteoporosis Family history: Thyroid disorder Headache Heart disease History of - respiratory disease Kidney disease Myocardial infarction Stroke Visual impairment No Family History of: Abdominal aortic aneurysm Sammy's disease Alcoholism Aphasia Cataract Congenital heart disease Cystic fibrosis Dementia Dysphagia Family history: Allergy Family history: Coronary thrombosis Family history: Gastrointestinal disease Family history: Glaucoma Hearing loss Hereditary disease History of - anemia History of - disorder History of drug abuse Human immunodeficiency virus (HIV) seropositivity Hypercholesterolemia Infertile Malignant neoplasm of lung Parkinson's disease Prostate cancer Psychotic disorder Seizure disorder Tuberculosis No Pertinent Family Hx Review of Systems Constitutional: No chills, No fever Respiratory: cough, dyspnea on exertion, short of breath, wheezing Cardiovascular: No chest pain, No palpitations Gastrointestinal: no symptoms reported Genitourinary: no symptoms reported Musculoskeletal: no symptoms reported Skin: no symptoms reported Psychiatric/Neurological: No Symptoms Reported Physical Exam Physical Exam Vital Signs Vital Signs - First Documented 05/12/19 16:55 Temp 98.4 Pulse 90 Resp 22 B/P (MAP) 125/78 (94) Pulse Ox 93 O2 Delivery Nasal Cannula O2 Flow Rate 5.00 Capillary Refill : Less Than 3 Seconds Height, Weight, BMI Height: 5'0.00" Weight: 203lbs. 3.0oz. 92.415989co; 39.1 BMI Method:Stated General Appearance: No Apparent Distress, Chronically ill, Obese HEENT: Moist Mucous Membranes; No Scleral Icterus (L), No Scleral Icterus (R) Neck: Normal Inspection, Supple Respiratory: No Accessory Muscle Use, No Respiratory Distress, Wheezing Cardiovascular: Regular Rate, Rhythm, No Murmur Gastrointestinal: Normal Bowel Sounds, Non Tender, Soft Extremity: No Calf Tenderness, No Pedal Edema Neurologic/Psychiatric: Alert, Oriented x3 Skin: Normal Color, Warm/Dry Results Results/Procedures Labs Laboratory Tests 05/12/19 17:05 05/13/19 03:25 Patient resulted labs reviewed. Imaging: Reviewed Imaging Report Assessment/Plan Admission Diagnosis COPD Exacerbation Admission Status: Inpatient Order (span 2 midnights) Reason for Inpatient Admission: failed outpatient management, high risk for decompensation Diagnosis/Problems Diagnosis/Problems (1) COPD exacerbation Status: Acute Assessment & Plan: Continue IV Solumedrol MAT protocol Oxygen to keep sats >90 Pulm consulted appreciate recs (2) Counseling regarding end of life decision making Assessment & Plan: Discussed end of life wishes with patient She states she would like to be a DNR but thinks her kids will be mad at her Discussed autonomy and advance directive Advance directive consult placed Clinical Quality Measures DVT/VTE Risk/Contraindication: Risk Factor Score Per Nursin RFS Level Per Nursing on Admit: 2=Moderate BRAN CH MD May 13, 2019 10:37
[2019-05-13 11:47] VITALS: BP 118/65
[2019-05-13] MEDS ORDERED: HYDR-3816 PO (12:44)
[2019-05-13] MEDS ORDERED: AMOX1TAB11 PO (12:44)
[2019-05-13] MEDS ORDERED: RT-ALBUINH INH (12:44)
[2019-05-13] MEDS ORDERED: BUDE10.2 IH (12:44)
[2019-05-13] MEDS ORDERED: MONT10TA21 PO (12:44)
[2019-05-13] MEDS ORDERED: FURO20TA4 PO (12:44)
[2019-05-13] MEDS ORDERED: PRD20T PO (12:44)
[2019-05-13] MEDS ORDERED: BENZ100C18 PO (12:44)
[2019-05-13] MEDS ORDERED: FLUT16SP22 NS (12:44)
--- NOTE | 2019-05-13 14:10 | NUR ---
SPOKE WITH PATIENT ABOUT HER HOME MEDICATIONS AND SHE WAS ABLE TO VERIFY WHAT SHE IS TAKING. PATIENT SAYS SHE IS ALSO USING A SYMBICORT INHALER HOWEVER SHE HAS NOT PICKED UP SINCE 03-06-2019, HOWEVER SHE INDICATES SHE MAY BE GETTING SAMPLES.
[2019-05-13] MEDS ORDERED: NON-FORMULARY MEDICATION 1 EA EA (Famotidine 20 MG) PO PRN (15:30)
--- NOTE | 2019-05-13 15:44 | NUR ---
CM/KATH, respond to consult for DME, vent to mask. DME: Visited with patient regarding Dr. Gtz order for vent to mask. Patient is established with [facility] for continuous home O2, transitioned from [facility]. Discussed vent to mask with patient to inform her she could get vent to mask with [facility] or [facility], her choice. Patient indicated her preference would be to get trilogy with [facility] because Dr. Gtz works directly with them for this equipment. Patient resides at home with her spouse, she has a son in [place]. IN-HOME SERVICES: She has 19 hours weekly of assistance through [facility]. Just admitted last p.m., follow for more definitive post hospital needs. Addendum: 05/13/19 at 1554 by KRISTA STOCKTON Initiated referral with [facility], [facility], for trilogy.
[2019-05-13 16:01] VITALS: BP 117/75
[2019-05-13] MEDS: FUROSEMIDE 20 MG (LASIX) TAB PO SCH (17:29)
[2019-05-13] MEDS: RT-ADVAIR HFA 115/21 MCG PER PUFF IH SCH (18:56)
[2019-05-13] MEDS: FAMOTIDINE 20 MG (PEPCID) TABLET PO PRN (20:06)
[2019-05-13] MEDS: SERTRALINE 50 MG (ZOLOFT) TABLET PO SCH (20:07)
[2019-05-13] MEDS: MONTELUKAST 10 MG (SINGULAIR) TAB PO SCH (20:07)
[2019-05-13] MEDS: BENZONATATE 100 MG (TESSALON) CAPSULE PO PRN (20:08)
[2019-05-13 20:12] VITALS: BP 137/71
[2019-05-13] MEDS ORDERED: NON-FORMULARY MEDICATION 1 EA EA (Montelukast Sodium (Singulair) 10 MG) PO SCH (21:00)
[2019-05-14] VITALS (7 sets, daily range): BP systolic 117–136; BP diastolic 59–74
[2019-05-14] MEDS: methylPREDNISolone 40 MG/ML (Solu-MEDROL) VIAL IV SCH ×5 (00:05→23:27)
[2019-05-14] MEDS: RT-ALBUTEROL/IPRATROPIUM 3 ML (DUONEB) VIAL INH SCH ×6 (02:47→22:34)
[2019-05-14] MEDS: FUROSEMIDE 20 MG (LASIX) TAB PO SCH ×2 (06:40→17:51)
[2019-05-14] MEDS: HYDROcodone/APAP 7.5 MG/325 MG (LORTAB, LORCET PLUS) TABLET PO PRN ×2 (06:40→20:28)
--- NOTE | 2019-05-14 07:39 | Pulmonary Progress Note ---
Subjective Time Seen by a Provider: 12:33 Subjective/Events-last exam No complications noted. Sepsis Event Evaluation Height, Weight, BMI Height: 5'0.00" Weight: 212lbs. 7.0oz. 96.561019en; 39.1 BMI Method:Stated Exam Exam Vital Signs Date Time Temp Pulse Resp B/P (MAP) Pulse Ox O2 Delivery O2 Flow Rate FiO2 05/14/19 05:24 90 Nasal Cannula 5.00 05/14/19 03:45 98.6 96 20 117/67 (84) 92 Nasal Cannula 4.00 05/14/19 02:47 90 Nasal Cannula 4.00 05/14/19 00:11 97.9 107 22 134/74 (94) 93 Nasal Cannula 4.00 05/13/19 23:03 Nasal Cannula 4.00 05/13/19 20:12 97.4 105 20 137/71 (93) 90 Nasal Cannula 4.00 05/13/19 20:00 Nasal Cannula 5.00 05/13/19 18:59 91 Nasal Cannula 4.00 05/13/19 16:01 97.4 83 22 117/75 (89) 91 Nasal Cannula 4.00 05/13/19 11:47 97.4 86 18 118/65 (82) 92 Nasal Cannula 4.00 05/13/19 10:25 93 Nasal Cannula 4.00 05/13/19 08:45 Nasal Cannula 5.00 05/13/19 08:00 98.6 102 20 107/66 (80) 94 Nasal Cannula 4.00 I & O 05/14/19 07:00 Intake Total 1980 ml Balance 1980 ml Height & Weight Height: 5'0.00" Weight: 212lbs. 7.0oz. 96.277861ug; 39.1 BMI Method:Stated General Appearance: No Apparent Distress, Chronically ill, Obese HEENT: Moist Mucous Membranes; No Scleral Icterus (L), No Scleral Icterus (R) Neck: Normal Inspection, Supple Respiratory: No Accessory Muscle Use, No Respiratory Distress, Wheezing Cardiovascular: Regular Rate, Rhythm, No Murmur Capillary Refill: Less Than 3 Seconds Gastrointestinal: non tender, soft Extremity: No Calf Tenderness, No Pedal Edema Neurologic/Psychiatric: Alert, Oriented x3 Skin: Normal Color, Warm/Dry Results Lab Laboratory Tests 05/12/19 17:05 05/13/19 03:25 Assessment/Plan Assessment/Plan Acute on chronic respiratory failure with worsening SOB -ABG shows compensated respiratory acidosis -C02 is 76 -Pt is high risk for multiple readmissions and worsening respiratory failure brody at night. She would benefit from home vent to mask Severe oxygen dependent COPD -CHange Solumedrol to 40 Q 6 -Oxygen -Duonebs - advair -Pulmonary rehab as out patient. Hx of tobacco use quit in 2012 Anemia MALATHI SOSA DO May 14, 2019 07:39
--- NOTE | 2019-05-14 08:00 | NUR ---
NOTED 05/[address] SOSA NOTIFIED. STAT ABG'S FOR TODAY.
[2019-05-14 08:29] LABS: ABG BASE EXCESS 16.7 MMOL/L (-2.5-2.5); ABG OXYGEN SATURATION 94 % (94-100); ABG PCO2 64 MMHG (35-45); ABG PH 7.43 (7.37-7.43); ABG PO2 64 MMHG (79-93); ABG TCO2 44.1 MMOL/L (21.0-31.0)
[2019-05-14 08:31] LABS: ALLENS TEST YES-POS; INSPIRED O2 5
[2019-05-14 08:32] LABS: PATIENT TEMP 97.9; VENTILATOR NO
--- NOTE | 2019-05-14 08:36 | NUR ---
DR. SOSA NOTIFIED OF CRITICAL BICARB 42.
[2019-05-14] MEDS: FLUTICASONE NASAL SPRAY (FLONASE) 16 GM BTL NS SCH (08:43)
[2019-05-14] MEDS: LORATADINE (CLARITIN) 10 MG TAB PO SCH (08:43)
[2019-05-14] MEDS: meTOproloL SUCCINATE 50 MG (TOPROL XL) TAB PO SCH (08:44)
[2019-05-14] MEDS ORDERED: NON-FORMULARY MEDICATION 1 EA EA (Cetirizine HCl 10 MG) PO SCH (09:00)
--- NOTE | 2019-05-14 10:58 | Progress Note-Hospitalist ---
Subjective HPI/CC On Admission Date Seen by Provider: May 14, 2019 Time Seen by Provider: 10:53 Pt is 58yoCF with a history of severe COPD who presented to the ER due to abnormal ABG and shortness of breath. She was seen by the [employer] OPERATOR for her PCP two days ago and was sent for CXR and ABG which revealed a compensated respiratory acidosis. She continued to worsen and was referred to the ER as she was needing her rescue inhaler multiple times per day and 5lpm up from her baseline of 3lpm. She was given multiple breathing treatments in the ER and necessitated and hour long as well and so decision was made to admit. She states she is feeling better today but still coughing and wheezing. She reports compliance with her Symbicort. Subjective/Events-last exam Pt reports doing better but still short of breath with any activity which is abnormal for her. Still on 5lpm via NC up from 3lpm baseline. Objective Exam Vital Signs Vital Signs Date Time Temp Pulse Resp B/P (MAP) Pulse Ox O2 Delivery O2 Flow Rate FiO2 05/14/19 08:00 97.7 95 22 126/60 (82) 91 Nasal Cannula 4.00 Capillary Refill : Less Than 3 Seconds General Appearance: No Apparent Distress, Chronically ill, Obese HEENT: No Scleral Icterus (L), No Scleral Icterus (R) Respiratory: No Accessory Muscle Use, No Respiratory Distress, Wheezing (scant) Cardiovascular: Regular Rate, Rhythm, No Murmur Gastrointestinal: Normal Bowel Sounds, Non Tender, Soft Neurologic/Psychiatric: Alert, Oriented x3 Results/Procedures Lab Patient resulted labs reviewed. Imaging: Reviewed Imaging Report Assessment/Plan Assessment and Plan Assess & Plan/Chief Complaint COPD Exacerbation Diagnosis/Problems Diagnosis/Problems (1) COPD exacerbation Status: Acute Assessment & Plan: Severe COPD- 3lpm Will likely need home vent to mask at discharge given severe disease and high risk for readmission Continue IV Solumedrol MAT protocol Oxygen to keep sats >90 Pulm consulted appreciate recs Continue KarulairSmooth Adv (2) Counseling regarding end of life decision making Assessment & Plan: Discussed end of life wishes with patient on admission She states she would like to be a DNR but thinks her kids will be mad at her Discussed autonomy and advance directive Advance directive consult placed (3) Essential (primary) hypertension Assessment & Plan: Continue home metoprolol, well controlled Clinical Quality Measures DVT/VTE Risk/Contraindication: Risk Factor Score Per Nursin RFS Level Per Nursing on Admit: 2=Moderate BRAN VIEIRA MD May 14, 2019 10:58
[2019-05-14] MEDS: RT-ADVAIR HFA 115/21 MCG PER PUFF IH SCH ×2 (11:50→18:42)
--- NOTE | 2019-05-14 12:24 | NUR ---
XANAX 0.5MG PO PER PT REQUEST.
[2019-05-14] MEDS: ALPRAZolam 0.5 MG (XANAX) TAB PO PRN ×2 (12:38→22:03)
[2019-05-14] MEDS: BENZONATATE 100 MG (TESSALON) CAPSULE PO PRN ×2 (14:46→22:03)
--- NOTE | 2019-05-14 14:47 | NUR ---
TESSALON PERLES 1 PO FOR COUGH.
--- NOTE | 2019-05-14 15:39 | NUR ---
Pastoral care visit.
[2019-05-14] MEDS: MONTELUKAST 10 MG (SINGULAIR) TAB PO SCH (20:28)
[2019-05-14] MEDS: SERTRALINE 50 MG (ZOLOFT) TABLET PO SCH (20:28)
[2019-05-15] MEDS: RT-ALBUTEROL/IPRATROPIUM 3 ML (DUONEB) VIAL INH SCH ×6 (02:07→22:02)
[2019-05-15 04:22] VITALS: BP 128/77
[2019-05-15] MEDS: BENZONATATE 100 MG (TESSALON) CAPSULE PO PRN ×2 (06:30→21:02)
[2019-05-15] MEDS: FUROSEMIDE 20 MG (LASIX) TAB PO SCH ×2 (06:30→17:32)
[2019-05-15] MEDS: methylPREDNISolone 40 MG/ML (Solu-MEDROL) VIAL IV SCH ×4 (06:30→23:48)
[2019-05-15] MEDS: HYDROcodone/APAP 7.5 MG/325 MG (LORTAB, LORCET PLUS) TABLET PO PRN ×2 (06:34→21:03)
[2019-05-15] MEDS: RT-ADVAIR HFA 115/21 MCG PER PUFF IH SCH ×2 (06:38→21:43)
[2019-05-15 08:00] VITALS: BP 111/70
[2019-05-15] MEDS: FLUTICASONE NASAL SPRAY (FLONASE) 16 GM BTL NS SCH (08:26)
[2019-05-15] MEDS: LORATADINE (CLARITIN) 10 MG TAB PO SCH (08:26)
[2019-05-15] MEDS: meTOproloL SUCCINATE 50 MG (TOPROL XL) TAB PO SCH (08:26)
[2019-05-15] MEDS: ALPRAZolam 0.5 MG (XANAX) TAB PO PRN ×2 (08:29→21:02)
[2019-05-15] MEDS: inSUlin ASPART (NovoLOG) 1 UNIT/0.01 ML (CHARGE PER UNIT) SC SCH ×3 (11:15→21:15)
--- NOTE | 2019-05-15 11:18 | Progress Note-Hospitalist ---
Subjective HPI/CC On Admission Date Seen by Provider: May 15, 2019 Time Seen by Provider: 11:15 Pt is 58yoCF with a history of severe COPD who presented to the ER due to abnormal ABG and shortness of breath. She was seen by the FOAM CASTER for her PCP two days ago and was sent for CXR and ABG which revealed a compensated respiratory acidosis. She continued to worsen and was referred to the ER as she was needing her rescue inhaler multiple times per day and 5lpm up from her baseline of 3lpm. She was given multiple breathing treatments in the ER and necessitated and hour long as well and so decision was made to admit. She states she is feeling better today but still coughing and wheezing. She reports compliance with her Symbicort. Subjective/Events-last exam Pt reports had rough night with cough and SOB. Improved with Xanax. Also had to increase on oxygen overnight Objective Exam Vital Signs Vital Signs Date Time Temp Pulse Resp B/P (MAP) Pulse Ox O2 Delivery O2 Flow Rate FiO2 05/15/19 08:00 93 Nasal Cannula 4.00 05/15/19 08:00 97.5 94 22 111/70 (84) Capillary Refill : Less Than 3 SecondsLess Than 3 Seconds General Appearance: No Apparent Distress, Chronically ill, Obese Respiratory: No Accessory Muscle Use, No Respiratory Distress, Other (improved aeration, scant wheezes intially and then cleared) Cardiovascular: Regular Rate, Rhythm, No Murmur Gastrointestinal: Normal Bowel Sounds, Non Tender, Soft Neurologic/Psychiatric: Alert, Oriented x3, Normal Mood/Affect Results/Procedures Lab Patient resulted labs reviewed. Imaging: Reviewed Imaging Report Assessment/Plan Assessment and Plan Assess & Plan/Chief Complaint COPD Exacerbation Diagnosis/Problems Diagnosis/Problems (1) COPD exacerbation Status: Acute Assessment & Plan: Severe COPD- 3lpm baseline currently on 5lpm Will likely need home vent to mask at discharge given severe disease and high risk for readmission Continue IV Solumedrol, will continue MAT protocol Oxygen to keep sats >90 Pulm consulted appreciate recs Continue Singulair, Flonase, Advair Will add robitussin for cough and recommended ordering honey with meals (2) Essential (primary) hypertension Assessment & Plan: Continue home metoprolol, well controlled (3) Hyperglycemia Assessment & Plan: Reports prediabetic Accuchecks ordered given prolonged steroid use SSI (4) Counseling regarding end of life decision making Assessment & Plan: Discussed end of life wishes with patient on admission She states she would like to be a DNR but thinks her kids will be mad at her Discussed autonomy and advance directive Advance directive consult placed Clinical Quality Measures DVT/VTE Risk/Contraindication: Risk Factor Score Per Nursin RFS Level Per Nursing on Admit: 2=Moderate BRAN VIEIRA MD May 15, 2019 11:18
[2019-05-15 11:58] VITALS: BP 124/72
--- NOTE | 2019-05-15 12:35 | Pulmonary Progress Note ---
Subjective Time Seen by a Provider: 12:34 Subjective/Events-last exam SOB improved Sepsis Event Evaluation Height, Weight, BMI Height: 5'0.00" Weight: 221lbs. 4.8oz. 100.313919os; 39.1 BMI Method:Stated Exam Exam Vital Signs Date Time Temp Pulse Resp B/P (MAP) Pulse Ox O2 Delivery O2 Flow Rate FiO2 05/15/19 11:58 96.8 85 20 124/72 (89) 92 Nasal Cannula 05/15/19 11:10 93 Nasal Cannula 5.00 05/15/19 08:00 93 Nasal Cannula 4.00 05/15/19 08:00 97.5 94 22 111/70 (84) 94 Nasal Cannula 5.00 05/15/19 06:39 90 Nasal Cannula 5.00 05/15/19 04:22 97.0 76 20 128/77 (94) 93 Nasal Cannula 5.00 05/15/19 02:07 93 Nasal Cannula 5.00 05/14/19 23:54 97.4 85 20 123/64 (83) 94 Nasal Cannula 5.00 05/14/19 22:34 91 Nasal Cannula 5.00 05/14/19 20:00 Nasal Cannula 4.00 05/14/19 19:18 97.3 117 22 131/65 (87) 84 Nasal Cannula 5.00 05/14/19 18:43 92 Nasal Cannula 5.00 05/14/19 15:27 96.8 73 22 136/63 (87) 93 Nasal Cannula 5.00 I & O 05/15/19 07:00 Intake Total 1450 ml Output Total 4 ml Balance 1446 ml Height & Weight Height: 5'0.00" Weight: 221lbs. 4.8oz. 100.192577dz; 39.1 BMI Method:Stated General Appearance: No Apparent Distress, Chronically ill, Obese HEENT: Moist Mucous Membranes; No Scleral Icterus (L), No Scleral Icterus (R) Neck: Normal Inspection, Supple Respiratory: No Accessory Muscle Use, No Respiratory Distress, Wheezing Cardiovascular: Regular Rate, Rhythm, No Murmur Capillary Refill: Less Than 3 Seconds Gastrointestinal: non tender, soft Extremity: No Calf Tenderness, No Pedal Edema Neurologic/Psychiatric: Alert, Oriented x3 Skin: Normal Color, Warm/Dry Assessment/Plan Assessment/Plan Acute on chronic respiratory failure with worsening SOB -ABG shows compensated respiratory acidosis -C02 is 76 -Pt is high risk for multiple readmissions and worsening respiratory failure brody at night. She would benefit from home vent to mask Severe oxygen dependent COPD -Solumedrol to 40 Q 6 -Oxygen -Duonebs - advair -Pulmonary rehab as out patient. Hx of tobacco use quit in 2012 Anemia MALATHI SOSA DO May 15, 2019 12:35
[2019-05-15] MEDS: FAMOTIDINE 20 MG (PEPCID) TABLET PO PRN (14:25)
[2019-05-15 15:26] VITALS: BP 124/72
[2019-05-15 16:00] VITALS: BP 107/57
[2019-05-15] MEDS: guaiFENesin/CODEINE (ROBITUSSIN AC) 10ML UDC PO PRN ×2 (17:34→23:49)
[2019-05-15 19:40] VITALS: BP 136/81
[2019-05-15] MEDS: MONTELUKAST 10 MG (SINGULAIR) TAB PO SCH (21:03)
[2019-05-15] MEDS: SERTRALINE 50 MG (ZOLOFT) TABLET PO SCH (21:08)
[2019-05-16] VITALS (7 sets, daily range): BP systolic 91–133; BP diastolic 46–82
[2019-05-16] MEDS: RT-ALBUTEROL/IPRATROPIUM 3 ML (DUONEB) VIAL INH SCH ×6 (02:50→21:55)
[2019-05-16 05:36] LABS: BASOPHILS % (AUTO) 0 % (0-10); EOSINOPHILS % (AUTO) 0 % (0-10); HEMATOCRIT 34 % (35-52); HEMOGLOBIN 10.4 G/DL (11.5-16.0); LYMPHOCYTES # (AUTO) 0.6 X 10^3 (1.0-4.0); LYMPHOCYTES % (AUTO) 5 % (12-44); MEAN CORPUSCULAR HEMOGLOBIN 31 PG (25-34); MEAN CORPUSCULAR HGB CONC 30 G/DL (32-36); MEAN CORPUSCULAR VOLUME 103 FL (80-99); MEAN PLATELET VOLUME 10.2 FL (7.4-10.4); MONOCYTES # (AUTO) 0.4 X 10^3 (0.0-1.0); MONOCYTES % (AUTO) 4 % (0-12); NEUTROPHILS % (AUTO) 91 % (42-75); PLATELET COUNT 309 10^3/uL (130-400); RED CELL DISTRIBUTION WIDTH 14.1 % (10.0-14.5)
[2019-05-16] MEDS: inSUlin ASPART (NovoLOG) 1 UNIT/0.01 ML (CHARGE PER UNIT) SC SCH ×4 (05:36→21:03)
[2019-05-16 05:53] LABS: BUN/CREATININE RATIO 24; CALCIUM 8.5 MG/DL (8.5-10.1); CARBON DIOXIDE 36 MMOL/L (21-32); CHLORIDE 92 MMOL/L (98-107); CREATININE SERUM 0.86 MG/DL (0.60-1.30); GFR ESTIMATED > 60; GLUCOSE 124 MG/DL (70-105); POTASSIUM 4.1 MMOL/L (3.6-5.0); SODIUM 140 MMOL/L (135-145)
[2019-05-16] MEDS: HYDROcodone/APAP 7.5 MG/325 MG (LORTAB, LORCET PLUS) TABLET PO PRN ×3 (06:03→22:35)
[2019-05-16] MEDS: BENZONATATE 100 MG (TESSALON) CAPSULE PO PRN ×3 (06:03→22:35)
[2019-05-16] MEDS: FUROSEMIDE 20 MG (LASIX) TAB PO SCH ×2 (06:03→17:17)
[2019-05-16] MEDS: methylPREDNISolone 40 MG/ML (Solu-MEDROL) VIAL IV SCH ×4 (06:05→23:24)
--- NOTE | 2019-05-16 06:21 | Pulmonary Progress Note ---
Subjective Time Seen by a Provider: 07:30 Subjective/Events-last exam Pt appears to be doing better. Sepsis Event Evaluation Height, Weight, BMI Height: 5'0.00" Weight: 221lbs. 4.8oz. 100.788708ht; 39.1 BMI Method:Stated Exam Exam Vital Signs Date Time Temp Pulse Resp B/P (MAP) Pulse Ox O2 Delivery O2 Flow Rate FiO2 05/16/19 04:32 97.0 85 18 121/80 (94) 92 Nasal Cannula 5.00 05/16/19 02:50 95 Nasal Cannula 5.00 05/16/19 00:11 97.4 84 20 131/80 (97) 94 Nasal Cannula 5.00 05/15/19 21:48 93 Nasal Cannula 5.00 05/15/19 21:43 93 Nasal Cannula 5.00 05/15/19 20:00 93 Nasal Cannula 4.00 05/15/19 19:40 97.5 101 20 136/81 (99) 92 Nasal Cannula 5.00 05/15/19 16:00 97.5 87 24 107/57 (74) 93 Nasal Cannula 5.00 05/15/19 15:26 84 92 40 05/15/19 15:24 84 Nasal Cannula 5.00 05/15/19 11:58 96.8 85 20 124/72 (89) 92 Nasal Cannula 05/15/19 11:10 93 Nasal Cannula 5.00 05/15/19 08:00 93 Nasal Cannula 4.00 05/15/19 08:00 97.5 94 22 111/70 (84) 94 Nasal Cannula 5.00 05/15/19 06:39 90 Nasal Cannula 5.00 I & O 05/16/19 07:00 Intake Total 2210 ml Balance 2210 ml Height & Weight Height: 5'0.00" Weight: 221lbs. 4.8oz. 100.810238gm; 39.1 BMI Method:Stated General Appearance: No Apparent Distress, Chronically ill, Obese HEENT: Moist Mucous Membranes; No Scleral Icterus (L), No Scleral Icterus (R) Neck: Normal Inspection, Supple Respiratory: No Accessory Muscle Use, No Respiratory Distress, Wheezing Cardiovascular: Regular Rate, Rhythm, No Murmur Capillary Refill: Less Than 3 Seconds Gastrointestinal: non tender, soft Extremity: No Calf Tenderness, No Pedal Edema Neurologic/Psychiatric: Alert, Oriented x3 Skin: Normal Color, Warm/Dry Results Lab Laboratory Tests 05/16/19 05:25 Assessment/Plan Assessment/Plan Acute on chronic respiratory failure with worsening SOB -ABG shows compensated respiratory acidosis -C02 is 76 -Pt is high risk for multiple readmissions and worsening respiratory failure brody at night. She would benefit from home vent to mask Severe oxygen dependent COPD -Solumedrol to 40 Q 6 -Oxygen -Duonebs - advair -Pulmonary rehab as out patient. Hx of tobacco use quit in 2012 Anemia MALATHI SOSA DO May 16, 2019 06:21
[2019-05-16] MEDS: RT-ADVAIR HFA 115/21 MCG PER PUFF IH SCH ×2 (08:19→18:25)
[2019-05-16] MEDS: FLUTICASONE NASAL SPRAY (FLONASE) 16 GM BTL NS SCH (08:37)
[2019-05-16] MEDS: ALPRAZolam 0.5 MG (XANAX) TAB PO PRN ×2 (08:37→19:47)
[2019-05-16] MEDS: LORATADINE (CLARITIN) 10 MG TAB PO SCH (08:37)
[2019-05-16] MEDS: meTOproloL SUCCINATE 50 MG (TOPROL XL) TAB PO SCH (08:37)
[2019-05-16] MEDS: guaiFENesin/CODEINE (ROBITUSSIN AC) 10ML UDC PO PRN ×3 (10:48→19:47)
--- NOTE | 2019-05-16 11:47 | Progress Note-Hospitalist ---
Subjective HPI/CC On Admission Date Seen by Provider: May 16, 2019 Time Seen by Provider: 11:44 Pt is 58yoCF with a history of severe COPD who presented to the ER due to abnormal ABG and shortness of breath. She was seen by the [employer] SUPERVISOR for her PCP two days ago and was sent for CXR and ABG which revealed a compensated respiratory acidosis. She continued to worsen and was referred to the ER as she was needing her rescue inhaler multiple times per day and 5lpm up from her baseline of 3lpm. She was given multiple breathing treatments in the ER and necessitated and hour long as well and so decision was made to admit. She states she is feeling better today but still coughing and wheezing. She reports compliance with her Symbicort. Subjective/Events-last exam Pt reports feeling better but still coughing a lot with thick sputum production. Discussed acapella use and mucomyst. Resistant to the idea but willing to try them. Objective Exam Vital Signs Vital Signs Date Time Temp Pulse Resp B/P (MAP) Pulse Ox O2 Delivery O2 Flow Rate FiO2 05/16/19 10:57 93 Nasal Cannula 4.00 05/16/19 08:00 96.0 85 18 133/82 (99) 05/15/19 15:26 40 Capillary Refill : Less Than 3 SecondsLess Than 3 Seconds General Appearance: No Apparent Distress, Chronically ill, Obese Respiratory: No Accessory Muscle Use, No Respiratory Distress, Wheezing (expiratory, improved) Cardiovascular: Regular Rate, Rhythm, No Murmur Gastrointestinal: Normal Bowel Sounds, Non Tender, Soft Extremity: No Calf Tenderness, No Pedal Edema Neurologic/Psychiatric: Alert, Oriented x3 Results/Procedures Lab Laboratory Tests 05/16/19 05:25 Patient resulted labs reviewed. Imaging: Reviewed Imaging Report Assessment/Plan Assessment and Plan Assess & Plan/Chief Complaint COPD Exacerbation Diagnosis/Problems Diagnosis/Problems (1) COPD exacerbation Status: Acute Assessment & Plan: Severe COPD- 3lpm baseline currently still on 5lpm Will likely need home vent to mask at discharge given severe disease and high risk for readmission Continue IV Solumedrol MAT protocol Oxygen to keep sats >90 Pulm consulted appreciate recs Continue Singulair, Flonase, Advair Robitussin for cough and recommended ordering honey with meals Mucomyst and Acapella ordered (2) Essential (primary) hypertension Assessment & Plan: Continue home metoprolol, well controlled (3) Hyperglycemia Assessment & Plan: Reports prediabetic Accuchecks ordered given prolonged steroid use SSI (4) Counseling regarding end of life decision making Assessment & Plan: Discussed end of life wishes with patient on admission She states she would like to be a DNR but thinks her kids will be mad at her Discussed autonomy and advance directive Advance directive consult placed Clinical Quality Measures DVT/VTE Risk/Contraindication: Risk Factor Score Per Nursin RFS Level Per Nursing on Admit: 2=Moderate BRAN VIEIRA MD May 16, 2019 11:47
--- NOTE | 2019-05-16 12:17 | NUR ---
NOTIFIED RT OF MUCOMYST INH Q6H
[2019-05-16] MEDS: aCETylcysteine 20% (MUCOMYST) 30ML SOLN VIAL INH SCH ×2 (15:07→21:55)
[2019-05-16] MEDS: MONTELUKAST 10 MG (SINGULAIR) TAB PO SCH (19:42)
[2019-05-16] MEDS: SERTRALINE 50 MG (ZOLOFT) TABLET PO SCH (19:42)
[2019-05-16] MEDS: FAMOTIDINE 20 MG (PEPCID) TABLET PO PRN (22:33)
[2019-05-17 00:08] VITALS: BP 132/81
[2019-05-17] MEDS: guaiFENesin/CODEINE (ROBITUSSIN AC) 10ML UDC PO PRN ×3 (02:29→20:13)
[2019-05-17] MEDS: aCETylcysteine 20% (MUCOMYST) 30ML SOLN VIAL INH SCH ×4 (03:16→22:30)
[2019-05-17] MEDS: RT-ALBUTEROL/IPRATROPIUM 3 ML (DUONEB) VIAL INH SCH ×6 (03:16→22:29)
[2019-05-17 04:20] VITALS: BP 120/76
[2019-05-17] MEDS: inSUlin ASPART (NovoLOG) 1 UNIT/0.01 ML (CHARGE PER UNIT) SC SCH ×4 (05:20→20:13)
[2019-05-17] MEDS: RT-ADVAIR HFA 115/21 MCG PER PUFF IH SCH ×2 (06:11→22:33)
[2019-05-17] MEDS: methylPREDNISolone 40 MG/ML (Solu-MEDROL) VIAL IV SCH ×2 (06:13→11:32)
[2019-05-17] MEDS: FUROSEMIDE 20 MG (LASIX) TAB PO SCH ×2 (06:13→17:17)
[2019-05-17] MEDS: HYDROcodone/APAP 7.5 MG/325 MG (LORTAB, LORCET PLUS) TABLET PO PRN ×2 (06:14→17:18)
[2019-05-17 08:00] VITALS: BP 121/64
[2019-05-17] MEDS: meTOproloL SUCCINATE 50 MG (TOPROL XL) TAB PO SCH (08:27)
[2019-05-17] MEDS: CYCLOBENZAPRINE 10 MG (FLEXERIL) TAB PO PRN ×2 (08:28→17:18)
[2019-05-17] MEDS: LORATADINE (CLARITIN) 10 MG TAB PO SCH (08:28)
[2019-05-17] MEDS: FLUTICASONE NASAL SPRAY (FLONASE) 16 GM BTL NS SCH (08:31)
--- NOTE | 2019-05-17 14:46 | Pulmonary Progress Note ---
Subjective Time Seen by a Provider: 14:44 Subjective/Events-last exam No complications noted. Pt feels improved. Sepsis Event Evaluation Height, Weight, BMI Height: 5'0.00" Weight: 221lbs. 4.8oz. 100.245058rx; 39.1 BMI Method:Stated Exam Exam Vital Signs Date Time Temp Pulse Resp B/P (MAP) Pulse Ox O2 Delivery O2 Flow Rate FiO2 05/17/19 14:05 93 Nasal Cannula 4.00 05/17/19 09:58 93 Nasal Cannula 4.00 05/17/19 08:00 98.0 88 18 121/64 (83) 92 Nasal Cannula 4.00 05/17/19 08:00 Nasal Cannula 4.00 05/17/19 06:12 94 Nasal Cannula 4.00 05/17/19 06:12 Nasal Cannula 4.00 05/17/19 04:20 97.0 80 20 120/76 (91) 92 Nasal Cannula 4.00 05/17/19 03:16 92 Nasal Cannula 4.00 05/17/19 00:08 98.0 86 20 132/81 (98) 93 Nasal Cannula 4.00 05/16/19 21:55 90 Nasal Cannula 4.00 05/16/19 19:51 Nasal Cannula 4.00 05/16/19 19:30 97.5 84 20 125/65 (85) 93 Nasal Cannula 4.00 05/16/19 18:31 Nasal Cannula 4.00 05/16/19 18:26 92 Nasal Cannula 4.00 05/16/19 16:10 98.2 96 20 127/73 (91) 92 Nasal Cannula 4.00 05/16/19 15:07 90 Nasal Cannula 4.00 I & O 05/17/19 07:00 Intake Total 1840 ml Balance 1840 ml Height & Weight Height: 5'0.00" Weight: 221lbs. 4.8oz. 100.397246lq; 39.1 BMI Method:Stated General Appearance: No Apparent Distress, Chronically ill, Obese HEENT: PERRL/EOMI, Normal ENT Inspection, Pharynx Normal Neck: Normal Inspection, Non Tender, Supple Respiratory: No Accessory Muscle Use, No Respiratory Distress, Wheezing (expiratory, improved) Cardiovascular: Regular Rate, Rhythm, No Murmur Capillary Refill: Less Than 3 Seconds Gastrointestinal: non tender, soft Extremity: No Calf Tenderness, No Pedal Edema Neurologic/Psychiatric: Alert, Oriented x3 Skin: Normal Color, Warm/Dry Results Lab Laboratory Tests 05/16/19 05:25 Assessment/Plan Assessment/Plan Acute on chronic respiratory failure with worsening SOB -ABG shows compensated respiratory acidosis -C02 is 76 -Pt is high risk for multiple readmissions and worsening respiratory failure brody at night. She would benefit from home vent to mask Severe oxygen dependent COPD -Solumedrol to 40 Q 6 -- change to prednisone taper -Oxygen -Duonebs - advair -Pulmonary rehab as out patient. Hx of tobacco use quit in 2012 Anemia MALATHI SOSA DO May 17, 2019 14:46
--- NOTE | 2019-05-17 15:37 | Progress Note-Hospitalist ---
Progress Note Progress Notes/Assess & Plan Date Seen 05/17/19 Time Seen by Provider: 15:35 Assessment & Plan The patient is a 58-year-old white female with COPD. She has somewhere in the range of 90+ pack year smoking history and stopped 4 years ago. She reports today that she is starting to feel a bit better. She is still coughing and producing some mucus. Physical exam: Lungs show distant breath sounds and scattered rhonchi. CV is regular. Extremities show no pedal edema. Impression: COPD and chronic bronchitis and exacerbation. 2.morbid obesity. Plan: Continue present pulmonary toilet and medications. Encourage increasing physical activity. ESPERANZA DE SANTIAGO MD May 17, 2019 15:37
[2019-05-17 16:04] VITALS: BP 124/68
[2019-05-17 20:09] VITALS: BP 124/69
[2019-05-17] MEDS: MONTELUKAST 10 MG (SINGULAIR) TAB PO SCH (20:13)
[2019-05-17] MEDS: FAMOTIDINE 20 MG (PEPCID) TABLET PO PRN (20:13)
[2019-05-17] MEDS: SERTRALINE 50 MG (ZOLOFT) TABLET PO SCH (20:13)
[2019-05-17 23:02] VITALS: BP 137/67
[2019-05-18] MEDS: guaiFENesin/CODEINE (ROBITUSSIN AC) 10ML UDC PO PRN ×2 (02:21→22:43)
[2019-05-18] MEDS: aCETylcysteine 20% (MUCOMYST) 30ML SOLN VIAL INH SCH ×4 (03:04→19:38)
[2019-05-18] MEDS: RT-ALBUTEROL/IPRATROPIUM 3 ML (DUONEB) VIAL INH SCH ×4 (03:04→19:37)
[2019-05-18] MEDS: HYDROcodone/APAP 7.5 MG/325 MG (LORTAB, LORCET PLUS) TABLET PO PRN ×2 (05:01→15:20)
[2019-05-18] MEDS: inSUlin ASPART (NovoLOG) 1 UNIT/0.01 ML (CHARGE PER UNIT) SC SCH ×4 (05:44→20:55)
[2019-05-18] MEDS: FUROSEMIDE 20 MG (LASIX) TAB PO SCH ×2 (06:11→17:17)
[2019-05-18 07:35] VITALS: BP 137/67
[2019-05-18] MEDS: RT-ADVAIR HFA 115/21 MCG PER PUFF IH SCH ×2 (07:36→19:38)
[2019-05-18 08:00] VITALS: BP 126/73
--- NOTE | 2019-05-18 08:01 | Pulmonary Progress Note ---
Subjective Time Seen by a Provider: 07:31 Subjective/Events-last exam No complications noted. Sepsis Event Evaluation Height, Weight, BMI Height: 5'0.00" Weight: 221lbs. 4.8oz. 100.424666pr; 39.1 BMI Method:Stated Exam Exam Vital Signs Date Time Temp Pulse Resp B/P (MAP) Pulse Ox O2 Delivery O2 Flow Rate FiO2 05/18/19 07:35 92 Nasal Cannula 4.00 05/18/19 07:35 94 92 05/18/19 03:06 95 Nasal Cannula 4.00 05/17/19 23:02 97.2 93 18 137/67 (90) 92 Nasal Cannula 4.00 05/17/19 22:30 93 Nasal Cannula 4.00 05/17/19 20:09 97.6 84 20 124/69 (87) 92 Nasal Cannula 4.00 05/17/19 20:00 Nasal Cannula 4.00 05/17/19 16:04 97.0 90 20 124/68 (86) 91 Nasal Cannula 4.00 05/17/19 14:05 93 Nasal Cannula 4.00 05/17/19 09:58 93 Nasal Cannula 4.00 I & O 05/18/19 07:00 Intake Total 1830 ml Balance 1830 ml Height & Weight Height: 5'0.00" Weight: 221lbs. 4.8oz. 100.634516vv; 39.1 BMI Method:Stated General Appearance: No Apparent Distress, Chronically ill, Obese HEENT: PERRL/EOMI, Normal ENT Inspection, Pharynx Normal Neck: Normal Inspection, Non Tender, Supple Respiratory: No Accessory Muscle Use, No Respiratory Distress, Wheezing (expiratory, improved) Cardiovascular: Regular Rate, Rhythm, No Murmur Capillary Refill: Less Than 3 Seconds Gastrointestinal: non tender, soft Extremity: No Calf Tenderness, No Pedal Edema Neurologic/Psychiatric: Alert, Oriented x3 Skin: Normal Color, Warm/Dry Assessment/Plan Assessment/Plan Acute on chronic respiratory failure with worsening SOB -ABG shows compensated respiratory acidosis -C02 is 76 -Pt is high risk for multiple readmissions and worsening respiratory failure brody at night. She would benefit from home vent to mask Severe oxygen dependent COPD -Oxygen -Prednisone taper -Duonebs - advair -Pulmonary rehab as out patient. Hx of tobacco use quit in 2012 Anemia MALATHI SOSA DO May 18, 2019 08:01
[2019-05-18] MEDS: predniSONE 10 MG TAB PO SCH (08:44)
[2019-05-18] MEDS: meTOproloL SUCCINATE 50 MG (TOPROL XL) TAB PO SCH (08:44)
[2019-05-18] MEDS: LORATADINE (CLARITIN) 10 MG TAB PO SCH (08:44)
[2019-05-18] MEDS: FLUTICASONE NASAL SPRAY (FLONASE) 16 GM BTL NS SCH (08:45)
--- NOTE | 2019-05-18 10:30 | Progress Note-Hospitalist ---
Progress Note Progress Notes/Assess & Plan Date Seen 05/18/19 Time Seen by Provider: 10:27 Assessment & Plan Discussion was held relative to the patient's plans for discharge. She states that she has been able to live in her own home until the present. This includes light housekeeping and meals. She has a oxygen concentrator that she has had for several years. She has not walked outside her room during this admission. Accordingly PT and OT have been consulted. She hopes that she may be ready for discharge by tomorrow. Physical exam: She is not able to speak in complete sentences because of the necessity of taking a breath. Lungs show distant breath sounds and tachypnea. CV is regular. Abdomen is obese. Impression: End-stage COPD and exacerbation. Plan: See above. ESPERANZA DE SANTIAGO MD May 18, 2019 10:30
--- NOTE | 2019-05-18 11:49 | Physical Therapy Evaluation ---
PT Evaluation-General Medical Diagnosis Admission Date May 12, 2019 at 18:36 Medical Diagnosis: acute COPD exacerbation Onset Date: May 12, 2019 Therapy Diagnosis Therapy Diagnosis: debility Height/Weight Height (Feet): 5 Height (Inches): 0.00 Weight (Pounds): 221 Weight (Ounces): 4.8 Precautions Precautions/Isolations: Standard Precautions Weight Bear Status Right Lower Extremity: Right Weight Bearing/Tolerated Left Lower Extremity: Left Weight Bearing/Tolerated Referral Physician: Steve Reason for Referral: Evaluation/Treatment Medical History Pertinent Medical History: Arthritis, COPD, HTN, Smoking (past) Current History ER secondary to SOB Reviewed History: Yes Social History Home: Multilevel Current Living Status: Spouse Entry Into Home: Stairs With Railing PT Steps Into Home: 4 Prior/Core FIM Prior Level of Function Therapy Code Descriptions/Definitions Functional [place] Measure: 0=Not Assessed/NA 4=Minimal Assistance 1=Total Assistance 5=Supervision or Setup 2=Maximal Assistance 6=Modified [place] 3=Moderate Assistance 7=Complete [place] Therapy Quality Codes: 6 Independent with activity with or without an assistive device 5 Patient requires set up or clean up by helper. Patient completes activity by themselves 4 Supervision or touching assist (CGA). [place] provide cues , steadying assist 3 The helper provides less than half the effort to complete the activity 2 The helper provides more than half the effort to complete the activity 1 Dependent. The helper does all the effort to complete an activity 7 Patient refused to complete or attempt activity 9 The patient did not perform the activity before the current illness or injury 88 Not attempted due to Medical conditions or safety concerns Functional Abilities and Goals: Independent: Patient completed the activities by him/herself, with or without an assistive device, with no assistance from a helper. Needed Some Help: Patient needed partial assistance from another person to complete activities. Dependent: A helper completed the activities for the patient. Unknown: Not Applicable: Bed Mobility: 6 Transfers (B,C,W/C) (FIM): 6 Gait: 6 Indoor Mobility (Ambulation): Independent Stairs: Independent Prior Devices Use: Walker Prior Device Use: FWW for energy conservation PT Evaluation-Current Subjective Patient agrees to PT. She reports she is up independent in room without difficulty. Objective Patient Orientation: Normal For Age Problem Solving: Good Attachments: Oxygen (4L) ROM/Strength ROM Lower Extremities bilateral LE WFL Strength Lower Extremities 4/5 grossly bilaterally Integumentary/Posture Integumentary refer to nursing notes Bowel Incontinence: No Bladder Incontinence: No Posture WFL Neuromuscular (Tone, Coordination, Reflexes) grossly intact Sensory Vision: Functional Hearing: Functional Sensation Right Lower Extremit: Intact Sensation Left Lower Extremity: Intact Transfers Therapy Code Descriptions/Definitions Functional [place] Measure: 0=Not Assessed/NA 4=Minimal Assistance 1=Total Assistance 5=Supervision or Setup 2=Maximal Assistance 6=Modified [place] 3=Moderate Assistance 7=Complete [place] Transfers (B, C, W/C) (FIM): 6 Scootin Rollin Supine to/from Sit: 6 Sit to/from Stand: 6 Gait Mode of Locomotion: Walk Anticipated Mode of Locomotion: Walk Gait (FIM): 6 Distance (FIM): 3=150 ft Distance: 150' Gait Level of Assist: 6 Gait Assistive Device: FWW Comments/Gait Description safe and functional/increase SOB with activity on 6L O2 NC and SAO2 decreases to 88% Balance Sitting Static: Normal Sitting Dynamic: Normal Standing Static: Normal Standing Dynamic: Normal Assessment/Needs 58 y.o. female, will be seen short term by skilled PT to ensure adequate pulmonary function with mobility to return to home safely with family. Rehab Potential: Guarded Post Rehab Potential-Barriers: end stage COPD PT Short Term Goals Short Term Goals Time Frame: May 21, 2019 Transfers (B,C,W/C) (FIM): 6 Gait (FIM): 6 Distance (FIM): 3=150 ft Gait Level of Assist: 6 Gait Assistive Device: FWW PT Plan Problem List Problem List: Activity Tolerance Treatment/Plan Treatment Plan: Continue Plan of Care Treatment Plan: Education, Functional Activity [place], Gait, Safety, Therapeutic Exercise Treatment Duration: May 21, 2019 Frequency: 4 times per week Estimated Hrs Per Day: .25 hour per day Patient and/or Family Agrees t: Yes Safety Risks/Education Patient Education: Disease Process, Safety Issues Teaching Recipient: Patient Teaching Methods: Discussion Response to Teaching: Verbalize Understanding Discharge Recommendations Therapy D/C Recommendations: Home w/ Family Support Time/GCodes Time In: 1105 Time Out: 1118 Total Billed Treatment Time: 13 Total Billed Treatment 1 visit EVLowC 13 min MIGNON NEVES PT May 18, 2019 11:48
--- NOTE | 2019-05-18 13:40 | Occupational Therapy Eval ---
OT Evaluation-General/PLF Medical Diagnosis Admission Date May 12, 2019 at 18:36 Medical Diagnosis: acute COPD exacerbation Onset Date: May 12, 2019 Therapy Diagnosis Therapy Diagnosis: impaired ADLs and mobility Height/Weight Height (Feet): 5 Height (Inches): 0.00 Weight (Pounds): 221 Weight (Ounces): 4.8 Precautions Precautions/Isolations: Fall Prevention, Standard Precautions Safety Interventions: None Weight Bear Status Weight Bearing Restriction: Weight Bearing/Tolerated Referral Physician: Steve Referral Reason: Activity Tolerance, Evaluation/Treatment, Strengthening/ROM Medical History Pertinent Medical History: Arthritis, COPD, HTN, Smoking (past) Current History Pt is 58yoCF with a history of severe COPD who presented to the ER due to abnormal ABG and shortness of breath. She was seen by the [facility] [employer] for her PCP two days ago and was sent for CXR and ABG which revealed a compensated respiratory acidosis. She continued to worsen and was referred to the ER as she was needing her rescue inhaler multiple times per day and 5lpm up from her baseline of 3lpm. She was given multiple breathing treatments in the ER and necessitated and hour long as well and so decision was made to admit. She states she is feeling better today but still coughing and wheezing. She reports compliance with her Symbicort. Reviewed History: Yes Social History Home: Multilevel Current Living Status: Spouse Entry Into Home: Stairs With Railing Steps Into Home: 4 ADL-Prior Level of Function Therapy Code Descriptions/Definitions Functional [place] Measure: 0=Not Assessed/NA 4=Minimal Assistance 1=Total Assistance 5=Supervision or Setup 2=Maximal Assistance 6=Modified [place] 3=Moderate Assistance 7=Complete [place] Therapy Quality Codes: 6 Independent with activity with or without an assistive device 5 Patient requires set up or clean up by helper. Patient completes activity by themselves 4 Supervision or touching assist (CGA). [place] provide cues , steadying assist 3 The helper provides less than half the effort to complete the activity 2 The helper provides more than half the effort to complete the activity 1 Dependent. The helper does all the effort to complete an activity 7 Patient refused to complete or attempt activity 9 The patient did not perform the activity before the current illness or injury 88 Not attempted due to Medical conditions or safety concerns Functional Abilities and Goals: Independent: Patient completed the activities by him/herself, with or without an assistive device, with no assistance from a helper. Needed Some Help: Patient needed partial assistance from another person to complete activities. Dependent: A helper completed the activities for the patient. Unknown: Not Applicable: ADL PLOF Comments pt has caregiver 5X week for 3-4 hours daily. caregiver complete IADL tasks such as laundry, cooking, and cleaning. pt does not shower unless caregiver is there fro supervision. Self Care: Independent Functional Cognition: Independent OT Current Status Subjective pt laying in bed upon OT arrival in no apparent distress. pt agreed to OT evaluation session. pt reports she plans to d/c home tomorrow. Pain Numeric Pain Scale: 0-No Pain Mental Status/Objective Patient Orientation: Person, Place, Time, Situation Attachments: Oxygen (4L NC. ) Current Glasses/Contacts: Yes Hearing Aids: No Dentures/Partials: No Hand Dominance: Right Upper Extremity ROM WFL Upper Extremity Coordination WFL Upper Extremity Sensation WFL Upper Extremity Strength WFL ADL-Treatment Therapy Code Descriptions/Definitions Functional [place] Measure: 0=Not Assessed/NA 4=Minimal Assistance 1=Total Assistance 5=Supervision or Setup 2=Maximal Assistance 6=Modified [place] 3=Moderate Assistance 7=Complete [place] Therapy Quality Codes: 6 Independent with activity with or without an assistive device 5 Patient requires set up or clean up by helper. Patient completes activity by themselves 4 Supervision or touching assist (CGA). [place] provide cues , steadying assist 3 The helper provides less than half the effort to complete the activity 2 The helper provides more than half the effort to complete the activity 1 Dependent. The helper does all the effort to complete an activity 7 Patient refused to complete or attempt activity 9 The patient did not perform the activity before the current illness or injury 88 Not attempted due to Medical conditions or safety concerns Other Treatments pt education on pursed lip breathing. pt demo understanding correctly. Education OT Patient Education: Energy conservation Teaching Recipient: Patient Teaching Methods: Discussion Response to Teaching: Verbalize Understanding OT Short Term Goals Short Term Goals Transfers (B,C,W/C) (FIM): 6 1=Demonstrate adherence to instructed precautions during ADL tasks. 2=Patient will verbalize/demonstrate understanding of assistive devices/modifications for ADL. 3=Patient will improve strength/tolerance for activity to enable patient to perform ADL's. OT Photo Intern Goals Detention Goals 1=Demonstrate adherence to instructed precautions during ADL tasks. 2=Patient will verbalize/demonstrate understanding of assistive devices/modifications for ADL. 3=Patient will improve strength/tolerance for activity to enable patient to perform ADL's. OT Education/Plan Problem List/Assessment Assessment: No Skilled OT Needs ID'd pt demo ability to complete ADL tasks (grooming, UE/ LB dressing, toileting, and functional transfers) MOD I/ indep with use of RW for functional transfers. noted SOB with activity. OT services not indicated secondary to pt being independent. PT to address activity tolerance. pt agreed she does not need OT services. d/c OT at this time. Discharge Recommendations Plan/Recommendations: Discharge/Goals Met Therapy D/C Recommendations: Home w/ Family Support Equpiment Recommendations-D/C: None Treatment Plan/Plan of Care Treatment,Training & Education: Yes Patient would benefit from OT for education, treatment and training to promote independence in ADL's, mobility, safety and/or upper extremity function for ADL's. Treatment Duration: May 18, 2019 Frequency: 1 time per week Estimated Hrs Per Day: .25 hour per day Agreement: Yes Rehab Potential: Guarded Time/GCodes Start Time: 13:20 Stop Time: 13:40 Billed Treatment Time EVL 20 minutes LIEN CONNOR OT May 18, 2019 13:40
[2019-05-18 15:55] VITALS: BP 122/68
[2019-05-18] MEDS: BENZONATATE 100 MG (TESSALON) CAPSULE PO PRN (20:55)
[2019-05-18] MEDS: MONTELUKAST 10 MG (SINGULAIR) TAB PO SCH (20:55)
[2019-05-18] MEDS: SERTRALINE 50 MG (ZOLOFT) TABLET PO SCH (20:55)
[2019-05-18] MEDS: ALPRAZolam 0.5 MG (XANAX) TAB PO PRN (20:57)
[2019-05-18 23:33] VITALS: BP 119/63
[2019-05-19] MEDS: aCETylcysteine 20% (MUCOMYST) 30ML SOLN VIAL INH SCH ×2 (03:40→08:44)
[2019-05-19] MEDS: RT-ALBUTEROL/IPRATROPIUM 3 ML (DUONEB) VIAL INH SCH ×2 (03:40→08:44)
[2019-05-19] MEDS: HYDROcodone/APAP 7.5 MG/325 MG (LORTAB, LORCET PLUS) TABLET PO PRN (04:02)
[2019-05-19] MEDS: inSUlin ASPART (NovoLOG) 1 UNIT/0.01 ML (CHARGE PER UNIT) SC SCH ×2 (05:17→11:45)
[2019-05-19] MEDS: FUROSEMIDE 20 MG (LASIX) TAB PO SCH (06:34)
[2019-05-19] MEDS: guaiFENesin/CODEINE (ROBITUSSIN AC) 10ML UDC PO PRN ×2 (07:33→11:43)
[2019-05-19 08:21] VITALS: BP 127/62
[2019-05-19] MEDS: LORATADINE (CLARITIN) 10 MG TAB PO SCH (08:35)
[2019-05-19] MEDS: meTOproloL SUCCINATE 50 MG (TOPROL XL) TAB PO SCH (08:35)
[2019-05-19] MEDS: predniSONE 10 MG TAB PO SCH (08:35)
[2019-05-19] MEDS: FLUTICASONE NASAL SPRAY (FLONASE) 16 GM BTL NS SCH (08:36)
[2019-05-19] MEDS: RT-ADVAIR HFA 115/21 MCG PER PUFF IH SCH (08:44)
[2019-05-19] MEDS ORDERED: ALPR0.5T7 PO (11:01)
[2019-05-19] MEDS ORDERED: PRED10TA22 PO (11:01)
[2019-05-19] MEDS ORDERED: Guaifenesin/Codeine PO (11:01)
[2019-05-19] MEDS ORDERED: BENZ100C18 PO (11:01)
--- NOTE | 2019-05-19 11:04 | D/C HH Face to Face Order ---
D/C Face to Face Orders Instructions for Patient Via [facility], Patient Instructions/FollowUp: Dr Garcia next week Dr Gtz as scheduled Physician to follow Patient: Dr Ashley Garcia Discharge Diet for Home: No Restrictions Patient Problems: COPD severe Patient Data-Allergies,Ht & Wt Patient Allergies: Coded Allergies: naproxen (Verified Allergy, Unknown, 01/22/16) levofloxacin (Unverified Adverse Reaction, Unknown, 06/15/17) MUSCLE PAIN Height (Feet): 5 Height (Inches): 0.00 Weight (Pounds): 221 Weight (Ounces): 4.8 Home Health Need/Face to Face Date of Face to Face: May 19, 2019 Clinical Findings: Generalized weakness and fatigue, Muscle weakness, Shortness of breath I have seen Pt [id number]: Yes Discharged To: Home Diagnosis/Conditions: COPD severe Patient is Homebound due to: Shortness of breath/distress Homebound Status Due to the above stated illness, injury or surgical procedure (medical condition or diagnosis) and associated clinical findings, the patient is homebound because of his/her inability to leave home except with aid of a supportive device and/or person AND leaving the home requires a considerable and taxing effort or is medically contraindicated. Pt req the following assistanc: Walker Certify Stmt I certify that this patient is under my care and that I, a nurse practitioner or a physician; a real estate executive assistant working with me, had a face to face encounter that - meets the physician face to face encounter requirements with this patient as dated. CHRISTOPHE BROWER DO May 19, 2019 11:04
--- NOTE | 2019-05-19 11:04 | Discharge Summary-Hospitalist ---
Diagnosis/Chief Complaint Date of Admission May 12, 2019 at 18:36 Date of Discharge Discharge Date: May 19, 2019 Admission Diagnosis COPD Exacerbation Discharge Diagnosis (1) COPD exacerbation Status: Acute Assessment & Plan: Severe COPD- 3lpm baseline currently still on 5lpm Will likely need home vent to mask at discharge given severe disease and high risk for readmission Continue IV Solumedrol MAT protocol Oxygen to keep sats >90 Pulm consulted appreciate recs Continue Singulair, Flonase, Advair Robitussin for cough and recommended ordering honey with meals Mucomyst and Acapella ordered (2) Essential (primary) hypertension Status: Chronic Assessment & Plan: Continue home metoprolol, well controlled (3) Hyperglycemia Status: Acute Assessment & Plan: Reports prediabetic Accuchecks ordered given prolonged steroid use SSI (4) Counseling regarding end of life decision making Status: Acute Assessment & Plan: Discussed end of life wishes with patient on admission She states she would like to be a DNR but thinks her kids will be mad at her Discussed autonomy and advance directive Advance directive consult placed Discharge Summary Discharge Physical Exam Allergies: Coded Allergies: naproxen (Verified Allergy, Unknown, 01/22/16) levofloxacin (Unverified Adverse Reaction, Unknown, 06/15/17) MUSCLE PAIN Vitals & I&Os Vital Signs Date Time Temp Pulse Resp B/P (MAP) Pulse Ox O2 Delivery O2 Flow Rate FiO2 05/19/19 14:11 107 22 127/62 92 Nasal Cannula 4.00 05/19/19 08:21 96.9 05/15/19 15:26 40 General Appearance: No Apparent Distress, WD/WN Respiratory: No Accessory Muscle Use, No Respiratory Distress, Decreased Breath Sounds Cardiovascular: Regular Rate, Rhythm, No Edema, No Gallop, No JVD, No Murmur, Normal Peripheral Pulses Neurologic/Psychiatric: Alert, Oriented x3, No Motor/Sensory Deficits, Normal Mood/Affect Hospital Course Was the Problem List Reviewed?: Yes Hospital course: Pt had a lengthy hospital course for 8 days after she was admitted for exacerbation of COPD and respiratory failure. She did undergo aggressive IV steroids and pulmonology consultation and Pt was assessed to be stable and remained with close monitoring for the severity of her COPD exac erbation. On the day of discharge, she did not require any antibiotic regimen, Dr. Gtz was supportive of discharge, Dr. Garcia her PCP was notified and she was placed on short taper dose of steroids, I refilled her Xanax due to the severity of her shortness of breath when becoming anxious and the Robitussin with Codeine along Tessalon Blanca. She will have close follow-up with Dr. Garcia and Dr. Gtz and she already had home O2. I did initiate home health to evaluate lung function. Labs (last 24 hrs) Laboratory Tests 05/18/19 20:47: Glucometer 145H 05/19/19 05:09: Glucometer 93 05/19/19 11:54: Glucometer 132H Patient resulted labs reviewed. Pending Labs Imaging: Reviewed Imaging Report Discussion & Recommendations Discharge Planning: <30 minutes discharge planning Discharge Home Medications: Active Scripts Active Prednisone 10 Mg Tab.ds.pk 10 Mg PO DAILY Take 6 tabs(60mg)daily,decrease by 1 tab(10MG)daily. [Guaifenesin/Codeine] 10 ML Syrp 5 Ml PO Q4H PRN Tessalon Perles (Benzonatate) 100 Mg Capsule 100 Mg PO TID PRN Alprazolam 0.5 Mg Tablet 0.5 Mg PO BID PRN Reported Symbicort 160-4.5 Mcg Inhaler (Budesonide/Formoterol Fumarate) 10.2 Gm Hfa.aer.ad 2 Puff IH BID Furosemide 20 Mg Tablet 20 Tab PO BID Proair Hfa (Albuterol Sulfate) 1 Puff Puff 2 Puff INH Q4H PRN Hydrocodone-Acetamin 7.5-325 (Hydrocodone/Acetaminophen) 1 Each Tablet 1 Tab PO TID PRN Fluticasone Propionate 16 Gm [place].susp 2 Sprays NS DAILY Prednisone 20 Mg Tab 40 Mg PO DAILY filled 5 day supply on 05-11-2019 takes 2 20mg tablets Singulair (Montelukast Sodium) 10 Mg Tablet 10 Mg PO HS Vitamin B-12 (Cyanocobalamin (Vitamin B-12)) 1,000 Mcg Tablet 1,000 Mcg PO DAILY Cyclobenzaprine HCl 10 Mg Tablet 10 Mg PO TID PRN Famotidine 20 Mg Tablet 20 Mg PO BID PRN Albuterol Sulfate 2.5 Mg/3 Ml Vial.neb 2.5 Mg NEB Q4H PRN Sertraline HCl 50 Mg Tablet 50 Mg PO HS Metoprolol Succinate 50 Mg Tab.er.24h 50 Mg PO DAILY Cetirizine HCl 10 Mg Tablet 10 Mg PO DAILY Instructions to patient/family Please see electronic discharge instructions given to patient. Clinical Quality Measures DVT/VTE Risk/Contraindication: Risk Factor Score Per Nursin RFS Level Per Nursing on Admit: 2=Moderate CHRISTOPHE BROWER DO May 19, 2019 11:04
[2019-05-19] MEDS: BENZONATATE 100 MG (TESSALON) CAPSULE PO PRN (11:43)
--- NOTE | 2019-05-19 12:53 | NUR ---
CM/SS. Patient discharged home today. H[facility] Referral completed. DME: [facility] has delivered patient's Tr[employer] and instructed on use. Patient's spouse will transport home, her portable O2 is here in preparation. Patient will resume her [facility] in-home services.
[2019-05-19 14:11] VITALS: BP 127/62
--- NOTE | 2019-05-19 14:20 | NUR ---
PT STABLE AND READY FOR DISCHARGE PER DR BROWER ORDERS. SCHEDULED F/U APPOINTMENTS GIVEN TO PT. DR SOSA OFFICE NOTIFIED OF PATIENT DISCHARGING AND F/U APPOINTMENT NEEDED. WRITTEN AND VERBAL D/C INSTRUCTIONS GONE OVER. PT VERBALIZED UNDERSTANDING. IV D/C WITHOUT DIFFICULTY. PT WAS TAKEN VIA WHEELCHAIR TO PRIVATE VEHICLE. ALL BELONGINGS SENT WITH PT. NO FURTHER NEEDS IDENTIFIED.
--- NOTE | 2019-05-19 14:51 | D/C HH Face to Face Order ---
D/C Face to Face Orders Instructions for Patient Via [facility], Patient Instructions/FollowUp: Dr Garcia [address] Gtz 2 weeks Physician to follow Patient: Dr Ashley Jane Discharge Diet for Home: No Restrictions Patient Problems: Severe COPD Patient Data-Allergies,Ht & Wt Patient Allergies: Coded Allergies: naproxen (Verified Allergy, Unknown, 01/22/16) levofloxacin (Unverified Adverse Reaction, Unknown, 06/15/17) MUSCLE PAIN Height (Feet): 5 Height (Inches): 0.00 Weight (Pounds): 221 Weight (Ounces): 4.8 Home Health Need/Face to Face Date of Face to Face: May 19, 2019 Clinical Findings: Generalized weakness and fatigue, Muscle weakness, Shortness of breath I have seen Pt [id number]: Yes Discharged To: Home Diagnosis/Conditions: COPD severe Patient is Homebound due to: Shortness of breath/distress Homebound Status Due to the above stated illness, injury or surgical procedure (medical condition or diagnosis) and associated clinical findings, the patient is homebound because of his/her inability to leave home except with aid of a suppo rtive device and/or person AND leaving the home requires a considerable and taxing effort or is medically contraindicated. Pt req the following assistanc: Thom [place] [facility] Nursing Orders Home Health Services Order: Nursing Services, Perioperative Assistant-Evaluate & Treat, Physical Therapy-Evaluate & Treat Certify Stmt I certify that this patient is under my care and that I, a nurse practitioner or a physician; a educational assistant teacher working with me, had a face to face encounter that - meets the physician face to face encounter requirements with this patient as dated. CHRSITOPHE BROWER DO May 19, 2019 14:51
[2019-05-20] MEDS ORDERED: NS (IVPB) 100 ML ONE (04:48)
== END 2019-05-19 14:20 | disposition home health service (06) | DRG 189 ==
LOC: EDUNIT# 16:34 → ER 16:36 → 4TH 18:36 → UNDOADMIN 18:36
PROVIDERS: ADMIT Family Medicine; ATTEND Family Medicine
DX: J96.22 Acute and chronic respiratory failure with hypercapnia (principal); J44.1 Chronic obstructive pulmonary disease with (acute) exacerbation; D64.9 Anemia, unspecified; E78.00 Pure hypercholesterolemia, unspecified; I10 Essential (primary) hypertension; N31.9 Neuromuscular dysfunction of bladder, unspecified; E66.01 Morbid (severe) obesity due to excess calories; K59.09 Other constipation; Z68.41 Body mass index [BMI] 40.0-44.9, adult; F41.9 Anxiety disorder, unspecified; M19.91 Primary osteoarthritis, unspecified site; M54.9 Dorsalgia, unspecified; R25.2 Cramp and spasm; Z99.81 Dependence on supplemental oxygen; Z87.891 Personal history of nicotine dependence; Z87.01 Personal history of pneumonia (recurrent); R73.9 Hyperglycemia, unspecified; Z79.52 Long term (current) use of systemic steroids
CPT/HCPCS: 36415; 71045; 80048; 80053; 82805; 82962; 85007; 85025; 85027; 86141; 94640; 94760; 96374

== ENCOUNTER 2021-08-22 11:08 | Inpatient (IN) | payer MEDICAID ==
[~2021-08-22] VITALS: Ht 167 cm; Wt 87.3 kg
[~2021-08-22 11:08] MED LIST changes: +AMOX1TAB11 PO; +BUDE10.2 IH; +CYAN-41 PO; -CYAN10006 PO; +Guaifenesin/Codeine PO; -METO-370 PO; +METO50TA7 PO; +MONT10TA21 PO; -MONT10TA24 PO; +MONT10TA32 PO; -OXYC-471 PO; +OXYC1TAB11 PO; +SERT-413 PO; -SERT50TA9 PO
[2021-08-22] MEDS ORDERED: RT-ALBUTEROL/IPRATROPIUM 3 ML (DUONEB) VIAL ONE (11:24)
[2021-08-22] MEDS ORDERED: RT-ALBUTEROL/IPRATROPIUM 3 ML (DUONEB) VIAL INH ONE (11:30)
[2021-08-22 11:34] LABS: BASOPHILS % (AUTO) 0 % (0-10); EOSINOPHILS # (AUTO) 0.1 10^3/uL (0.0-0.3); EOSINOPHILS % (AUTO) 0 % (0-10); HEMATOCRIT 40 % (35-52); LYMPHOCYTES # (AUTO) 1.9 10^3/uL (1.0-4.0); LYMPHOCYTES % (AUTO) 13 % (12-44); MEAN CORPUSCULAR HEMOGLOBIN 31 pg (25-34); MEAN CORPUSCULAR HGB CONC 28 g/dL (32-36); MEAN CORPUSCULAR VOLUME 113 fL (80-99); MEAN PLATELET VOLUME 10.4 fL (9.0-12.2); MONOCYTES # (AUTO) 0.4 10^3/uL (0.0-1.0); MONOCYTES % (AUTO) 3 % (0-12); NEUTROPHILS % (AUTO) 83 % (42-75); PLATELET COUNT 334 10^3/uL (130-400); WHITE BLOOD COUNT 14.5 10^3/uL (4.3-11.0)
[2021-08-22 11:37] LABS: POTASSIUM 5.8 MMOL/L (3.6-5.0)
[2021-08-22 11:38] LABS: CALCIUM 9.6 MG/DL (8.5-10.1)
[2021-08-22 11:39] LABS: TOTAL PROTEIN 7.1 GM/DL (6.4-8.2)
[2021-08-22 11:41] LABS: BILIRUBIN,TOTAL 0.2 MG/DL (0.1-1.0)
[2021-08-22 11:42] LABS: FIBRIN DEGRADATION PRODUCTS 0.72 UG/ML (0.00-0.49); INR 0.9 (0.8-1.4); PROTHROMBIN TIME PATIENT 12.9 SEC (12.2-14.7)
[2021-08-22 11:43] LABS: CREATININE SERUM 0.87 MG/DL (0.60-1.30)
[2021-08-22 11:44] LABS: BILIRUBIN,URINE NEGATIVE (NEGATIVE); CLARITY,URINE CLEAR; COLOR,URINE YELLOW; GLUCOSE, URINE (UA) NEGATIVE (NEGATIVE); KETONES,URINE NEGATIVE (NEGATIVE); LEUKOCYTE ESTERASE ,URINE NEGATIVE (NEGATIVE); NITRITE,URINE NEGATIVE (NEGATIVE); PROTEIN,URINE 1+ (NEGATIVE)
[2021-08-22 11:46] LABS: MAGNESIUM 2.1 MG/DL (1.6-2.4)
[2021-08-22 12:06] LABS: RBC,URINE RARE /HPF
[2021-08-22 12:07] LABS: BACTERIA,URINE NEGATIVE /HPF; GRANULAR CASTS,URINE 0-2 /LPF; HYALINE CASTS, URINE 0-2 /LPF; SQUAMOUS EPITHELIAL CELL,UR RARE /HPF
[2021-08-22 12:32] LABS: ANISOCYTOSIS SLIGHT; BAND NEUTROPHILS 1 %; BASOPHILS % (MANUAL) 0 %; EOSINOPHILS % (MANUAL) 0 %; LYMPHOCYTES % (MANUAL) 16 %; MONOCYTES % (MANUAL) 4 %; NEUTROPHILS % (MANUAL) 79 %
[2021-08-22 12:40] LABS: HYPOCHROMASIA SLIGHT
[2021-08-22] MEDS ORDERED: NS 100 ML (IVPB) BAG IV ONE (13:00)
[2021-08-22] MEDS ORDERED: HOLD METFORMIN - RECEIVED CONTRAST 20 ML VIAL IV SCH (13:00)
[2021-08-22] MEDS ORDERED: IOHEXOL 350 MG/ML 100 ML (OMNIPAQUE 350) VIAL IV ONE (13:00)
[2021-08-22] MEDS ORDERED: CATHETER FLUSH 10 ML SYR IV PRN (13:00)
[2021-08-22 13:19] LABS: ABG BASE EXCESS 18.4 MMOL/L (-2.5-2.5); ABG OXYGEN SATURATION 95 % (94-100); ABG PO2 65 MMHG (79-93)
[2021-08-22 13:22] LABS: ABG PCO2 103 MMHG (35-45); ABG PH 7.27 (7.37-7.43)
[2021-08-22 13:23] LABS: ABG TCO2 49.7 MMOL/L (21.0-31.0); ALLENS TEST YES-POS; INSPIRED O2 40%; PATIENT TEMP 35.6; VENTILATOR NO
--- NOTE | 2021-08-22 14:53 | Diagnostic Imaging Report ---
PROCEDURE: CT angiography of the chest with contrast. TECHNIQUE: Multiple contiguous axial images were obtained through the chest after uneventful bolus administration of intravenous contrast. 3D reconstructed CTA MIP acquisitions were also performed. Auto Exposure Controls were utilized during the CT exam to meet ALARA standards for radiation dose reduction. INDICATION: Unresponsive. COMPARISON: Correlation is made with prior CT angiogram of the chest performed on 01/03/2014. FINDINGS: Evaluation of the pulmonary arterial system is without evidence of thromboembolism. No definite filling defects are seen within central, lobar, or segmental branches. The thoracic aorta is normal in caliber. No dissection is identified. No pericardial fluid is identified. There is a very small right pleural effusion. There are centrilobular emphysematous changes throughout both lungs. There are some interstitial changes in the right upper lobe as well as patchy groundglass opacities in the right upper lobe. There are some linear opacities in the lingula as well as the right lower lobe which could represent atelectasis. No mass is identified. The upper abdomen is unremarkable. IMPRESSION: 1. No evidence of pulmonary embolism or thoracic aortic dissection. 2. Small right pleural effusion. 3. Centrilobular emphysematous changes. There are some patchy groundglass opacities in the right upper lobe and interstitial changes, perhaps on an infectious/inflammatory basis. No other significant abnormality is seen. Dictated by: Dictated on workstation # [id number]
--- NOTE | 2021-08-22 14:59 | Diagnostic Imaging Report ---
Clinical indications: Patient unresponsive/sepsis. Exam: Portable chest x-ray upright view. Comparisons: Chest x-ray dated 05/12/2019. Findings: There is interval development of subtle patchy airspace opacities involving the right upper lobe. There is otherwise stable increased lung markings involving the left upper lobe and both lower lung vel[place]co (right side more than the left) . There is no pleural effusion or pneumothorax. Pulmonary vasculature and cardiac silhouette are within normal limits. There are degenerative spurs involving the spine. IMPRESSION: 1: There is interval development of mild airspace opacities involving the right upper lobe concerning for infiltrate. 2: The remainder of this exam shows no significant interval change compared to the prior study of comparison. Dictated by: Dictated on workstation # [id number]
[2021-08-22] MEDS ORDERED: NS IV 1000 ML 1,000 ML IV SCH (15:30)
--- NOTE | 2021-08-22 15:42 | ED General ---
General Chief Complaint: Unresponsive Stated Complaint: UNRESPONSIVE Nursing Triage Note: Pt to ED via [facility] with c/o unresponsiveness. Per EMS they were called for pt being unresponsive in bed, pt was given 4mg intranasal narcan and 4mg IV narcan per EMS. Pt became more combative, then got drowsy again. Pt arrives on 15L nonrebreather. Source of Information: Patient, EMS, Family, Old Records Exam Limitations: Physical Impairments History of Present Illness Date Seen by Provider: Aug 22, 2021 Time Seen by Provider: 11:09 Initial Comments This is 61-year-old woman presents to the emergency room in respiratory failure by EMS. reports she was up at 0600 this morning which is unusual for her. She complained of pain. He gave her one of his oxycodone as she was out of her hydrocodone. He then went back to sleep and when he awoke she was unresponsive. He could not get an appropriate response out of her for about 30 minutes. He called and family to help and then EMS was activated. Oxygen saturations were in the 70s. EMS administered 4 mg of Narcan nasally followed by 4 mg of Narcan IV. They then had an agitated response from the patient but not a significant improvement in mental status. She did move all of her extremities in route for EMS. Patient has history of COPD and is not moving air well on arrival. There was notation in the prior visit about her desire for DNR. After discussion with family, it was determined that patient would not want intubation unless it was required to keep her alive long enough for her family to arrive to the hospital to visit her. This decision was based off of patient's prior comments that expressed those specific wishes. Later, after patient became more alert on BiPAP, patient did state she agrees with a DNR status. She uses nasal cannula oxygen support at home. Allergies and Home Medications Allergies Coded Allergies: levofloxacin (Unverified Adverse Reaction, Unknown, 06/15/17) MUSCLE PAIN naproxen (Verified Adverse Reaction, Unknown, Nausea, 08/22/21) tramadol (Verified Adverse Reaction, Unknown, Nausea, 08/22/21) Patient Home Medication List Home Medication List Reviewed: Yes Albuterol Sulfate (Albuterol Sulfate) 2.5 Mg/3 Ml Vial.neb, 2.5 MG NEB Q4H PRN for SHORTNESS OF BREATH, (Reported) Entered as Reported by: ANTONINA K CASNER on 01/22/16 1353 Last Action: Reviewed Albuterol Sulfate (Proventil Hfa) 6.7 Gm Hfa.aer.ad, 2 PUFF INH Q6H PRN for SHORTNESS OF BREATH, (Reported) Entered as Reported by: EL GERMAIN on 08/23/211510 Last Action: Reviewed Budesonide/Formoterol Fumarate (Budesonide-Formoterol 160-4.5) 10.2 Gm Hfa.aer.ad, 2 PUFF INH BID, (Reported) Entered as Reported by: EL GERMAIN on 08/23/211510 Last Action: Reviewed Cyanocobalamin (Cyanocobalamin Injection) 1,000 Mcg/Ml Inj, 1 MG IM MONTHLY, (Reported) Entered as Reported by: EL GERMAIN on 08/23/211510 Last Action: Reviewed Ergocalciferol (Vitamin D2) (Vitamin D2) 1,250 Mcg Capsule, 1,250 MCG PO FRI, (Reported) Entered as Reported by: EL GERMAIN on 08/23/211510 Last Action: Reviewed Folic Acid (Folic Acid) 1 Mg Tablet, 1 MG PO DAILY, (Reported) Entered as Reported by: EL GERMAIN on 08/23/211510 Last Action: Reviewed Furosemide (Furosemide) 20 Mg Tablet, 40 MG PO Q48H, (Reported) Entered as Reported by: EL GERMAIN on 05/13/19 1244 Last Action: Reviewed Hydrocodone/Acetaminophen (Hydrocodone-Acetamin 7.5-325) 1 Each Tablet, 1 EA PO Q8- 12H PRN for PAIN-MODERATE (5-7), (Reported) Entered as Reported by: EL GERMAIN on 08/23/211510 Last Action: Reviewed Lorazepam (Ativan) 0.5 Mg Tablet, 0.5 MG PO Q8H PRN for ANXIETY, (Reported) Entered as Reported by: EL GERMAIN on 08/23/211510 Last Action: Reviewed Metoprolol Succinate (Metoprolol Succinate) 50 Mg Tab.er.24h, 50 MG PO DAILY, (Reported) Entered as Reported by: ANTONINA CHANEL on 01/22/16 1347 Last Action: Reviewed Montelukast Sodium (Montelukast Sodium) 10 Mg Tablet, 10 MG PO DAILY, (Reported) Entered as Reported by: EL GERMAIN on 08/23/21 1511 Last Action: Reviewed Discontinued Medications Albuterol Sulfate (Proair Hfa) 1 Puff Puff, 2 PUFF INH Q4H PRN for SHORTNESS OF BREATH, (Reported) Discontinued Reason: No Longer Taking Entered as Reported by: EL GERMAIN on 05/13/19 1244 Last Action: Discontinued Alprazolam (Alprazolam) 0.5 Mg Tablet, 0.5 MG PO BID PRN for ANXIETY Discontinued Reason: No Longer Taking Prescribed by: CHRISTOPHE BROWER on 05/19/19 110 Last Action: Discontinued Benzonatate (Tessalon Perles) 100 Mg Capsule, 100 MG PO TID PRN for COUGH Discontinued Reason: No Longer Taking Prescribed by: CHRISTOPHE BROWER on 05/19/19 110 Last Action: Discontinued Budesonide/Formoterol Fumarate (Symbicort 160-4.5 Mcg Inhaler) 10.2 Gm Hfa.aer.ad, 2 PUFF IH BID, (Reported) Discontinued Reason: Duplicate Order Entered as Reported by: EL GERMAIN on 05/13/19 1244 Last Action: Discontinued Cetirizine HCl (Cetirizine HCl) 10 Mg Tablet, 10 MG PO DAILY, (Reported) Discontinued Reason: Duplicate Order Entered as Reported by: ANTONINA CHANEL on 01/22/16 1347 Last Action: Discontinued Cyanocobalamin (Vitamin B-12) (Vitamin B-12) 1,000 Mcg Tablet, 1,000 MCG PO DAILY, (Reported) Discontinued Reason: Duplicate Order Entered as Reported by: ANTONINA CHANEL on 08/07/17 3325 Last Action: Discontinued Cyclobenzaprine HCl (Cyclobenzaprine HCl) 10 Mg Tablet, 10 MG PO TID PRN for MUSCLE SPASMS, (Reported) Discontinued Reason: No Longer Taking Entered as Reported by: ANTONINA CHANEL on 08/07/17 1503 Last Action: Discontinued Famotidine (Famotidine) 20 Mg Tablet, 20 MG PO BID PRN for HEARTBURN, (Reported) Discontinued Reason: No Longer Taking Entered as Reported by: KARSTEN OCHOA on 11/16/16 1102 Last Action: Discontinued Fluticasone Propionate (Fluticasone Propionate) 16 Gm [place].susp, 2 SPRAYS NS DAILY, (Reported) Discontinued Reason: No Longer Taking Entered as Reported by: EL GERMAIN on 05/13/19 124 Last Action: Discontinued Hydrocodone Bit/Acetaminophen (HYDROcodone/APAP 7.5/325 TAB) 1 Each Tablet, 1 TAB PO TID PRN for PAIN-MODERATE, (Reported) Discontinued Reason: Duplicate Order Entered as Reported by: EL GERMAIN on 05/13/19 124 Last Action: Discontinued Montelukast Sodium (Singulair) 10 Mg Tablet, 10 MG PO HS, (Reported) Discontinued Reason: No Longer Taking Entered as Reported by: EL GERMAIN on 05/13/19 124 Last Action: Discontinued Prednisone (Prednisone) 20 Mg Tab, 40 MG PO DAILY, (Reported) Discontinued Reason: No Longer Taking Entered as Reported by: EL GERMAIN on 05/13/191243 Last Action: Discontinued Prednisone (Prednisone) 10 Mg Tab.ds.pk, 10 MG PO DAILY Discontinued Reason: No Longer Taking Prescribed by: CHRISTOPHE BROWER on 05/19/19 1101 Last Action: Discontinued Sertraline HCl (Sertraline HCl) 50 Mg Tablet, 50 MG PO HS, (Reported) Discontinued Reason: No Longer Taking Entered as Reported by: ANTONINA CHANEL on 01/22/16 1347 Last Action: Discontinued [Guaifenesin/Codeine] 10 ML SYRP, 5 ML PO Q4H PRN for COUGH Discontinued Reason: No Longer Taking Prescribed by: CHRISTOPHE BROWER on 05/19/19 110 Last Action: Discontinued Review of Systems Review of Systems Constitutional: see HPI; No fever EENTM: no symptoms reported Respiratory: see HPI Cardiovascular: no symptoms reported Gastrointestinal: no symptoms reported Genitourinary: no symptoms reported : No Musculoskeletal: back pain Skin: no symptoms reported Psychiatric/Neurological: No Symptoms Reported Hematologic/Lymphatic: No Symptoms Reported Immunological/Allergic: no symptoms reported Past Lasxkjq-Paivrm-Clfimn Hx Patient Social History Tobacco Use?: No Smoking Status: Former Smoker Substance use?: No Alcohol Use?: No Immunizations Up To Date Tetanus Booster (TDap): More than 5yrs PED Vaccines UTD: No Seasonal Allergies Seasonal Allergies: Yes Past Medical History Surgeries: Yes Gallbladder, Hysterectomy, Tubal Ligation Respiratory: Yes Pneumonia, Chronic Bronchitis, COPD, Emphysema Currently Using CPAP: No Currently Using BIPAP: No Cardiac: Yes High Cholesterol, Hypertension Neurological: No : No Reproductive Disorders: Yes 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 Sexually Transmitted Disease: No HIV/AIDS: No Genitourinary: Yes Neurogenic Bladder Gastrointestinal: Yes Chronic Constipation Musculoskeletal: Yes Degenerate Disk Disease, Arthritis, Chronic Back Pain, Spasms Endocrine: Yes (last labs done shown border line diabetes patient states ) HEENT: No Loss of Vision: Denies Hearing Impairment: Denies Cancer: No Psychosocial: Yes (mood swings on zoloft) Anxiety Integumentary: No Blood Disorders: No Adverse Reaction/Blood Tranf: No Family Medical History Cancer Cancer of colon Chest pain Congestive heart failure Family history: Alzheimer's disease Family history: Arthritis Family history: Asthma Family history: Breast disease Family history: Cardiovascular disease Family history: Diabetes mellitus Family history: Hypertension Family history: Osteoporosis Family history: Thyroid disorder Headache Heart disease History of - respiratory disease Kidney disease Myocardial infarction Stroke Visual impairment No Family History of: Abdominal aortic aneurysm [place]'s disease Alcoholism Aphasia Cataract Congenital heart disease Cystic fibrosis Dementia Dysphagia Family history: Allergy Family history: Coronary thrombosis Family history: Gastrointestinal disease Family history: Glaucoma Hearing loss Hereditary disease History of - anemia History of - disorder History of drug abuse Human immunodeficiency virus (HIV) seropositivity Hypercholesterolemia Infertile Malignant neoplasm of lung Parkinson's disease Prostate cancer Psychotic disorder Seizure disorder Tuberculosis No Pertinent Family Hx Physical Exam Vital Signs Vital Signs - First Documented 08/22/21 08/22/21 11:16 11:24 Temp 35.7 Pulse 99 Resp 26 B/P (MAP) 138/40 (72) Pulse Ox 95 O2 Delivery Non Rebreather O2 Flow Rate 15.00 FiO2 40 Capillary Refill : Less Than 3 Seconds Height, Weight, BMI Height: 5'0.00" Weight: 221lbs. 4.8oz. 100.640577og; 35.00 BMI Method:Stated General Appearance: WD/WN, Obese, Other (Minimally responsive with agonal breathing) HEENT: PERRL/EOMI, Normal ENT Inspection Neck: Normal Inspection Respiratory: No Crackles; Decreased Breath Sounds Cardiovascular: Regular Rate, Rhythm, No Edema Gastrointestinal: Soft; No Distended Extremity: Normal Inspection, No Pedal Edema Neurologic/Psychiatric: Other (Minimally responsive, was observed to move all 4 extremities) Skin: Normal Color, Warm/Dry Focused Exam Lactate Level 9/29/21 12:05: Lactic Acid Level 0.67 Lactic Acid Level Laboratory Tests Test 08/22/21 12:05 Lactic Acid Level 0.67 MMOL/L (0.50-2.00) Progress/Results/Core Measures Suspected Sepsis SIRS Temperature: Pulse: 98 Respiratory Rate: 29 Laboratory Tests 08/22/21 11:18: White Blood Count 14.5H Blood Pressure 138 /40 Mean: 72 08/22/21 12:05: Lactic Acid Level 0.67 Laboratory Tests 08/22/21 11:18: Creatinine 0.87, INR Comment 0.9, Platelet Count 334, Total Bilirubin 0.2 Results/Orders Lab Results Laboratory Tests Test 08/22/21 11:18 08/22/21 11:28 08/22/21 12:05 08/22/21 13:00 Range/Units White Blood Count 14.5 H 4.3-11.0 10^3/uL Red Blood Count 3.54 L 3.80-5.11 10^6/uL Hemoglobin 11.0 L 11.5-16.0 g/dL Hematocrit 40 35-52 % Mean Corpuscular Volume 113 H 80-99 fL Mean Corpuscular Hemoglobin 31 25-34 pg Mean Corpuscular Hemoglobin Concent 28 L 32-36 g/dL Red Cell Distribution Width 13.5 10.0-14.5 % Platelet Count 334 130-400 10^3/uL Mean Platelet Volume 10.4 9.0-12.2 fL Immature Granulocyte % (Auto) 1 % Neutrophils (%) (Auto) 83 H 42-75 % Lymphocytes (%) (Auto) 13 12-44 % Monocytes (%) (Auto) 3 0-12 % Eosinophils (%) (Auto) 0 0-10 % Basophils (%) (Auto) 0 0-10 % Neutrophils # (Auto) 12.0 H 1.8-7.8 10^3/uL Lymphocytes # (Auto) 1.9 1.0-4.0 10^3/uL Monocytes # (Auto) 0.4 0.0-1.0 10^3/uL Eosinophils # (Auto) 0.1 0.0-0.3 10^3/uL Basophils # (Auto) 0.0 0.0-0.1 10^3/uL Immature Granulocyte # (Auto) 0.2 H 0.0-0.1 10^3/uL Neutrophils % (Manual) 79 % Lymphocytes % (Manual) 16 % Monocytes % (Manual) 4 % Eosinophils % (Manual) 0 % Basophils % (Manual) 0 % Band Neutrophils 1 % Hypochromasia SLIGHT Basophilic Stippling SLIGHT Anisocytosis SLIGHT Macrocytosis SLIGHT Prothrombin Time 12.9 12.2-14.7 SEC INR Comment 0.9 0.8-1.4 Activated Partial Thromboplast Time 27 24-35 SEC D-Dimer 0.72 H 0.00-0.49 UG/ML Urine Color YELLOW Urine Clarity CLEAR Urine pH 6.0 5-9 Urine Specific [place] 1.025 H 1.016-1.022 Urine Protein 1+ H NEGATIVE Urine Glucose (UA) NEGATIVE NEGATIVE Urine Ketones NEGATIVE NEGATIVE Urine Nitrite NEGATIVE NEGATIVE Urine Bilirubin NEGATIVE NEGATIVE Urine Urobilinogen 0.2 < = 1.0 MG/DL Urine Leukocyte Esterase NEGATIVE NEGATIVE Urine RBC (Auto) TRACE-I NEGATIVE Urine RBC RARE /HPF Urine WBC NONE /HPF Urine Squamous Epithelial Cells RARE /HPF Urine Crystals NONE /LPF Urine Bacteria NEGATIVE /HPF Urine Casts PRESENT /LPF Urine Hyaline Casts 0-2 H /LPF Urine Granular Casts 0-2 H /LPF Urine Mucus RARE /LPF Urine Culture Indicated CULTURE PENDING Sodium Level 141 135-145 MMOL/L Potassium Level 5.8 H 3.6-5.0 MMOL/L Chloride Level 90 L 98-107 MMOL/L Carbon Dioxide Level 45 H 21-32 MMOL/L Anion Gap 6 5-14 MMOL/L Blood Urea Nitrogen 15 7-18 MG/DL Creatinine 0.87 0.60-1.30 MG/DL Estimat Glomerular Filtration Rate 66 BUN/Creatinine Ratio 17 Glucose Level 249 H 70-105 MG/DL Calcium Level 9.6 8.5-10.1 MG/DL Corrected Calcium 9.6 8.5-10.1 MG/DL Magnesium Level 2.1 1.6-2.4 MG/DL Total Bilirubin 0.2 0.1-1.0 MG/DL Aspartate Amino Transf (AST/SGOT) 16 5-34 U/L Alanine Aminotransferase (ALT/SGPT) 12 0-55 U/L Alkaline Phosphatase 104 40-136 U/L Myoglobin 88.5 10.0-92.0 NG/ML Troponin I 0.043 H <0.028 NG/ML C-Reactive Protein High Sensitivity 2.49 H 0.00-0.50 MG/DL B-Type Natriuretic Peptide 446.7 H <100.0 PG/ML Total Protein 7.1 6.4-8.2 GM/DL Albumin 4.0 3.2-4.5 GM/DL Procalcitonin 0.02 <0.10 NG/ML Influenza Type A Antigen NEGATIVE NEGATIVE Influenza Type B Antigen NEGATIVE NEGATIVE SARS-CoV-2 RNA (RT-PCR) Not Detected Not Detecte Lactic Acid Level 0.67 0.50-2.00 MMOL/L Blood Gas Puncture Site L RAD Blood Gas Patient Temperature 35.6 Arterial Blood pH 7.27 *L 7.37-7.43 Arterial Blood Partial Pressure CO2 103 *H 35-45 MMHG Arterial Blood Partial Pressure O2 65 L 79-93 MMHG Arterial Blood HCO3 46 *H 23-27 MMOL/L Arterial Blood Total CO2 49.7 *H 21.0-31.0 MMOL/L Arterial Blood Oxygen Saturation 95 94-100 % Arterial Blood Base Excess 18.4 H -2.5-2.5 MMOL/L Alejandro Test YES-POS Blood Gas Ventilator Setting NO Blood Gas Inspired Oxygen 40% Micro Results Microbiology 08/22/21 Blood Culture - Preliminary, Resulted Gram Positive Cocci in Chains Gram Positive Cocci in Cluster 08/22/21 Urine Culture - Preliminary, Resulted NO GROWTH My Orders Orders - EVENS PIERCE MD Cbc With Automated Diff (08/22/21 11:23) Comprehensive Metabolic Panel (08/22/21 11:23) Blood Culture (08/22/21 11:23) Sputum Culture (08/22/21 11:23) Urinalysis (08/22/21 11:23) Urine Culture (08/22/21 11:23) Protime With Inr (08/22/21 11:23) Partial Thromboplastin Time (08/22/21 11:23) Chest 1 View, Ap/Pa Only (08/22/21 11:23) Ed Iv/Invasive Line Start (08/22/21 11:23) Ed Iv/Invasive Line Start (08/22/21 11:23) Vital Signs Adult Sepsis Patie Q15M (08/22/21 11:23) O2 (08/22/21 11:23) Remove Rings In Anticipation O (08/22/21 11:23) Lactic Acid Analyzer (08/22/21 11:23) Fibrin Degradation Products (08/22/21 11:23) Procalcitonin (Pct) (08/22/21 11:23) Hs C Reactive Protein (08/22/21 11:23) Covid 19 Inhouse Test (08/22/21 11:23) Albuterol/Ipra Inhalation Soln (Duoneb I (08/22/21 11:30) Svn Small Volume Nebulizer (08/22/21 11:23) Magnesium (08/22/21 11:23) Ekg Tracing (08/22/21 11:23) Myoglobin Serum (08/22/21 11:23) Monitor-Rhythm Ecg Trace Only (08/22/21 11:23) Troponin I (08/22/21 11:23) Albuterol/Ipra Inhalation Soln (Duoneb I (08/22/21 11:24) Dexamethasone Injection (Decadron Inje (08/22/21 11:30) BNP (08/22/21 11:28) Manual Differential (08/22/21 11:18) Influenza A & B Antigens (08/22/21 12:20) Ct Angio Chest W (08/22/21 12:56) Iohexol Injection (Omnipaque 350 Mg/Ml 1 (08/22/21 13:00) Received Contrast (Hold Metformin- Contr (08/22/21 13:00) Sodium Chloride Flush (Catheter Flush Sy (08/22/21 13:00) Ns (Ivpb) (Sodium Chloride 0.9% Ivpb Bag (08/22/21 13:00) Arterial Blood Gas (08/22/21 13:06) Ns Iv 1000 Ml (Sodium Chloride 0.9%) (08/22/21 15:30) Medications Given in ED Vital Signs/I&O 08/22/21 08/22/21 08/22/21 11:16 11:24 14:53 Temp 35.7 Pulse 99 98 Resp 26 29 B/P (MAP) 138/40 (72) Pulse Ox 95 100 94 O2 Delivery Non Rebreather NIV Bilevel O2 Flow Rate 15.00 50.00 FiO2 40 Capillary Refill : Less Than 3 Seconds Blood Pressure Mean: 72 Progress Note : Time: 15:41 Progress Note Patient was immediately seen and examined upon arrival. BiPAP was administered. This produced a remarkable improvement in her mental status. She eventually became conversational. DuoNeb treatment was administered along with steroids. Covid swab took a long time to return due to lab error but eventually returned negative as did the influenza swabs. Patient did not appear to have sepsis or notable infection. A azithromycin is being administered as part of the COPD exacerbation treatment. D-dimer was mildly elevated but CT angiogram showed no evidence of pulmonary embolus. Respiratory failure is likely secondary to COPD exacerbation. Altered mental status is likely secondary to severe hypercarbia noted on the ABG. The use of the oxycodone at home likely contributed to the respiratory suppression and hypercarbia. Patient did complain of back pain in the ER. Toradol was given as I did not want to worsen her respiratory status with any opioids. 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 ECG Initial ECG Impression Date: Aug 22, 2021 Initial ECG Impression Time: 11:43 Initial ECG Rate: 95 Initial ECG Rhythm: Normal Sinus Initial ECG Intervals: Normal Initial ECG Impression: Normal Diagnostic Imaging Diagonstic Imaging: Xray Plain Films/CT/US/NM/MRI: chest Comments NAME: HENRRY BROWNE MED REC#: [id number] PT STATUS: ADM IN : 1960 PHYSICIAN: EVENS PIERCE MD ADMIT DATE: 08/22/21/ICU Signed Date of Exam:08/22/21 CHEST 1 VIEW, AP/PA ONLY Clinical indications: Patient unresponsive/sepsis. Exam: Portable chest x-ray upright view. Comparisons: Chest x-ray dated 05/12/2019. Findings: There is interval development of subtle patchy airspace opacities involving the right upper lobe. There is otherwise stable increased lung markings involving the left upper lobe and both lower lung velasco (right side more than the left) . There is no pleural effusion or pneumothorax. Pulmonary vasculature and cardiac silhouette are within normal limits. There are degenerative spurs involving the spine. IMPRESSION: 1: There is interval development of mild airspace opacities involving the right upper lobe concerning for infiltrate. 2: The remainder of this exam shows no significant interval change compared to the prior study of comparison. Dictated by: Dictated on workstation # [id number] Dict: 08/22/21 1455 Trans: 08/22/211912 [facility] [id number] Interpreted by: DIPTI FAN MD Electronically signed by: DIPTI FAN MD 08/22/211912 Diagonstic Imaging: CT Plain Films/CT/US/NM/MRI: chest Comments NAME: HENRRY BROWNE [facility] REC#: [id number] PT STATUS: REG ER : 1960 PHYSICIAN: EVENS PIERCE MD ADMIT DATE: 08/22/21/ER Signed Date of Exam:08/22/21 CT ANGIO CHEST W PROCEDURE: CT angiography of the chest with contrast. TECHNIQUE: Multiple contiguous axial images were obtained through the chest after uneventful bolus administration of intravenous contrast. 3D reconstructed CTA MIP acquisitions were also performed. Auto Exposure Controls were utilized during the CT exam to meet ALARA standards for radiation dose reduction. INDICATION: Unresponsive. COMPARISON: Correlation is made with prior CT angiogram of the chest performed on 01/03/2014. FINDINGS: Evaluation of the pulmonary arterial system is without evidence of thromboembolism. No definite filling defects are seen within central, lobar, or segmental branches. The thoracic aorta is normal in caliber. No dissection is identified. No pericardial fluid is identified. There is a very small right pleural effusion. There are centrilobular emphysematous changes throughout both lungs. There are some interstitial changes in the right upper lobe as well as patchy groundglass opacities in the right upper lobe. There are some linear opacities in the lingula as well as the right lower lobe which could represent atelectasis. No mass is identified. The upper abdomen is unremarkable. IMPRESSION: 1. No evidence of pulmonary embolism or thoracic aortic dissection. 2. Small right pleural effusion. 3. Centrilobular emphysematous changes. There are some patchy groundglass opacities in the right upper lobe and interstitial changes, perhaps on an infectious/inflammatory basis. No other significant abnormality is seen. Dictated by: Dictated on workstation # [id number] Dict: 08/22/21 1443 Trans: 08/22/21 1602 [facility] [id number] Interpreted by: MARCY WASHINGTON MD Electronically signed by: MARCY WASHINGTON MD 08/22/21 1602 Departure Communication (Admissions) Time/Spoke to Admitting Phy: 15:31 Dr. Munson Time/Spoke to Consulting Phy: 15:00 Dr. Campa Impression Primary Impression: COPD exacerbation Additional Impressions: Acute respiratory failure Qualified Codes: J96.01 - Acute respiratory failure with hypoxia; J96.02 - Acute respiratory failure with hypercapnia Elevated troponin Disposition: ADMITTED INPATIENT Condition: Improved Admissions Decision to Admit Reason: Admit from ER (General) Decision to Admit/Date: Aug 22, 2021 Time/Decision to Admit Time: 11:15 Departure-Patient Inst. Referrals: ANGELITA AVILEZ MD (PCP/Family) Primary Care Physician Copy Copies To 1: ANGLEITA AVILEZ MD, JOSHUA T MD Aug 22, 2021 15:42
[2021-08-22] MEDS ORDERED: KETOROLAC 30 MG/ML VIAL IVP ONE (16:00)
[2021-08-22] MEDS ORDERED: NS IV 1000 ML 1,000 ML ONE (16:47)
[2021-08-22] MEDS ORDERED: RT-ALBUTEROL SULF 2.5 MG/3 ML PRE-MIX VIAL IH PRN (17:00)
[2021-08-22] MEDS ORDERED: AZITHROMYCIN 500 MG/NS 250 ML IVPB IV NR ×2 (17:00)
[2021-08-22] MEDS ORDERED: ONDANSETRON 4 MG/2 ML (SDV) Z0FRAN IV PRN (17:00)
[2021-08-22 17:06] LABS: ABG BASE EXCESS 16.4 MMOL/L (-2.5-2.5); ABG OXYGEN SATURATION 100 % (94-100); ABG PH 7.35 (7.37-7.43); ABG PO2 173 MMHG (79-93)
[2021-08-22 17:07] LABS: ALLENS TEST YES-POS; INSPIRED O2 50%; PATIENT TEMP 36.1; VENTILATOR NO
[2021-08-22 17:11] LABS: ABG PCO2 79 MMHG (35-45); ABG TCO2 45.5 MMOL/L (21.0-31.0)
[2021-08-22] MEDS: methylPREDNISolone 40 MG/ML (Solu-MEDROL) VIAL IV SCH (17:14)
[2021-08-22] MEDS: NS IV 1000 ML 1,000 ML IV SCH (17:15)
--- NOTE | 2021-08-22 17:43 | Tele-ICU Consult ---
History of Present Illness History of Present Illness Date Seen by Provider: Aug 22, 2021 Time Seen by Provider: 17:38 History of Present Illness 61 F with COPD, admitted with acute exacerbation, found unresponsive at home, given Narcan,doing better 7.35, 79/173, on 10 l oxymask ABG 7.27/103/65, now on albuterol, Medrol, azithromycin CXR shows hyperinflation Allergies and Home Medications Allergies Coded Allergies: levofloxacin (Unverified Adverse Reaction, Unknown, 06/15/17) MUSCLE PAIN naproxen (Verified Adverse Reaction, Unknown, Nausea, 08/22/21) tramadol (Verified Adverse Reaction, Unknown, Nausea, 08/22/21) Home Medications Albuterol Sulfate 2.5 Mg/3 Ml Vial.neb, 2.5 MG NEB Q4H PRN for SHORTNESS OF BR EATH, (Reported) Alprazolam 0.5 Mg Tablet, 0.5 MG PO BID PRN for ANXIETY Prescribed by: CHRISTOPHE BROWER on 05/19/19 1101 Budesonide/Formoterol Fumarate 10.2 Gm Hfa.aer.ad, 2 PUFF IH BID, (Reported) Cetirizine HCl 10 Mg Tablet, 10 MG PO DAILY, (Reported) Cyanocobalamin (Vitamin B-12) 1,000 Mcg Tablet, 1,000 MCG PO DAILY, (Reported) Furosemide 20 Mg Tablet, 20 MG PO Q48H, (Reported) Hydrocodone Bit/Acetaminophen 1 Each Tablet, 1 TAB PO TID PRN for PAIN-MODERATE, (Reported) Metoprolol Succinate 50 Mg Tab.er.24h, 50 MG PO DAILY PRN, (Reported) Past Medical/Social/Family Hx Patient Social History Tobacco Use?: No Smoking Status: Former Smoker Use of E-Cig and/or Vaping dev: No Substance use?: No Alcohol Use?: No Pt stated abuse/neglect: No Immunizations Up To Date Influenza Vaccine Up-to-Date: No; Not Current Hepatitis A: Yes TB Skin Test: Negative Date of Pneumonia Vaccine: Sep 14, 2014 Current Status Advance Directives: No Primary Language: Bur[place]ian Sensory deficits: Vision impairment Implanted or Applied Medical D: None Review of Systems Constitutional: see HPI EENTM: see HPI Respiratory: see HPI Cardiovascular: see HPI Gastrointestinal: see HPI Genitourinary: see HPI Musculoskeletal: see HPI Skin: see HPI Psychiatric/Neurological: See HPI Sepsis Event Evaluation Height, Weight, BMI Height: 5'0.00" Weight: 221lbs. 4.8oz. [id number]; 28.93 BMI Method:Stated Exam Exam Patient acknowledged, consented, and participated in this virtual visit which was conducted using real time audio/video Vital Signs Date Time Temp Pulse Resp B/P (MAP) Pulse Ox O2 Delivery O2 Flow Rate FiO2 08/22/21 16:47 36.2 106 19 137/84 94 10.00 08/22/21 16:35 36.5 90 24 112/72 99 NIV Bilevel 40.00 08/22/21 14:53 98 29 94 50.00 08/22/21 11:24 100 NIV Bilevel 40 08/22/21 11:16 35.7 99 26 138/40 (72) 95 Non Rebreather 15.00 Height & Weight Height: 5'0.00" Weight: 221lbs. 4.8oz. 100.266652av; 28.93 BMI Method:Stated General Appearance: Mild Distress Respiratory: Decreased Breath Sounds, Rhonci Cardiovascular: Regular Rate, Rhythm Capillary Refill: Less Than 3 Seconds Gastrointestinal: normal bowel sounds, non tender Extremity: No Pedal Edema Results Lab Laboratory Tests 08/22/21 11:18 Assessment/Plan Assessment/Plan AECOPD, continue on present meds watch mental status, Critical Care: Critically Ill Patient ROBERT DEL ROSARIO MD Aug 22, 2021 17:43
[2021-08-22] MEDS ORDERED: PANTOPRAZOLE 40 MG (PROTONIX) VIAL IV NR (17:45)
[2021-08-22] MEDS ORDERED: meTOprolol TARTRATE 50 MG (LOPRESSOR) TAB PO NR (17:45)
[2021-08-22] MEDS ORDERED: FLU QUADRIvalent (3YOA+) 60 mcg/0.5 ml 2021-22(AFLURIA) IM ONE (18:00)
--- NOTE | 2021-08-22 18:26 | History & Physical-Hospitalist ---
History of Present Illness HPI/Chief Complaint Raven Melendrez is a 61 year old female with PMH COPD, chronic respiratory failure with hypoxia, HTN, anxiety, who presented with altered mental status. Her called EMS. She had been taking opiates for back pain. She was given Narcan and became slightly agitated but no significant improvement in mental status. She was found to be hypercapnic and was placed on BiPAP. Upon my exam, her mental status has improved. She is oriented. She does not remember what happened. She has been in her normal state of health recently. She denies fevers and chills. She has been short of breath. She says she was not taking any more pain meds than usual which she uses for chronic back pain. Source: patient, RN/MD Exam Limitations: no limitations Date Seen 08/22/21 Time Seen by a Provider: 17:40 Attending Physician Codey Roy MD PCP Ashley Garcia MD Referring Physician Date of Admission Aug 22, 2021 at 15:33 Home Medications & Allergies Home Medications Reviewed patient Home Medication Reconciliation performed by pharmacy medication reconciliations guitar technician and/or nursing. Patients Allergies have been reviewed. Allergies Allergies Coded Allergies levofloxacin (Unverified Adverse Reaction, Unknown, 06/15/17) MUSCLE PAIN naproxen (Verified Adverse Reaction, Unknown, Nausea, 08/22/21) tramadol (Verified Adverse Reaction, Unknown, Nausea, 08/22/21) Past Dwiplqj-[id number]-Gdddcn Hx Patient Social History Tobacco Use?: No Smoking Status: Former Smoker Use of E-Cig and/or Vaping dev: No Substance use?: No Alcohol Use?: No Pt feels they are or have been: No Immunizations Up To Date Date of Influenza Vaccine: Sep 14, 2014 Hepatitis A: Yes PED Vaccines UTD: No Date of Pneumonia Vaccine: Sep 14, 2014 Seasonal Allergies Seasonal Allergies: Yes Current Status Advance Directives: No Primary Language: Macedonian Sensory deficits: Vision impairment Implanted or Applied Medical D: None Past Medical History Surgeries: Gallbladder, Hysterectomy, Tubal Ligation Pneumonia, Chronic Bronchitis, COPD, Emphysema Currently Using CPAP: No Currently Using BIPAP: No High Cholesterol, 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 Sexually Transmitted Disease: No HIV/AIDS: No Neurogenic Bladder Chronic Constipation Degenerate Disk Disease, Arthritis, Chronic Back Pain, Spasms Loss of Vision: Denies Hearing Impairment: Denies Anxiety Blood Disorders: No Adverse Reaction/Blood Tranf: No Family Medical History Cancer Cancer of colon Chest pain Congestive heart failure Family history: Alzheimer's disease Family history: Arthritis Family history: Asthma Family history: Breast disease Family history: Cardiovascular disease Family history: Diabetes mellitus Family history: Hypertension Family history: Osteoporosis Family history: Thyroid disorder Headache Heart disease History of - respiratory disease Kidney disease Myocardial infarction Stroke Visual impairment No Family History of: Abdominal aortic aneurysm Sammy's disease Alcoholism Aphasia Cataract Congenital heart disease Cystic fibrosis Dementia Dysphagia Family history: Allergy Family history: Coronary thrombosis Family history: Gastrointestinal disease Family history: Glaucoma Hearing loss Hereditary disease History of - anemia History of - disorder History of drug abuse Human immunodeficiency virus (HIV) seropositivity Hypercholesterolemia Infertile Malignant neoplasm of lung Parkinson's disease Prostate cancer Psychotic disorder Seizure disorder Tuberculosis No Pertinent Family Hx Review of Systems Constitutional: no symptoms reported EENTM: no symptoms reported Respiratory: short of breath Cardiovascular: no symptoms reported Gastrointestinal: diarrhea Genitourinary: no symptoms reported Musculoskeletal: back pain Skin: no symptoms reported Psychiatric/Neurological: No Symptoms Reported Physical Exam Physical Exam Vital Signs Vital Signs - First Documented 08/22/21 08/22/21 11:16 11:24 Temp 35.7 Pulse 99 Resp 26 B/P (MAP) 138/40 (72) Pulse Ox 95 O2 Delivery Non Rebreather O2 Flow Rate 15.00 FiO2 40 Capillary Refill : Less Than 3 Seconds Height, Weight, BMI Height: 5'0.00" Weight: 221lbs. 4.8oz. [id number]; 28.93 BMI Method:Stated General Appearance: No Apparent Distress, Anxious, Chronically ill HEENT: PERRL/EOMI, Pharynx Normal Neck: Normal Inspection, Supple Respiratory: No Respiratory Distress, Decreased Breath Sounds; No Wheezing Cardiovascular: No Edema, No Murmur, Tachycardia Gastrointestinal: Normal Bowel Sounds, Soft, Tenderness Extremity: Normal Inspection, Non Tender, No Pedal Edema Neurologic/Psychiatric: Alert, Oriented x3, No Motor/Sensory Deficits, Normal Mood/Affect Skin: Normal Color, Warm/Dry Results Results/Procedures Labs Laboratory Tests 08/22/21 11:18 08/22/21 19:19 08/23/21 09:05 Patient resulted labs reviewed. Imaging: Reviewed Imaging Films, Reviewed Imaging Report Assessment/Plan Admission Diagnosis Acute on chronic respiratory failure with hypoxia and hypercapnia Admission Status: Inpatient Order (span 2 midnights) Reason for Inpatient Admission: Respiratory failure Assessment and Plan Acute on chronic respiratory failure with hypoxia and hypercapnia Severe COPD with acute exacerbation ABG with hypercapnia and respiratory acidosis Chest x-ray unremarkable CT consistent with emphysema, possible infiltrate, no PE Covid and flu negative Started on IV steroids Azithromycin MAT protocol BiPAP as needed TeleICU consulted Elevated troponin Trop 0.043 on arrival No chest pain Monitor Hyperkalemia K mildly elevated Monitor and treat as needed DVT propylaxis: Lovenox Critical Care Critically Ill Patient Diagnosis/Problems Diagnosis/Problems (1) Acute on chronic respiratory failure with hypoxia and hypercapnia Status: Acute (2) Severe chronic obstructive pulmonary disease Onset Date: 01/07/2014 Status: Acute (3) COPD exacerbation Status: Acute CODEY ROY MD Aug 22, 2021 18:26
[2021-08-22] MEDS: RT-ALBUTEROL/IPRATROPIUM 3 ML (DUONEB) VIAL IH SCH ×2 (19:34→21:46)
[2021-08-22 20:11] LABS: POTASSIUM 5.3 MMOL/L (3.6-5.0)
[2021-08-22 20:17] LABS: CREATININE SERUM 0.67 MG/DL (0.60-1.30)
[2021-08-23] MEDS: NS IV 1000 ML 1,000 ML IV SCH ×2 (00:19→05:34)
[2021-08-23] MEDS: methylPREDNISolone 40 MG/ML (Solu-MEDROL) VIAL IV SCH ×5 (00:19→23:59)
[2021-08-23] MEDS: ALPRAZolam 0.25 MG (XANAX) TAB PO PRN ×2 (00:27→20:36)
[2021-08-23] MEDS: RT-ALBUTEROL/IPRATROPIUM 3 ML (DUONEB) VIAL IH SCH ×6 (02:09→22:51)
[2021-08-23] MEDS: POTASSIUM CL 10MEQ/50ML IVPB 50 ML IV SCH (07:18)
[2021-08-23] MEDS: KCL 20 MEQ TAB (K-DUR) PO SCH (07:18)
[2021-08-23] MEDS: MAGNESIUM 1 GM/100 ML IVPB 100 ML IV SCH ×3 (07:18→11:24)
[2021-08-23] MEDS: meTOproloL SUCCINATE 50 MG (TOPROL XL) TAB PO SCH (08:16)
[2021-08-23] MEDS: ASPIRIN 81 MG CHEW (CHILDREN'S ASA) PO SCH (08:17)
[2021-08-23] MEDS: PANTOPRAZOLE 40 MG (PROTONIX) VIAL IV SCH (08:17)
[2021-08-23 09:15] LABS: BASOPHILS % (AUTO) 0 % (0-10); EOSINOPHILS % (AUTO) 0 % (0-10); HEMATOCRIT 34 % (35-52); HEMOGLOBIN 9.6 g/dL (11.5-16.0); LYMPHOCYTES # (AUTO) 0.4 10^3/uL (1.0-4.0); LYMPHOCYTES % (AUTO) 9 % (12-44); MEAN CORPUSCULAR HEMOGLOBIN 31 pg (25-34); MEAN CORPUSCULAR HGB CONC 28 g/dL (32-36); MEAN CORPUSCULAR VOLUME 110 fL (80-99); MEAN PLATELET VOLUME 10.4 fL (9.0-12.2); MONOCYTES % (AUTO) 1 % (0-12); NEUTROPHILS # (AUTO) 4.5 10^3/uL (1.8-7.8); NEUTROPHILS % (AUTO) 90 % (42-75); PLATELET COUNT 238 10^3/uL (130-400)
--- NOTE | 2021-08-23 09:18 | Physician Query Clarification ---
PQ-Further Specificity Admission/Discharge Admission Date: Aug 22, 2021 at 15:33 Discharge Date: Dr. Roy, The medical record reflects the following clinical scenario: History/Risk Factors: acute on chronic hypoxic/hypercapnic respiratory failure, emphysema Clinical Findings: Troponin 0.438 Treatment: IV Solumedrol, Toradol, Lopressor, IVF,Toprol Question: Can you further specify the elevated troponin per the clinical ted cators above? Please document a response in the Progress Notes or Discharge Summary. 1. CT type 2 2. elevated troponin etiology undetermined 3. Other, with explanation of the clinical findings. 4. Clinically undetermined, no explanation for the clinical findings. PHYSICIAN RESPONSE Can you specify per above: 1 Please remember a lack of response to the above will prompt a phone page by CDI/Coding staff. In responding to this query, please exercise your independent professional judgment. The purpose of this communication is to more accurately reflect the complexity of your patients condition. The fact that a question is asked does not imply that any particular answer is desired or expected. Thank you for your timely response to this clarification. Requestors name: Riki THIS PHYSICIAN QUERY FORM IS A PERMANENT PART OF THE MEDICAL RECORD RIKI RANGEL Aug 23, 2021 09:18 CODEY ROY MD Aug 29, 2021 21:41
[2021-08-23 09:38] LABS: ALBUMIN 3.4 GM/DL (3.2-4.5); POTASSIUM 4.9 MMOL/L (3.6-5.0)
[2021-08-23 09:39] LABS: CALCIUM 8.7 MG/DL (8.5-10.1)
[2021-08-23 09:41] LABS: TOTAL PROTEIN 5.9 GM/DL (6.4-8.2)
[2021-08-23 09:42] LABS: BILIRUBIN,TOTAL 0.3 MG/DL (0.1-1.0)
[2021-08-23 09:44] LABS: CREATININE SERUM 0.67 MG/DL (0.60-1.30); PHOSPHORUS 2.6 MG/DL (2.3-4.7)
[2021-08-23 09:48] LABS: MAGNESIUM 1.7 MG/DL (1.6-2.4)
[2021-08-23 10:22] LABS: ABG BASE EXCESS 12.4 MMOL/L (-2.5-2.5); ABG OXYGEN SATURATION 94 % (94-100); ABG PO2 72 MMHG (79-93)
[2021-08-23 10:31] LABS: ALLENS TEST YES-POS; INSPIRED O2 40%; VENTILATOR NO
[2021-08-23 10:34] LABS: ABG PCO2 103 MMHG (35-45); ABG PH 7.22 (7.37-7.43)
[2021-08-23 10:35] LABS: ABG TCO2 43.4 MMOL/L (21.0-31.0)
--- NOTE | 2021-08-23 12:00 | Consultation-Cardiology ---
HPI-Cardiology Cardiology Consultation Date of Consultation 08/23/21 Date of Admission Time Seen by Provider: 08:00 Indication: Acute respiratory failure HPI 61-year-old lady with history of hypertension, COPD, chronic pain, was admitted with acute respiratory failure, was unresponsive at home, she was given Narcan in the emergency room, became more alert but continued to be confused, she was retaining CO2 and placed on BiPAP overnight. Had some chest pain overnight, had elevated troponin level. On my evaluation she was feeling better. No further episodes of chest pain, breathing is somewhat better. Home Medications & Allergies Allergies: Coded Allergies: levofloxacin (Unverified Adverse Reaction, Unknown, 06/15/17) MUSCLE PAIN naproxen (Verified Adverse Reaction, Unknown, Nausea, 08/22/21) tramadol (Verified Adverse Reaction, Unknown, Nausea, 08/22/21) Home Medication List Reviewed: Yes [id number]-[id number]-[id number] Hx Patient Social History Marital Status: Employed/Student: retired Smoking Status: Former Smoker Type Used: Cigarettes 2nd Hand Smoke Exposure: No Recent Hopitalizations: No Alcohol Use?: No Immunizations Up To Date Tetanus Booster (TDap): More than 5yrs Date of Pneumonia Vaccine: Sep 14, 2014 Date of Influenza Vaccine: Sep 14, 2014 Past Medical History Discussed below Family Medical History Significant Family History: No Pertinent Family Hx Family History: Cancer Cancer of colon Chest pain Congestive heart failure Family history: Alzheimer's disease Family history: Arthritis Family history: Asthma Family history: Breast disease Family history: Cardiovascular disease Family history: Diabetes mellitus Family history: Hypertension Family history: Osteoporosis Family history: Thyroid disorder Headache Heart disease History of - respiratory disease Kidney disease Myocardial infarction Stroke Visual impairment No Family History of: Abdominal aortic aneurysm Sammy's disease Alcoholism Aphasia Cataract Congenital heart disease Cystic fibrosis Dementia Dysphagia Family history: Allergy Family history: Coronary thrombosis Family history: Gastrointestinal disease Family history: Glaucoma Hearing loss Hereditary disease History of - anemia History of - disorder History of drug abuse Human immunodeficiency virus (HIV) seropositivity Hypercholesterolemia Infertile Malignant neoplasm of lung Parkinson's disease Prostate cancer Psychotic disorder Seizure disorder Tuberculosis Review of Systems-General Review of Systems Constitutional: see HPI, malaise, weakness EENTM: see HPI, no symptoms reported Respiratory: see HPI, dyspnea on exertion, orthopnea, short of breath Cardiovascular: see HPI, chest pain Gastrointestinal: see HPI, diarrhea Genitourinary: no symptoms reported, see HPI Musculoskeletal: see HPI, back pain Skin: no symptoms reported, see HPI Psychiatric/Neurological: No Symptoms Reported, See HPI Reviewed Test Results Reviewed Test Results Lab Laboratory Tests Test 08/22/21 12:05 08/22/21 13:00 08/22/21 16:58 08/22/21 19:19 Range/Units Lactic Acid Level 0.67 0.50-2.00 MMOL/L Blood Gas Puncture Site L RAD LR Blood Gas Patient Temperature 35.6 36.1 Arterial Blood pH 7.27 *L 7.35 L 7.37-7.43 Arterial Blood Partial Pressure CO2 103 *H 79 *H 35-45 MMHG Arterial Blood Partial Pressure O2 65 L 173 H 79-93 MMHG Arterial Blood HCO3 46 *H 43 *H 23-27 MMOL/L Arterial Blood Total CO2 49.7 *H 45.5 *H 21.0-31.0 MMOL/L Arterial Blood Oxygen Saturation 95 100 94-100 % Arterial Blood Base Excess 18.4 H 16.4 H -2.5-2.5 MMOL/L Alejandro Test YES-POS YES-POS Blood Gas Ventilator Setting NO NO Blood Gas Inspired Oxygen 40% 50% Sodium Level 141 135-145 MMOL/L Potassium Level 5.3 H 3.6-5.0 MMOL/L Chloride Level 96 L 98-107 MMOL/L Carbon Dioxide Level 37 H 21-32 MMOL/L Anion Gap 8 5-14 MMOL/L Blood Urea Nitrogen 15 7-18 MG/DL Creatinine 0.67 0.60-1.30 MG/DL Estimat Glomerular Filtration Rate 89 BUN/Creatinine Ratio 22 Glucose Level 103 70-105 MG/DL Calcium Level 9.0 8.5-10.1 MG/DL Troponin I 0.438 *H <0.028 NG/ML Test 08/23/21 09:05 08/23/21 10:00 Range/Units White Blood Count 5.0 4.3-11.0 10^3/uL Red Blood Count 3.10 L 3.80-5.11 10^6/uL Hemoglobin 9.6 L 11.5-16.0 g/dL Hematocrit 34 L 35-52 % Mean Corpuscular Volume 110 H 80-99 fL Mean Corpuscular Hemoglobin 31 25-34 pg Mean Corpuscular Hemoglobin Concent 28 L 32-36 g/dL Red Cell Distribution Width 13.6 10.0-14.5 % Platelet Count 238 130-400 10^3/uL Mean Platelet Volume 10.4 9.0-12.2 fL Immature Granulocyte % (Auto) 1 % Neutrophils (%) (Auto) 90 H 42-75 % Lymphocytes (%) (Auto) 9 L 12-44 % Monocytes (%) (Auto) 1 0-12 % Eosinophils (%) (Auto) 0 0-10 % Basophils (%) (Auto) 0 0-10 % Neutrophils # (Auto) 4.5 1.8-7.8 10^3/uL Lymphocytes # (Auto) 0.4 L 1.0-4.0 10^3/uL Monocytes # (Auto) 0.0 0.0-1.0 10^3/uL Eosinophils # (Auto) 0.0 0.0-0.3 10^3/uL Basophils # (Auto) 0.0 0.0-0.1 10^3/uL Immature Granulocyte # (Auto) 0.0 0.0-0.1 10^3/uL Sodium Level 140 135-145 MMOL/L Potassium Level 4.9 3.6-5.0 MMOL/L Chloride Level 97 L 98-107 MMOL/L Carbon Dioxide Level 35 H 21-32 MMOL/L Anion Gap 8 5-14 MMOL/L Blood Urea Nitrogen 17 7-18 MG/DL Creatinine 0.67 0.60-1.30 MG/DL Estimat Glomerular Filtration Rate 89 BUN/Creatinine Ratio 25 Glucose Level 120 H 70-105 MG/DL Calcium Level 8.7 8.5-10.1 MG/DL Corrected Calcium 9.2 8.5-10.1 MG/DL Phosphorus Level 2.6 2.3-4.7 MG/DL Magnesium Level 1.7 1.6-2.4 MG/DL Total Bilirubin 0.3 0.1-1.0 MG/DL Aspartate Amino Transf (AST/SGOT) 19 5-34 U/L Alanine Aminotransferase (ALT/SGPT) 12 0-55 U/L Alkaline Phosphatase 83 40-136 U/L Troponin I 0.385 *H <0.028 NG/ML Total Protein 5.9 L 6.4-8.2 GM/DL Albumin 3.4 3.2-4.5 GM/DL Triglycerides Level 83 <150 MG/DL Cholesterol Level 205 H < 200 MG/DL LDL Cholesterol Direct 134 H 1-129 MG/DL VLDL Cholesterol 17 5-40 MG/DL HDL Cholesterol 53 40-60 MG/DL Procalcitonin 0.61 H <0.10 NG/ML Blood Gas Puncture Site LR Blood Gas Patient Temperature 37.0 Arterial Blood pH 7.22 *L 7.37-7.43 Arterial Blood Partial Pressure CO2 103 *H 35-45 MMHG Arterial Blood Partial Pressure O2 72 L 79-93 MMHG Arterial Blood HCO3 40 H 23-27 MMOL/L Arterial Blood Total CO2 43.4 *H 21.0-31.0 MMOL/L Arterial Blood Oxygen Saturation 94 94-100 % Arterial Blood Base Excess 12.4 H -2.5-2.5 MMOL/L Alejandro Test YES-POS Blood Gas Ventilator Setting NO Blood Gas Inspired Oxygen 40% Physical Exam Physical Exam Vital Signs Vital Signs - First Documented 08/22/21 08/22/21 11:16 11:24 Temp 35.7 Pulse 99 Resp 26 B/P (MAP) 138/40 (72) Pulse Ox 95 O2 Delivery Non Rebreather O2 Flow Rate 15.00 FiO2 40 Capillary Refill : Less Than 3 Seconds Height, Weight, BMI Height: 5'0.00" Weight: 221lbs. 4.8oz. 100.021591sp; 28.93 BMI Method:Stated General Appearance: No Apparent Distress, Anxious, Chronically ill Eyes: Bilateral Eye Normal Inspection, Bilateral Eye PERRL, Bilateral Eye EOMI HEENT: PERRL/EOMI, Pharynx Normal Neck: Normal Inspection, Supple Respiratory: No Respiratory Distress, Decreased Breath Sounds, Wheezing Cardiovascular: No Edema, No Murmur, Tachycardia Gastrointestinal: Normal Bowel Sounds, Soft, Tenderness Back: Normal Inspection, No CVA Tenderness, No Vertebral Tenderness Extremity: Normal Inspection, Non Tender, No Pedal Edema Neurologic/Psychiatric: Alert, Oriented x3, No Motor/Sensory Deficits, Normal Mood/Affect Skin: Normal Color, Warm/Dry Lymphatic: No Adenopathy A/P-Cardiology Admission Diagnosis Acute respiratory failure Type II myocardial infarction COPD Hypertension Assessment/Plan Acute respiratory failure, acute exacerbation of COPD, CO2 retention, obesity hypoventilation syndrome. 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 Pain medication overdose, received Narcan, recovering slowly Type II myocardial infarction, elevated troponin, probably secondary to hypoxemia and respiratory failure, has been having some chest pain, EKG did not show any acute changes, underlying coronary artery disease cannot be excluded. Once clinically more stable will consider doing a stress test as an outpatient. Hypertension, was on metoprolol as an outpatient, hold for now due to active wheezing. Hyperlipidemia, starting on statin prior to discharge Obesity, BMI 30, we discussed weight loss. COPD, oxygen dependent. ELENA GARCIA MD Aug 23, 2021 12:00
--- NOTE | 2021-08-23 12:42 | Progress Note - Hospitalist ---
Subjective HPI/CC On Admission Date Seen by Provider: Aug 23, 2021 Time Seen by Provider: 09:30 Raven Melendrez is a 61 year old female with PMH COPD, chronic respiratory failure with hypoxia, HTN, anxiety, who presented with altered mental status. Her called EMS. She had been taking opiates for back pain. She was given Narcan and became slightly agitated but no significant improvement in mental status. She was found to be hypercapnic and was placed on BiPAP. Upon my exam, her mental status has improved. She is oriented. She does not remember what happened. She has been in her normal state of health recently. She denies fevers and chills. She has been short of breath. She says she was not taking any more pain meds than usual which she uses for chronic back pain. Subjective/Events-last exam She is more lethargic this morning. She is difficult to arouse. She is unable to provide any information. Focused Exam Lactate Level 08/22/21 12:05: Lactic Acid Level 0.67 Objective Exam Vital Signs Vital Signs Date Time Temp Pulse Resp B/P (MAP) Pulse Ox O2 Delivery O2 Flow Rate FiO2 08/23/21 10:44 NIV Bilevel 50.00 08/23/21 10:15 90 08/23/21 08:00 35.6 08/23/21 07:00 119 08/23/21 06:00 26 131/84 08/22/21 11:24 40 Capillary Refill : Less Than 3 Seconds General Appearance: No Apparent Distress, Obese Respiratory: No Respiratory Distress, Decreased Breath Sounds Cardiovascular: No Edema, No Murmur, Tachycardia Gastrointestinal: Normal Bowel Sounds, Soft Extremity: Normal Inspection, No Pedal Edema Neurologic/Psychiatric: Disoriented, Other (Lethargic) Skin: Normal Color, Warm/Dry Results/Procedures Lab Laboratory Tests 08/22/21 19:19 08/23/21 09:05 Patient resulted labs reviewed. Imaging: Reviewed Imaging Films, Reviewed Imaging Report Assessment/Plan Assessment and Plan Assess & Plan/Chief Complaint Acute on chronic respiratory failure with hypoxia and hypercapnia Severe COPD with acute exacerbation Community acquired pneumonia Repeat ABG with worsening hypercapnia Place back on BiPAP Continue IV steroids Procal trended up Continue Azithromycin Add Cefepime MAT protocol TeleICU consulted NSTEMI Troponin trending up Cardiology consulted No chest pain Monitor DVT propylaxis: Lovenox Hyperkalemia, resolved Critical Care Critically Ill Patient Diagnosis/Problems Diagnosis/Problems (1) Acute on chronic respiratory failure with hypoxia and hypercapnia Status: Acute (2) Severe chronic obstructive pulmonary disease Onset Date: 01/07/2014 Status: Acute (3) COPD exacerbation Status: Acute (4) PNA (pneumonia) Status: Acute (5) NSTEMI (non-ST elevation myocardial infarction) Status: Acute (6) Obesity Status: Chronic CODEY ROY MD Aug 23, 2021 12:42
[2021-08-23] MEDS ORDERED: CEFEPIME INJECTION 2,000 MG in WATER (STERILE) FOR INJECTION 20 ML IV NR (12:45)
[2021-08-23] MEDS: ENOXAPARIN 40 MG/0.4 ML (LOVENOX) SYR SC SCH (13:14)
--- NOTE | 2021-08-23 13:18 | Pulmonary Progress Note ---
TRISTAN FISCHER MED STUDENT 08/23/21 1318: Subjective Date Seen by a Provider: Aug 23, 2021 Time Seen by a Provider: 06:40 Subjective/Events-last exam Raven states she feels SOB still. She reports chronic low back pain and chills but denies fevers. No nausea, vomiting, abdominal pain. She says her chronic cough has not changed in severity. Sepsis Event Evaluation Height, Weight, BMI Height: 5'0.00" Weight: 221lbs. 4.8oz. 100.111666yr; 28.93 BMI Method:Stated Focused Exam Lactate Level 08/22/21 12:05: Lactic Acid Level 0.67 Exam Exam Patient acknowledged, consented, and participated in this virtual visit which was conducted using real time audio/video Vital Signs Date Time Temp Pulse Resp B/P (MAP) Pulse Ox O2 Delivery O2 Flow Rate FiO2 08/23/21 12:00 36.6 08/23/21 12:00 107 30 107/79 98 NIV Bilevel 50.00 08/23/21 11:00 97 54 123/82 94 NIV Bilevel 50.00 08/23/21 10:44 NIV Bilevel 50.00 08/23/21 10:15 90 OxyMask 3.00 08/23/21 10:00 112 11 126/81 97 OxyMask 3.00 08/23/21 09:54 OxyMask 3.00 08/23/21 09:00 109 59 126/83 99 OxyMask 8.00 08/23/21 08:30 100 OxyMask 8.00 08/23/21 08:19 OxyMask 8.00 08/23/21 08:00 35.6 08/23/21 08:00 112 82 131/90 100 OxyMask 10.00 08/23/21 07:00 124 138/85 73 OxyMask 10.00 08/23/21 07:00 119 08/23/21 06:45 OxyMask 10.00 08/23/21 06:32 92 OxyMask 3.00 08/23/21 06:00 113 26 131/84 89 OxyMask 3.00 08/23/21 05:34 OxyMask 3.00 08/23/21 05:00 111 25 120/75 95 OxyMask 4.00 08/23/21 04:00 90 OxyMask 4.00 08/23/21 04:00 108 24 118/80 94 OxyMask 4.00 08/23/21 03:33 36.1 OxyMask 4.00 08/23/21 03:00 106 19 105/71 98 OxyMask 5.00 08/23/21 02:09 96 OxyMask 5.00 08/23/21 02:00 105 23 102/72 96 OxyMask 5.00 08/23/21 01:48 OxyMask 5.00 08/23/21 01:00 103 08/23/21 01:00 103 24 102/69 93 OxyMask 6.00 08/23/21 00:08 36.0 08/23/21 00:00 102 24 118/81 90 OxyMask 6.00 08/23/21 00:00 93 OxyMask 6.00 08/22/21 23:00 101 26 106/81 96 OxyMask 6.00 08/22/21 22:50 OxyMask 6.00 08/22/21 22:00 98 28 110/80 95 OxyMask 8.00 08/22/21 21:47 95 OxyMask 8.00 08/22/21 21:00 93 26 123/85 100 OxyMask 8.00 08/22/21 20:25 OxyMask 8.00 08/22/21 20:00 96 24 124/86 100 OxyMask 8.00 08/22/21 20:00 36.9 08/22/21 20:00 98 OxyMask 8.00 08/22/21 19:34 100 OxyMask 10.00 08/22/21 19:00 93 08/22/21 19:00 93 24 119/87 100 OxyMask 8.00 08/22/21 18:00 114 27 104/65 95 OxyMask 10.00 08/22/21 17:40 105 08/22/21 17:15 97 OxyMask 10.00 08/22/21 17:00 110 30 81/64 97 OxyMask 10.00 08/22/21 16:47 36.2 106 19 137/84 94 10.00 08/22/21 16:35 36.5 90 24 112/72 99 NIV Bilevel 40.00 08/22/21 14:53 98 29 94 50.00 I & O 08/23/21 07:00 Intake Total 3320 ml Output Total 650 ml Balance 2670 ml Height & Weight Height: 5'0.00" Weight: 221lbs. 4.8oz. 100.228166rw; 28.93 BMI Method:Stated General Appearance: No Apparent Distress, Obese, Other (on mask at 8L ) HEENT: PERRL/EOMI, Pharynx Normal Neck: Normal Inspection, Supple Respiratory: No Respiratory Distress; No Crackles; Decreased Breath Sounds, Wheezing Cardiovascular: No Edema, No Murmur, Tachycardia Capillary Refill: Less Than 3 Seconds Gastrointestinal: normal bowel sounds, non tender Extremity: Normal Inspection, No Pedal Edema Neurologic/Psychiatric: Alert, Oriented x3 Skin: Normal Color, Warm/Dry Lymphatic: No Adenopathy Results Lab Laboratory Tests 08/22/21 11:18 08/22/21 19:19 08/23/21 09:05 Assessment/Plan Assessment/Plan Acute COPD exacerbation -on 3 to 4 L at home. Currently on 8L Venturi mask -faint lung sounds with wheezing. Continue to monitor. -received Azithromycin mildly elevated troponin elevated D dimer. -CTA yesterday no PE.small right sided pleural effusions, ground glass opacities -reduce IV fluid intake anemia -HGB drop likely dilutional. GI prophylaxis -protonix DVT/PE prophylaxis -Lovenox JAROCHO SMILEY MD 08/23/21 1433: Supervisory-Addendum Brief Verification & Attestation Participated in pt care: history, MDM, physical Personally performed: history, MDM, supervision of care Care discussed with: Medical Student Procedures: n/a PLAN as above resume NIPPV for worsening acute on chronic resp failure CPM for AECOPD and PNA A medical student performed and documented this service. I reviewed all information documented by the medical student and made modifications to such information, when appropriate. Medical student performed patients physical exam. Medical decision making was done during tele-rounds with this medical student and a bedside RN . Plans in collaboration with bedside consultants and IM MDs. Discussed with RN to reach out if any questions or concerns A total of33 minutes of critical care time was devoted to this patient today, required to treat and/or prevent further deterioration of critical care condition ( as above) . TRISTAN FISCHER MED STUDENT Aug 23, 2021 13:18 JAROCHO SMILEY MD Aug 23, 2021 14:33
[2021-08-23] MEDS ORDERED: BUDE10.26 INH (15:11)
[2021-08-23] MEDS ORDERED: MONT10TA32 PO (15:11)
[2021-08-23] MEDS ORDERED: FOLI1TAB33 PO (15:11)
[2021-08-23] MEDS ORDERED: ERGO1250 PO (15:11)
[2021-08-23] MEDS ORDERED: LORA-404 PO (15:11)
[2021-08-23] MEDS ORDERED: HYDR-3817 PO (15:11)
[2021-08-23] MEDS ORDERED: RT-ALBUINH INH (15:11)
[2021-08-23] MEDS ORDERED: CNC1KV IM (15:11)
[2021-08-23] MEDS: CEFEPIME INJECTION 1,000 MG in WATER (STERILE) FOR INJECTION 10 ML IV SCH (17:20)
[2021-08-23] MEDS: AZITHROMYCIN 250 MG/NS 250 ML IVPB IV SCH ×2 (17:21)
[2021-08-23 18:52] VITALS: BP 117/73
[2021-08-23 22:51] VITALS: BP 110/50
[2021-08-24 02:43] VITALS: BP 125/86
[2021-08-24] MEDS: RT-ALBUTEROL/IPRATROPIUM 3 ML (DUONEB) VIAL IH SCH ×6 (02:43→22:22)
[2021-08-24 05:17] LABS: BASOPHILS % (AUTO) 0 % (0-10); EOSINOPHILS % (AUTO) 0 % (0-10); HEMATOCRIT 30 % (35-52); HEMOGLOBIN 8.7 g/dL (11.5-16.0); LYMPHOCYTES # (AUTO) 0.6 10^3/uL (1.0-4.0); LYMPHOCYTES % (AUTO) 10 % (12-44); MEAN CORPUSCULAR HEMOGLOBIN 31 pg (25-34); MEAN CORPUSCULAR HGB CONC 29 g/dL (32-36); MEAN CORPUSCULAR VOLUME 106 fL (80-99); MEAN PLATELET VOLUME 11.7 fL (9.0-12.2); MONOCYTES # (AUTO) 0.2 10^3/uL (0.0-1.0); MONOCYTES % (AUTO) 3 % (0-12); NEUTROPHILS # (AUTO) 5.6 10^3/uL (1.8-7.8); NEUTROPHILS % (AUTO) 87 % (42-75); PLATELET COUNT 244 10^3/uL (130-400); WHITE BLOOD COUNT 6.5 10^3/uL (4.3-11.0)
[2021-08-24] MEDS: methylPREDNISolone 40 MG/ML (Solu-MEDROL) VIAL IV SCH ×3 (05:25→17:13)
[2021-08-24] MEDS: NS IV 1000 ML 1,000 ML IV SCH (05:25)
[2021-08-24] MEDS: CEFEPIME INJECTION 1,000 MG in WATER (STERILE) FOR INJECTION 10 ML IV SCH ×5 (05:25→17:13)
[2021-08-24 05:35] LABS: ALBUMIN 3.5 GM/DL (3.2-4.5); POTASSIUM 5.9 MMOL/L (3.6-5.0)
[2021-08-24 05:36] LABS: CALCIUM 9.5 MG/DL (8.5-10.1)
[2021-08-24 05:39] LABS: BILIRUBIN,TOTAL 0.3 MG/DL (0.1-1.0)
[2021-08-24 05:41] LABS: CREATININE SERUM 0.76 MG/DL (0.60-1.30); PHOSPHORUS 0.9 MG/DL (2.3-4.7)
[2021-08-24 05:44] LABS: MAGNESIUM 2.4 MG/DL (1.6-2.4)
[2021-08-24] MEDS: KCL 20 MEQ TAB (K-DUR) PO SCH (06:26)
[2021-08-24] MEDS: POTASSIUM CL 10MEQ/50ML IVPB 50 ML IV SCH (06:26)
[2021-08-24] MEDS: MAGNESIUM 1 GM/100 ML IVPB 100 ML IV SCH (06:26)
[2021-08-24 06:41] VITALS: BP 133/95
[2021-08-24] MEDS ORDERED: DEXTROSE 50% 50 ML (IMS) SYR IV ONE (08:00)
[2021-08-24] MEDS ORDERED: SODIUM PHOSPHATE INJ 30 MM in NS (IVPB) 250 ML INJ ONE (08:00)
[2021-08-24] MEDS ORDERED: CALCIUM GLUC. 10% 4.65 MEQ/10 ML VIAL IV ONE (08:00)
[2021-08-24] MEDS ORDERED: SOD POLYSTERENE 15 GM/60 ML (KAYEXALATE) UNIT DOSE PO ONE ×2 (08:00→08:15)
--- NOTE | 2021-08-24 08:21 | Cardiology Progress Note ---
Subjective Date Seen by Provider: Aug 24, 2021 Time Seen by Provider: 08:20 Subjective/Events-last exam Patient is laying down in bed, still short of breath on BiPAP. Review of Systems General: No Chills, No Night Sweats; Fatigue, Malaise; No Appetite, No Other HEENT: No Head Aches, No Visual Changes, No Eye Pain, No Ear Pain, No Dysphasia, No Sinus Congestion, No Post Nasal Drip, No Sore Throat, No Other Pulmonary: Dyspnea; No Cough, No Pleuritic Chest Pain, No Other Cardiovascular: No: Chest Pain, Palpitations, Orthopnea, Paroxysmal Noc. Dyspnea, Edema, Lt Headedness, Other Focused Exam Lactate Level 08/22/21 12:05: Lactic Acid Level 0.67 Objective-Cardiology Exam Last Set of Vital Signs Vital Signs 08/24/21 08/24/21 08/24/21 08/24/21 00:00 06:00 06:41 07:00 Temp 36.5 Pulse 103 Resp 20 B/P (MAP) 138/95 Pulse Ox 93 O2 Delivery NIV Bilevel O2 Flow Rate 35.00 I&O Intake and Output 08/24/21 00:00 Intake Total 3180 ml Output Total 675 ml Balance 2505 ml Intake Oral 700 ml IV Total 2480 ml Output Urine Total 675 ml General: Alert, Oriented X3, Cooperative HEENT: Atraumatic, PERRLA Neck: Supple, No JVD, No Thyromegaly Lungs: Other (Poor air movement, bilateral wheezing) Heart: Regular Rate, Normal S1, Normal S2, No Murmurs Abdomen: Normal Bowel Sounds, Soft, No Tenderness, No Hepatosplenomegaly, No Masses Extremities: No Clubbing, No Cyanosis, No Edema, Normal Pulses, No Tenderness/Swelling Skin: No Rashes, No Breakdown, No Significant Lesion Neuro: Normal Speech, Strength at 5/5 X4 Ext, Normal Tone, Sensation Intact Psych/Mental Status: Mental Status NL, Mood NL Results Lab Laboratory Tests 08/23/21 09:05 08/24/21 04:15 A/P-Cardiology Admission Diagnosis Acute respiratory failure Type II myocardial infarction COPD Hypertension Assessment/Plan Acute respiratory failure, acute exacerbation of COPD, CO2 retention, obesity hypoventilation syndrome. Managed by revenue liaison. Pain medication overdose, received Narcan, recovering slowly Type II myocardial infarction, elevated troponin, probably secondary to hypoxemia and respiratory failure, has been having some chest pain, EKG did not show any acute changes, underlying coronary artery disease cannot be excluded. Once clinically more stable will consider doing a stress test as an outpatient. Sinus tachycardia secondary to respiratory failure. Continue to monitor Hypertension, was on metoprolol as an outpatient, hold for now due to active wheezing. Hyperlipidemia, starting on statin prior to discharge Obesity, BMI 30, we discussed weight loss. COPD, oxygen dependent. ELENA GARCIA MD Aug 24, 2021 08:21
[2021-08-24] MEDS: ASPIRIN 81 MG CHEW (CHILDREN'S ASA) PO SCH (08:35)
[2021-08-24] MEDS: meTOproloL SUCCINATE 50 MG (TOPROL XL) TAB PO SCH (08:35)
[2021-08-24] MEDS: PANTOPRAZOLE 40 MG (PROTONIX) VIAL IV SCH (08:35)
[2021-08-24 08:43] LABS: ABG BASE EXCESS 12.5 MMOL/L (-2.5-2.5); ABG OXYGEN SATURATION 97 % (94-100); ABG PCO2 57 MMHG (35-45); ABG PH 7.43 (7.37-7.43); ABG PO2 72 MMHG (79-93); ABG TCO2 39.6 MMOL/L (21.0-31.0)
[2021-08-24] MEDS: ALPRAZolam 0.25 MG (XANAX) TAB PO PRN ×3 (08:43→19:52)
[2021-08-24 08:45] LABS: ALLENS TEST YES-POS; INSPIRED O2 35%; PATIENT TEMP 35.8; VENTILATOR NO
--- NOTE | 2021-08-24 09:51 | Tele-ICU Progress Note ---
Subjective Date Seen by a Provider: Aug 24, 2021 Time Seen by a Provider: 09:44 Subjective/Events-last exam This patient with history of severe COPD on home oxygen about 3 L of oxygen admitted with hypercarbic respiratory failure and treated with steroids, nebulizer treatments and BiPAP ventilation. She is somewhat feeling better today. Hospitalist tried her on high flow nasal cannula and now she is feeling somewhat uncomfortable but in no acute distress with oxygen saturation 95% on a nasal cannula. But she is anxious. Video visit made. Discussed with the RN. This a.m. I have ordered treatment for hyperkalemia and order for annual blood gas. Repeat blood gas revealed PCO2 down to 57. Review of Systems ROS PER ATTENDING PHYSICIAN Sepsis Event Evaluation Height, Weight, BMI Height: 5'0.00" Weight: 221lbs. 4.8oz. 100.012268td; 28.93 BMI Method:Stated Focused Exam Lactate Level 08/22/21 12:05: Lactic Acid Level 0.67 Exam Exam Patient acknowledged, consented, and participated in this virtual visit which was conducted using real time audio/video Vital Signs Date Time Temp Pulse Resp B/P (MAP) Pulse Ox O2 Delivery O2 Flow Rate FiO2 08/24/21 09:15 High Flow N/C 4.00 08/24/21 09:00 98 124/74 96 NIV Bilevel 35.00 08/24/21 08:25 95 NIV Bilevel 4.00 35 08/24/21 08:00 105 24 148/91 97 NIV Bilevel 35.00 08/24/21 07:30 35.8 99 12 148/91 97 NIV Bilevel 35.00 08/24/21 07:00 103 08/24/21 07:00 92 10 139/93 97 NIV Bilevel 35.00 08/24/21 06:41 95 20 93 35.00 08/24/21 06:00 100 24 138/95 94 NIV Bilevel 35.00 08/24/21 05:00 90 131/86 94 NIV Bilevel 35.00 08/24/21 04:00 95 NIV Bilevel 35 08/24/21 04:00 100 139/95 91 NIV Bilevel 35.00 08/24/21 03:00 90 123/79 93 NIV Bilevel 35.00 08/24/21 02:43 90 21 94 35.00 08/24/21 02:00 90 125/88 95 NIV Bilevel 35.00 08/24/21 01:00 105 08/24/21 01:00 105 128/80 96 NIV Bilevel 35.00 08/24/21 00:45 NIV Bilevel 35.00 08/24/21 00:05 OxyMask 4.00 08/24/21 00:00 36.5 08/24/21 00:00 95 NIV Bilevel 35 08/24/21 00:00 102 128/83 95 NIV Bilevel 35.00 08/23/21 23:00 103 120/78 93 NIV Bilevel 35.00 08/23/21 22:51 93 21 98 35.00 08/23/21 22:00 105 100/57 96 NIV Bilevel 35.00 08/23/21 21:38 NIV Bilevel 35.00 08/23/21 21:00 96 112/76 95 NIV Bilevel 40.00 08/23/21 20:35 36.2 NIV Bilevel 40.00 08/23/21 20:00 97 NIV Bilevel 40 08/23/21 20:00 101 102/76 94 NIV Bilevel 50.00 08/23/21 19:00 104 118/78 98 NIV Bilevel 50.00 08/23/21 19:00 104 08/23/21 18:52 98 18 100 40.00 08/23/21 18:00 92 117/73 98 NIV Bilevel 50.00 08/23/21 17:00 90 106/73 97 NIV Bilevel 50.00 08/23/21 16:00 99 18 111/94 98 NIV Bilevel 50.00 08/23/21 15:44 36.4 08/23/21 15:33 95 NIV Bilevel 50 08/23/21 15:00 98 111/74 94 NIV Bilevel 50.00 08/23/21 14:26 98 18 97 50.00 08/23/21 14:00 99 114/91 96 NIV Bilevel 50.00 08/23/21 13:00 98 08/23/21 13:00 100 18 116/78 NIV Bilevel 50.00 08/23/21 12:00 93 NIV Bilevel 50 08/23/21 12:00 36.6 08/23/21 12:00 107 30 107/79 98 NIV Bilevel 50.00 08/23/21 11:00 97 54 123/82 94 NIV Bilevel 50.00 08/23/21 10:44 NIV Bilevel 50.00 08/23/21 10:15 90 OxyMask 3.00 08/23/21 10:00 112 11 126/81 97 OxyMask 3.00 08/23/21 09:54 OxyMask 3.00 I & O 08/24/21 07:00 Intake Total 2595 ml Output Total 675 ml Balance 1920 ml Height & Weight Height: 5'0.00" Weight: 221lbs. 4.8oz. 100.020986vv; 28.93 BMI Method:Stated General Appearance: WD/WN, Obese, Other (Minimally responsive with agonal breathing) HEENT: PERRL/EOMI, Normal ENT Inspection Neck: Normal Inspection Respiratory: No Crackles; Decreased Breath Sounds Cardiovascular: Regular Rate, Rhythm, No Edema Capillary Refill: Less Than 3 Seconds Gastrointestinal: normal bowel sounds, non tender Extremity: Normal Inspection, No Pedal Edema Neurologic/Psychiatric: Other (Minimally responsive, was observed to move all 4 extremities) Skin: Normal Color, Warm/Dry Lymphatic: No Adenopathy Other comments PE DIFFER TO ATTENDING PHYSICIAN Results Lab Laboratory Tests 08/22/21 11:18 08/22/21 19:19 08/23/21 09:05 08/24/21 04:15 Meds REVIEWED Radiology NAME: HENRRY BROWNE MED REC#: [id number] PT STATUS: REG ER : 1960 PHYSICIAN: EVENS PIERCE MD ADMIT DATE: 08/22/21/ER Signed Date of Exam:08/22/21 CT ANGIO CHEST W PROCEDURE: CT angiography of the chest with contrast. TECHNIQUE: Multiple contiguous axial images were obtained through the chest after uneventful bolus administration of intravenous contrast. 3D reconstructed CTA MIP acquisitions were also performed. Auto Exposure Controls were utilized during the CT exam to meet ALARA standards for radiation dose reduction. INDICATION: Unresponsive. COMPARISON: Correlation is made with prior CT angiogram of the chest performed on 01/03/2014. FINDINGS: Evaluation of the pulmonary arterial system is without evidence of thromboembolism. No definite filling defects are seen within central, lobar, or segmental branches. The thoracic aorta is normal in caliber. No dissection is identified. No pericardial fluid is identified. There is a very small right pleural effusion. There are centrilobular emphysematous changes throughout both lungs. There are some interstitial changes in the right upper lobe as well as patchy groundglass opacities in the right upper lobe. There are some linear opacities in the lingula as well as the right lower lobe which could represent atelectasis. No mass is identified. The upper abdomen is unremarkable. IMPRESSION: 1. No evidence of pulmonary embolism or thoracic aortic dissection. 2. Small right pleural effusion. 3. Centrilobular emphysematous changes. There are some patchy groundglass opacities in the right upper lobe and interstitial changes, perhaps on an infectious/inflammatory basis. No other significant abnormality is seen. Dictated by: Dictated on workstation # [id number] Dict: 08/22/21 1443 Trans: 08/22/21 1602 [id number] Interpreted by: MARCY WASHINGTON MD Electronically signed by: MARCY WASHINGTON MD 08/22/21 1606 Assessment/Plan Assessment/Plan 1. Acute and chronic hypercarbic respiratory failure slowly improving. 2. Hyperkalemia probably due to steroids 3. Underlying severe COPD on home oxygen 4. Obesity moderate Recommendations 1. Continue oxygenation with nasal cannula and wean FiO2 as tolerated 2. Continue steroids and nebulizer treatment 3. Treatment for hyperkalemia given with Kayexalate, D50 W, IV insulin and calcium gluconate. 4. If she continues to do well she may be transferred to telemetry ICU. 5. We will repeat potassium later today. 6. Discussed with the patient and training designer: Critically Ill Patient Time spent with patient (mins): 35 ADAN YUEN MD Aug 24, 2021 09:51
[2021-08-24 10:24] VITALS: BP 174/102
[2021-08-24] MEDS ORDERED: inSUlin (REGULAR) HUMAN 1 UNIT/0.01 ML (CHARGE PER UNIT) IV SCH (11:00)
[2021-08-24] MEDS: ENOXAPARIN 40 MG/0.4 ML (LOVENOX) SYR SC SCH (11:03)
--- NOTE | 2021-08-24 13:57 | Physical Therapy Evaluation ---
PT Evaluation-General Medical Diagnosis Admission Date Aug 22, 2021 at 15:33 Medical Diagnosis: respiratory failure/COPD Onset Date: Aug 22, 2021 Therapy Diagnosis Therapy Diagnosis: debility/weakness/decreased pulmonary function Height/Weight Height (Feet): 5 Height (Inches): 0.00 Weight (Pounds): 221 Weight (Ounces): 4.8 Precautions Precautions/Isolations: Fall Prevention, Standard Precautions Referral Physician: Arpit Reason for Referral: Evaluation/Treatment Medical History Pertinent Medical History: Arthritis, COPD (3-4L O2), HTN, Smoking Current History ERM secondary to being found unresponsive Reviewed History: Yes Social History Home: Single Level Current Living Status: Spouse Prior Prior Level of Function SCALE: Activities may be completed with or without assistive devices. 0-Uarduxiruz-dqdcafv completes the activity by him/herself with no assistance from a helper. 5-Set-up or Clean-up Assistance-helper sets up or cleans up; patient completes activity. [place] assists only prior to or following the activity. 4-Supervision or Touching Assistance-helper provides verbal cues and/or touching/steadying and/or contact guard assistance as patient completes activity. Assistance may be provided throughout the activity or intermittently. 3-Partial/Moderate Assistance-helper does LESS THAN HALF the effort. [place] lifts, holds or supports trunk or limbs, but provides less than half the effort. 2-Substantial/Maximal Assistance-helper does MORE THAN HALF the effort. [place] lifts or holds trunk or limbs and provides more than half the effort. 8-Mjntlopdi-gmsdem does ALL the effort. Patient does none of the effort to complete the activity. Or, the assistance of 2 or more helpers is required for the patient to complete the activity. If activity was not attempted, code reason: 7-Patient Refused. 9-Not Applicable-not attempted and the patient did not perform the activity before the current illness, exacerbation or injury. 10-Not Attempted due to Environmental Limitations-(lack of equipment, weather restraints, etc.). 88-Not Attempted due to Medical Conditions or Safety Concerns. Bed Mobility: 6 Transfers (B,C,W/C): 6 Gait: 6 Indoor Mobility (Ambulation): Independent Prior Devices Use: Walker PT Evaluation-Current Subjective Patient agrees to PT. Objective Patient Orientation: Normal For Age Attachments: Oxygen, De Jesus Catheter, IV ROM/Strength ROM Lower Extremities bilateral LE WFL Strength Lower Extremities 3+/5 grossly bilateral LE Integumentary/Posture Bladder Incontinence: De Jesus Cath Posture WFL Neuromuscular (Tone, Coordination, Reflexes) grossly intact Sensory Vision: Functional Hearing: Functional Transfers Lying to Sitting/Side of Bed(Q: 4 Sit to Stand (QC): 4 Chair/Ctq-jr-Qkqvl Xfer(QC): 4 SBA with all Gait Mode of Locomotion: Walk Anticipated Mode of Locomotion: Walk Walk 10 feet (QC): 4 Walk 50 ft with 2 Turns(QC): 88 Walk 150 ft (QC): 88 Gait Assistive Device: FWW Comments/Gait Description functional gait sequence Balance Sitting Static: Normal Sitting Dynamic: Normal Standing Static: Fair Standing Dynamic: Fair Assessment/Needs 61 y.o. female, will be seen short term by skilled PT to address functional strength and mobility to improve current LOF to safely return to home at maximum LOF. Rehab Potential: Guarded PT Custodial Goals Commercial Lending Relationship Manager Goals PT Commercial Lending Relationship Manager Goals Time Frame: Sep 08, 2021 Roll Left & Right (QC): 6 Sit to Lying (QC): 6 Lying-Sitting on Side/Bed(QC): 6 Sit to Stand (QC): 6 Chair/Ttu-as-Lgqsv Xfer(QC): 6 Toilet Transfer (QC): 6 Walk 10 feet (QC): 6 Walk 50ft with 2 Turns (QC): 6 Walk 150 ft (QC): 6 PT Plan Problem List Problem List: Activity Tolerance, Functional Strength, Balance, Gait, Transfer Treatment/Plan Treatment Plan: Continue Plan of Care Treatment Plan: Bed Mobility, Education, Functional Activity [place], Functional Strength, Gait, Safety, Therapeutic Exercise, Transfers Treatment Duration: Sep 08, 2021 Frequency: 6 times per week Estimated Hrs Per Day: .25 hour per day Patient and/or Family Agrees t: Yes Time/GCodes Time In: 1304 Time Out: 1315 Total Billed Treatment Time: 11 Total Billed Treatment 1 visit EVMod 11 min MIGNON NEVES PT Aug 24, 2021 13:57
--- NOTE | 2021-08-24 14:34 | Progress Note - Hospitalist ---
Subjective HPI/CC On Admission Date Seen by Provider: Aug 24, 2021 Time Seen by Provider: 09:00 Raven Melendrez is a 61 year old female with PMH COPD, chronic respiratory failure with hypoxia, HTN, anxiety, who presented with altered mental status. Her called EMS. She had been taking opiates for back pain. She was given Narcan and became slightly agitated but no significant improvement in mental status. She was found to be hypercapnic and was placed on BiPAP. Upon my exam, her mental status has improved. She is oriented. She does not remember what happened. She has been in her normal state of health recently. She denies fevers and chills. She has been short of breath. She says she was not taking any more pain meds than usual which she uses for chronic back pain. Subjective/Events-last exam She just came off the BiPAP. She is tachypneic. She is feeling a bit anxious. She is having back pain which is chronic. Focused Exam Lactate Level 08/22/21 12:05: Lactic Acid Level 0.67 Objective Exam Vital Signs Vital Signs Date Time Temp Pulse Resp B/P (MAP) Pulse Ox O2 Delivery O2 Flow Rate FiO2 08/24/21 14:00 109 34 124/105 99 High Flow N/C 4.00 08/24/21 12:00 37.0 08/24/21 11:46 35 Capillary Refill : Less Than 3 Seconds General Appearance: Anxious, Mild Distress, Obese Respiratory: Decreased Breath Sounds, Respiratory Distress (Tachypnea) Cardiovascular: Regular Rate, Rhythm, No Edema, No Murmur Gastrointestinal: Normal Bowel Sounds, Non Tender, Soft Extremity: Normal Inspection, Non Tender, No Pedal Edema Neurologic/Psychiatric: Alert, Oriented x3, Normal Mood/Affect Skin: Normal Color, Warm/Dry Results/Procedures Lab Laboratory Tests 08/24/21 04:15 Patient resulted labs reviewed. Imaging: Reviewed Imaging Report Assessment/Plan Assessment and Plan Assess & Plan/Chief Complaint Acute on chronic respiratory failure with hypoxia and hypercapnia Severe COPD with acute exacerbation Community acquired pneumonia Off BiPAP this morning Repeat ABG tomorrow morning Continue IV steroids Continue Azithromycin and Cefepime MAT protocol TeleICU consulted NSTEMI Troponin trending up Cardiology consulted No chest pain Monitor Hypophosphatemia Monitor and replace as needed DVT propylaxis: Lovenox Hyperkalemia, resolved Critical Care Critically Ill Patient Diagnosis/Problems Diagnosis/Problems (1) Acute on chronic respiratory failure with hypoxia and hypercapnia Status: Acute (2) Severe chronic obstructive pulmonary disease Onset Date: 01/07/2014 Status: Acute (3) COPD exacerbation Status: Acute (4) PNA (pneumonia) Status: Acute (5) NSTEMI (non-ST elevation myocardial infarction) Status: Acute (6) Obesity Status: Chronic CODEY ROY MD Aug 24, 2021 14:34
[2021-08-24] MEDS: AZITHROMYCIN 250 MG/NS 250 ML IVPB IV SCH ×2 (17:13)
[2021-08-24] MEDS: HYDROcodone/APAP 5 MG/325 MG (LORTAB) TAB PO PRN (21:58)
[2021-08-24 22:22] VITALS: BP 135/129
[2021-08-25] MEDS: methylPREDNISolone 40 MG/ML (Solu-MEDROL) VIAL IV SCH ×5 (00:06→22:52)
[2021-08-25] MEDS: CEFEPIME INJECTION 1,000 MG in WATER (STERILE) FOR INJECTION 10 ML IV SCH ×5 (00:06→22:52)
[2021-08-25 02:35] VITALS: BP 139/88
[2021-08-25] MEDS: RT-ALBUTEROL/IPRATROPIUM 3 ML (DUONEB) VIAL IH SCH ×6 (02:35→22:13)
[2021-08-25] MEDS: NS IV 1000 ML 1,000 ML IV SCH ×2 (03:00→21:20)
[2021-08-25 05:21] LABS: BASOPHILS % (AUTO) 0 % (0-10); EOSINOPHILS % (AUTO) 0 % (0-10); HEMATOCRIT 29 % (35-52); HEMOGLOBIN 8.5 g/dL (11.5-16.0); LYMPHOCYTES # (AUTO) 0.3 10^3/uL (1.0-4.0); LYMPHOCYTES % (AUTO) 7 % (12-44); MEAN CORPUSCULAR HEMOGLOBIN 31 pg (25-34); MEAN CORPUSCULAR HGB CONC 30 g/dL (32-36); MEAN CORPUSCULAR VOLUME 103 fL (80-99); MEAN PLATELET VOLUME 11.6 fL (9.0-12.2); MONOCYTES # (AUTO) 0.1 10^3/uL (0.0-1.0); MONOCYTES % (AUTO) 2 % (0-12); NEUTROPHILS # (AUTO) 4.7 10^3/uL (1.8-7.8); NEUTROPHILS % (AUTO) 91 % (42-75); PLATELET COUNT 241 10^3/uL (130-400); WHITE BLOOD COUNT 5.1 10^3/uL (4.3-11.0)
[2021-08-25 05:43] LABS: ALBUMIN 3.4 GM/DL (3.2-4.5); POTASSIUM 3.7 MMOL/L (3.6-5.0)
[2021-08-25 05:45] LABS: CALCIUM 9.1 MG/DL (8.5-10.1)
[2021-08-25 05:46] LABS: TOTAL PROTEIN 5.7 GM/DL (6.4-8.2)
[2021-08-25 05:48] LABS: BILIRUBIN,TOTAL 0.3 MG/DL (0.1-1.0)
[2021-08-25 05:49] LABS: CREATININE SERUM 0.71 MG/DL (0.60-1.30); PHOSPHORUS 2.1 MG/DL (2.3-4.7)
[2021-08-25 05:53] LABS: MAGNESIUM 1.9 MG/DL (1.6-2.4)
[2021-08-25] MEDS: POTASSIUM CL 10MEQ/50ML IVPB 50 ML IV SCH (06:22)
[2021-08-25] MEDS: MAGNESIUM 1 GM/100 ML IVPB 100 ML IV SCH (06:23)
[2021-08-25] MEDS: KCL 20 MEQ TAB (K-DUR) PO SCH (06:23)
[2021-08-25 07:01] VITALS: BP 145/86
[2021-08-25] MEDS: meTOproloL SUCCINATE 50 MG (TOPROL XL) TAB PO SCH (08:22)
[2021-08-25] MEDS: ASPIRIN 81 MG CHEW (CHILDREN'S ASA) PO SCH (08:22)
[2021-08-25] MEDS: PANTOPRAZOLE 40 MG (PROTONIX) VIAL IV SCH (08:22)
[2021-08-25] MEDS: HYDROcodone/APAP 5 MG/325 MG (LORTAB) TAB PO PRN ×3 (08:26→22:52)
--- NOTE | 2021-08-25 09:04 | Physical Therapy Daily Note ---
PT Daily Note-Current Subjective Patient agrees to PT. Mental Status Patient Orientation: Normal For Age Attachments: Oxygen (3L), De Jesus Catheter, IV Transfers SCALE: Activities may be completed with or without assistive devices. 6-Idokaodzgt-leisspz completes the activity by him/herself with no assistance from a helper. 5-Set-up or Clean-up Assistance-helper sets up or cleans up; patient completes activity. [place] assists only prior to or following the activity. 4-Supervision or Touching Assistance-helper provides verbal cues and/or touching/steadying and/or contact guard assistance as patient completes activity. Assistance may be provided throughout the activity or intermittently. 3-Partial/Moderate Assistance-helper does LESS THAN HALF the effort. [place] lifts, holds or supports trunk or limbs, but provides less than half the effort. 2-Substantial/Maximal Assistance-helper does MORE THAN HALF the effort. [place] lifts or holds trunk or limbs and provides more than half the effort. 7-Nutjcmhyd-dcdjwk does ALL the effort. Patient does none of the effort to complete the activity. Or, the assistance of 2 or more helpers is required for the patient to complete the activity. If activity was not attempted, code reason: 7-Patient Refused. 9-Not Applicable-not attempted and the patient did not perform the activity before the current illness, exacerbation or injury. 10-Not Attempted due to Environmental Limitations-(lack of equipment, weather restraints, etc.). 88-Not Attempted due to Medical Conditions or Safety Concerns. Lying to Sitting/Side of Bed(Q: 6 Sit to Stand (QC): 6 Chair/Fee-od-Jfcej Xfer(QC): 6 Exercises Seated Therapy Exercises: Ankle pumps, Long arc quads Seated Reps: 15 Assessment Patient SAO2 decreases to 77% with minimal activity. Per RN, O2 increased to 4L with patient recovering to 91%. PT Assisted Goals Assisted Goals PT Marketing Project Coordinator Goals Time Frame: Sep 08, 2021 Roll Left & Right (QC): 6 Sit to Lying (QC): 6 Lying-Sitting on Side/Bed(QC): 6 Sit to Stand (QC): 6 Chair/Grr-nq-Sxoqe Xfer(QC): 6 Toilet Transfer (QC): 6 Walk 10 feet (QC): 6 Walk 50ft with 2 Turns (QC): 6 Walk 150 ft (QC): 6 PT Plan Treatment/Plan Treatment Plan: Continue Plan of Care Treatment Plan: Bed Mobility, Education, Functional Activity [place], Functional Strength, Gait, Safety, Therapeutic Exercise, Transfers Treatment Duration: Sep 08, 2021 Frequency: 6 times per week Estimated Hrs Per Day: .25 hour per day Patient and/or Family Agrees t: Yes Time/GCodes Time In: 820 Time Out: 829 Total Billed Treatment Time: 9 Total Billed Treatment 1 visit FA 9 min MIGNON NEVES PT Aug 25, 2021 09:04
[2021-08-25] MEDS ORDERED: COVID-19 VACC, MRNA(PFIZER)/PF 30 MCG/0.3 ML VIAL IM ONE (09:45)
--- NOTE | 2021-08-25 09:57 | Tele-ICU Progress Note ---
Subjective Date Seen by a Provider: Aug 25, 2021 Time Seen by a Provider: 09:52 Subjective/Events-last exam Patient today is sitting in the bedside chair and states that she is breathing better but has a mild cough. No wheezing. She is currently on 4 L of nasal cannula which is her baseline. She does not seems to be in any acute distress. I made a video visit and also discussed with the PROFILING MACHINE SETUP OPERATOR. Available data revie wed. Review of Systems ROS PER ATTENDING PHYSICIAN Sepsis Event Evaluation Height, Weight, BMI Height: 5'0.00" Weight: 221lbs. 4.8oz. 100.000357to; 28.93 BMI Method:Stated Focused Exam Lactate Level 08/22/21 12:05: Lactic Acid Level 0.67 Exam Exam Patient acknowledged, consented, and participated in this virtual visit which was conducted using real time audio/video Vital Signs Date Time Temp Pulse Resp B/P (MAP) Pulse Ox O2 Delivery O2 Flow Rate FiO2 08/25/21 09:27 Nasal Cannula 3.00 08/25/21 09:00 96 19 116/83 98 Nasal Cannula 4.00 08/25/21 08:59 Nasal Cannula 4.00 08/25/21 08:32 92 High Flow N/C 4.00 08/25/21 08:00 91 23 117/104 95 NIV Bilevel 35.00 08/25/21 07:30 37.0 08/25/21 07:01 89 19 95 35.00 08/25/21 07:00 88 15 145/86 95 NIV Bilevel 35.00 08/25/21 07:00 93 08/25/21 06:00 89 24 133/86 93 NIV Bilevel 35.00 08/25/21 05:00 96 18 100/76 96 NIV Bilevel 35.00 08/25/21 04:00 86 20 128/81 95 NIV Bilevel 35.00 08/25/21 04:00 95 NIV Bilevel 35 08/25/21 03:06 NIV Bilevel 35.00 08/25/21 03:00 86 18 126/75 91 NIV Bilevel 25.00 08/25/21 02:56 NIV Bilevel 25.00 08/25/21 02:35 90 23 98 35.00 08/25/21 02:00 95 17 139/88 97 NIV Bilevel 35.00 08/25/21 01:00 84 18 124/76 96 NIV Bilevel 35.00 08/25/21 01:00 80 08/25/21 00:00 93 17 133/79 98 NIV Bilevel 35.00 08/24/21 23:59 96 NIV Bilevel 35 08/24/21 23:00 123 19 140/82 97 NIV Bilevel 35.00 08/24/21 22:22 112 28 96 35.00 08/24/21 22:00 124 26 95 NIV Bilevel 35.00 08/24/21 22:00 NIV Bilevel 35.00 08/24/21 21:00 125 22 156/76 93 High Flow N/C 4.00 08/24/21 20:00 118 25 153/99 98 High Flow N/C 4.00 08/24/21 20:00 96 High Flow N/C 4.00 08/24/21 19:59 36.2 08/24/21 19:00 125 08/24/21 19:00 124 16 136/107 96 High Flow N/C 4.00 08/24/21 18:49 97 4.00 08/24/21 18:00 120 27 160/84 93 High Flow N/C 4.00 08/24/21 17:00 105 25 145/92 98 High Flow N/C 4.00 08/24/21 16:00 112 30 133/80 99 High Flow N/C 4.00 08/24/21 15:30 36.3 08/24/21 15:10 95 NIV Bilevel 4.00 35 08/24/21 15:00 112 15 150/94 99 High Flow N/C 4.00 08/24/21 14:40 96 High Flow N/C 4.00 08/24/21 14:00 109 34 124/105 99 High Flow N/C 4.00 08/24/21 13:29 High Flow N/C 4.00 08/24/21 13:00 105 08/24/21 12:00 105 26 149/87 96 NIV Bilevel 35.00 08/24/21 12:00 37.0 08/24/21 11:46 95 NIV Bilevel 4.00 35 08/24/21 11:00 108 23 136/80 97 NIV Bilevel 35.00 08/24/21 10:24 118 28 95 35.00 08/24/21 10:21 NIV Bilevel 35.00 08/24/21 10:00 118 174/102 99 OxyMask 4.00 I & O 08/25/21 07:00 Intake Total 2175 ml Output Total 2100 ml Balance 75 ml Height & Weight Height: 5'0.00" Weight: 221lbs. 4.8oz. 100.829590dh; 28.93 BMI Method:Stated General Appearance: Anxious, Mild Distress, Obese HEENT: PERRL/EOMI, Normal ENT Inspection Neck: Normal Inspection Respiratory: Decreased Breath Sounds, Respiratory Distress (Tachypnea) Cardiovascular: Regular Rate, Rhythm, No Edema, No Murmur Capillary Refill: Less Than 3 Seconds Gastrointestinal: normal bowel sounds, non tender Extremity: Normal Inspection, Non Tender, No Pedal Edema Neurologic/Psychiatric: Alert, Oriented x3, Normal Mood/Affect Skin: Normal Color, Warm/Dry Lymphatic: No Adenopathy Other comments PE PER ATTENDING PHYSICIAN Results Lab Laboratory Tests 08/24/21 04:15 08/24/21 15:00 08/25/21 03:15 Meds REVIEWED Assessment/Plan Assessment/Plan 1. Acute and chronic hypercarbic respiratory failure slowly improving. 2. Hyperkalemia probably due to steroids RESOLVED 3. Underlying severe COPD on home oxygen 4. Obesity moderate Recommendations 1. Continue oxygenation with nasal cannula and wean FiO2 as tolerated 2. Continue steroids and nebulizer treatment decrease steroids 3. Monitor glucose and potassium 4. If she continues to do well she may be transferred to telemetry ICU. 5. We will change protonix and azithromycin to po 6. Discussed with the patient and resident doctor: Critically Ill Patient Time spent with patient (mins): 25 ADAN YUEN MD Aug 25, 2021 09:57
[2021-08-25] MEDS: ALPRAZolam 0.25 MG (XANAX) TAB PO PRN ×2 (10:32→21:20)
--- NOTE | 2021-08-25 11:32 | Progress Note - Cardiology ---
Cardiology SOAP Progress Note Subjective: Breathing better, compared to time of admission No cp or palp or syncope Some gen malaise and weakness are present No n/v/d Objective: I&O/Vital Signs 08/24/21 08/25/21 08/25/21 08/25/21 23:59 00:00 01:00 01:00 Pulse 93 80 84 Resp 17 18 B/P (MAP) 133/79 124/76 Pulse Ox 96 98 96 O2 Delivery NIV Bilevel NIV Bilevel NIV Bilevel O2 Flow Rate 35.00 35.00 FiO2 35 08/25/21 08/25/21 08/25/21 08/25/21 02:00 02:35 02:56 03:00 Pulse 95 90 86 Resp 17 23 18 B/P (MAP) 139/88 126/75 Pulse Ox 97 98 91 O2 Delivery NIV Bilevel NIV Bilevel NIV Bilevel O2 Flow Rate 35.00 35.00 25.00 25.00 08/25/21 08/25/21 08/25/21 08/25/21 03:06 04:00 04:00 05:00 Pulse 86 96 Resp 20 18 B/P (MAP) 128/81 100/76 Pulse Ox 95 95 96 O2 Delivery NIV Bilevel NIV Bilevel NIV Bilevel NIV Bilevel O2 Flow Rate 35.00 35.00 35.00 FiO2 35 08/25/21 08/25/21 08/25/21 08/25/21 06:00 07:00 07:00 07:01 Pulse 89 93 88 89 Resp 24 15 19 B/P (MAP) 133/86 145/86 Pulse Ox 93 95 95 O2 Delivery NIV Bilevel NIV Bilevel O2 Flow Rate 35.00 35.00 35.00 08/25/21 08/25/21 08/25/21 08/25/21 07:30 08:00 08:32 08:59 Temp 37.0 Pulse 91 Resp 23 B/P (MAP) 117/104 Pulse Ox 95 92 O2 Delivery NIV Bilevel High Flow N/C Nasal Cannula O2 Flow Rate 35.00 4.00 4.00 08/25/21 08/25/21 08/25/21 08/25/21 09:00 09:27 10:00 11:00 Pulse 96 89 105 Resp 19 21 16 B/P (MAP) 116/83 140/83 163/102 Pulse Ox 98 100 96 O2 Delivery Nasal Cannula Nasal Cannula Nasal Cannula Nasal Cannula O2 Flow Rate 4.00 3.00 3.00 3.00 08/25/21 11:05 Pulse Ox 98 O2 Delivery High Flow N/C O2 Flow Rate 3.00 08/25/21 00:00 Intake Total 1595 ml Output Total 1275 ml Balance 320 ml Weight (Pounds): 221 Weight (Ounces): 4.8 Weight (Calculated Kilograms): 100.357296 Constitutional: AAO x 3, well-developed, well-nourished Respiratory: No accessory muscle use; other (generally diminished air entry and prolonged exp phase) Cardiovascular: regular rate-rhythm, S1 and S2, systolic murmur (faint HANNA at the card base) Gastrointestional: No tender; soft; No guarding, No rebound; audible bowel sounds Extremities: No clubbing, No cyanosis, No significant edema Neurologic/Psychiatric: oriented x 3, other (moves all limbs equally) Skin: No rash on exposed areas, No ulcerations on exposed areas Results/Procedures: Labs Laboratory Tests 08/24/21 15:00: Potassium Level 4.0 08/25/21 03:15: Potassium Level 3.7, White Blood Count 5.1, Red Blood Count 2.79L, Hemoglobin 8.5L, Hematocrit 29L, Mean Corpuscular Volume 103H, Mean Corpuscular Hemoglobin 31, Mean Corpuscular Hemoglobin Concent 30L, Red Cell Distribution Width 14.2, Platelet Count 241, Mean Platelet Volume 11.6, Immature Granulocyte % (Auto) 0, Neutrophils (%) (Auto) 91H, Lymphocytes (%) (Auto) 7L, Monocytes (%) (Auto) 2, Eosinophils (%) (Auto) 0, Basophils (%) (Auto) 0, Neutrophils # (Auto) 4.7, Lymphocytes # (Auto) 0.3L, Monocytes # (Auto) 0.1, Eosinophils # (Auto) 0.0, Basophils # (Auto) 0.0, Immature Granulocyte # (Auto) 0.0, Sodium Level 138, Chloride Level 95L, Carbon Dioxide Level 34H, Anion Gap 9, Blood Urea Nitrogen 17, Creatinine 0.71, Estimat Glomerular Filtration Rate 83, BUN/Creatinine Ratio 24, Glucose Level 130H, Calcium Level 9.1, Corrected Calcium 9.6, Phosphorus Level 2.1L, Magnesium Level 1.9, Total Bilirubin 0.3, Aspartate Amino Transf (AST/SGOT) 23, Alanine Aminotransferase (ALT/SGPT) 22, Alkaline Phosphatase 64, Total Protein 5.7L, Albumin 3.4 Microbiology 08/22/21 MRSA Screen - Final, Complete MRSA not isolated 08/22/21 Blood Culture - Preliminary, Resulted No growth 08/22/21 Urine Culture - Final, Complete NO GROWTH Laboratory Tests 08/24/21 04:15 08/24/21 15:00 08/25/21 03:15 A/P: Assessment: Acute respiratory failure due to: - acute exacerbation of COPD - obesity hypoventilation syndrome - pain medication overdose Type II myocardial infarction - no evidence of acute coronary syndrome Hypertension Hyperlipidemia Plan: * I interviewed and examined the patient, reviewed her records, and answered her CV-related questions * ICU and Hosp services managing ac resp failure * Dr Campa plans cor risk stratification as an outpatient VERÓNICA CONNER MD [facility] Aug 25, 2021 11:32
[2021-08-25] MEDS: ENOXAPARIN 40 MG/0.4 ML (LOVENOX) SYR SC SCH (11:39)
--- NOTE | 2021-08-25 13:04 | Progress Note - Hospitalist ---
Subjective HPI/CC On Admission Date Seen by Provider: Aug 25, 2021 Time Seen by Provider: 09:10 Raven Melendrez is a 61 year old female with PMH COPD, chronic respiratory failure with hypoxia, HTN, anxiety, who presented with altered mental status. Her called EMS. She had been taking opiates for back pain. She was given Narcan and became slightly agitated but no significant improvement in mental status. She was found to be hypercapnic and was placed on BiPAP. Upon my exam, her mental status has improved. She is oriented. She does not remember what happened. She has been in her normal state of health recently. She denies fevers and chills. She has been short of breath. She says she was not taking any more pain meds than usual which she uses for chronic back pain. Subjective/Events-last exam She is doing much better this morning. She is sitting in her bedside chair. She is not feeling short of breath. She has not had any fevers. She was able to eat breakfast. She is still having some back pain. Objective Exam Vital Signs Vital Signs Date Time Temp Pulse Resp B/P (MAP) Pulse Ox O2 Delivery O2 Flow Rate FiO2 08/25/21 12:00 101 22 148/79 97 Nasal Cannula 3.00 08/25/21 11:40 36.3 08/25/21 04:00 35 Capillary Refill : Less Than 3 Seconds General Appearance: No Apparent Distress, Obese Respiratory: No Respiratory Distress, Decreased Breath Sounds Cardiovascular: Regular Rate, Rhythm, No Edema, No Murmur Gastrointestinal: Normal Bowel Sounds, Non Tender, Soft Extremity: Normal Inspection, Non Tender, No Pedal Edema Neurologic/Psychiatric: Alert, Oriented x3, No Motor/Sensory Deficits, Normal Mood/Affect Skin: Normal Color, Warm/Dry Results/Procedures Lab Laboratory Tests 08/24/21 15:00 08/25/21 03:15 Patient resulted labs reviewed. Imaging: Reviewed Imaging Report Assessment/Plan Assessment and Plan Assess & Plan/Chief Complaint Acute on chronic respiratory failure with hypoxia and hypercapnia Severe COPD with acute exacerbation Community acquired pneumonia Off BiPAP this morning Plan for no BiPAP overnight tonight Repeat ABG tomorrow morning Taper steroids Continue Azithromycin and Cefepime MAT protocol TeleICU consulted NSTEMI Appears to be type II Cardiology consulted No chest pain Monitor Hypophosphatemia Monitor and replace as needed Healthcare maintenance Administer COVID and flu vaccines DVT propylaxis: Lovenox Hyperkalemia, resolved Critical Care Critically Ill Patient Diagnosis/Problems Diagnosis/Problems (1) Acute on chronic respiratory failure with hypoxia and hypercapnia Status: Acute (2) Severe chronic obstructive pulmonary disease Onset Date: 01/07/2014 Status: Acute (3) COPD exacerbation Status: Acute (4) PNA (pneumonia) Status: Acute (5) NSTEMI (non-ST elevation myocardial infarction) Status: Acute (6) Obesity Status: Chronic CODEY ROY MD Aug 25, 2021 13:04
[2021-08-26] MEDS: RT-ALBUTEROL/IPRATROPIUM 3 ML (DUONEB) VIAL IH SCH ×6 (02:08→22:34)
[2021-08-26] MEDS: HYDROcodone/APAP 5 MG/325 MG (LORTAB) TAB PO PRN ×3 (04:54→21:10)
[2021-08-26] MEDS: ALPRAZolam 0.25 MG (XANAX) TAB PO PRN ×2 (04:54→19:12)
[2021-08-26 04:56] LABS: ABG BASE EXCESS 14.6 MMOL/L (-2.5-2.5); ABG OXYGEN SATURATION 97 % (94-100); ABG PO2 87 MMHG (79-93)
[2021-08-26 05:06] LABS: ABG PCO2 92 MMHG (35-45); ABG PH 7.28 (7.37-7.43)
[2021-08-26 05:07] LABS: ABG TCO2 44.8 MMOL/L (21.0-31.0); ALLENS TEST YES-POS; INSPIRED O2 35%; PATIENT TEMP 36.2; VENTILATOR NO
[2021-08-26 05:16] LABS: BASOPHILS % (AUTO) 0 % (0-10); EOSINOPHILS % (AUTO) 0 % (0-10); HEMATOCRIT 30 % (35-52); HEMOGLOBIN 8.9 g/dL (11.5-16.0); LYMPHOCYTES # (AUTO) 0.3 10^3/uL (1.0-4.0); LYMPHOCYTES % (AUTO) 4 % (12-44); MEAN CORPUSCULAR HEMOGLOBIN 31 pg (25-34); MEAN CORPUSCULAR HGB CONC 29 g/dL (32-36); MEAN CORPUSCULAR VOLUME 105 fL (80-99); MONOCYTES # (AUTO) 0.1 10^3/uL (0.0-1.0); MONOCYTES % (AUTO) 2 % (0-12); NEUTROPHILS # (AUTO) 6.3 10^3/uL (1.8-7.8); NEUTROPHILS % (AUTO) 94 % (42-75); PLATELET COUNT 247 10^3/uL (130-400); WHITE BLOOD COUNT 6.7 10^3/uL (4.3-11.0)
[2021-08-26] MEDS: POTASSIUM CL 10MEQ/50ML IVPB 50 ML IV SCH (05:28)
[2021-08-26] MEDS: MAGNESIUM 1 GM/100 ML IVPB 100 ML IV SCH (05:28)
[2021-08-26] MEDS: KCL 20 MEQ TAB (K-DUR) PO SCH (05:29)
[2021-08-26 05:34] LABS: ALBUMIN 3.6 GM/DL (3.2-4.5)
[2021-08-26 05:35] LABS: POTASSIUM 4.4 MMOL/L (3.6-5.0)
[2021-08-26 05:36] LABS: CALCIUM 8.8 MG/DL (8.5-10.1)
[2021-08-26 05:39] LABS: BILIRUBIN,TOTAL 0.3 MG/DL (0.1-1.0)
[2021-08-26 05:40] LABS: PHOSPHORUS 3.3 MG/DL (2.3-4.7)
[2021-08-26 05:41] LABS: CREATININE SERUM 0.79 MG/DL (0.60-1.30)
[2021-08-26 05:43] LABS: MAGNESIUM 1.9 MG/DL (1.6-2.4)
[2021-08-26] MEDS: CEFEPIME INJECTION 1,000 MG in WATER (STERILE) FOR INJECTION 10 ML IV SCH (05:59)
[2021-08-26] MEDS: methylPREDNISolone 40 MG/ML (Solu-MEDROL) VIAL IV SCH ×2 (05:59→19:45)
[2021-08-26] MEDS: meTOproloL SUCCINATE 50 MG (TOPROL XL) TAB PO SCH (07:45)
[2021-08-26] MEDS: AZITHROMYCIN 250 MG TAB (ZITHROMAX) PO SCH (07:45)
[2021-08-26] MEDS: ASPIRIN 81 MG CHEW (CHILDREN'S ASA) PO SCH (07:45)
[2021-08-26] MEDS: PANTOPRAZOLE 40 MG (PROTONIX) TAB PO SCH (07:45)
[2021-08-26] MEDS: cefTRIAXone 2,000 MG in WATER (STERILE) FOR INJECTION 20 ML IV SCH (10:22)
[2021-08-26 10:23] VITALS: BP 149/95
--- NOTE | 2021-08-26 11:07 | Tele-ICU Progress Note ---
Subjective Date Seen by a Provider: Aug 26, 2021 Time Seen by a Provider: 11:07 Sepsis Event Evaluation Height, Weight, BMI Height: 5'0.00" Weight: 221lbs. 4.8oz. 100.688712hl; 28.93 BMI Method:Stated Exam Exam Patient acknowledged, consented, and participated in this virtual visit which was conducted using real time audio/video Vital Signs Date Time Temp Pulse Resp B/P (MAP) Pulse Ox O2 Delivery O2 Flow Rate FiO2 08/26/21 10:00 89 19 149/95 94 NIV Bilevel 35.00 08/26/21 09:00 90 18 139/89 91 NIV Bilevel 35.00 08/26/21 08:09 95 High Flow N/C 3.00 08/26/21 08:00 104 20 159/92 92 NIV Bilevel 35.00 08/26/21 07:40 36.5 08/26/21 07:00 106 22 175/113 99 High Flow N/C 3.00 08/26/21 07:00 111 08/26/21 06:54 97 High Flow N/C 3.00 08/26/21 06:00 103 20 160/99 98 High Flow N/C 3.00 08/26/21 06:00 36.2 08/26/21 05:00 105 19 172/110 96 High Flow N/C 3.00 08/26/21 04:00 106 19 157/98 96 High Flow N/C 3.00 08/26/21 04:00 96 High Flow N/C 3.00 08/26/21 03:00 106 23 173/102 97 High Flow N/C 3.00 08/26/21 02:09 92 High Flow N/C 4.00 08/26/21 02:00 106 19 150/90 97 High Flow N/C 3.00 08/26/21 01:00 100 20 166/111 97 High Flow N/C 3.00 08/26/21 01:00 105 08/26/21 00:00 106 24 124/54 95 High Flow N/C 3.00 08/25/21 23:59 96 High Flow N/C 3.00 08/25/21 23:00 111 28 159/99 95 High Flow N/C 3.00 08/25/21 22:13 91 High Flow N/C 3.00 08/25/21 22:00 98 25 116/89 95 High Flow N/C 3.00 08/25/21 21:00 99 23 145/92 99 High Flow N/C 3.00 08/25/21 20:14 High Flow N/C 3.00 08/25/21 20:00 90 High Flow N/C 3.00 08/25/21 20:00 112 13 158/104 98 Nasal Cannula 3.00 08/25/21 20:00 97 High Flow N/C 3.00 08/25/21 19:31 37.0 08/25/21 19:00 111 23 145/91 96 Nasal Cannula 3.00 08/25/21 19:00 107 08/25/21 18:00 101 26 147/93 98 Nasal Cannula 3.00 08/25/21 17:00 115 25 163/108 97 Nasal Cannula 3.00 08/25/21 16:00 97 High Flow N/C 3.00 08/25/21 16:00 116 30 155/96 98 Nasal Cannula 3.00 08/25/21 15:42 37.0 08/25/21 15:00 107 32 156/96 98 Nasal Cannula 3.00 08/25/21 14:16 95 High Flow N/C 3.00 08/25/21 14:00 110 23 151/95 96 Nasal Cannula 3.00 08/25/21 13:00 109 08/25/21 13:00 110 23 94 Nasal Cannula 3.00 08/25/21 12:00 95 High Flow N/C 4.00 08/25/21 12:00 101 22 148/79 97 Nasal Cannula 3.00 08/25/21 11:40 36.3 I & O 08/26/21 07:00 Intake Total 2435 ml Output Total 2875 ml Balance -440 ml Height & Weight Height: 5'0.00" Weight: 221lbs. 4.8oz. 100.768266lj; 28.93 BMI Method:Stated General Appearance: No Apparent Distress, Obese HEENT: PERRL/EOMI, Normal ENT Inspection Neck: Normal Inspection Respiratory: No Respiratory Distress, Decreased Breath Sounds Cardiovascular: Regular Rate, Rhythm, No Edema, No Murmur Capillary Refill: Less Than 3 Seconds Gastrointestinal: normal bowel sounds, non tender Extremity: Normal Inspection, Non Tender, No Pedal Edema Neurologic/Psychiatric: Alert, Oriented x3, No Motor/Sensory Deficits, Normal Mood/Affect Skin: Normal Color, Warm/Dry Lymphatic: No Adenopathy Results Lab Laboratory Tests 08/24/21 15:00 08/25/21 03:15 08/26/21 04:38 Assessment/Plan Assessment/Plan (Tele-ICU Physician , Progress Note ) Available chart/ vitals / labs / Images reviewed Video assessment done using teleICU camera, rest of exam as per RN Discussed with RN , EXAM PER RN Events overnight : on nc o2 Afebrile I/O = Drips: Pressors: , hemodynamically stable Consultants: Hospital course: A/P Acute on chronic respiratory failure with hypoxia and hypercapnia - cont TX of AECOPD - cotn NIPPV - retaining CO2 on NC - will cont nocturnal NIPPV - advised to use at home too - as per RN - Candice initiated NIPPV arrangements for home use Severe COPD with acute exacerbation - steroids IV - to decrease dose today nebs CAP - to finish abx Azithromycin and Cefepime NSTEMI -type II Cardiology consulted DVT propylaxis: Lovenox Plans in collaboration with bedside consultants and IM MDs. Discussed with RN to reach out if any questions or concerns A total of 32minutes of critical care time was devoted to this patient today, required to treat and/or prevent further deterioration of critical care condition ( as above) . JAROCHO SMILEY MD Aug 26, 2021 11:07
[2021-08-26] MEDS: ENOXAPARIN 40 MG/0.4 ML (LOVENOX) SYR SC SCH (12:09)
--- NOTE | 2021-08-26 13:04 | Progress Note - Hospitalist ---
Subjective HPI/CC On Admission Date Seen by Provider: Aug 26, 2021 Time Seen by Provider: 09:45 Raven Melendrez is a 61 year old female with PMH COPD, chronic respiratory failure with hypoxia, HTN, anxiety, who presented with altered mental status. Her called EMS. She had been taking opiates for back pain. She was given Narcan and became slightly agitated but no significant improvement in mental status. She was found to be hypercapnic and was placed on BiPAP. Upon my exam, her mental status has improved. She is oriented. She does not remember what happened. She has been in her normal state of health recently. She denies fevers and chills. She has been short of breath. She says she was not taking any more pain meds than usual which she uses for chronic back pain. Subjective/Events-last exam She is wearing the BiPAP this morning. She is awake and alert. She is not having any confusion. She did not feel well this morning. She feels like her feet are swollen. Objective Exam Vital Signs Vital Signs Date Time Temp Pulse Resp B/P (MAP) Pulse Ox O2 Delivery O2 Flow Rate FiO2 08/26/21 12:11 93 High Flow N/C 4.00 08/26/21 12:11 106 22 175/113 08/26/21 12:00 36.0 08/25/21 04:00 35 Capillary Refill : Less Than 3 Seconds General Appearance: No Apparent Distress, Chronically ill, Obese Respiratory: No Respiratory Distress, Decreased Breath Sounds, Other (Wearing BiPAP) Cardiovascular: Regular Rate, Rhythm, No Edema, No Murmur Gastrointestinal: Normal Bowel Sounds, Non Tender, Soft Extremity: Normal Inspection, Non Tender, No Pedal Edema Neurologic/Psychiatric: Alert, Oriented x3, No Motor/Sensory Deficits Skin: Normal Color, Warm/Dry Results/Procedures Lab Laboratory Tests 08/26/21 04:38 Patient resulted labs reviewed. Imaging: Reviewed Imaging Report Assessment/Plan Assessment and Plan Assess & Plan/Chief Complaint Acute on chronic respiratory failure with hypoxia and hypercapnia Severe COPD with acute exacerbation Community acquired pneumonia Repeat ABG with acute hypercapnia, unable to go overnight without BiPAP Plan to obtain home BiPAP Social work consulted, appreciate assistance Continue steroids Continue Azithromycin and Cefepime MAT protocol TeleICU consulted NSTEMI Appears to be type II Cardiology consulted No chest pain Monitor Healthcare maintenance Received COVID and flu vaccines DVT propylaxis: Lovenox Hyperkalemia, resolved Hypophosphatemia, resolved Critical Care Critically Ill Patient Diagnosis/Problems Diagnosis/Problems (1) Acute on chronic respiratory failure with hypoxia and hypercapnia Status: Acute (2) Severe chronic obstructive pulmonary disease Onset Date: 01/07/2014 Status: Acute (3) COPD exacerbation Status: Acute (4) PNA (pneumonia) Status: Acute (5) NSTEMI (non-ST elevation myocardial infarction) Status: Acute (6) Obesity Status: Chronic CODEY ROY MD Aug 26, 2021 13:04
[2021-08-26 14:42] VITALS: BP 145/92
--- NOTE | 2021-08-26 15:39 | Progress Note - Cardiology ---
Cardiology SOAP Progress Note Subjective: Gen weakness and malaise present Shortness of breath have improved No cp or palp or syncope No n/v/d Objective: I&O/Vital Signs 08/26/21 08/26/21 08/26/21 08/26/21 04:00 04:00 05:00 06:00 Temp 36.2 Pulse 106 105 Resp 19 19 B/P (MAP) 157/98 172/110 Pulse Ox 96 96 96 O2 Delivery High Flow N/C High Flow N/C High Flow N/C O2 Flow Rate 3.00 3.00 3.00 08/26/21 08/26/21 08/26/21 08/26/21 06:00 06:54 07:00 07:00 Pulse 103 111 106 Resp 20 22 B/P (MAP) 160/99 175/113 Pulse Ox 98 97 99 O2 Delivery High Flow N/C High Flow N/C High Flow N/C O2 Flow Rate 3.00 3.00 3.00 08/26/21 08/26/21 08/26/21 08/26/21 07:40 08:00 08:09 09:00 Temp 36.5 Pulse 104 90 Resp 20 18 B/P (MAP) 159/92 139/89 Pulse Ox 92 95 91 O2 Delivery NIV Bilevel High Flow N/C NIV Bilevel O2 Flow Rate 35.00 3.00 35.00 08/26/21 08/26/21 08/26/21 08/26/21 10:00 10:23 11:00 12:00 Temp 36.0 Pulse 89 91 87 Resp 19 B/P (MAP) 149/95 145/93 Pulse Ox 94 94 96 O2 Delivery NIV Bilevel NIV Bilevel O2 Flow Rate 35.00 35.00 35.00 08/26/21 08/26/21 08/26/21 08/26/21 12:11 12:11 13:00 13:00 Pulse 106 93 97 Resp 22 22 B/P (MAP) 175/113 157/97 Pulse Ox 99 93 97 O2 Delivery High Flow N/C High Flow N/C High Flow N/C O2 Flow Rate 4.00 4.00 4.00 08/26/21 08/26/21 08/26/21 14:00 14:42 15:00 Pulse 97 96 96 Resp 20 23 20 B/P (MAP) 145/92 152/99 Pulse Ox 95 95 95 O2 Delivery High Flow N/C High Flow N/C O2 Flow Rate 4.00 35.00 4.00 08/26/21 00:00 Intake Total 1360 ml Output Total 1575 ml Balance -215 ml Weight (Pounds): 221 Weight (Ounces): 4.8 Weight (Calculated Kilograms): 100.475366 Constitutional: AAO x 3, well-developed, well-nourished Respiratory: No accessory muscle use; other (generally diminished air entry and prolonged exp phase) Cardiovascular: regular rate-rhythm, S1 and S2, systolic murmur (faint HANNA at the card base) Gastrointestional: No tender; soft; No guarding, No rebound; audible bowel sounds Extremities: No clubbing, No cyanosis, No significant edema Neurologic/Psychiatric: oriented x 3, other (moves all limbs equally) Skin: No rash on exposed areas, No ulcerations on exposed areas Results/Procedures: Labs Laboratory Tests 08/26/21 04:38: White Blood Count 6.7, Red Blood Count 2.90L, Hemoglobin 8.9L, Hematocrit 30L, Mean Corpuscular Volume 105H, Mean Corpuscular Hemoglobin 31, Mean Corpuscular Hemoglobin Concent 29L, Red Cell Distribution Width 14.2, Platelet Count 247, Mean Platelet Volume 11.0, Immature Granulocyte % (Auto) 1, Neutrophils (%) (Auto) 94H, Lymphocytes (%) (Auto) 4L, Monocytes (%) (Auto) 2, Eosinophils (%) (Auto) 0, Basophils (%) (Auto) 0, Neutrophils # (Auto) 6.3, Lymphocytes # (Auto) 0.3L, Monocytes # (Auto) 0.1, Eosinophils # (Auto) 0.0, Basophils # (Auto) 0.0, Immature Granulocyte # (Auto) 0.0, Sodium Level 141, Potassium Level 4.4, Chloride Level 97L, Carbon Dioxide Level 34H, Anion Gap 10, Blood Urea Nitrogen 14, Creatinine 0.79, Estimat Glomerular Filtration Rate 74, BUN/Creatinine Ratio 18, Glucose Level 124H, Calcium Level 8.8, Corrected Calcium 9.1, Phosphorus Level 3.3, Magnesium Level 1.9, Total Bilirubin 0.3, Aspartate Amino Transf (AST/SGOT) 34, Alanine Aminotransferase (ALT/SGPT) 41, Alkaline Phosphatase 68, Total Protein 6.0L, Albumin 3.6 08/26/21 04:47: Blood Gas Puncture Site LEFT RADIAL, Blood Gas Patient Temperature 36.2, Arterial Blood pH 7.28*L, Arterial Blood Partial Pressure CO2 92*H, Arterial Blood Partial Pressure O2 87, Arterial Blood HCO3 42*H, Arterial Blood Total CO2 44.8*H, Arterial Blood Oxygen Saturation 97, Arterial Blood Base Excess 14.6H, Alejandro Test YES-POS, Blood Gas Ventilator Setting NO, Blood Gas Inspired Oxygen 35% Microbiology 08/22/21 MRSA Screen - Final, Complete MRSA not isolated 08/22/21 Blood Culture - Preliminary, Resulted No growth 08/22/21 Urine Culture - Final, Complete NO GROWTH Laboratory Tests 08/25/21 03:15 08/26/21 04:38 A/P: Assessment: Acute respiratory failure due to: - acute exacerbation of COPD - obesity hypoventilation syndrome - pain medication overdose Type II myocardial infarction - no evidence of acute coronary syndrome Hypertension Hyperlipidemia Plan: * Continue current cardiac regimen * ICU and Hosp services managing ac resp failure * Dr Cmapa plans cor risk stratification as an outpatient VERÓNICA CONNER MD F[facility] Aug 26, 2021 15:39
[2021-08-26 22:35] VITALS: BP 143/127
[2021-08-27 02:28] VITALS: BP 133/80
[2021-08-27] MEDS: RT-ALBUTEROL/IPRATROPIUM 3 ML (DUONEB) VIAL IH SCH ×6 (02:28→22:04)
[2021-08-27] MEDS: NS IV 1000 ML 1,000 ML IV SCH (02:50)
[2021-08-27] MEDS: HYDROcodone/APAP 5 MG/325 MG (LORTAB) TAB PO PRN ×4 (03:53→22:51)
[2021-08-27 05:03] LABS: BASOPHILS % (AUTO) 0 % (0-10); EOSINOPHILS % (AUTO) 0 % (0-10); HEMATOCRIT 28 % (35-52); HEMOGLOBIN 8.4 g/dL (11.5-16.0); LYMPHOCYTES # (AUTO) 0.4 10^3/uL (1.0-4.0); LYMPHOCYTES % (AUTO) 7 % (12-44); MEAN CORPUSCULAR HEMOGLOBIN 31 pg (25-34); MEAN CORPUSCULAR HGB CONC 30 g/dL (32-36); MEAN CORPUSCULAR VOLUME 103 fL (80-99); MEAN PLATELET VOLUME 10.7 fL (9.0-12.2); MONOCYTES # (AUTO) 0.2 10^3/uL (0.0-1.0); MONOCYTES % (AUTO) 3 % (0-12); NEUTROPHILS % (AUTO) 90 % (42-75); PLATELET COUNT 211 10^3/uL (130-400); WHITE BLOOD COUNT 6.6 10^3/uL (4.3-11.0)
[2021-08-27 05:14] LABS: ALBUMIN 3.2 GM/DL (3.2-4.5); POTASSIUM 3.9 MMOL/L (3.6-5.0)
[2021-08-27 05:15] LABS: CALCIUM 8.3 MG/DL (8.5-10.1)
[2021-08-27 05:17] LABS: TOTAL PROTEIN 5.3 GM/DL (6.4-8.2)
[2021-08-27 05:18] LABS: BILIRUBIN,TOTAL 0.2 MG/DL (0.1-1.0)
[2021-08-27 05:20] LABS: CREATININE SERUM 0.79 MG/DL (0.60-1.30); PHOSPHORUS 1.9 MG/DL (2.3-4.7)
[2021-08-27 05:23] LABS: MAGNESIUM 1.8 MG/DL (1.6-2.4)
[2021-08-27 05:23] LABS: ABG BASE EXCESS 15.2 MMOL/L (-2.5-2.5); ABG OXYGEN SATURATION 98 % (94-100); ABG PCO2 68 MMHG (35-45); ABG PO2 96 MMHG (79-93)
[2021-08-27] MEDS: ALPRAZolam 0.25 MG (XANAX) TAB PO PRN ×3 (05:24→22:52)
[2021-08-27 05:25] LABS: ABG TCO2 43.1 MMOL/L (21.0-31.0)
[2021-08-27 05:26] LABS: ALLENS TEST YES-POS; INSPIRED O2 35%; PATIENT TEMP 36.7; VENTILATOR NO
[2021-08-27] MEDS: POTASSIUM CL 10MEQ/50ML IVPB 50 ML IV SCH (06:32)
[2021-08-27] MEDS: MAGNESIUM 1 GM/100 ML IVPB 100 ML IV SCH (06:32)
[2021-08-27] MEDS: KCL 20 MEQ TAB (K-DUR) PO SCH (06:32)
[2021-08-27] MEDS: methylPREDNISolone 40 MG/ML (Solu-MEDROL) VIAL IV SCH ×2 (08:00→20:15)
[2021-08-27] MEDS: PANTOPRAZOLE 40 MG (PROTONIX) TAB PO SCH (08:01)
[2021-08-27] MEDS: cefTRIAXone 2,000 MG in WATER (STERILE) FOR INJECTION 20 ML IV SCH (08:01)
[2021-08-27] MEDS: AZITHROMYCIN 250 MG TAB (ZITHROMAX) PO SCH (08:03)
[2021-08-27] MEDS: meTOproloL SUCCINATE 50 MG (TOPROL XL) TAB PO SCH (08:04)
[2021-08-27] MEDS: ASPIRIN 81 MG CHEW (CHILDREN'S ASA) PO SCH (08:04)
[2021-08-27] MEDS ORDERED: FUROSEMIDE 20 MG (LASIX) TAB PO SCH (08:30)
[2021-08-27] MEDS: FUROSEMIDE 40 MG (LASIX) TAB PO SCH (08:35)
--- NOTE | 2021-08-27 09:13 | Cardiology Progress Note ---
Subjective Date Seen by Provider: Aug 27, 2021 Time Seen by Provider: 09:11 Subjective/Events-last exam Patient was seen at bedside, sitting comfortably, breathing better. On nasal cannula at this time. No chest pain. Review of Systems General: No Chills, No Night Sweats; Fatigue; No Malaise, No Appetite, No Other HEENT: No Head Aches, No Visual Changes, No Eye Pain, No Ear Pain, No Dysphasia, No Sinus Congestion, No Post Nasal Drip, No Sore Throat, No Other Pulmonary: Dyspnea; No Cough, No Pleuritic Chest Pain, No Other Cardiovascular: No: Chest Pain, Palpitations, Orthopnea, Paroxysmal Noc. Dyspnea, Edema, Lt Headedness, Other Objective-Cardiology Exam Last Set of Vital Signs Vital Signs 08/27/21 08/27/21 08/27/21 04:00 07:58 09:00 Temp 35.0 Pulse 97 Resp 20 B/P (MAP) 146/85 Pulse Ox 95 O2 Delivery NIV Bilevel O2 Flow Rate 35.00 FiO2 35 I&O Intake and Output 08/27/21 00:00 Intake Total 1025 ml Output Total 2150 ml Balance -1125 ml Intake Oral 1025 ml Output Urine Total 2150 ml General: Alert, Oriented X3, Cooperative HEENT: Atraumatic, PERRLA Neck: Supple, No JVD, No Thyromegaly Lungs: Normal Air Movement, Other (Bilateral rhonchi) Heart: Regular Rate, Normal S1, Normal S2, No Murmurs Abdomen: Normal Bowel Sounds, Soft, No Tenderness, No Hepatosplenomegaly, No Masses Extremities: No Clubbing, No Cyanosis, No Edema, Normal Pulses, No Tenderness/Swelling Skin: No Rashes, No Breakdown, No Significant Lesion Neuro: Normal Speech, Strength at 5/5 X4 Ext, Normal Tone, Sensation Intact Psych/Mental Status: Mental Status NL, Mood NL Results Lab Laboratory Tests 08/27/21 04:40 A/P-Cardiology Admission Diagnosis Acute respiratory failure Type II myocardial infarction COPD Hypertension Assessment/Plan Status post acute respiratory failure, acute exacerbation of COPD, CO2 retention, obesity hypoventilation syndrome. Managed by oim consultant. Pain medication overdose, received Narcan, recovering slowly Type II myocardial infarction, elevated troponin, probably secondary to hypoxemia and respiratory failure, has been having some chest pain, EKG did not show any acute changes, underlying coronary artery disease cannot be excluded. Once clinically more stable will consider doing a stress test as an outpatient. Sinus tachycardia secondary to respiratory failure. Continue to monitor Hypertension, was on metoprolol as an outpatient, hold for now due to active wheezing. Hyperlipidemia, starting on statin prior to discharge Obesity, BMI 30, we discussed weight loss. COPD, oxygen dependent. ELENA GARCIA MD Aug 27, 2021 09:13
--- NOTE | 2021-08-27 10:25 | Physical Therapy Daily Note ---
PT Daily Note-Current Subjective Patient agrees to PT. Mental Status Patient Orientation: Normal For Age Attachments: Oxygen, [place] Catheter Transfers SCALE: Activities may be completed with or without assistive devices. 7-Wfdlvmvgax-vmdwmuy completes the activity by him/herself with no assistance from a helper. 5-Set-up or Clean-up Assistance-helper sets up or cleans up; patient completes activity. [place] assists only prior to or following the activity. 4-Supervision or Touching Assistance-helper provides verbal cues and/or touching/steadying and/or contact guard assistance as patient completes activity. Assistance may be provided throughout the activity or intermittently. 3-Partial/Moderate Assistance-helper does LESS THAN HALF the effort. [place] l ifts, holds or supports trunk or limbs, but provides less than half the effort. 2-Substantial/Maximal Assistance-helper does MORE THAN HALF the effort. [place] lifts or holds trunk or limbs and provides more than half the effort. 4-Jkdspdgwj-ltevac does ALL the effort. Patient does none of the effort to complete the activity. Or, the assistance of 2 or more helpers is required for t he patient to complete the activity. If activity was not attempted, code reason: 7-Patient Refused. 9-Not Applicable-not attempted and the patient did not perform the activity before the current illness, exacerbation or injury. 10-Not Attempted due to Environmental Limitations-(lack of equipment, weather restraints, etc.). 88-Not Attempted due to Medical Conditions or Safety Concerns. Lying to Sitting/Side of Bed(Q: 6 Sit to Stand (QC): 6 Chair/Nnp-bz-Qpnpo Xfer(QC): 6 Gait Training Distance: 25' Walk 10 feet (QC): 4 Gait Assistive Device: FWW safe and functional with no deviation Exercises Seated Therapy Exercises: Long arc quads Seated Reps: 15 Standing: Marching Standing Reps: 20 Assessment SAO2 decreases with minimal activity with quick recovery. PT consulted with RN on increasing O2 to 4L with activity. Patient currently on 3. Patient up in chair with needs met. PT Chcf Goals Mental Retardation Aide Goals PT Mental Retardation Aide Goals Time Frame: Sep 08, 2021 Roll Left & Right (QC): 6 Sit to Lying (QC): 6 Lying-Sitting on Side/Bed(QC): 6 Sit to Stand (QC): 6 Chair/Wow-iw-Wxozz Xfer(QC): 6 Toilet Transfer (QC): 6 Walk 10 feet (QC): 6 Walk 50ft with 2 Turns (QC): 6 Walk 150 ft (QC): 6 PT Plan Treatment/Plan Treatment Plan: Continue Plan of Care Treatment Plan: Bed Mobility, Education, Functional Activity [place], Functional Strength, Gait, Safety, Therapeutic Exercise, Transfers Treatment Duration: Sep 08, 2021 Frequency: 6 times per week Estimated Hrs Per Day: .25 hour per day Patient and/or Family Agrees t: Yes Time/GCodes Time In: 815 Time Out: 829 Total Billed Treatment Time: 14 Total Billed Treatment 1 visit FA 14 min MIGNON NEVES PT Aug 27, 2021 10:25
--- NOTE | 2021-08-27 11:09 | Tele-ICU Progress Note ---
Subjective Date Seen by a Provider: Aug 27, 2021 Time Seen by a Provider: 09:45 Sepsis Event Evaluation Height, Weight, BMI Height: 5'0.00" Weight: 221lbs. 4.8oz. [id number]; 28.93 BMI Method:Stated Exam Exam Patient acknowledged, consented, and participated in this virtual visit which was conducted using real time audio/video Vital Signs Date Time Temp Pulse Resp B/P (MAP) Pulse Ox O2 Delivery O2 Flow Rate FiO2 08/27/21 11:00 96 31 164/90 95 NIV Bilevel 35.00 08/27/21 10:28 94 High Flow N/C 3.00 08/27/21 10:00 96 25 105/82 97 NIV Bilevel 35.00 08/27/21 09:00 97 20 146/85 95 NIV Bilevel 35.00 08/27/21 08:37 Nasal Cannula 3.00 08/27/21 08:00 98 20 161/97 98 NIV Bilevel 35.00 08/27/21 07:58 35.0 08/27/21 07:00 87 19 153/94 100 NIV Bilevel 35.00 08/27/21 06:50 94 High Flow N/C 3.00 08/27/21 06:34 95 08/27/21 06:00 80 19 148/83 96 NIV Bilevel 35.00 08/27/21 05:00 84 18 135/79 96 NIV Bilevel 35.00 08/27/21 04:00 87 23 137/81 97 NIV Bilevel 35.00 08/27/21 04:00 96 NIV Bilevel 35 08/27/21 03:00 92 20 126/73 97 NIV Bilevel 35.00 08/27/21 02:28 78 21 96 35.00 08/27/21 02:00 71 18 133/80 96 NIV Bilevel 35.00 08/27/21 01:00 78 08/27/21 01:00 79 23 127/76 95 NIV Bilevel 35.00 08/27/21 00:00 89 20 137/83 94 NIV Bilevel 35.00 08/26/21 23:59 96 NIV Bilevel 35 08/26/21 23:00 79 18 145/89 95 NIV Bilevel 35.00 08/26/21 22:35 82 19 94 35.00 10/3/21 22:00 88 22 95 NIV Bilevel 35.00 08/26/21 21:30 NIV Bilevel 35.00 08/26/21 21:00 97 22 142/85 98 High Flow N/C 4.00 08/26/21 20:00 91 21 137/89 95 High Flow N/C 4.00 08/26/21 20:00 36.6 08/26/21 20:00 96 High Flow N/C 4.00 08/26/21 19:00 95 22 154/96 96 High Flow N/C 4.00 08/26/21 19:00 95 08/26/21 18:40 94 High Flow N/C 3.00 08/26/21 18:00 93 21 148/80 96 High Flow N/C 4.00 08/26/21 17:00 75 25 148/97 96 High Flow N/C 4.00 08/26/21 16:00 96 21 151/112 100 NIV Bilevel 35.00 08/26/21 16:00 37.4 08/26/21 15:55 98 NIV Bilevel 35 08/26/21 15:00 96 20 152/99 95 NIV Bilevel 35.00 08/26/21 14:42 96 23 95 35.00 08/26/21 14:00 97 20 145/92 95 High Flow N/C 4.00 08/26/21 13:00 97 22 157/97 97 High Flow N/C 4.00 08/26/21 13:00 93 08/26/21 12:11 93 High Flow N/C 4.00 08/26/21 12:11 106 22 175/113 99 High Flow N/C 4.00 08/26/21 12:00 36.0 I & O 08/27/21 07:00 Intake Total 875 ml Output Total 1725 ml Balance -850 ml Height & Weight Height: 5'0.00" Weight: 221lbs. 4.8oz. [id number]; 28.93 BMI Method:Stated General Appearance: No Apparent Distress, Chronically ill, Obese HEENT: PERRL/EOMI, Normal ENT Inspection Neck: Normal Inspection Respiratory: No Respiratory Distress, Decreased Breath Sounds, Other (Wearing BiPAP) Cardiovascular: Regular Rate, Rhythm, No Edema, No Murmur Capillary Refill: Less Than 3 Seconds Gastrointestinal: normal bowel sounds, non tender Extremity: Normal Inspection, Non Tender, No Pedal Edema Neurologic/Psychiatric: Alert, Oriented x3, No Motor/Sensory Deficits Skin: Normal Color, Warm/Dry Lymphatic: No Adenopathy Results Lab Laboratory Tests 08/26/21 04:38 08/27/21 04:40 Assessment/Plan Assessment/Plan (Tele-ICU Physician , Progress Note ) Available chart/ vitals / labs / Images reviewed Video assessment done using teleICU camera, rest of exam as per RN Discussed with RN , EXAM PER RN Events overnight : on nc o2 Afebrile I/O = neg Drips: Pressors: , hemodynamically stable Consultants: Hospital course: A/P Acute on chronic respiratory failure with hypoxia and hypercapnia - cont TX of AECOPD - retaining CO2 on NC at night , but ph normalizing with using nocturnal NIPPV with chronic Co2 level around 60-70 - WILL NEED TO cont nocturnal NIPPV AND advised to use at home too - as per RN - Dr Munson initiated NIPPV arrangements for home use - TRY TO ABOID OPIOIDS AND OTHER SEDATING MEDS AT HOME Severe COPD with acute exacerbation - steroids IV - to decrease dose 08/26 - FUTURE DECREASE PER PCP based on exam nebs CAP - to finish abx Azithromycin and Cefepime NSTEMI -type II Cardiology consulted Anemia - stable DVT propylaxis: Lovenox Plans in collaboration with bedside consultants and IM MDs. Discussed with RN to reach out if any questions or concerns A total of 32minutes of critical care time was devoted to this patient today, required to treat and/or prevent further deterioration of critical care condition ( as above) . JAROCHO SMILEY MD Aug 27, 2021 11:09
--- NOTE | 2021-08-27 12:11 | Discharge Summary ---
Diagnosis/Chief Complaint Date of Admission Aug 22, 2021 at 15:33 Date of Discharge Admission Diagnosis Acute on chronic respiratory failure with hypoxia and hypercapnia Primary Care Angelita Avilez MD Discharge Diagnosis (1) Acute on chronic respiratory failure with hypoxia and hypercapnia Status: Acute (2) Severe chronic obstructive pulmonary disease Onset Date: 01/07/2014 Status: Acute (3) COPD exacerbation Status: Acute (4) PNA (pneumonia) Status: Acute (5) NSTEMI (non-ST elevation myocardial infarction) Status: Acute (6) Obesity Status: Chronic Discharge Summary Discharge Physical Exam Allergies: Coded Allergies: levofloxacin (Unverified Adverse Reaction, Unknown, 06/15/17) MUSCLE PAIN naproxen (Verified Adverse Reaction, Unknown, Nausea, 08/22/21) tramadol (Verified Adverse Reaction, Unknown, Nausea, 08/22/21) Vitals & I&Os Vital Signs Date Time Temp Pulse Resp B/P (MAP) Pulse Ox O2 Delivery O2 Flow Rate FiO2 08/27/21 13:00 98 17 156/88 92 NIV Bilevel 35.00 08/27/21 12:37 35.3 08/27/21 04:00 35 General Appearance: No Apparent Distress, Chronically ill Respiratory: Lungs Clear, No Accessory Muscle Use Neurologic/Psychiatric: Alert, Oriented x3 Hospital Course Patient was admitted due to acute hypercapnic respiratory failure. She was found to have a CO2 of over 100 and was placed on BiPAP with significant improvement in her respiratory status. She was trialed off of NIPPV at night but due to her chronic respiratory failure due to COPD she had recurrent hypercapnea and acido sis with a pCO2 of92 with pH of 7.28. With nightly NIPPV her pH was 7.40 with a pCO2 of 68. She requires this noninvasive ventilator due to the severity of her COPD to prevent further decompensation and interruption of this support could lead to serious harm and respiratory failure requiring readmission or even . This noninvasive ventilator was arranged prior to discharge through [facility]. She was discharged home in stable and improved condition to follow up with her regular physicians. Labs (last 24 hrs) Laboratory Tests 08/27/21 04:40: White Blood Count 6.6, Red Blood Count 2.72L, Hemoglobin 8.4L, Hematocrit 28L, Mean Corpuscular Volume 103H, Mean Corpuscular Hemoglobin 31, Mean Corpuscular Hemoglobin Concent 30L, Red Cell Distribution Width 13.9, Platelet Count 211, Mean Platelet Volume 10.7, Immature Granulocyte % (Auto) 1, Neutrophils (%) (Auto) 90H, Lymphocytes (%) (Auto) 7L, Monocytes (%) (Auto) 3, Eosinophils (%) (Auto) 0, Basophils (%) (Auto) 0, Neutrophils # (Auto) 6.0, Lymphocytes # (Auto) 0.4L, Monocytes # (Auto) 0.2, Eosinophils # (Auto) 0.0, Basophils # (Auto) 0.0, Immature Granulocyte # (Auto) 0.0, Sodium Level 136, Potassium Level 3.9, Chloride Level 93L, Carbon Dioxide Level 35H, Anion Gap 8, Blood Urea Nitrogen 18, Creatinine 0.79, Estimat Glomerular Filtration Rate 74, BUN/Creatinine Ratio 23, Glucose Level 133H, Calcium Level 8.3L, Corrected Calcium 8.9, Phosphorus Level 1.9L, Magnesium Level 1.8, Total Bilirubin 0.2, Aspartate Amino Transf (AST/SGOT) 33, Alanine Aminotransferase (ALT/SGPT) 59H, Alkaline Phosphatase 61, Total Protein 5.3L, Albumin 3.2 08/27/21 05:10: Blood Gas Puncture Site LEFT RADIAL, Blood Gas Patient Temperature 36.7, Arterial Blood pH 7.40, Arterial Blood Partial Pressure CO2 68H, Arterial Blood Partial Pressure O2 96H, Arterial Blood HCO3 41*H, Arterial Blood Total CO2 43.1*H, Arterial Blood Oxygen Saturation 98, Arterial Blood Base Excess 15.2H, Alejandro Test YES-POS, Blood Gas Ventilator Setting NO, Blood Gas Inspired Oxygen 35% Microbiology 08/22/21 MRSA Screen - Final, Complete MRSA not isolated 08/22/21 Blood Culture - Final, Complete No growth 08/22/21 Urine Culture - Final, Complete NO GROWTH Patient resulted labs reviewed. Pending Labs Imaging: Reviewed Imaging Report Discussion & Recommendations Discharge Planning: >30 minutes discharge planning Discharge Home Medications: Active Scripts Active Cephalexin 500 Mg Tablet 500 Mg PO BID Prednisone 10 Mg Tab.ds.pk 10 Mg PO DAILY Take 6 tabs(60mg)daily,decrease by 1 tab(10MG)daily. Children's Aspirin (Aspirin) 81 Mg Tab.chew 81 Mg PO DAILY@0900 Azithromycin 250 Mg Tablet 250 Mg PO DAILY Reported Ativan (Lorazepam) 0.5 Mg Tablet 0.5 Mg PO Q8H PRN Cyanocobalamin Injection (Cyanocobalamin) 1,000 Mcg/Ml Inj 1 Mg IM MONTHLY Vitamin D2 (Ergocalciferol (Vitamin D2)) 1,250 Mcg Capsule 1,250 Mcg PO FRI Hydrocodone-Acetamin 7.5-325 (Hydrocodone/Acetaminophen) 1 Each Tablet 1 Ea PO Q8- 12H PRN Budesonide-Formoterol 160-4.5 (Budesonide/Formoterol Fumarate) 10.2 Gm Hfa.aer.ad 2 Puff INH BID Proventil Hfa (Albuterol Sulfate) 6.7 Gm Hfa.aer.ad 2 Puff INH Q6H PRN Montelukast Sodium 10 Mg Tablet 10 Mg PO DAILY Folic Acid 1 Mg Tablet 1 Mg PO DAILY Furosemide 20 Mg Tablet 40 Mg PO Q48H TAKES 2 (20MG) TABS Albuterol Sulfate 2.5 Mg/3 Ml Vial.neb 2.5 Mg NEB Q4H PRN Metoprolol Succinate 50 Mg Tab.er.24h 50 Mg PO DAILY Instructions to patient/family Please see electronic discharge instructions given to patient. Copy Copies To 1: ANGELITA AVILEZ MD, KATELYN M MD Aug 27, 2021 12:11
[2021-08-27] MEDS: ENOXAPARIN 40 MG/0.4 ML (LOVENOX) SYR SC SCH (12:45)
[2021-08-27] MEDS ORDERED: PRED10TA22 PO (13:00)
[2021-08-27] MEDS ORDERED: CEPH500T PO (13:00)
[2021-08-27] MEDS ORDERED: AZIT250T12 PO (13:00)
[2021-08-27] MEDS ORDERED: ASPI81TA64 PO (13:00)
--- NOTE | 2021-08-27 14:30 | Progress Note - Hospitalist ---
Subjective HPI/CC On Admission Date Seen by Provider: Aug 27, 2021 Time Seen by Provider: 14:28 Raven Melendrez is a 61 year old female with PMH COPD, chronic respiratory failure with hypoxia, HTN, anxiety, who presented with altered mental status. Her called EMS. She had been taking opiates for back pain. She was given Narcan and became slightly agitated but no significant improvement in mental status. She was found to be hypercapnic and was placed on BiPAP. Upon my exam, her mental status has improved. She is oriented. She does not remember what happened. She has been in her normal state of health recently. She denies fevers and chills. She has been short of breath. She says she was not taking any more pain meds than usual which she uses for chronic back pain. Subjective/Events-last exam pt reports feeling much better. Would like to go home. Discussed need for NIPPV at home and that it may take time to arrange. She is agreeable to this plan. Objective Exam Vital Signs Vital Signs Date Time Temp Pulse Resp B/P (MAP) Pulse Ox O2 Delivery O2 Flow Rate FiO2 08/27/21 14:00 90 20 143/84 95 NIV Bilevel 35.00 08/27/21 12:37 35.3 08/27/21 04:00 35 Capillary Refill : Less Than 3 Seconds General Appearance: No Apparent Distress, WD/WN Respiratory: Lungs Clear, No Respiratory Distress Cardiovascular: Regular Rate, Rhythm, No Murmur Extremity: No Calf Tenderness, Pedal Edema Neurologic/Psychiatric: Alert, Oriented x3 Results/Procedures Lab Laboratory Tests 08/27/21 04:40 Patient resulted labs reviewed. Imaging: Reviewed Imaging Report Assessment/Plan Assessment and Plan Assess & Plan/Chief Complaint Acute on chronic respiratory failure with hypoxia and hypercapnia Severe COPD with acute exacerbation Community acquired pneumonia Repeat ABG with acute hypercapnia, unable to go overnight without BiPAP Plan to obtain home BiPAP, forms sent today, hopeful for delivery tomorrow Social work consulted, appreciate assistance Continue steroids Continu abx MAT protocol TeleICU consulted NSTEMI Appears to be type II Cardiology consulted No chest pain Monitor Healthcare maintenance Received COVID and flu vaccines DVT propylaxis: Lovenox Hyperkalemia, resolved Hypophosphatemia, resolved Critical Care Critically Ill Patient BRAN VIEIRA MD Aug 27, 2021 14:30
--- NOTE | 2021-08-27 14:31 | D/C HH Face to Face Order ---
D/C Face to Face Orders Instructions for Patient Via [facility], Patient Instructions/FollowUp: Please continue to take your medications as written. Please follow up with your PCP to follow up this hospital stay. Physician to follow Patient: Dr Garcia Discharge Diet for Home: No Restrictions Patient Data-Allergies,Ht & Wt Patient Allergies: Coded Allergies: levofloxacin (Unverified Adverse Reaction, Unknown, 06/15/17) MUSCLE PAIN naproxen (Verified Adverse Reaction, Unknown, Nausea, 08/22/21) tramadol (Verified Adverse Reaction, Unknown, Nausea, 08/22/21) Height (Feet): 5 Height (Inches): 0.00 Weight (Pounds): 221 Weight (Ounces): 4.8 Home Health Need/Face to Face Date of Face to Face: Aug 27, 2021 Clinical Findings: Generalized weakness and fatigue, Shortness of breath I have seen Pt [id number]: Yes Discharged To: Home Diagnosis/Conditions: COPD, respiratory failure Patient is Homebound due to: CognItive deficits Homebound Status Due to the above stated illness, injury or surgical procedure (medical condition or diagnosis) and associated clinical findings, the patient is homebound because of his/her inability to leave home except with aid of a supportive device and/or person AND leaving the home requires a considerable and taxing effort or is medically contraindicated. Pt req the following assistanc: Aid of another person, Walker Home Health Nursing Orders Home Health Services Order: Nursing Services, Medical Records Administrator-Evaluate & Treat, Physical Therapy-Evaluate & Treat Home Health Infusion Therapy Line Start Date: Aug 22, 2021 Therapy Orders Therapy Orders: OT (must have SN or PT order), Physical Therapy Therapy Specific Orders: Eval assistive deivces, Teach enviro mo difications/safety, Gait training, Increase strength/endurance Certify Stmt I certify that this patient is under my care and that I, a nurse practitioner or a physician; a assistant restaurant general manager working with me, had a face to face encounter that - meets the physician face to face encounter requirements with this patient as dated. BRAN VIEIRA MD Aug 27, 2021 14:31
[2021-08-28 02:07] VITALS: BP 133/80
[2021-08-28] MEDS: RT-ALBUTEROL/IPRATROPIUM 3 ML (DUONEB) VIAL IH SCH ×6 (02:07→22:43)
[2021-08-28 05:10] LABS: BASOPHILS % (AUTO) 0 % (0-10); EOSINOPHILS % (AUTO) 0 % (0-10); HEMATOCRIT 28 % (35-52); HEMOGLOBIN 8.7 g/dL (11.5-16.0); LYMPHOCYTES # (AUTO) 0.5 10^3/uL (1.0-4.0); LYMPHOCYTES % (AUTO) 7 % (12-44); MEAN CORPUSCULAR HEMOGLOBIN 31 pg (25-34); MEAN CORPUSCULAR HGB CONC 31 g/dL (32-36); MEAN CORPUSCULAR VOLUME 101 fL (80-99); MEAN PLATELET VOLUME 10.9 fL (9.0-12.2); MONOCYTES # (AUTO) 0.2 10^3/uL (0.0-1.0); MONOCYTES % (AUTO) 2 % (0-12); NEUTROPHILS # (AUTO) 6.2 10^3/uL (1.8-7.8); NEUTROPHILS % (AUTO) 90 % (42-75); PLATELET COUNT 208 10^3/uL (130-400); WHITE BLOOD COUNT 6.8 10^3/uL (4.3-11.0)
[2021-08-28] MEDS: HYDROcodone/APAP 5 MG/325 MG (LORTAB) TAB PO PRN ×4 (05:14→22:01)
[2021-08-28 05:27] LABS: ALBUMIN 3.2 GM/DL (3.2-4.5); POTASSIUM 3.7 MMOL/L (3.6-5.0)
[2021-08-28 05:28] LABS: CALCIUM 8.4 MG/DL (8.5-10.1)
[2021-08-28 05:30] LABS: TOTAL PROTEIN 5.2 GM/DL (6.4-8.2)
[2021-08-28 05:31] LABS: BILIRUBIN,TOTAL 0.2 MG/DL (0.1-1.0)
[2021-08-28 05:33] LABS: CREATININE SERUM 0.73 MG/DL (0.60-1.30); PHOSPHORUS 1.7 MG/DL (2.3-4.7)
[2021-08-28 05:36] LABS: MAGNESIUM 1.7 MG/DL (1.6-2.4)
[2021-08-28] MEDS: POTASSIUM CL 10MEQ/50ML IVPB 50 ML IV SCH (05:45)
[2021-08-28] MEDS: KCL 20 MEQ TAB (K-DUR) PO SCH (05:46)
[2021-08-28] MEDS: MAGNESIUM 1 GM/100 ML IVPB 100 ML IV SCH (05:46)
[2021-08-28] MEDS: methylPREDNISolone 40 MG/ML (Solu-MEDROL) VIAL IV SCH (08:34)
[2021-08-28] MEDS: meTOproloL SUCCINATE 50 MG (TOPROL XL) TAB PO SCH (08:34)
[2021-08-28] MEDS: PANTOPRAZOLE 40 MG (PROTONIX) TAB PO SCH (08:34)
[2021-08-28] MEDS: AZITHROMYCIN 250 MG TAB (ZITHROMAX) PO SCH (08:34)
[2021-08-28] MEDS: ASPIRIN 81 MG CHEW (CHILDREN'S ASA) PO SCH (08:34)
[2021-08-28] MEDS: cefTRIAXone 2,000 MG in WATER (STERILE) FOR INJECTION 20 ML IV SCH (08:34)
[2021-08-28] MEDS: ALPRAZolam 0.25 MG (XANAX) TAB PO PRN ×2 (08:37→22:01)
--- NOTE | 2021-08-28 08:48 | Cardiology Progress Note ---
Subjective Date Seen by Provider: Aug 28, 2021 Time Seen by Provider: 08:46 Subjective/Events-last exam Patient is sitting in a chair, feeling better, breathing better. Reporting occasional epigastric pain Review of Systems General: No Chills, No Night Sweats, No Fatigue, No Malaise, No Appetite, No Other HEENT: No Head Aches, No Visual Changes, No Eye Pain, No Ear Pain, No Dysphasia, No Sinus Congestion, No Post Nasal Drip, No Sore Throat, No Other Pulmonary: Dyspnea; No Cough, No Pleuritic Chest Pain, No Other Cardiovascular: No: Chest Pain, Palpitations, Orthopnea, Paroxysmal Noc. Dyspnea, Edema, Lt Headedness, Other Objective-Cardiology Exam Last Set of Vital Signs Vital Signs 08/27/21 08/28/21 08/28/21 04:00 08:00 08:33 Temp 37.0 Pulse 108 Resp 20 B/P (MAP) 144/72 Pulse Ox 92 O2 Delivery Nasal Cannula O2 Flow Rate 2.00 FiO2 35 I&O Intake and Output 08/28/21 00:00 Intake Total 2270 ml Output Total 3225 ml Balance -955 ml Intake Oral 2270 ml Output Urine Total 3225 ml # Voids 5 # Bowel Movements 1 General: Alert, Oriented X3, Cooperative HEENT: Atraumatic, PERRLA Neck: Supple, No JVD, No Thyromegaly Lungs: Normal Air Movement, Other (Bilateral rhonchi) Heart: Regular Rate, Normal S1, Normal S2, No Murmurs Abdomen: Normal Bowel Sounds, Soft, No Tenderness, No Hepatosplenomegaly, No Masses Extremities: No Clubbing, No Cyanosis, No Edema, Normal Pulses, No Tenderness/Swelling Skin: No Rashes, No Breakdown, No Significant Lesion Neuro: Normal Speech, Strength at 5/5 X4 Ext, Normal Tone, Sensation Intact Psych/Mental Status: Mental Status NL, Mood NL Results Lab Laboratory Tests 08/28/21 04:55 A/P-Cardiology Admission Diagnosis Acute respiratory failure Type II myocardial infarction COPD Hypertension Assessment/Plan Status post acute respiratory failure, acute exacerbation of COPD, CO2 retention, obesity hypoventilation syndrome. Managed by photographic engineer. Pain medication overdose, received Narcan, recovered at this time, feeling better. Back to her baseline Type II myocardial infarction, elevated troponin, probably secondary to hypoxemia and respiratory failure, has been having some chest pain, EKG did not show any acute changes, underlying coronary artery disease cannot be excluded. Once clinically more stable will consider doing a stress test as an outpatient. Sinus tachycardia secondary to respiratory failure. Continue to monitor Hypertension, was on metoprolol as an outpatient, hold for now due to active wheezing. Hyperlipidemia, starting on statin prior to discharge Obesity, BMI 31, we discussed weight loss. COPD, oxygen dependent. ELENA GARCIA MD Aug 28, 2021 08:48
--- NOTE | 2021-08-28 10:20 | Physical Therapy Daily Note ---
PT Daily Note-Current Subjective Patient agrees to PT and states she hopes to go home today. Mental Status Attachments: Oxygen Transfers SCALE: Activities may be completed with or without assistive devices. 9-Nlqywntmkh-gmgpyvq completes the activity by him/herself with no assistance from a helper. 5-Set-up or Clean-up Assistance-helper sets up or cleans up; patient completes activity. [place] assists only prior to or following the activity. 4-Supervision or Touching Assistance-helper provides verbal cues and/or touching/steadying and/or contact guard assistance as patient completes activity. Assistance may be provided throughout the activity or intermittently. 3-Partial/Moderate Assistance-helper does LESS THAN HALF the effort. [place] lifts, holds or supports trunk or limbs, but provides less than half the effort. 2-Substantial/Maximal Assistance-helper does MORE THAN HALF the effort. [place] lifts or holds trunk or limbs and provides more than half the effort. 5-Plksetfex-rvyaow does ALL the effort. Patient does none of the effort to complete the activity. Or, the assistance of 2 or more helpers is required for the patient to complete the activity. If activity was not attempted, code reason: 7-Patient Refused. 9-Not Applicable-not attempted and the patient did not perform the activity before the current illness, exacerbation or injury. 10-Not Attempted due to Environmental Limitations-(lack of equipment, weather restraints, etc.). 88-Not Attempted due to Medical Conditions or Safety Concerns. Sit to Stand (QC): 4 (SBA) Exercises Seated Therapy Exercises: Ankle pumps, Long arc quads, Hip flexion Seated Reps: 15 Standing: Marching Standing Reps: 20 (x 2 sets) Assessment SAO2 decreases to 84% with minimal activity with O2 on 4L with quick recovery with pursed lip breathing. Increase activity as tolerated by patient. PT Usp Goals Abalone Fisherman Goals PT Usp Goals Time Frame: Sep 08, 2021 Roll Left & Right (QC): 6 Sit to Lying (QC): 6 Lying-Sitting on Side/Bed(QC): 6 Sit to Stand (QC): 6 Chair/Zqt-dh-Pppjx Xfer(QC): 6 Toilet Transfer (QC): 6 Walk 10 feet (QC): 6 Walk 50ft with 2 Turns (QC): 6 Walk 150 ft (QC): 6 PT Plan Treatment/Plan Treatment Plan: Continue Plan of Care Treatment Plan: Bed Mobility, Education, Functional Activity Luba, Functional Strength, Gait, Safety, Therapeutic Exercise, Transfers Treatment Duration: Sep 08, 2021 Frequency: 6 times per week Estimated Hrs Per Day: .25 hour per day Patient and/or Family Agrees t: Yes Time/GCodes Time In: 742 Time Out: 753 Total Billed Treatment Time: 11 Total Billed Treatment 1 visit EX 11 min MIGNON NEVES PT Aug 28, 2021 10:20
[2021-08-28] MEDS: ENOXAPARIN 40 MG/0.4 ML (LOVENOX) SYR SC SCH (11:31)
--- NOTE | 2021-08-28 12:05 | Tele-ICU Progress Note ---
Subjective Date Seen by a Provider: Aug 28, 2021 Time Seen by a Provider: 09:34 Sepsis Event Evaluation Height, Weight, BMI Height: 5'0.00" Weight: 221lbs. 4.8oz. 100.914543tb; 28.93 BMI Method:Stated Exam Exam Patient acknowledged, consented, and participated in this virtual visit which was conducted using real time audio/video Vital Signs Date Time Temp Pulse Resp B/P (MAP) Pulse Ox O2 Delivery O2 Flow Rate FiO2 08/28/21 08:33 108 20 144/72 92 Nasal Cannula 2.00 08/28/21 08:22 92 Nasal Cannula 3.00 08/28/21 08:00 37.0 08/28/21 06:51 High Flow N/C 2.00 08/28/21 06:50 95 High Flow N/C 3.00 08/28/21 06:34 92 08/28/21 06:23 Nasal Cannula 3.00 08/28/21 04:00 08/28/21 02:55 36.1 94 22 142/76 94 NIV Bilevel 35.00 08/28/21 02:07 77 18 96 35.00 08/28/21 01:00 86 08/28/21 00:08 NIV Bilevel 35.00 08/27/21 22:53 36.2 102 24 153/81 93 Nasal Cannula 3.00 08/27/21 22:04 97 High Flow N/C 3.00 08/27/21 20:34 36.0 08/27/21 20:24 92 Nasal Cannula 3.00 08/27/21 20:00 98 19 139/74 93 Nasal Cannula 3.00 08/27/21 19:36 100 08/27/21 19:00 Nasal Cannula 3.00 08/27/21 18:38 93 High Flow N/C 3.00 08/27/21 17:03 36.6 08/27/21 15:08 92 High Flow N/C 3.00 08/27/21 15:00 97 20 148/88 98 NIV Bilevel 35.00 08/27/21 14:00 90 20 143/84 95 NIV Bilevel 35.00 08/27/21 13:00 98 17 156/88 92 NIV Bilevel 35.00 08/27/21 12:51 98 08/27/21 12:46 Nasal Cannula 3.00 08/27/21 12:37 35.3 I & O 08/28/21 07:00 Intake Total 2880 ml Output Total 2600 ml Balance 280 ml Height & Weight Height: 5'0.00" Weight: 221lbs. 4.8oz. 100.837338gz; 28.93 BMI Method:Stated General Appearance: No Apparent Distress, WD/WN HEENT: PERRL/EOMI, Normal ENT Inspection Neck: Normal Inspection Respiratory: Lungs Clear, No Respiratory Distress Cardiovascular: Regular Rate, Rhythm, No Murmur Capillary Refill: Less Than 3 Seconds Gastrointestinal: normal bowel sounds, non tender Extremity: No Calf Tenderness, Pedal Edema Neurologic/Psychiatric: Alert, Oriented x3 Skin: Normal Color, Warm/Dry Lymphatic: No Adenopathy Results Lab Laboratory Tests 08/27/21 04:40 08/28/21 04:55 Assessment/Plan Assessment/Plan WILL SIGN OFF < PLEASE CALL IF NEED ANY INPUT (Tele-ICU Physician , Progress Note ) Available chart/ vitals / labs / Images reviewed Video assessment done using teleICU camera, rest of exam as per RN Discussed with RN , EXAM PER RN Events overnight : on nc o2 Afebrile I/O = neg Drips: Pressors: , hemodynamically stable Consultants: Hospital course: A/P Acute on chronic respiratory failure with hypoxia and hypercapnia - cont TX of AECOPD - retaining CO2 on NC at night , but ph normalizing with using nocturnal NIPPV with chronic Co2 level around 60-70 - WILL NEED TO cont nocturnal NIPPV AND advised to use at home too - as per RN - Dr Munson initiated NIPPV arrangements for home use - TRY TO ABOID OPIOIDS AND OTHER SEDATING MEDS AT HOME Severe COPD with acute exacerbation - steroids IV - to decrease dose 08/26 - FUTURE DECREASE PER PCP based on exam nebs CAP - to finish abx Azithromycin and Cefepime NSTEMI -type II Cardiology consulted Anemia - stable DVT propylaxis: Lovenox Plans in collaboration with bedside consultants and IM MDs. Discussed with RN to reach out if any questions or concerns A total of 20 minutes of critical care time was devoted to this patient today, required to treat and/or prevent further deterioration of critical care condition ( as above) . JAROCHO SMILEY MD Aug 28, 2021 12:04
[2021-08-28 15:42] VITALS: BP 144/84
--- NOTE | 2021-08-28 16:16 | Progress Note - Hospitalist ---
Subjective HPI/CC On Admission Date Seen by Provider: Aug 28, 2021 Time Seen by Provider: 08:30 Raven Melendrez is a 61 year old female with PMH COPD, chronic respiratory failure with hypoxia, HTN, anxiety, who presented with altered mental status. Her called EMS. She had been taking opiates for back pain. She was given Narcan and became slightly agitated but no significant improvement in mental status. She was found to be hypercapnic and was placed on BiPAP. Upon my exam, her mental status has improved. She is oriented. She does not remember what happened. She has been in her normal state of health recently. She denies fevers and chills. She has been short of breath. She says she was not taking any more pain meds than usual which she uses for chronic back pain. Subjective/Events-last exam Pt reports feeling well today. Discussed plan for getting NIPPV at home and that we're still awaiting insurance approval. She also requests motorized wheelchair upon discharge. Informed her I am unsure of hte requirement for rx for motorized wheelchair but could write for a nonmotorized wheelchair. Objective Exam Vital Signs Vital Signs Date Time Temp Pulse Resp B/P (MAP) Pulse Ox O2 Delivery O2 Flow Rate FiO2 08/28/21 15:42 36.8 104 20 144/84 (104) 92 High Flow N/C 3.00 08/27/21 04:00 35 Capillary Refill : Less Than 3 Seconds General Appearance: No Apparent Distress, Chronically ill Respiratory: Lungs Clear, No Respiratory Distress Cardiovascular: Regular Rate, Rhythm, No Murmur Neurologic/Psychiatric: Alert, Oriented x3 Results/Procedures Lab Laboratory Tests 08/28/21 04:55 Patient resulted labs reviewed. Imaging: Reviewed Imaging Report Assessment/Plan Assessment and Plan Assess & Plan/Chief Complaint Acute on chronic respiratory failure with hypoxia and hypercapnia Severe COPD with acute exacerbation Community acquired pneumonia Repeat ABG with acute hypercapnia, unable to go overnight without BiPAP Plan to obtain home NIPPV, forms sent yesterday and still waiting for insurance approval Social work consulted, appreciate assistance Continue steroids Continue abx MAT protocol TeleICU consulted NSTEMI Appears to be type II Cardiology consulted No chest pain Monitor Healthcare maintenance Received COVID and flu vaccines DVT propylaxis: Lovenox Hyperkalemia, resolved Hypophosphatemia, resolved Critical Care Critically Ill Patient BRAN VIEIRA MD Aug 28, 2021 16:16
[2021-08-28 20:00] VITALS: BP 126/74
[2021-08-28] MEDS: RT--FLUTICASONE/SALMETEROL 232-14 (AIRDUO RespiCLICK) IH SCH (22:43)
[2021-08-29] VITALS (7 sets, daily range): BP systolic 106–156; BP diastolic 63–86
[2021-08-29] MEDS: RT-ALBUTEROL/IPRATROPIUM 3 ML (DUONEB) VIAL IH SCH ×4 (02:30→14:41)
[2021-08-29] MEDS: HYDROcodone/APAP 5 MG/325 MG (LORTAB) TAB PO PRN ×2 (05:23→12:42)
[2021-08-29 06:21] LABS: BASOPHILS % (AUTO) 0 % (0-10); EOSINOPHILS # (AUTO) 0.3 10^3/uL (0.0-0.3); EOSINOPHILS % (AUTO) 3 % (0-10); HEMATOCRIT 27 % (35-52); HEMOGLOBIN 8.5 g/dL (11.5-16.0); LYMPHOCYTES # (AUTO) 2.1 10^3/uL (1.0-4.0); LYMPHOCYTES % (AUTO) 24 % (12-44); MEAN CORPUSCULAR HEMOGLOBIN 31 pg (25-34); MEAN CORPUSCULAR HGB CONC 31 g/dL (32-36); MEAN CORPUSCULAR VOLUME 101 fL (80-99); MEAN PLATELET VOLUME 11.1 fL (9.0-12.2); MONOCYTES # (AUTO) 0.5 10^3/uL (0.0-1.0); MONOCYTES % (AUTO) 5 % (0-12); NEUTROPHILS % (AUTO) 68 % (42-75); PLATELET COUNT 215 10^3/uL (130-400); WHITE BLOOD COUNT 8.9 10^3/uL (4.3-11.0)
[2021-08-29 06:42] LABS: ALBUMIN 3.1 GM/DL (3.2-4.5)
[2021-08-29 06:43] LABS: POTASSIUM 3.3 MMOL/L (3.6-5.0)
[2021-08-29 06:44] LABS: CALCIUM 8.3 MG/DL (8.5-10.1)
[2021-08-29 06:47] LABS: BILIRUBIN,TOTAL 0.3 MG/DL (0.1-1.0)
[2021-08-29 06:48] LABS: PHOSPHORUS 1.8 MG/DL (2.3-4.7)
[2021-08-29 06:49] LABS: CREATININE SERUM 0.71 MG/DL (0.60-1.30)
[2021-08-29 06:52] LABS: MAGNESIUM 1.6 MG/DL (1.6-2.4)
[2021-08-29] MEDS ORDERED: predniSONE 20 MG TAB PO SCH (07:00)
[2021-08-29] MEDS: RT--FLUTICASONE/SALMETEROL 232-14 (AIRDUO RespiCLICK) IH SCH (07:32)
--- NOTE | 2021-08-29 08:51 | Cardiology Progress Note ---
Subjective Date Seen by Provider: Aug 29, 2021 Time Seen by Provider: 08:49 Subjective/Events-last exam Patient in bed, states dyspnea has improved some today. Denies any chest pain. Review of Systems General: No Chills, No Night Sweats, No Fatigue, No Malaise, No Appetite, No Other HEENT: No Head Aches, No Visual Changes, No Eye Pain, No Ear Pain, No Dysphasia, No Sinus Congestion, No Post Nasal Drip, No Sore Throat, No Other Pulmonary: Dyspnea; No Cough, No Pleuritic Chest Pain, No Other Cardiovascular: No: Chest Pain, Palpitations, Orthopnea, Paroxysmal Noc. Dyspnea, Edema, Lt Headedness, Other Objective-Cardiology Exam Last Set of Vital Signs Vital Signs 08/27/21 08/29/21 04:00 11:20 Temp 36.5 Pulse 94 Resp 16 B/P (MAP) 112/65 (81) Pulse Ox 95 O2 Delivery High Flow N/C O2 Flow Rate 3.00 FiO2 35 I&O Intake and Output 08/29/21 00:00 Intake Total 2120 ml Balance 2120 ml Intake Oral 2120 ml # Voids 10 General: Alert, Oriented X3, Cooperative HEENT: Atraumatic, PERRLA Neck: Supple, No JVD, No Thyromegaly Lungs: Normal Air Movement, Other (Bilateral rhonchi and exp wheezing) Heart: Regular Rate, Normal S1, Normal S2, No Murmurs Abdomen: Normal Bowel Sounds, Soft, No Tenderness, No Hepatosplenomegaly, No Masses Extremities: No Clubbing, No Cyanosis, No Edema, Normal Pulses, No Tenderness/S welling Skin: No Rashes, No Breakdown, No Significant Lesion Neuro: Normal Speech, Strength at 5/5 X4 Ext, Normal Tone, Sensation Intact Psych/Mental Status: Mental Status NL, Mood NL Results Lab Laboratory Tests 08/29/21 05:51 A/P-Cardiology Admission Diagnosis Acute respiratory failure Type II myocardial infarction COPD Hypertension Assessment/Plan Status post acute respiratory failure, acute exacerbation of COPD, CO2 retention, obesity hypoventilation syndrome. Managed by hospitalist Pain medication overdose, received Narcan, recovered at this time, feeling better. Back to her baseline Type II myocardial infarction, elevated troponin, probably secondary to hypoxemia and respiratory failure, has been having some chest pain, EKG did not show any acute changes, underlying coronary artery disease cannot be excluded. Once clinically more stable will consider doing a stress test as an outpatient. Sinus tachycardia secondary to respiratory failure. Heart rate improved. Continue to monitor Hypertension, controlled, continue to monitor. Hyperlipidemia, starting on statin prior to discharge Obesity, BMI 31, we discussed weight loss. COPD, oxygen dependent. Supervisory-Addendum Brief Supervisory Addendum Participated in pt care: history, MDM, physical Personally performed: exam, history, MDM Care discussed with: YONATAN Results interpretation: Verified all documentation Notes: Patient was seen and evaluated with Lb, examination performed, management plan was discussed, agree with the current scribed note, I made few changes to the note using Italic font Patient was seen at bedside, laying down comfortably, feeling better, breathing better, still having some residual shortness of breath and wheezing. Cardiac status is stable at this time, continue to monitor blood pressure and heart rate LB ROMANO Aug 29, 2021 08:51 ELENA GARCIA MD Aug 29, 2021 14:41
[2021-08-29] MEDS: ASPIRIN 81 MG CHEW (CHILDREN'S ASA) PO SCH (09:07)
[2021-08-29] MEDS: KCL 20 MEQ TAB (K-DUR) PO SCH (09:07)
[2021-08-29] MEDS: ALPRAZolam 0.25 MG (XANAX) TAB PO PRN (09:07)
[2021-08-29] MEDS: PANTOPRAZOLE 40 MG (PROTONIX) TAB PO SCH (09:07)
[2021-08-29] MEDS: meTOproloL SUCCINATE 50 MG (TOPROL XL) TAB PO SCH (09:07)
[2021-08-29] MEDS: cefTRIAXone 2,000 MG in WATER (STERILE) FOR INJECTION 20 ML IV SCH (09:08)
[2021-08-29] MEDS: POTASSIUM CL 10MEQ/50ML IVPB 50 ML IV SCH (09:13)
[2021-08-29] MEDS: FUROSEMIDE 40 MG (LASIX) TAB PO SCH (09:16)
[2021-08-29] MEDS: MAGNESIUM 1 GM/100 ML IVPB 100 ML IV SCH (09:16)
[2021-08-29] MEDS ORDERED: MAGNESIUM 1 GM/100 ML IVPB 100 ML IV ONE (09:30)
[2021-08-29] MEDS: ENOXAPARIN 40 MG/0.4 ML (LOVENOX) SYR SC SCH (10:52)
--- NOTE | 2021-08-29 11:17 | Physical Therapy Daily Note ---
PT Daily Note-Current Subjective pt in bed upon arrival w/ RN in room and agrees to tx. pt hopeful to be going home today Mental Status Patient Orientation: Person, Place, Time, Situation Attachments: Oxygen, IV Transfers SCALE: Activities may be completed with or without assistive devices. 3-Xuxfipzszt-kmcougt completes the activity by him/herself with no assistance from a helper. 5-Set-up or Clean-up Assistance-helper sets up or cleans up; patient completes activity. [place] assists only prior to or following the activity. 4-Supervision or Touching Assistance-helper provides verbal cues and/or touching/steadying and/or contact guard assistance as patient completes activity. Assistance may be provided throughout the activity or intermittently. 3-Partial/Moderate Assistance-helper does LESS THAN HALF the effort. [place] lifts, holds or supports trunk or limbs, but provides less than half the effort. 2-Substantial/Maximal Assistance-helper does MORE THAN HALF the effort. [place] lifts or holds trunk or limbs and provides more than half the effort. 0-Awjwsorko-shbjoh does ALL the effort. Patient does none of the effort to complete the activity. Or, the assistance of 2 or more helpers is required for the patient to complete the activity. If activity was not attempted, code reason: 7-Patient Refused. 9-Not Applicable-not attempted and the patient did not perform the activity bef ore the current illness, exacerbation or injury. 10-Not Attempted due to Environmental Limitations-(lack of equipment, weather r estraints, etc.). 88-Not Attempted due to Medical Conditions or Safety Concerns. Sit to Stand (QC): 5 Gait Training Does the Patient Walk?: Yes Distance: 30' Walk 10 feet (QC): 5 Gait Assistive Device: None No gait deviations noted at this time. Treatments Pt supine to sit and sit to stand to amb to bathroom. Pt able to doff/don pants and clean self SBA. Pt amb to recliner in room and was left with all needs met, call light in hand. Assessment Current Status: Good Progress Progressing well, continue with gait training to increase strength and endurance PT Chief Ultrasound Technologist Goals Chief Ultrasound Technologist Goals PT Chief Ultrasound Technologist Goals Time Frame: Sep 08, 2021 Roll Left & Right (QC): 6 Sit to Lying (QC): 6 Lying-Sitting on Side/Bed(QC): 6 Sit to Stand (QC): 6 Chair/Knu-lj-Gjwyl Xfer(QC): 6 Toilet Transfer (QC): 6 Walk 10 feet (QC): 6 Walk 50ft with 2 Turns (QC): 6 Walk 150 ft (QC): 6 PT Plan Treatment/Plan Treatment Plan: Continue Plan of Care Treatment Plan: Bed Mobility, Education, Functional Activity [place], Functional Strength, Gait, Safety, Therapeutic Exercise, Transfers Treatment Duration: Sep 08, 2021 Frequency: 6 times per week Estimated Hrs Per Day: .25 hour per day Patient and/or Family Agrees t: Yes Time/GCodes Time In: 1054 Time Out: 1106 Total Billed Treatment Time: 12 Total Billed Treatment 1, YVROSE JOYA PRESCHOOL DISABILITY TEACHER Aug 29, 2021 11:17
--- NOTE | 2021-08-29 16:05 | Discharge Summary ---
Diagnosis/Chief Complaint Date of Admission Aug 22, 2021 at 15:33 Date of Discharge Discharge Date: Aug 27, 2021 Admission Diagnosis Acute on chronic respiratory failure with hypoxia and hypercapnia Primary Care Ashley Garcia MD Discharge Diagnosis (1) Acute on chronic respiratory failure with hypoxia and hypercapnia Status: Acute (2) Severe chronic obstructive pulmonary disease Onset Date: 01/07/2014 Status: Acute (3) COPD exacerbation Status: Acute (4) PNA (pneumonia) Status: Acute (5) NSTEMI (non-ST elevation myocardial infarction) Status: Acute (6) Obesity Status: Chronic Discharge Summary Discharge Physical Exam Allergies: Coded Allergies: levofloxacin (Unverified Adverse Reaction, Unknown, 06/15/17) MUSCLE PAIN naproxen (Verified Adverse Reaction, Unknown, Nausea, 08/22/21) tramadol (Verified Adverse Reaction, Unknown, Nausea, 08/22/21) Vitals & I&Os Vital Signs Date Time Temp Pulse Resp B/P (MAP) Pulse Ox O2 Delivery O2 Flow Rate FiO2 08/29/21 15:40 36.5 103 20 106/63 (77) 90 High Flow N/C 3.00 08/29/21 08:00 40 Hospital Course Labs (last 24 hrs) Laboratory Tests 08/29/21 05:51: White Blood Count 8.9, Red Blood Count 2.72L, Hemoglobin 8.5L, Hematocrit 27L, Mean Corpuscular Volume 101H, Mean Corpuscular Hemoglobin 31, Mean Corpuscular Hemoglobin Concent 31L, Red Cell Distribution Width 14.4, Platelet Count 215, Mean Platelet Volume 11.1, Immature Granulocyte % (Auto) 1, Neutrophils (%) (Auto) 68, Lymphocytes (%) (Auto) 24, Monocytes (%) (Auto) 5, Eosinophils (%) (Auto) 3, Basophils (%) (Auto) 0, Neutrophils # (Auto) 6.0, Lymphocytes # (Auto) 2.1, Monocytes # (Auto) 0.5, Eosinophils # (Auto) 0.3, Basophils # (Auto) 0.0, Immature Granulocyte # (Auto) 0.1, Sodium Level 140, Potassium Level 3.3L, Chloride Level 92L, Carbon Dioxide Level 41H, Anion Gap 7, Blood Urea Nitrogen 10, Creatinine 0.71, Estimat Glomerular Filtration Rate 83, BUN/Creatinine Ratio 14, Glucose Level 89, Calcium Level 8.3L, Corrected Calcium 9.0, Phosphorus Level 1.8L, Magnesium Level 1.6, Total Bilirubin 0.3, Aspartate Amino Transf (AST/SGOT) 14, Alanine Aminotransferase (ALT/SGPT) 37, Alkaline Phosphatase 57, Total Protein 5.0L, Albumin 3.1L Microbiology 08/22/21 MRSA Screen - Final, Complete MRSA not isolated 08/22/21 Blood Culture - Final, Complete No growth 08/22/21 Urine Culture - Final, Complete NO GROWTH Patient resulted labs reviewed. Imaging: Reviewed Imaging Report Discussion & Recommendations Discharge Planning: >30 minutes discharge planning Discharge Home Medications: Active Scripts Active Cephalexin 500 Mg Tablet 500 Mg PO BID Prednisone 10 Mg Tab.ds.pk 10 Mg PO DAILY Take 6 tabs(60mg)daily,decrease by 1 tab(10MG)daily. Children's Aspirin (Aspirin) 81 Mg Tab.chew 81 Mg PO DAILY@0900 Azithromycin 250 Mg Tablet 250 Mg PO DAILY Reported Ativan (Lorazepam) 0.5 Mg Tablet 0.5 Mg PO Q8H PRN Cyanocobalamin Injection (Cyanocobalamin) 1,000 Mcg/Ml Inj 1 Mg IM MONTHLY Vitamin D2 (Ergocalciferol (Vitamin D2)) 1,250 Mcg Capsule 1,250 Mcg PO FRI Hydrocodone-Acetamin 7.5-325 (Hydrocodone/Acetaminophen) 1 Each Tablet 1 Ea PO Q8- 12H PRN Budesonide-Formoterol 160-4.5 (Budesonide/Formoterol Fumarate) 10.2 Gm Hfa.aer.ad 2 Puff INH BID Proventil Hfa (Albuterol Sulfate) 6.7 Gm Hfa.aer.ad 2 Puff INH Q6H PRN Montelukast Sodium 10 Mg Tablet 10 Mg PO DAILY Folic Acid 1 Mg Tablet 1 Mg PO DAILY Furosemide 20 Mg Tablet 40 Mg PO Q48H TAKES 2 (20MG) TABS Albuterol Sulfate 2.5 Mg/3 Ml Vial.neb 2.5 Mg NEB Q4H PRN Metoprolol Succinate 50 Mg Tab.er.24h 50 Mg PO DAILY Instructions to patient/family Please see electronic discharge instructions given to patient. BRAN VIEIRA MD Aug 29, 2021 16:05
== END 2021-08-29 18:35 | disposition home health service (06) | DRG 189 ==
LOC: ER 11:09 → ICU 15:33 → 4TH 08-28 12:46
PROVIDERS: ADMIT Internal Medicine; ATTEND Internal Medicine
PROC: 5A0945A Assistance with Respiratory Ventilation, 24-96 Consecutive Hours, High Flow/Velocity Cannula (ICD-10-PCS; principal; 2021-08-22)
DX: J96.21 Acute and chronic respiratory failure with hypoxia (principal); I21.A1 Myocardial infarction type 2; J18.9 Pneumonia, unspecified organism; E66.2 Morbid (severe) obesity with alveolar hypoventilation; J96.22 Acute and chronic respiratory failure with hypercapnia; J43.9 Emphysema, unspecified; Z66 Do not resuscitate; E78.00 Pure hypercholesterolemia, unspecified; I10 Essential (primary) hypertension; K59.09 Other constipation; F41.9 Anxiety disorder, unspecified; R73.03 Prediabetes; E87.5 Hyperkalemia; G89.29 Other chronic pain; E78.5 Hyperlipidemia, unspecified; M54.50 Low back pain, unspecified; D64.9 Anemia, unspecified; T38.0X5A Adverse effect of glucocorticoids and synthetic analogues, initial encounter; E83.39 Other disorders of phosphorus metabolism; Z79.899 Other long term (current) drug therapy; Z88.1 Allergy status to other antibiotic agents; Z88.6 Allergy status to analgesic agent; Z87.891 Personal history of nicotine dependence; Z99.81 Dependence on supplemental oxygen; Z79.891 Long term (current) use of opiate analgesic; Z68.31 Body mass index [BMI] 31.0-31.9, adult; Z20.822 Contact with and (suspected) exposure to COVID-19
CPT/HCPCS: 36415; 36600; 51702; 71045; 71275; 80048; 80053; 80061; 81000; 82805; 83605; 83735; 83874; 83880; 84100; 84132; 84145; 84484; 85007; 85025; 85027; 85379; 85610; 85730; 86141; 87040; 87077; 87081; 87088; 87186; 87636; 87804; 91300; 93005; 93041; 93306; 94640; 94660; 94760; 96361; 96374; 99291

== ENCOUNTER → 2021-09-18 | Outpatient (CLI) | payer MEDICAID ==
[~2021-09-18] MED LIST changes: +ASPI81TA64 PO; +AZIT250T12 PO; +BUDE10.26 INH; +CEPH500T PO; +CNC1KV IM; +ERGO1250 PO; +FOLI1TAB33 PO; +HYDR-3817 PO; +LORA-404 PO; +RT-ALBUTEROL SULF 2.5 MG/3 ML PRE-MIX VIAL INH ONE
== END ==
LOC: RT 14:15
PROVIDERS: ATTEND Internal Medicine Critical Care Medicine
DX: J44.9 Chronic obstructive pulmonary disease, unspecified (principal)
CPT/HCPCS: 94060; 94726; 94729

== ENCOUNTER → 2022-02-18 | Outpatient (CLI) | payer MEDICAID ==
[~2022-02-18] MED LIST changes: +CYCL10TA25 PO; +MONT-40 PO; -MONT10TA32 PO; -RT-ALBUTEROL SULF 2.5 MG/3 ML PRE-MIX VIAL INH ONE
--- NOTE | 2022-02-18 13:41 | Diagnostic Imaging Report ---
Indication: COPD. Time Of Exam: 1:19 PM Correlation is made with prior chest from 01/23/2016. Heart size is normal. Some linear scarring in the left base. Lungs are clear of acute infiltrates. The pulmonary vascularity is normal. No effusion or pneumothorax is detected. IMPRESSION: No acute cardiopulmonary process is detected. Dictated by: Dictated on workstation # [id number]
== END ==
LOC: RAD 13:00
PROVIDERS: ATTEND Internal Medicine Critical Care Medicine
DX: J43.9 Emphysema, unspecified (principal)
CPT/HCPCS: 71046

== ENCOUNTER → 2023-07-30 | Outpatient (CLI) | payer MEDICAID ==
[~2023-07-30] MED LIST changes: +ALBU8.5H6 INH; +LEVO750T PO; -LEVO750T39 PO; +MONT-47 PO; -MONT10TA21 PO; +RT-ALBUTEROL SULF 2.5 MG/3 ML PRE-MIX VIAL INH ONE
== END ==
LOC: RT 13:41
PROVIDERS: ATTEND Nurse Practitioner Family
DX: J44.9 Chronic obstructive pulmonary disease, unspecified (principal); R60.9 Edema, unspecified
CPT/HCPCS: 94060; 94621; 94726; 94729